=== PATIENT | female | born 1965 | race Caucasian/White ===

== ENCOUNTER 2016-08-12 14:50 | Inpatient (IN) | payer MEDICARE ==
[~2016-08-12] VITALS: Ht 152.4 cm; Wt 70.6 kg
[~2016-08-12 14:50] MED LIST: ADVAIR 250/5028 PUFF IN; ADVAIR DISK28 PUFFS IN; AMBIEN10 MG PO; AMITRIPTYLINE10 MG PO; AMLODIPINE BESY10 MG PO; ASPIRIN 81MG TA81 MG PO; ATORVASTATIN CA10 M1 PO; AVANDIA8 MG PO; AVPAK EXTENDED100 MG PO; BENAZEPRIL HYDR20 MG PO; CALCIUM WITH V1 EAC1 PO; CEFDINIR300 M1 PO; CYMBALTA60 MG PO; DALIRESP500 MCG PO; DILANTIN 50MG.50 MG PO; DILTIAZEM HCL90 MG PO; FUROSEMIDE 20MG20 MG PO; HUMULIN R100 UNITS/ SC; IPRATROPIUM BROM3 M1 IH; KEPPRA 500 MG500 MG PO; KEPPRA1000 MG PO; KLOR-CON 1010 MEQ PO; LASIX 20MG. TAB20 MG PO; LEVAQUIN750 MG PO; LOPRESSOR 25MG.25 MG PO; LYRICA150 M1 PO; LYRICA50 MG PO; MAG-OX 400MG T400 MG PO; MUCINEX1200 MG PO; NASACORT A55 MCG/ACT NS; OS-CAL 500500 M1 PO; OXYGEN IH; OXYGEN2 IH; Omeprazole20 MG PO; PEPCID 20MG TAB20 MG PO; POTASSIUM CHLO20 ME2 PO; PREDNISONE 20MG20 MG PO; PREDNISONE 5MG.5 MG PO; PREDNISONE20 MG PO; PROAIR HFA0.09 MG/AC IH; SIMVASTATIN20 MG PO; SINGULAIR 10 MG10 MG PO; SINGULAIR10 MG PO; SPIRIVA HA1 PUFF/INH IH; TESSALON PERLE100 M1 PO; THEOPHYLLINE200 M2 PO; THEOPHYLLINE400 MG PO; TORSEMIDE20 MG PO; ZITHROMAX Z PA250 MG PO; [UNRECOGNIZED DRUG - OTHER] PO
[2016-08-12 15:51] VITALS: BP 123/69
[2016-08-12 15:55] VITALS: BP 123/69
[2016-08-12 17:31] LABS: HEMOGLOBIN 12.7 g/dL (12.2-16.2); LYMPH # 0.7 K/mm3 (0.7-4.5); LYMPH % 8.5 % (10-50.0)
--- NOTE | 2016-08-12 17:48 | RADIOLOGY REPORT PS360 ---
CHEST(2 VIEWS-NOT PORTABLE) ORDERING PHYSICIAN : Drew Covarrubias MD PATIENT AGE: 51 years GENDER: Female INDICATION: chest symptomsR/O PNEUMONIA PROCEDURE: CHEST(2 VIEWS-NOT PORTABLE) COMPARISON: None available FINDINGS: AP portable upright chest compared to 08/10/2016 AP upright chest film 11 2008. The lungs appear better expanded and slightly clearer at the bases vs the most recent portable chest study 08/10/2016 However I believe there is some minimal residual atelectasis at medial right lung base & to lesser degree medial left lung base when compared back to 2008 portable chest film difficult to exclude minimal infiltrate at the medial right base but favor atelectasis and scarring Upper lung العلي appear stable with nothing definitely acute. Cardio megaly again noted. Tortuous aorta with prominent scoliosis again noted. Lateral view shows kyphosis with no focal pneumonia. Stable cardiomegaly. Old left rib and right rib fractures noted. IMPRESSION------- Lungs are better expanded and appear clearer at the bases than on 08/10/2016. Suspect minimal residual atelectasis and scarring at bases particularly the medial right lung base. Doubt but difficult to exclude minimal infiltrate 74 Prominent scoliosis distorts the chest. Tortuous aorta. Cardiomegaly.
[2016-08-12 18:00] LABS: NEUTROPHILS 85 % (42-76)
[2016-08-12 18:01] LABS: STOMATOCYTE 1+
[2016-08-12 20:40] VITALS: BP 121/80
[2016-08-12 21:03] VITALS: BP 121/80
--- NOTE | 2016-08-12 21:43 | PHARMACY CLINIC NOTE ---
Patient Demographics Patient Demographics Admission date: 08/12/16 Date: 08/12/16 Time: 2141 Allergies Coded Allergies: No Known Allergies (06/29/16) HEIGHT- FT: 5 IN: 0.00 K.818 VTE General Information Labs: Laboratory Tests 08/12 1707 Hematology Hgb (12.2 - 16.2 g/dL) 12.7 Hct (37.0 - 47.0 %) 36.7 L Plt Count (142 - 424 K/mm3) 276 Disclaimer The following section includes nursing documentation that has been pulled in for pharmacy review. Patient's VTE score: 4 Patient's VTE Risk: LOW RISK Clinical trial participant? No VTE prophylaxis [id number] VTE prophylaxis ordered? Yes Type of prophylaxis/treatment: SULAIMAN at [id number]
[2016-08-12] MEDS ORDERED: IRBESARTAN150 M2 PO (21:46)
--- NOTE | 2016-08-12 22:06 | CONSULT NOTE ---
See Addendum Standard Demographics Patient Demo Date of Consultation: 08/12/16 Referring Provider: Kane Covarrubias MD Reason for Consultation: SOA PRIMARY DIAGNOSIS: COPD EXACERBATION Problem list Problem list: 1. Normal coronary arteries, Cardiac cath, 07/2016 2. Severe COPD, chronic oxygen and prednisone therapy A. 8 yrs of tobacco use stopped 2000 3. Diabetes, insulin treated since 2005 4. Seizure Disorder, since 2012 5. Osteoporosis 6. HTN 7. CKD, stage 3 with Cr 1.4 and GFR of 39 History of present illness: History of present illness: 51 yo WF with severe COPD, diabetes and HTN was admitted for increasing SOB. Cardiology consulted for evaluation of possible CHF. Past Medical History: General: Hypertension Yes CVA No Seizures Yes TB No COPD Yes Asthma Yes Diabetes Yes Insulin Dependent Yes Insulin Pump No Angina No CO No Hyperlipidemia Yes Urinary No Cancer Yes Ulcers No MRSA No GB Disease No Other FREQUENT BRONCHITIS Past Surgical HX: Previous Surgery?Y X 2 APPY HYSTERECTOMY Hernia Repair Allergies Coded Allergies: No Known Allergies (06/29/16) Home medications: Active Scripts Device (Oxygen (Concentrator)) 1 LITER IH CONSTANT #2 DEV Ref 5 Prov: 06/30/16 Device (Oxygen, Portable) 1 LITER IH CONSTANT #2 DEV Ref 5 Prov: 06/30/16 Levofloxacin (Levaquin 750MG Tab) 750 MG PO DAILY #5 TAB Prov: 08/10/16 Benzonatate (Tessalon Perle) 100 MG PO TID #30 SGL Prov: 08/10/16 Reported Medications Levetiracetam (Keppra) 1,000 MG PO QHS Levetiracetam (Keppra 500 Mg Tablet) 750 MG PO 0900,1700 Furosemide (Furosemide) 20 MG PO BID #60 TABLET ALBUTEROL-IPRATROPIUM (Iprat-Albut 0.5-3(2.5) MG/3 Ml) 3 ML IH Q4HP Albuterol Sulfate (Proair Hfa) 1 PUFF IH Q4HP Irbesartan 150 MG PO DAILY #30 TAB Calcium Carbonate/Vitamin D3 (Calcium With Vit D Tablet) 1 EACH PO BID Roflumilast (Daliresp) 500 MCG PO DAILY ASPIRIN (Aspirin) 81 MG PO DAILY DULOXETINE HCL (Cymbalta 60MG) 60 MG PO DAILY Famotidine (Pepcid 20MG Tablet) 20 MG PO BID FLUTICASONE/SALMETEROL (Advair 250-50 Diskus) 1 PUFF IN BID Guaifenesin (Mucinex) 1,200 MG PO BID INSULIN REGULAR, HUMAN (Humulin R INSULIN 10ML Vial) 0 UNITS SC ACHS MAGNESIUM OXIDE (Magnesium Oxide) 400 MG PO BID Montelukast Sodium (Singulair 10MG) 10 MG PO QHS POTASSIUM CHL (Potassium Chloride) 20 MEQ PO DAILY Tiotropium [place] (Spiriva) 1 PUFF IH DAILY PHENYTOIN SODIUM EXTENDED (Phenytoin Sodium Extended) 100 MG PO BID #60 CER Metoprolol Tartrate (Lopressor) 25 MG PO BID #60 TAB Atorvastatin Calcium 10 MG PO QHS #12 TAB DILTIAZEM HCL (Diltiazem Hcl) 90 MG PO BID #60 TAB Pregabalin (Lyrica) 150 MG PO TID #90 CAPSULE Current Medications: Current Medications Methylprednisolone Sodium Succinate 0 .STK-MED ONE .ROUTE (DC) Acetaminophen 0 .STK-MED ONE PO (DC) Methylprednisolone Sodium Succinate 60 MG Q8 IV Albuterol/Ipratropium 3 ML Q6H6 INH Albuterol/Ipratropium 0 .STK-MED ONE INH (DC) Ceftriaxone Sodium 1 GM DAILY IV Sodium Chloride 50 ML Acetaminophen 650 MG Q4HP PRN PO Albuterol/Ipratropium 3 ML Q1HP PRN INH Azithromycin 500 MG 1300 IV Sodium Chloride 250 ML Ceftriaxone Sodium 1 GM Q24H IV (CAN) Sodium Chloride 50 ML Guaifenesin/Dextromethorphan 10 ML Q4HP PRN PO Influenza Virus Vaccine Quadrival 0.5 ML PRN PRN IM Methylprednisolone Sodium Succinate 125 MG ONCE ONE IV (DC) Nicotine 21 MG DAILYP PRN TD Sodium Chloride 10 ML PRN PRN IV Immunization HX DT/Tetanus Never Had Flu [id number] Pneumonia RECEIVED IN PAST TB Test in last year No Family history Family HX Family Hx Insignificant No Diabetes Yes CAD No Hypertension Yes Hyperlipidemia Yes Cancer Yes TB No Social Hx: Smoking HX Type Cigarettes Packs/day N/A Alcohol Alcohol: No Hx of Drug Use Drug Use? No Review of systems: Constitutional No: no symptoms reported. Respiratory see HPI, shortness of breath, SOB with excertion, SOB at rest. Cardiovascular No no symptoms reported Gastrointestinal/Abdominal No no symptoms reported Genitourinary No: no symptoms reported. Musculoskeletal No: no symptoms reported. Neurological Yes: seizure disorder. Exam: Admission Vital Signs: 1ST Vital Signs Result Date Time Pulse Ox 85 08/12 1538 O2 Delivery ROOM AIR 08/12 1538 O2 Flow Rate 2 08/12 1538 B/P 123/69 08/12 1551 Temp 98.4 08/12 1551 Pulse 77 08/12 1551 Resp 20 08/12 1551 Last Vital Signs: Vital Signs Result Date Time O2 Flow Rate 2 08/12 2150 Pulse Ox 94 08/12 2102 B/P 121/80 08/12 2102 Temp 98.5 08/12 2102 Pulse 76 08/12 2102 Resp 20 08/12 2102 O2 Delivery ROOM AIR 08/12 2048 Exam General appearance: alert, awake Cardiovascular: regular rate & rhythm Respiratory: diminished breath sounds, wheezing ABD: obese Extremities: moves all, edema Neuro: alert, intact, oriented Laboratory data: Laboratory Tests 08/12/16 1707: Creatine Kinase 58, CK-MB (CK-2) Rel Index 2.4, CK and CKMB Interp 1.4, Troponin I < 0.02 08/12/16 1707: Sodium 140, Potassium 4.1, Chloride 101, Carbon Dioxide 30, BUN 34 H, Creatinine 1.4 H, Estimated Creat Clear 52, Estimated GFR (MDRD) 39 L, Glucose 126 H, Calcium 9.5 08/12/16 1707: B-Natriuretic Peptide 7, WBC 7.8, RBC 3.99 L, Hgb 12.7, Hct 36.7 L, MCV 91.7, RDW 17.4, Plt Count 276, MPV 6.9 L, Gran % 86.1 H, Gran # 6.7, Total Counted 100, Lymphocytes % 8.5 L, Monocytes % 4.7, Eosinophils % 0.4, Basophils % 0.3, Neutrophils 85 H, Band Neutrophils 1, Lymphocytes (Manual) 8 L, Lymphocytes # 0.7, Monocytes (Manual) 6, Monocytes # 0.4, Eosinophils # 0.0, Basophils # 0.0, Platelet Estimate NORMAL, Hypochromasia 1+, Anisocytosis 1+, Stomatocytes 1+, PUBS MCHC 34.7, MCH 31.9 H, Mycoplasma pneumon IgM NON-REACTIVE Microbiology Date/Time Procedure - Status Source Growth 08/12 1706 Anaerobic Blood Culture - RECD BLOOD 08/12 1706 Aerobic Blood Culture - RECD BLOOD 08/12 1706 Anaerobic Blood Culture - RECD BLOOD 08/12 1706 Aerobic Blood Culture - RECD BLOOD 08/12 1543 Organism ID (Sequencing 2)(SADIQ) - ORD SPUTUM 08/12 1530 Sputum Culture - RES SPUTUM 08/12 1530 Gram Stain - RES SPUTUM Plan: Assessment: 1. Dyspnea likely due to COPD exacerbation. Clinically no evidence of CHF. 2. Normal coronaries by cath last month with normal LVEF. 3. HTN 4. Diabetes, insulin treated Recommendations: 1. BNP ordered 2. Will obtain 2D echo and doppler 3. Further recommendations pending above results. at 1434
[2016-08-12 23:24] VITALS: BP 119/71
[2016-08-13] VITALS (7 sets, daily range): BP systolic 97–146; BP diastolic 58–90
--- NOTE | 2016-08-13 08:58 | ACUTE CARE PROGRESS NOTE (QUA) ---
Progress Notes Subjective Date 08/13/16 Time 0856 Patient/family reports: shortness of breath Nursing reports: alert Objective Findings Laboratory Tests 08/13/16 0606: POC Glucose 173 H 08/13/16 0515: Creatine Kinase 37, CK-MB (CK-2) Rel Index 3.2, CK and CKMB Interp 1.2, Troponin I < 0.02 08/12/16 2315: Creatine Kinase 55, CK-MB (CK-2) Rel Index 2.4, CK and CKMB Interp 1.3, Troponin I < 0.02 08/12/16 170: Creatine Kinase 58, CK-MB (CK-2) Rel Index 2.4, CK and CKMB Interp 1.4, Troponin I < 0.02 08/12/161706: Sodium 140, Potassium 4.1, Chloride 101, Carbon Dioxide 30, BUN 34 H, Creatinine 1.4 H, Estimated Creat Clear 52, Estimated GFR (MDRD) 39 L, Glucose 126 H, Calcium 9.5 08/12/161706: B-Natriuretic Peptide 7, WBC 7.8, RBC 3.99 L, Hgb 12.7, Hct 36.7 L, MCV 91.7, RDW 17.4, Plt Count 276, MPV 6.9 L, Gran % 86.1 H, Gran # 6.7, Total Counted 100, Lymphocytes % 8.5 L, Monocytes % 4.7, Eosinophils % 0.4, Basophils % 0.3, Neutrophils 85 H, Band Neutrophils 1, Lymphocytes (Manual) 8 L, Lymphocytes # 0.7, Monocytes (Manual) 6, Monocytes # 0.4, Eosinophils # 0.0, Basophils # 0.0, Platelet Estimate NORMAL, Hypochromasia 1+, Anisocytosis 1+, Stomatocytes 1+, PUBS MCHC 34.7, MCH 31.9 H, Mycoplasma pneumon IgM NON-REACTIVE Microbiology 08/12 1706 BLOOD: Anaerobic Blood Culture - RECD 08/12 1706 BLOOD: Aerobic Blood Culture - RECD 08/12 1706 BLOOD: Anaerobic Blood Culture - RECD 08/12 1706 BLOOD: Aerobic Blood Culture - RECD 08/12 1543 SPUTUM: Organism ID (Sequencing 2)(SADIQ) - ORD 08/12 153 SPUTUM: Sputum Culture - RES 08/12 1530 SPUTUM: Gram Stain - RES Vital Signs Date Time Temp Pulse Resp B/P Pulse O2 O2 Flow FiO2 Ox Delivery Rate 08/13 0644 2 08/13 0644 97.6 107 18 129/90 97 OXYGEN 2 08/13 0703 2 08/13 0559 2 08/13 0549 95 OXYGEN 2 08/13 0445 2 08/13 0435 2 08/13 0435 97.6 81 20 118/69 96 ROOM AIR 08/13 0248 2 08/13 0129 2 08/13 0107 2 08/13 0041 94 OXYGEN 2 08/12 2326 2 08/12 2324 98.0 83 20 119/71 94 ROOM AIR 08/12 2323 2 08/12 2150 2 08/12 2103 2 08/12 210 98.5 76 20 121/80 94 2 08/12 2049 89 ROOM AIR 08/12 2040 2 08/12 2040 98.5 76 20 121/80 89 ROOM AIR / 1845 2 / 1555 77 / 1555 98.4 77 20 123/69 / 1555 86 ROOM AIR / 1551 98.4 77 20 123/69 86 ROOM AIR / 1549 2 08/12 1538 2 08/12 1538 85 ROOM AIR Current Medications Atorvastatin Calcium 10 MG QHS PO (UNV) Levetiracetam 1,000 MG QHS PO (UNV) Aspirin 81 MG DAILY PO (UNV) Diltiazem HCl 90 MG BID PO (UNVr) Duloxetine HCl 60 MG DAILY PO (UNV) Famotidine 20 MG BID PO (UNV) Furosemide 20 MG BID PO (UNV) Irbesartan 150 MG DAILY PO (UNV) Levetiracetam 750 MG 0900,1700 PO (UNV) Magnesium Oxide 400 MG BID PO (UNV) Metoprolol Tartrate 25 MG BID PO (UNV) Phenytoin Sodium 100 MG BID PO (UNV) Potassium Chloride 20 MEQ DAILY PO (UNV) Pregabalin 150 MG TID PO (UNV) Diagnostic Test (Pha) 1 EACH W/MEALS&HS FS Methylprednisolone Sodium Succinate 0 .STK-MED ONE .ROUTE (DC) Acetaminophen 0 .STK-MED ONE PO (DC) Insulin Human [rDNA origin] 0 .STK-MED ONE SC (DC) Insulin Human [rDNA origin] SEE ADMIN CRITERIA W/MEALS&HS SC Methylprednisolone Sodium Succinate 0 .STK-MED ONE .ROUTE (DC) Acetaminophen 0 .STK-MED ONE PO (DC) Methylprednisolone Sodium Succinate 60 MG Q8 IV Albuterol/Ipratropium 3 ML Q6H6 INH Albuterol/Ipratropium 0 .STK-MED ONE INH (DC) Ceftriaxone Sodium 1 GM DAILY IV Sodium Chloride 50 ML Acetaminophen 650 MG Q4HP PRN PO Albuterol/Ipratropium 3 ML Q1HP PRN INH Azithromycin 500 MG 1300 IV Sodium Chloride 250 ML Ceftriaxone Sodium 1 GM Q24H IV (CAN) Sodium Chloride 50 ML Guaifenesin/Dextromethorphan 10 ML Q4HP PRN PO Influenza Virus Vaccine Quadrival 0.5 ML PRN PRN IM Methylprednisolone Sodium Succinate 125 MG ONCE ONE IV (DC) Nicotine 21 MG DAILYP PRN TD Sodium Chloride 10 ML PRN PRN IV Last VS-Temp:97.6 B/P:129/90 Pulse:107 Resp:18 SaO2:97 OXYGEN Last weight lbs:154 oz:2 K.91 Method:Bed Scales Exam General appearance: normal appearance, alert, awake, no acute distress Eyes: normal exam ENT: normal exam Neck: normal inspection, full range of motion Cardiovascular: normal exam, regular rate & rhythm Respiratory: dyspnea, on oxygen, rhonchi, wheezing ABD: normal exam, soft Genitourinary: normal voiding & quantity Extremities: normal exam, moves all Musculoskeletal: normal exam Skin: normal exam, intact, warm Neuro: normal exam, alert, intact, oriented Reviewed: allergies, medications, vital signs, lab results, radiology report Assessment/Plan Problem List 1. Chronic obstructive pulmonary disease with (acute) exacerbation Patient condition Stable Plan: continue current care This inpt stay is expected to cross 2 MNs from start of care Yes Comments: rounded with gainey. michelle ortiz in am at 0858
[2016-08-14 00:01] VITALS: BP 129/68
[2016-08-14 04:35] VITALS: BP 104/54
[2016-08-14] MEDS ORDERED: ZITHROMAX Z PA250 MG PO (08:39)
[2016-08-14] MEDS ORDERED: PREDNISONE 20MG20 MG PO (08:39)
--- NOTE | 2016-08-14 08:42 | ACUTE CARE PROGRESS NOTE (QUA) ---
Progress Notes Subjective Date 08/14/16 Time 0840 Patient/family reports: feeling better, no complaints Nursing reports: alert, no complaints Objective Findings Laboratory Tests 08/14/16 0625: POC Glucose 137 H 08/13/16 2146: POC Glucose 168 H 08/13/16 1652: POC Glucose 127 H 08/13/16 1219: POC Glucose 119 H Vital Signs Date Time Temp Pulse Resp B/P Pulse O2 O2 Flow FiO2 Ox Delivery Rate 08/14 0625 2 08/14 0554 2 08/14 0554 97 OXYGEN 2 08/14 0457 2 08/14 0435 98.7 71 22 104/54 98 OXYGEN 08/14 0302 2 08/14 0043 2 08/14 0001 98.7 68 20 129/68 95 OXYGEN 08/13 2314 85 ROOM AIR 08/13 2310 2 08/13 2130 2 08/13 2130 98.4 90 22 146/72 95 2 08/13 1958 98.4 90 22 146/72 95 OXYGEN / 1900 2 08/13 1820 2 08/13 1820 96 OXYGEN 2 08/13 1700 2 08/13 1603 98.6 88 20 97/58 99 OXYGEN / 1500 2 / 1300 2 / 1159 98.1 87 20 141/84 98 OXYGEN 08/13 1100 2 / 1000 98.6 88 20 97/58 99 2 / 0900 2 Current Medications Pregabalin 0 .STK-MED ONE PO (DC) Pregabalin 0 .STK-MED ONE PO (DC) Atorvastatin Calcium 10 MG QHS PO Levetiracetam 1,000 MG QHS PO Acetaminophen 0 .STK-MED ONE PO (DC) Pregabalin 0 .STK-MED ONE PO (DC) Pregabalin 0 .STK-MED ONE PO (DC) Methylprednisolone Sodium Succinate 0 .STK-MED ONE .ROUTE (DC) Pregabalin 0 .STK-MED ONE PO (DC) Pregabalin 0 .STK-MED ONE PO (DC) Diltiazem HCl 30 MG BID PO Aspirin 81 MG DAILY PO Duloxetine HCl 60 MG DAILY PO Famotidine 20 MG BID PO Furosemide 20 MG BID PO Irbesartan 150 MG DAILY PO Levetiracetam 750 MG 0900,1700 PO Magnesium Oxide 400 MG BID PO Metoprolol Tartrate 25 MG BID PO Phenytoin Sodium 100 MG BID PO Potassium Chloride 20 MEQ DAILY PO Pregabalin 100 MG TID PO Pregabalin 50 MG TID PO Diagnostic Test (Pha) 1 EACH W/MEALS&HS FS Insulin Human [rDNA origin] SEE ADMIN CRITERIA W/MEALS&HS SC Methylprednisolone Sodium Succinate 60 MG Q8 IV Albuterol/Ipratropium 3 ML Q6H6 INH Ceftriaxone Sodium 1 GM DAILY IV Sodium Chloride 50 ML Acetaminophen 650 MG Q4HP PRN PO Albuterol/Ipratropium 3 ML Q1HP PRN INH Azithromycin 500 MG 1300 IV Sodium Chloride 250 ML Guaifenesin/Dextromethorphan 10 ML Q4HP PRN PO Influenza Virus Vaccine Quadrival 0.5 ML PRN PRN IM Nicotine 21 MG DAILYP PRN TD Sodium Chloride 10 ML PRN PRN IV Last VS-Temp:98.7 B/P:104/54 Pulse:71 Resp:22 SaO2:97 OXYGEN Last weight lbs:155 oz:9 K.562 Method:Bed Scales Exam General appearance: normal appearance, alert, awake, no acute distress Eyes: normal exam ENT: normal exam Neck: normal inspection, full range of motion Cardiovascular: normal exam, regular rate & rhythm Respiratory: normal exam, on oxygen, wheezing ABD: normal exam, soft Genitourinary: normal voiding & quantity Extremities: normal exam, moves all, warm Musculoskeletal: normal exam Skin: normal exam, intact, warm Neuro: normal exam, alert, intact, oriented Reviewed: allergies, medications, vital signs, lab results, radiology report Assessment/Plan Problem List 1. Chronic obstructive pulmonary disease with (acute) exacerbation Patient condition Stable Plan: initiate discharge plan This inpt stay is expected to cross 2 MNs from start of care Yes Comments: ROUNDED WITH MALKA SPARKS DC TODAY at 0842
--- NOTE | 2016-08-14 08:46 | DISCHARGE SUMMARY STANDARD ---
Demographics Admit date: 08/12/16 Discharge date: 08/14/16 History of present illness History of present illness 51 yo WF with severe COPD, diabetes and HTN was admitted for increasing SOB. Cardiology consulted for evaluation of possible CHF.Pt was seen in office o2 sat 86%, SOB AND TACHYCARDIA. Was seen in ed 08/10/16 placed on levaquin but presents to the office with no improvment. Pt failed out pt therapy. Hospital Course Hospital Course: copd- change antibotics, iv steroids, breathing treatments,cardiology consult. pt states she feels better today and would like to be dc home Discharge diagnoses Problem List 1. Chronic obstructive pulmonary disease with (acute) exacerbation Medications Medications: Discharge meds are as noted. Follow up Follow up in office in: 7 DAYS with: Sedrick DE LA TORRE,Drew Gutierrez Comment: rounded with sedrick. follow up in one week in office. at 0845
[2016-08-14 09:01] VITALS: BP 138/77
[2016-08-14 10:01] VITALS: BP 138/77
[2016-09-01] MEDS ORDERED: PEPCID 20MG TAB20 MG PO (21:03)
[2016-09-01] MEDS ORDERED: CYMBALTA60 MG PO (21:03)
[2016-09-01] MEDS ORDERED: DALIRESP500 MCG PO (21:03)
[2016-09-01] MEDS ORDERED: ADVAIR 250/5028 PUFF IN (21:04)
[2016-09-01] MEDS ORDERED: LASIX20 MG PO (21:04)
[2016-09-01] MEDS ORDERED: MUCINEX1200 MG PO (21:05)
[2016-09-01] MEDS ORDERED: KEPPRA 500 MG500 MG PO ×2 (21:06→21:07)
[2016-09-01] MEDS ORDERED: LYRICA 100 MG100 MG PO (21:07)
[2016-09-01] MEDS ORDERED: MAG-OX 400MG T400 MG PO (21:08)
[2016-09-01] MEDS ORDERED: POTASSIUM CHLO20 ME2 PO (21:09)
[2016-09-01] MEDS ORDERED: PREDNISONE 5MG.5 MG PO (21:09)
[2016-09-02] MEDS ORDERED: ZITHROMAX Z PA250 MG PO (00:52)
[2016-09-02] MEDS ORDERED: PREDNISONE 20MG20 MG PO (00:52)
[2016-09-20] MEDS ORDERED: ALLOPURINOL100 MG PO (20:43)
[2016-09-21] MEDS ORDERED: PREDNISONE 5MG.5 MG PO (00:47)
[2016-09-21] MEDS ORDERED: LEVETIRACETAM500 M1 FT (00:49)
[2016-09-21] MEDS ORDERED: FAMOTIDINE 20MG20 MG PO (00:50)
[2016-09-21] MEDS ORDERED: ALLOPURINOL100 M1 PO (00:52)
[2016-09-21] MEDS ORDERED: SPIRIVA HA1 PUFF/INH IH (00:53)
[2016-09-21] MEDS ORDERED: DILTIAZEM HCL90 M1 PO (00:56)
[2016-09-21] MEDS ORDERED: FUROSEMIDE20 MG PO (00:57)
[2016-09-21] MEDS ORDERED: ATORVASTATIN CA10 MG PO (00:59)
[2016-09-21] MEDS ORDERED: K-DUR 20MEQ TA20 MEQ PO (01:00)
[2016-09-21] MEDS ORDERED: KEPPRA 500 MG500 MG PO (01:01)
[2016-09-21] MEDS ORDERED: NATURE'S BLEND500 M3 PO (01:02)
[2016-09-21] MEDS ORDERED: MAG-OX 400MG T400 MG PO (01:03)
[2016-09-21] MEDS ORDERED: SINGULAIR10 MG PO (01:04)
[2016-09-21] MEDS ORDERED: PHENYTOIN 100M100 MG PO (01:05)
[2016-09-21] MEDS ORDERED: METOPROLOL25 MG PO (01:06)
[2016-09-21] MEDS ORDERED: DULOXETINE 30MG30 MG FT (01:08)
[2016-09-21] MEDS ORDERED: ADULT LOW DOSE81 MG PO (01:10)
[2016-09-21] MEDS ORDERED: IRBESARTAN150 MG PO (01:10)
[2016-09-21] MEDS ORDERED: [UNRECOGNIZED DRUG - OTHER] PO (01:12)
[2016-09-21] MEDS ORDERED: ZITHROMAX Z PA250 MG PO (15:34)
[2016-09-21] MEDS ORDERED: PREDNISONE 20MG20 MG PO (15:34)
== END 2016-08-14 10:20 | disposition home or self-care (01) | DRG 192 ==
LOC: 2ND 14:50
PROVIDERS: Emergency Medicine
DX: J44.1 Chronic obstructive pulmonary disease with (acute) exacerbation (principal); Z99.81 Dependence on supplemental oxygen; E11.9 Type 2 diabetes mellitus without complications; Z79.4 Long term (current) use of insulin; I10 Essential (primary) hypertension; G40.909 Epilepsy, unspecified, not intractable, without status epilepticus
CPT/HCPCS: J0456

== ENCOUNTER 2017-04-14 12:16 | Observation (INO) | payer MEDICARE, MEDICAID ==
[~2017-04-14] VITALS: Ht 152.4 cm; Wt 65.5 kg
[~2017-04-14 12:16] MED LIST changes: +ADULT LOW DOSE81 MG PO; +ALLOPURINOL100 M1 PO; +ALLOPURINOL100 MG PO; +APAP ARTHRITIS650 MG PO; +ATORVASTATIN CA10 MG PO; +DILTIAZEM HCL90 M1 PO; +DULOXETINE 30MG30 MG FT; +FAMOTIDINE 20MG20 MG PO; +FUROSEMIDE20 MG PO; +IBUPROFEN400 MG PO; +IPRATROPIUM BROM3 M2 IH; +IRBESARTAN150 M2 PO; +IRBESARTAN150 MG PO; +K-DUR 20MEQ TA20 MEQ PO; +KLONOPIN 0.5MG0.5 MG NG; +LASIX20 MG PO; +LEVAQUIN500 MG PO; +LYRICA 100 MG100 MG PO; +METOPROLOL25 MG PO; +MUCINEX ER600 MG PO; +NATURE S BLEND PO; +PHENYTOIN 100M100 MG PO; +PREDNISONE 10MG10 MG PO; +TYLENOL WITH CO1 TA1 PO
[2017-04-14 12:19] VITALS: BP 165/115
[2017-04-14 12:59] LABS: LYMPH # 0.9 K/mm3 (0.7-4.5); LYMPH % 9.9 % (10-50.0)
[2017-04-14 13:05] LABS: HEMOGLOBIN 16.2 g/dL (12.2-16.2)
--- NOTE | 2017-04-14 13:08 | Emergency Room Report ---
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 N Clinical Suspician of Infection? N Mental Status: 1 - Regular (Normal Baseline) Sepsis Risk:Possible Sepsis Risk Have you (or family members/close friends) recently traveled outside the [place]? N If Yes, where/when: Have you had exposure to infectious disease within the past month? N TB? Other? Specify: Comment The patient is a vague historian. She is brought in by ambulance with a couple of different complaints. She states that she is hurting on her RIGHT side in the hip area for the past month since a fall. She was seen in this emergency room at that time, and has pain ever since. 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 She says she is able to ambulate. She uses a walker. She states that her home health care nurse came today and didn't like the way she looked, with her pain and also with the way she was breathing. The patient states that she does feel more short of breath and usual. She also says that she has a cough for the past "half of a month". She denies fever. She does report that she has sputum production. She says that she had some chest pain this morning. She is on oxygen at home. She is on prednisone 10 mg a day. She uses a nebulizer , but says she did not use it today because she has not been out of bed for 3 days. She says she does not currently have a family physician, but a visiting physician takes care of her. She says it was the visiting nurse who sent her in today. She used to see Dr. Covarrubias, but says that they sent her to hospice. It sounds as if she was put in hospice for end-stage chronic obstructive pulmonary disease. She says that she was discharged from hospice on 17 March because they told her she was not terminal. ALLERGIES Coded Allergies: sulfamethoxazole (From BACTRIM) (03/08/17) trimethoprim (From BACTRIM) (03/08/17) Home Medications Active Scripts Device (Oxygen (Concentrator)) 1 LITER IH CONSTANT #2 DEV Ref 5 Prov: 06/30/16 Device (Oxygen, Portable) 1 LITER IH CONSTANT #2 DEV Ref 5 Prov: 06/30/16 Clonazepam (Klonopin 0.5MG) 0.5 MG NG BIDP PRN ANXIETY #20 TAB Prov: 11/02/16 Reported Medications Albuterol Sulfate (Proair Hfa) 1-2 PUFF IH Q4HP PRN BREATHING ASPIRIN (Aspirin) 81 MG PO DAILY Levetiracetam (Keppra 500 Mg Tablet) 750 MG PO 0900,1700 Montelukast Sodium (Singulair 10MG) 10 MG PO QHS POTASSIUM CHL (Potassium Chloride) 20 MEQ PO DAILY Tiotropium [place] (Spiriva) 1 PUFF IH DAILY Furosemide (Furosemide) 20 MG PO BID #60 TABLET Metoprolol Tartrate (Lopressor) 25 MG PO BID #60 TAB DULOXETINE HCL (Cymbalta 60MG) 60 MG PO DAILY Famotidine (Pepcid 20MG Tablet) 20 MG PO QHS FLUTICASONE/SALMETEROL (Advair 250-50 Diskus) 1 PUFF IN BID Allopurinol 100 MG PO BID ATORVASTATIN CALCIUM (ATORVASTATIN 10MG) 10 MG PO MWF CALCIUM CITRATE/VITAMIN D3 (Calcium Citrate - Vit D Caplet) 1 TAB PO BID Guaifenesin (Mucinex) 600 MG PO BIDP PRN CHEST CONGESTION IPRATROPIUM/ALBUTEROL SULFATE (Iprat-Albut 0.5-3(2.5) MG/3 Ml) 3 ML IH BID IBUPROFEN MICRONIZED (IBUPROFEN 400MG) 400 MG PO Q8HP PRN PAIN Acetaminophen (Arthritis Pain Relief) 650 MG PO PRN-MRX1 PRN PAIN History Medical History General CAD? No Angina: No MS: No Hypertension? Yes Hyperlipidemia? Yes CHF? No DVT? No PE? No COPD? Yes Asthma? Yes Anemia? No GERD? No Gastric ulcers? No GI Bleed? No Hernia? Yes Thyroid Problems? No Hypothyroidism? No CVA? No Seizures? Yes Diabetes? Yes Insulin Dependent: Yes Insulin Pump: No Home FSBS? Yes Renal Insuffiency? No End Stage Renal Disease? No UTI? No Stones? No BPH? No GB Disease: No Nephritic Syndrome? No Asplenia? No Hepatitis? No Sickle Cell Disease? No Arthritis? No Migraines? No Cataracts? No Glaucoma? No MRSA? No HIV? No TB? No Anxiety? Yes Depression? Yes Cancer? Yes Site: SKIN More? 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 X-rays were negative at that time. Review of Systems All Other Systems Reviewed and Negative Constitutional denies no symptoms reported, denies fever Respiratory cough, shortness of breath Cardiovascular chest pain Musculoskeletal joint pain Physical Exam Vital Signs Vital Signs Date Time Temp Pulse Resp B/P Pulse O2 O2 Flow FiO2 Ox Delivery Rate 04/14 1334 98.1 102 16 157/93 96 04/14 1332 16 04/14 1229 92 04/14 1219 98.1 110 22 165/115 92 General Appearance Appears older than stated age., tachypneic. Eye Exam - bilateral eye normal exam, bilateral eye PERRL, bilateral eye EOMI Ear, Nose, Throat hearing grossly normal, normal ENT inspection Neck normal inspection, non-tender, supple, full range of motion Respiratory Status Yes: trachea midline, chest symmetrical, non productive cough. No: respiratory distress. Lung Sounds bilateral: rhonchi. Cardiovascular normal exam, regular rate/rhythm, no peripheral edema, no gallop, no JVD, no murmur, no rub, normal peripheral pulses Peripheral Pulses Pulses normal Yes Gastrointestinal normal bowel sounds, normal exam, non tender, soft, no organomegaly Back normal inspection, no CVA tenderness, no vertebral tenderness Extremities tender RIGHT hip, and complains of pain with movement. No shortening or malrotation or deformity. Distal neurovascular status intact. Neurologic alert, oriented x 3 Mental status normal mood/affect Skin intact, normal color, warm/dry Medical Decision Making LABS/Meds/Orders Pt receiving controlled substance in ED? No Aurelio was queried for this patient? Yes Comment [id number] rxs. patient was on morphine, gabapentin, clonazepam while in hospice. last rxs 01/28/17. Results/Orders Laboratory Tests 04/14/17 1240: Lactic Acid 1.2 04/14/17 1240: Creatine Kinase 50, CK-MB (CK-2) Rel Index 2.4, CK and CKMB Interp 1.2, Troponin I < 0.02 04/14/17 1240: Sodium 136, Potassium 3.7, Chloride 97 L, Carbon Dioxide 33 H, BUN 20 H, Creatinine 1.1 H, Estimated Creat Clear 67, Estimated GFR (MDRD) 52 L, Glucose 132 H, Calcium 9.7, Total Bilirubin 0.5, AST 12 L, ALT 32, Alkaline Phosphatase 124 H, Total Protein 7.9, Albumin 3.6, Globulin 4.3 H, Albumin/ Globulin Ratio 0.8 L, WBC 9.1, RBC 5.76 H, Hgb 16.2, Hct 51.6 H, MCV 89.6, RDW 16.7, Plt Count 274, MPV 8.0, Gran % 82.4 H, Gran # 7.5, Lymphocytes % 9.9 L, Monocytes % 6.2, Eosinophils % 1.3, Basophils % 0.3, Lymphocytes # 0.9, Monocytes # 0.6, Eosinophils # 0.1, Basophils # 0.0, PUBS MCHC 31.3 L, MCH 28.1 Current Medication Orders Sig/Aminata Start time Last Medication Dose Route Stop Time Status Admin Azithromycin 500 MG ONCE ONE 04/14 1400 AC 04/14 Sodium Chloride 250 ML IV 04/14 1459 1415 Albuterol/Ipratropium 3 ML ONCE ONE 04/14 1345 DC 04/14 INH 04/14 1346 1422 Ketorolac 30 MG ONCE ONE 04/14 1345 DC 04/14 Tromethamine IV 04/14 1346 1332 Methylprednisolone 125 MG ONCE ONE 04/14 1345 DC 04/14 Sodium Succinate IV 04/14 1346 1415 Sodium Chloride 10 ML PRN PRN 04/14 1230 AC IV 04/15 1227 Orders Procedure Date/time Status RT Pulse Oximetry, Provide 04/14 142 Active RT O2 Therapy, Monitor/[place]i 04/14 142 Active RT Aerosol Treatment, Provide 04/14 142 Active RT Aerosol Treatment, Provide 04/14 1423 Active Decision to admit 04/14 142 Active RT REQUEST DUONEB 04/14 1342 Active ELECTROCARDIOGRAM REQUEST 04/14 1248 Active CARDIAC ENZYMES 04/14 1248 Complete IV SALINE LOCK 04/14 1228 Active OXYGEN PER NURSE 04/14 1228 Active CULTURE, BLOOD 04/14 1228 Active LACTIC ACID 04/14 1228 Complete CBC WITH AUTO DIFF 04/14 122 Complete CHEM 12 PROFILE 04/14 122 Complete [facility] 04/14 UNK Active CM/EKG CM/EKG Comments EKG interpreted by Jaziel Carlton MD: Rhythm: sinus Rate: 100 [place]: normal Ectopy: Premature atrial contractions Conduction: normal ST Segment Changes: none T Wave Changes: none Q Waves: none No evidence of acute ischemia or injury Baseline artifact present, but I consider the EKG adequate for accurate interpretation. Progress - 2:20 PM: I have discussed the case with Dr. Greer who agrees to admit the patient to the hospital. We discussed the patient's clinical information, including history, exam, laboratory and radiology results and ED course. Per hospital procedure, I will write temporary bridge inpatient orders on the patient. Specific orders requested by the admitting physician: Nebulizer treatments, steroids. Toradol for pain. Departure Departure Disposition Still a Patient Clinical Impression Primary Impression: Chronic obstructive pulmonary disease with (acute) exacerbation Secondary Impressions: Right hip pain Condition STABLE Referrals Marci DE LA TORRE,Drew Gutierrez (Family) ED Critical Care Critical Care No
--- NOTE | 2017-04-14 13:40 | RADIOLOGY REPORT PS360 ---
CHEST-PORTABLE COMPARISON: Portable upright chest 12/16/2016 HISTORY: Cough and shortness of breath TECHNIQUE: Portable upright chest FINDINGS: The lung العلي are fairly well-expanded and appear clear of infiltrate. There is prominent dextroscoliotic curvature of the lower thoracic spine. There are old healed rib fractures bilaterally. There is borderline cardiomegaly however the vascularity is normal. IMPRESSION: Nonacute chest findings
--- NOTE | 2017-04-14 13:42 | RADIOLOGY REPORT PS360 ---
HIP RT 2-3V W/PELVIS IF PERFOR COMPARISON: Pelvis and right hip 03/08/2017 HISTORY: Right hip pain, recent fall TECHNIQUE: AP pelvis, cone-down AP and frog views right hip FINDINGS: The iliac bones and. Bones appear intact. Both hips are normally articulated with no evidence of fracture. There is normal range of motion the right hip. IMPRESSION: Grossly negative pelvis and right hip
[2017-04-14 15:51] VITALS: BP 161/102
[2017-04-14] MEDS ORDERED: HYDROXYZINE HCL25 M1 PO (15:58)
[2017-04-14] MEDS ORDERED: HUMALOG100 U/ML SC (17:02)
[2017-04-14 18:02] VITALS: BP 158/88
[2017-04-14 19:45] VITALS: BP 119/71
[2017-04-14 20:05] VITALS: BP 119/71
[2017-04-15 03:50] VITALS: BP 136/82
--- NOTE | 2017-04-15 07:13 | HISTORY AND PHYSICAL REPORT ---
Demographics: Admit date: 04/14/17 Chief complaint: Weakness and shortness of breath PRIMARY DIAGNOSIS: COPD Allergies: Coded Allergies: sulfamethoxazole (From BACTRIM) (03/08/17) trimethoprim (From BACTRIM) (03/08/17) History of present illness: History of present illness: 52-year-old female with known chronic obstructive pulmonary disease previously under the care of hospice presented to the emergency department because of increasing weakness with mild increase in shortness of breath over the preceding 3 days. Patient had been unable to get out of bed for 3 days due to just not feeling well. She did endorse mild increase in dyspnea above baseline as well as mild cough with minimal sputum production. She had not had any fevers. Workup in the emergency department revealed a tachypneic 52-year-old female with abnormal lung sounds. Patient was admitted for chronic obstructive pulmonary disease exacerbation. Patient was previously under the care of hospice but do to failure to decline patient was discharged from hospice one month ago. She is currently rolled in the [facility]. To You program which allows visiting nurse practitioners to come and treat her. She was actually visited by a nurse yesterday and sent to the emergency department because the nurse "did not like the way she looked". Patient no longer smokes and quit in 2000. She lives with her . Past medical history: Family HX Family Hx Insignificant No Diabetes Yes CAD No Hypertension Yes Hyperlipidemia Yes Cancer Yes TB No Immunization HX DT/Tetanus Unknown Flu 2015-FSN Pneumonia Received In Past TB Test in last year No General CAD? No Angina: No RI: No Hypertension? Yes Hyperlipidemia? Yes CHF? No DVT? No PE? No COPD? Yes Asthma? Yes Anemia? No GERD? No Gastric ulcers? No GI Bleed? No Hernia? Yes Thyroid Problems? No Hypothyroidism? No CVA? No Seizures? Yes Diabetes? Yes Insulin Dependent: Yes Insulin Pump: No Home FSBS? Yes Renal Insuffiency? No UTI? No Stones? No BPH? No GB Disease: No Nephritic Syndrome? No Asplenia? No Hepatitis? No Sickle Cell Disease? No Arthritis? No Migraines? No Cataracts? No Glaucoma? No MRSA? No HIV? No TB? No Anxiety? Yes Depression? Yes Cancer? Yes Site: SKIN More? No Past Surgical HX Previous Surgery?Y X 2 APPY HYSTERECTOMY Hernia Repair SKIN CANCER REMOVAL X2 Current home meds: Active Scripts Device (Oxygen (Concentrator)) 1 LITER IH CONSTANT #2 DEV Ref 5 Prov: 06/30/16 Device (Oxygen, Portable) 1 LITER IH CONSTANT #2 DEV Ref 5 Prov: 06/30/16 Clonazepam (Klonopin 0.5MG) 0.5 MG NG BIDP PRN ANXIETY #20 TAB Prov: 11/02/16 Reported Medications Albuterol Sulfate (Proair Hfa) 1-2 PUFF IH Q4HP PRN BREATHING ASPIRIN (Aspirin) 81 MG PO DAILY Levetiracetam (Keppra 500 Mg Tablet) 750 MG PO 0900,1700 Montelukast Sodium (Singulair 10MG) 10 MG PO QHS POTASSIUM CHL (Potassium Chloride) 20 MEQ PO DAILY Furosemide (Furosemide) 20 MG PO BID #60 TABLET Metoprolol Tartrate (Lopressor) 25 MG PO BID #60 TAB DULOXETINE HCL (Cymbalta 60MG) 60 MG PO DAILY Famotidine (Pepcid 20MG Tablet) 20 MG PO QHS FLUTICASONE/SALMETEROL (Advair 250-50 Diskus) 1 PUFF IN BID Allopurinol 100 MG PO BID CALCIUM CITRATE/VITAMIN D3 (Calcium Citrate - Vit D Caplet) 1 TAB PO BID Guaifenesin (Mucinex) 600 MG PO BIDP PRN CHEST CONGESTION IPRATROPIUM/ALBUTEROL SULFATE (Iprat-Albut 0.5-3(2.5) MG/3 Ml) 3 ML IH BID HYDROXYZINE HCL (Hydroxyzine HCl) 25 MG PO DAILY #120 Insulin Lispro, Recombinant (Humalog 100 UNITS/ML 10ML) 0 UNITS SC ACHS IBUPROFEN MICRONIZED (IBUPROFEN 400MG) 400 MG PO Q8HP PRN PAIN Acetaminophen (Arthritis Pain Relief) 650 MG PO PRN-MRX1 PRN PAIN Social Hx: Smoking HX Tobacco Yes Type Cigarettes Packs/day < 1 PACK Are you/the child exposed to second-hand smoke: No Alcohol Alcohol: No Hx of Drug Use Drug Use? No Patien't marital status is Patient's support system is fair Review of systems: Constitutional see HPI. Respiratory see HPI. Cardiovascular see HPI Gastrointestinal/Abdominal no symptoms reported Genitourinary no symptoms reported. Musculoskeletal see HPI. Neurological Yes: see HPI. Exam: Admission vital signs: 1ST Vital Signs Result Date Time Pulse Ox 92 04/14 1219 B/P 165/115 04/14 1219 Temp 98.1 04/14 1219 Pulse 110 04/14 1219 Resp 22 04/14 1219 O2 Flow Rate 2 04/14 1526 O2 Delivery OXYGEN 04/14 1551 Vital Signs Date Time Temp Pulse Resp B/P Pulse O2 O2 Flow FiO2 Ox Delivery Rate 04/15 0629 2 04/15 0629 95 OXYGEN 2 04/15 0558 2 04/15 0450 2 04/15 0350 2 04/15 0350 98.1 66 18 136/82 98 OXYGEN 2 04/15 0300 2 04/15 0155 2 04/15 0100 2 04/15 0000 2 Exam General appearance: awake, pursed lip breathing Eyes: anicteric Neck: no carotid bruit Cardiovascular: regular rate & rhythm Respiratory: breath sounds are distant. Expiratory rhonchi are heard anteriorly and posteriorly. Minimal wheezing. ABD: soft, no tenderness Plan: Problem List 1. COPD exacerbation 2. Diabetes mellitus 3. Right hip pain Plan: Patient has been admitted and IV Solu-Medrol will be continued with frederick nebs. Continue IV azithromycin. Patient was instructed to sit in the chair today as well as ambulate within the room. at 0713
--- NOTE | 2017-04-15 07:30 | PHARMACY CLINIC NOTE ---
Patient Demographics Patient Demographics Admission date: 04/14/17 Date: 04/15/17 Time: 07 Allergies Coded Allergies: sulfamethoxazole (From BACTRIM) (03/08/17) trimethoprim (From BACTRIM) (03/08/17) HEIGHT- FT: 5 IN: 0.00 K.516 VTE General Information Labs: Laboratory Tests 04/14 1240 Hematology Hgb (12.2 - 16.2 g/dL) 16.2 Hct (37.0 - 47.0 %) 51.6 H Plt Count (142 - 424 K/mm3) 274 Disclaimer The following section includes nursing documentation that has been pulled in for pharmacy review. Patient's VTE score: 3 Patient's VTE Risk: MOD RISK Clinical trial participant? No VTE prophylaxis [id number] VTE prophylaxis ordered? Yes Type of prophylaxis/treatment: SULAIMAN at 0730
[2017-04-15 07:55] VITALS: BP 129/70
[2017-04-15] MEDS ORDERED: ATORVASTATIN CA10 MG PO (10:43)
[2017-04-15] MEDS ORDERED: DILTIAZEM HCL90 M1 PO (10:45)
[2017-04-15] MEDS ORDERED: PREDNISONE 10MG10 MG PO (10:51)
[2017-04-15] MEDS ORDERED: AVPAK EXTENDED100 MG PO (10:53)
[2017-04-15] MEDS ORDERED: KEPPRA1000 MG PO (11:28)
[2017-04-15] MEDS ORDERED: MAG-OX 400MG T400 MG PO (11:29)
[2017-04-15] MEDS ORDERED: SPIRIVA HA1 PUFF/INH IH (11:31)
[2017-04-15] MEDS ORDERED: AVAPRO 150MG T150 MG PO (11:32)
[2017-04-15 11:38] VITALS: BP 129/70
[2017-04-15 16:19] VITALS: BP 114/67
[2017-04-15 19:40] VITALS: BP 120/66
[2017-04-15] MEDS ORDERED: AVPAK AZITHROM250 MG PO (20:28)
[2017-04-15] MEDS ORDERED: PREDNISONE 20MG20 MG PO (20:29)
[2017-04-16 03:58] VITALS: BP 115/63
--- NOTE | 2017-04-16 06:23 | Discharge Summary ---
Demographics Admit date: 04/14/17 Discharge date: 04/16/17 Discharge diagnoses Problem List 1. COPD exacerbation 2. Diabetes mellitus 3. Right hip pain History of present illness History of present illness 52-year-old female with known chronic obstructive pulmonary disease previously under the care of hospice presented to the emergency department because of increasing weakness with mild increase in shortness of breath over the preceding 3 days. Patient had been unable to get out of bed for 3 days due to just not feeling well. She did endorse mild increase in dyspnea above baseline as well as mild cough with minimal sputum production. She had not had any fevers. Workup in the emergency department revealed a tachypneic 52-year-old female with abnormal lung sounds. Patient was admitted for chronic obstructive pulmonary disease exacerbation. Patient was previously under the care of hospice but do to failure to decline patient was discharged from hospice one month ago. She is currently rolled in the [facility].D. To You program which allows visiting nurse practitioners to come and treat her. She was actually visited by a nurse yesterday and sent to the emergency department because the nurse "did not like the way she looked". Patient no longer smokes and quit in 2000. She lives with her . Patient was admitted and placed on intravenous steroids with frequent aerosols. Patient was never hypoxic as she uses supplemental oxygen at home. Over the course of 48 hours aeration improved, tachypnea resolved. Patient still had mild wheezing on the day of discharge. She will be discharged home to continue another week of steroids as well as additional azithromycin. Patient will contact her primary care providers via phone for follow-up. Medications Medications: Discharge meds are as noted. Follow up Follow up in office in: 1 DAY with: URBAN CUBA at 0622
[2017-04-16 07:22] VITALS: BP 111/64
[2017-04-16 08:16] VITALS: BP 111/64
[2017-04-16 15:26] VITALS: BP 121/83
[2017-04-16 18:25] VITALS: BP 121/83
--- OUTSIDE RECORDS SUMMARY | 2017-04-17 10:35 | External Medical Summary Rpt | CCD ---
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 PERSONAL 12-03-2007 HISTORY OF [place] OTHER MED CTR SPECIFIED DISEASES 3970 DISEASES OF 11-25-2007 TRICUSPID [place] VALVE [facility] 73604 OTHER 11-25-[address] [facility] 76765 PRECORDIAL 11-25-2007 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 7806 FEVER & OTH 09-07-2007 [facility] DISTURBANCE S TEMP REG 27899 OTHER 07-20-2007 [facility] ESOPHAGITIS [place]UVENAL L 98744 ATROPHIC 07-20-2007 GASTRITIS [place] WITHOUT MED CTR MENTION OF HEMORRHAGE 62201 OTHER SPEC 07-20-2007 [facility] GASTRITIS JUVENLA L WITHOUT MENTION HEMORRHAGE 5690 ANAL AND 07-20-2007 RECTAL [place] POLYP [facility] V160 FM HX 07-20-2007 MALIGNANT [place] NEOPLASM [facility] GASTROINTES TINAL TRACT Procedures Procedure DOS Code Location Performer Comment HOSPITAL 07846 [facility] DISCHARGE 7 PHYSICIAN DAY S GROUP MANAGEMEN T 30 MIN/< RADIOLOGI 40492 [facility] DAVID C EXAM 7 MEDICAL CHEST 2 IMAGING VIEWS ASS FRONTAL&L ATERAL ECG 00706 [facility] CARRENO ROUTINE 7 PHYSICIAN ECG S, PLLC W/LEAST 12 LDS I&R ONLY GROUND A0425 SYMONE SYMONE MILEAGE 7 CO CO PER AMBULANCE AMBULANCE STATUTE TAXIN TAXIN MILE AMB A0427 SYMONE SYMONE SERVICE 7 CO CO ALS AMBULANCE AMBULANCE EMERGENCY TAXIN TAXIN TRANSPORT LEVEL 1 CRITICAL 93560 [facility] 7 PHYSICIAN ILL/INJUR S, [facility] IN[facility]-74 MIN RADIOLOGI 87115 [facility] RUEDA Leon 7 MEDICAL EXAMINATI IMAGING ON CHEST ASS SINGLE [facility] 78199 [facility] DIS[facility] 7 PABLO DAY MANAGEMEN PHYSICIAN T 30 S MIN/< INITIAL 38230 [facility] 7 [place] CARE/DAY 50 PHYSICIAN MINUTES S ECG 17707 [facility] ROUTINE 7 [facility] W/LEAST 12 LDS I&R ONLY ECG 50324 [facility] ROUTINE 7 [facility] W/LEAST P 12 LDS I&R ONLY RADIOLOGI 83188 [facility] DAVID Qu[facility]o 7 MEDICAL EXAMINATI IMAGING ON CHEST ASS SINGLE VIEW FRONTAL ASSISTANC [id number] ALEE A ALEE A E 6 R H R H RESPIRATO RY VENT < 24 CONSEC HR CPAP AMBULANCE A0429 [facility] SERVICE 6 [facility] LIFE CARE BLS EMERGENCY TRANSPORT RADIOLOGI 45195 THE [facility] C 6 RADIOLOGY EXAMINATI GROUP, ON CHEST LLC SINGLE VIEW FRONTAL GROUND A0425 [facility] MILEAGE 6 LIFE CARE LIFE CARE PER STATUTE MILE RADIOLOGI 13450 GRAM LUCY C 6 RESOURCES EXAMINATI INC. ON CHEST SINGLE VIEW FRONTAL RADIOLOGI 76128 GRAM LUCY C 6 RESOURCES EXAMINATI INC. ON CHEST SINGLE VIEW FRONTAL GROUND A0425 [facility] MILEAGE 6 [facility] LIFE CARE PER STATUTE MILE AMBULANCE A0429 [facility] SERVICE 6 [facility] BLS EMERGENCY TRANSPORT HOME E0466 SLEEP SLEEP VENTILATO 6 MANAGEMEN MANAGEMEN R ANY T LLC T LLC TYPE USED W/NON-INV ASV INTF PHRM Q0513 CUMBERLAN CUMBERLAN DISPENSIN 6 D DRUG CO D DRUG CO G FEE INHALATIO N RX; PER 30 DAYS ALBUTEROL J7620 CUMBERLAN CUMBERLAN TO 2.5 6 D DRUG CO D DRUG CO MG & IPRATROPI UM BROM TO 0.5 MG HOME E0466 SLEEP SLEEP VENTILATO 6 MANAGEMEN MANAGEMEN R ANY T LLC T LLC TYPE USED W/NON-INV ASV INT PORTABLE E0443 THE THE O2 [facility] CONTENTS STORE STORE GASEOUS 1 ALEE VICKERS [place] SUPPLY=1 UNIT HOME E0466 SLEEP SLEEP VENTILATO 6 MANAGEMEN MANAGEMEN R ANY T LLC T LLC TYPE USED W/NON-INV ASV [facility] 31501 [facility] DISCHARGE 6 [facility] DAY FAMILY MANAGEMEN HEALTH C T 30 MIN/< SBSQ 25077 [facility] 6 [facility] CARE/DAY FAMILY 25 HEALTH C MINUTES INITIAL 71283 [facility] 6 [facility] CARE/DAY FAMILY 30 HEALTH C MINUTES AMBULANCE A0429 [facility] SERVICE 6 [facility] LIFE CARE BLS EMERGENCY TRANSPORT GROUND A0425 [facility] DEMETRIO MILEAGE 6 LIFE [facility] LIFE CARE PER STATUTE MILE ACUTE 71662 ALEE A ALEE A HEPATITIS 6 R H R H PANEL PROTEIN 13735 ALEE A ALEE A TOTAL 6 R H R H [place]CP[place] [address] ALEE A ALEE A BLOOD/URI 6 R H R H C ACID CREATININ 69118 ALEE A ALEE A E OTHER 6 R H R H SOURCE TRANSFERA 33459 ALEE A ALEE A SE 6 R H R H ASPARTATE AMINO AST SGOT TRANSFERA 28802 ALEE A ALEE A SE 6 R H R H ALANINE AMINO ALT SGPT 25 50069 ALEE A ALEE A HYDROXY 6 R H R [place] [address] ALEE A ALEE A MAGNESIUM 6 [place] [address] ALEE A ALEE A PARATHORM 6 R H R H ONE HEPATITIS 91369 ALEE A ALEE A B SURF 6 R H R H ANTIBODY HBSAB BLOOD 78833 ALEE A ALEE A COUNT 6 R H R H COMPLETE AUTO&AUTO DIFRNTL WBC URNLS DIP 82473 ALEE A ALEE A 6 R H R H STICK/TAB LET REAGENT AUTO MICROSCOP Y HEMOGLOBI 12109 ALEE A ALEE A N 6 R H R H GLYCOSYLA SULAIMAN A1C COLLECTIO 29242 ALEE A ALEE A N VENOUS 6 R H R H BLOOD VENIPUNCT URE LIPID 89834 ALEE A ALEE A PANEL 6 R H R H RENAL 53856 ALEE A ALEE A FUNCTION 6 R H R H PANEL RADIOLOGI 65687 GRAM EDMONDS A C EXAM 6 RESOURCES CHEST 2 INC. VIEWS FRONTAL&L ATERAL RADIOLOGI 28237 GRAM PAMPATI C EXAM 6 RESOURCES SHARON CHEST 2 INC. VIEWS FRONTAL&L ATERAL ASSISTANC [id number] ALEE VICKERS A E 6 R H R H RESPIRATO RY VENT < 24 CONSEC HR CPAP INITIAL 88238 [facility] 6 MEDICAL CARE/DAY ASSOCIATE 50 S MINUTES RADIOLOGI 01759 [facility] 6 RADIOLOGY LCARA EXAMINATI GROUP, ON CHEST LLC SINGLE VIEW FRONTAL GROUND A0425 [facility]EAGE 6 LIFE CARE LIFE CARE PER STATUTE MILE AMBULANCE A0429 [facility] SERVICE 6 LIFE CARE LIFE CARE BLS EMERGENCY TRANSPORT POLYSOM 22997 [facility] 6/>YRS 6 [facility] SLEEP 4/> ASSOCIATE ADDL S CASI ATTND POLYSOM 10421 ALEE HURLEYLAN A 6/>YRS 6 R H R H SLEEP 4/> ADDL CASI ATTND BRNCDILAT 39310 [facility] RSPSE 6 [facility] SPMTRY ASSOCIATE PRE&POST- S BRNCDILAT ADMN ARTERIAL 62243 ALEE VICKERS A PUNCTURE 6 R H R H WITHDRAWA L BLOOD DX PULMONARY 40510 [facility] STRESS 6 [facility] TESTING ASSOCIATE SIMPLE S GAS 24268 [facility] BOLLAVARA DILUT/WAS 6 MEDICAL M NAG HOUT LUNG ASSOCIATE VOL W/WO S DISTRIB V[place] [address] [facility] DIFFUSING 6 MEDICAL M NAG CAPACITY ASSOCIATE S BLOOD 56287 ALEE Villafuerte GASES ANY 6 R H R H COMBINATI ON PH PCO2 PO2 CO2 HCO3 PORTABLE E0443 THE THE O2 [facility] CONT[facility] STORE STORE GASEOUS 1 [facility] MO SUPPLY=1 UNIT POLYSOM 95385 [facility] BOLLAVARA 6/>YRS 6 MEDICAL M NAG SLEEP 4/> ASSOCIATE ADDL S CASI ATTND CT THORAX 62210 GRAM GRAM W/O 6 RESOURCES RESOURCES CONTRAST INC. INC. MATERIAL SCREENING G0202 GRAM EDMONDS A 6 RESOURCES MAMMOGRAP INC. HY EVERARDO INCL CAD WHEN PERFORMD COMPUTER- 45445 GRAM EDMONDS A AIDED 6 RESOURCES DETECTION INC. SCREENING MAMMOGRAP HY NONINVASI 28288 CLOVER CLOVER VE 6 FORK FORK EAR/PULSE OUTPATIEN OUTPATIEN OXIMETRY T MEDIC T MEDIC SINGLE DETER PHRM Q0513 CUMBERLAN CUMBERLAN DISPENSIN 6 D DRUG CO D DRUG CO G FEE INHALATIO N RX; PER 30 DAYS ALBUTEROL J7620 CUMBERLAN CUMBERLAN TO 2.5 6 D DRUG CO D DRUG CO MG & IPRATROPI UM BROM TO 0.5 MG ASSISTANC [id number] ALEE VICKERS A E 6 R H R H RESPIRATO RY VENTILATI ON 24-96 HOURS AMBULANCE A0429 [facility] SERVICE 6 LIFE CARE LIFE CARE BLS EMERGENCY TRANSPORT GROUND A0425 [facility] MILEAGE 6 LIFE CARE LIFE CARE PER STATUTE MILE RADIOLOGI 29905 THE REENA Quintero 6 RADIOLOGY JESSE EXAMINATI GROUP, ON CHEST LLC SINGLE VIEW FRONTAL PORTABLE E0443 THE THE O2 [facility] CONTENTS STORE STORE GASEOUS 1 [facility] MO SUPPLY=1 UNIT O2 CONC 1 E1390 THE THE DEL PORT 6 [facility] 85%/>02 STORE STORE CONC AT [facility] FLW RATE SBSQ 46867 [facility] 6 MEDICAL CARE/DAY ASSOCIATE 35 S MINUTES SBSQ 65942 [facility] 6 MEDICAL CARE/DAY ASSOCIATE 35 S MINUTES INITIAL 66202 [place] [address] MEDICAL CARE/DAY [place] [address] [place] [address] GRAM GRAM ABDOMEN & 6 RESOURCES RESOURCES PELVIS INC. INC. W/O CONTRAST MATERIAL RADIOLOGI 22664 GRAM PAMPATI C EXAM 6 RESOURCES [facility] CHEST 2 INC. VIEWS FRONTAL&L ATERAL GROUND A0425 [place] [address] LIFE CARE LIFE CARE PER STATUTE MILE AMBULANCE A0429 [place] [address] [facility] C[facility] LIFE CARE BLS EMERGENCY TRANSPORT PORTABLE E0443 THE THE O2 6 [facility] CONTENTS STORE STORE GASEOUS 1 ALEE ALEE MO SUPPLY=1 UNIT ADMN SET A7003 THE THE SM VOL 6 [facility] NONFILTR STORE STORE PNEUMAT ALEE HURLEYLAN NEBULIZR DISPBL INJ J2920 ALEE A ALEE A METHYLPRD 6 R H R H NISOLONE SODIUM SUCCNAT TO 40 MG BASIC 67771 ALEE A ALEE A METABOLIC 6 R H R H PANEL CALCIUM TOTAL INJ J2920 ALEE A ALEE A METHYLPRD 6 R H R H NISOLONE SODIUM SUCCNAT TO 40 MG AMB A0427 [place] [address] [facility] ALS EMERGENCY TRANSPORT LEVEL 1 BLOOD 52091 ALEE A ALEE A COUNT 6 R H R H COMPLETE AUTO&[place] [address] ALEE A ALEE A TROPONIN 6 R H R H QUANTITAT ARCHIE RADIOLOGI 16401 ALEE A ALEE A C 6 R H R H EXAMINATI ON CHEST SINGLE VIEW FRONTAL GROUND A0425 [facility] 6 LIFE CARE LIFE CARE PER STATUTE MILE DRUG 91388 ALEE A ALEE A SCREEN 6 R H R H QUANTITAT ARCHIE PHENYTOIN TOTAL ECG 24836 ALEE A ALEE A ROUTINE 6 R H R H ECG W/LEAST 12 LDS TRCG ONLY W/O I&R PORTABLE E0443 THE THE O2 [facility] CONTENTS STORE STORE GASEOUS 1 ALEERADHA VICKERS MO SUPPLY=1 UNIT PORTABLE E0443 THE THE O2 4 [facility] CONTENTS STORE STORE GASEOUS 1 ALEERADHA [place] MO SUPPLY=1 UNIT O2 CONC 1 E1390 THE THE DEL PORT 4 [facility] 85%/>02 STORE STORE CONC AT [facility] FLW RATE PORTABLE E0443 THE THE O2 4 [facility] CONTENTS STORE STORE GASEOUS 1 ALEERADHA [place]ICK[place] SUPPLY=1 UNIT INFLUENZA Q2037 ALEE Villafuerte VACC 4 R H R H SPLIT VIRUS 3 YRS & > IM FLUVIRIN PROPHYLAC 9952 ALEE Villafuerte TIC 4 R H R H VACCINATI ON AGAINST INFLUENZA RADEX 97812 JUVENAL LEIDY GRE ABDOMEN 4 LEIDY COMPL W/DCBTS&/ ERC VIEWS RADIOLOGI 43377 JUVENAL LEIDY GRE C 4 LEIDY EXAMINATI ON CHEST SINGLE VIEW FRONTAL AMB A0422 Jebbit OXYGEN&O2 4 LIFE CARE LIFE CARE SUPPLIES LIFE SUSTAININ G SITUATION GROUND A0425 [facility] MILEAGE 4 LIFE CARE LIFE CARE PER STATUTE MILE AMBULANCE A0429 [facility] SERVICE 4 LIFE CARE LIFE CARE BLS EMERGENCY TRANSPORT PHRM Q0513 JOSEFINABERRADHA ROCHABERLAN DISPENSIN 4 D DRUG CO D DRUG CO G FEE INHALATIO N RX; PER 30 DAYS ALBUTEROL J7620 CUMBERLAN CUMBERLAN TO 2.5 4 D DRUG CO D DRUG CO MG & IPRATROPI UM BROM TO 0.5 MG BASIC 76312 ALEE HURLEYLAN A METABOLIC 4 R H R H PANEL CALCIUM TOTAL PRESSURIZ 39339 ALEE HURLEYLAN A ED/NONPRE 4 R H R H SSURIZED INHALATIO N TREATMENT COLLECTIO 03133 ALEE HURLEYLAN A N VENOUS 4 R H R H BLOOD VENIPUNCT URE COLLECTIO 97658 ALEE A ALEE A N VENOUS 4 R H R H BLOOD VENIPUNCT URE PRESSURIZ 67867 ALEE A ALEE A ED/NONPRE 4 R H R H SSURIZED INHALATIO N TREATMENT ARTERIAL 75935 ALEE A ALEE A PUNCTURE 4 R H R H WITHDRAWA L BLOOD DX BASIC 71160 ALEE A ALEE A METABOLIC 4 R [place] [address] ALEE A LAEE A PHOSPHORU 4 [place] [address] ALEE A ALEE A MAGNESIUM 4 R H R H BLOOD 33908 ALEE A ALEE A GASES ANY 4 R H R H COMBINATI ON PH PCO2 PO2 CO2 HCO3 BLOOD 98881 ALEE A ALEE A COUNT 4 R H R H COMPLETE AUTO&AUTO DIFRNTL WBC INJECTION J1650 ALEE A ALEE A 4 R H R H ENOXAPARI N SODIUM 10 MG THER 15774 ALEE A ALEE A PROPH/DX 4 R H R H NJX EA SEQL IV PUSH SBST/[place] [address] ALEE A ALEE A INFUSION 4 R H R H THERAPY PROPHYLAX IS/DX EA HOUR INJ J2930 ALEE A ALEE A METHYLPRD 4 R H R H NISOLONE SODIUM SUCCNAT TO 125 MG INJ J2930 ALEE A ALEE A METHYLPRD 4 R H R H NISOLONE SODIUM SUCCNAT TO 125 MG THER 34035 ALEE A ALEE A PROPH/DX 4 R H R H NJX EA SEQL IV PUSH SBST/[place] [address] ALEE A ALEE A INFUSION 4 R H R H THERAPY PROPHYLAX IS/DX EA HOUR INJECTION J1650 ALEE A ALEE A 4 R H R H ENOXAPARI N SODIUM 10 MG INJECTION J1956 ALEE A ALEE A 4 R H R H LEVOFLOXA DILLON [facility] G0378 ALEE A ALEE A OBSERVATI 4 R H R H ON SERVICE PER HOUR PRESSURIZ 79462 ALEE A ALEE A ED/NONPRE 4 R H R H SSURIZED INHALATIO N TREATMENT THERAPEUT 20601 ALEE A ALEE A IC 4 R H R [place] [address] ALEE A ALEE A ABDOMEN & 4 R H R H PELVIS W/O CONTRAST MATERIAL GROUND A0425 [facility] PER STATUTE MILE AMBULANCE A0429 DEMETRIO DEMETRIO SERVICE 4 LIFE CARE LIFE CARE BLS EMERGENCY TRANSPORT THER 27593 ALEE A ALEE A PROPH/DX 4 R H R H NJX IV PUSH SINGLE/1S T SBST/DRUG THERAPEUT 80757 ALEE A ALEE A IC 4 R H R H INJECTION IV PUSH EACH NEW DRUG PRESSURIZ 07762 ALEE A ALEE A ED/NONPRE 4 R H R H SSURIZED INHALATIO N TREATMENT INJECTION J1956 ALEE A ALEE A 4 R H R H LEVOFLOXA DILLON 250 MG AMB A0422 DEMETRIO DEMETRIO OXYGEN&O2 4 LIFE CARE LIFE CARE SUPPLIES LIFE SUSTAININ G SITUATION COMPREHEN 31689 ALEE A ALEE A SIVE 4 R H R H METABOLIC PANEL PROCALCIT 81126 ALEE A ALEE A ONIN 4 R H R H (PCT) CULTURE 67108 ALEE A ALEE A BACTERIAL 4 R H R H BLOOD AEROBIC W/ID ISOLATES INJ J2930 ALEE A ALEE A METHYLPRD 4 R H R H NISOLONE SODIUM SUCCNAT TO 125 MG BLOOD 24415 ALEE A ALEE A COUNT 4 R H R H COMPLETE AUTO&AUTO DIFRNTL WBC RADIOLOGI 03583 ALEE A ALEE A C 4 R H R H EXAMINATI ON CHEST SINGLE VIEW FRONTAL URNLS DIP 74934 ALEE A ALEE A 4 R H R H STICK/TAB LET REAGENT AUTO MICROSCOP Y RADEX 00627 ALEE A ALEE A RIBS 4 R H R H UNILATERA L 2 VIEWS PRTBLE E0431 THE THE GASEOUS [facility] O2 CONC 1 E1390 THE THE DEL [facility] 4 [facility] 85%/>02 STORE STORE CONC AT [facility] FLW RATE O2 CONC 1 E1390 THE THE DEL PORT 4 [facility] 85%/>02 STORE STORE CONC AT [facility] FLW RATE PRTBLE E0431 THE THE GASEOUS 4 [facility] O2 SYS STORE [facility]M ASK PRTBLE E0431 THE THE GASEOUS 4 [facility] O2 SYS STORE STORE RENT; [facility] HUMID[facility]&M ASK O2 CONC 1 E1390 THE THE DEL [facility] 85%/>02 STORE STORE CONC AT [facility] FLW RATE COMPREHEN 78290 [facility] SIVE 4 DIAGNOSTI DIAGNOSTI METABOLIC CS CS PANEL BLOOD 61271 [facility] COUNT 4 DIAGNOSTI DIAGNOSTI COMPLETE CS CS AUTO&AUTO DIFRNTL WBC LIPID 18498 [facility] PANEL 4 DIAGNOSTI DIAGNOSTI CS CS COLLECTIO 41331 [facility] VENUS N VENOUS 4 FORK SHA BLOOD OUTPATIEN VENIPUNCT T CLINI URE PRTBLE E0431 THE THE GASEOUS 4 [facility] ST[facility] STORE RENT; [facility] ASK O2 CONC 1 E1390 THE THE DEL PORT 4 [facility] 85%/>02 STORE STORE CONC AT [facility] FLW RATE CYTP FLU 53567 [facility] WASHGS/BR 4 [facility]ARE SHA USHINGS XCPT C/V SMRS INTERPJ ANES 78248 REMY CERVANTES UPPER GI 4 ANESTHESI ENDOSCOPY A GROUP PROXIMAL PS TO DUODENUM CYTP 54846 [facility] CONCENTRA 4 HLTHCARE SHA TION SMEARS & [place] [address] [facility] SURG [address] [place] [address] PATHOLOGY GROSS&SADIQ ROSCOPIC EXAM EGD 78632 [facility] TRANSORAL 4 MED BIOPSY ASSOCIATE SINGLE/MU S LTIPLE ESOPHAGOG 4516 ALEE Noy ALEE Villafuerte ASTRODUOD 4 R H R H ENOSCOPY WITH CLOSED BIOPSY TRANSFUSI 9904 ALEE Noy ALEE Villafuerte ON OF 4 R H R H PACKED CELLS SBSQ 05589 [facility] 4 MED CARE/DAY ASSOCIATE 15 S MINUTES COLONOSCO 35737 [facility] PY 4 MED W/BIOPSY ASSOCIATE SINGLE/MU S LTIPLE ANES 58547 [facility] GRISELDA HELEN LOWER 4 ANESTHESI INTESTINE A GROUP [place] [address] [facility] REG [facility] SURG [address] [place] [address] PATHOLOGY GROSS&SADIQ ROSCOPIC EXAM COLSC FLX 99487 [facility] 4 MED W/REMOVAL ASSOCIATE LESION S BY HOT BX FORCEPS RADEX 24611 JUVENAL LEIDY GRE ABDOMEN 1 4 LEIDY ANTEROPOS TERIOR VIEW CLOSED 4525 ALEE Villafuerte [ENDOSCOP 4 R H R H IC] BIOPSY OF LARGE INTESTINE ENDOSCOPI 4542 ALEE Villafuerte C 4 R H R H POLYPECTO MY OF LARGE INTESTINE RADEX 78629 JUVENAL LEIDY GRE ABDOMEN 4 LEIDY COMPL W/DCBTS&/ ERC VIEWS SBSQ 03446 [facility] 4 MED CARE/DAY ASSOCIATE 15 S MINUTES SBSQ 84707 [facility] 4 MED CARE/DAY ASSOCIATE 15 S MINUTES RADEX 55539 JUVENAL LEIDY GRE SMALL 4 LEIDY INTESTINE W/MULTIPL E SERIAL IMAGES SBSQ 65669 [facility] 3 MED CARE/DAY ASSOCIATE 15 S MINUTES SBSQ 74112 [facility] 3 MED CARE/DAY ASSOCIATE 25 S MINUTES RADEX 29426 JUVENAL LEIDY GRE ABDOMEN 3 LEIDY COMPL W/DCBTS&/ ERC VIEWS SBSQ 19013 [place] [address] MED RAY CARE/DAY ASSOCIATE 15 S MINUTES SBSQ 24887 [facility] 3 MED RAY CARE/DAY ASSOCIATE 15 S MINUTES RADEX 70480 [facility] ABDOMEN 3 LEIDY COMPL W/DCBTS&/ ERC VIEWS RADEX 18140 [facility] GRE ABDOMEN 1 3 LEIDY ANTEROPOS TERIOR VIEW SBSQ 00798 [facility] 3 MED RAY CARE/DAY ASSOCIATE 15 S MINUTES SBSQ 06633 [facility] 3 MED RAY CARE/DAY ASSOCIATE 15 S MINUTES SBSQ 63570 [facility] 3 MED CARE/DAY ASSOCIATE 25 S MINUTES RADEX 99619 [facility] ABDOMEN 3 LEIDY COMPL W/DCBTS&/ ERC VIEWS RADIOLOGI 71150 [facility] GRE C 3 LEIDY EXAMINATI ON CHEST SINGLE VIEW FRONTAL SBSQ 95541 [facility] 3 MED RAY CARE/DAY ASSOCIATE 15 S MINUTES SBSQ 83766 [facility] 3 MED RAY CARE/DAY ASSOCIATE 15 S MINUTES RADIOLOGI 13547 [facility] C 3 LEIDY [place] [address] [facility] GRE HEAD/BRAI 3 LEIDY N W/O CONTRAST MATERIAL RADEX 98500 [facility] ABDOMEN 3 LEIDY COMPL W/DCBTS&/ [place] [address] [facility] GRE ABDOMINAL 3 LEIDY REAL TIME W/IMAGE DOCUMENTA TION INITIAL 32773 [facility] 3 MED CARE/DAY ASSOCIATE 50 S MINUTES RADIOLOGI 34406 [facility] GRE C 3 LEIDY EXAMINATI ON CHEST SINGLE VIEW FRONTAL RADEX 01980 [facility] GRE ABDOMEN 1 3 LEIDY ANTEROPOS TERIOR VIEW SBSQ 95527 [facility] 3 MED RAY CARE/DAY ASSOCIATE 15 S MINUTES O2 CONC [address] [facility]%/>02 STORE STORE CONC AT [facility] PRSC FLW RATE PRTBLE E0431 THE THE [facility] O2 SYS ST[facility] STORE RENT; [facility] HUMIDFR&M ASK NON-INVAS 9390 ALEE Villafuerte ARCHIE 3 R H R H MECHANICA L VENTILATI ON CT THORAX 43506 [facility] GRE W/O [address] THORAX 25733 [facility] GRE W/O 3 LEIDY CONTRAST MATERIAL INITIAL 88850 [place] [address] MED RAY CARE/DAY ASSOCIATE 30 S MINUTES RADEX ABD 83836 [facility] GRE COMPL 3 LEIDY AQT ABD W/S/E/D VIEWS 1 VIEW [facility] 32952 JUVENAL LEID[facility] GRE RETROPERI 3 LEIDY TONEAL REAL TIME W/IMAGE COMPLETE O2 CONC 1 E1390 THE THE [place] [facility] 85%/>02 STORE STORE CONC AT [facility] FLW RATE PRTBLE E0431 THE [facility] O2 SYS STORE STORE RENT; [facility] HUMIDFR&M ASK HEMOGLOBI 37384 [facility] N 3 DIAGNOSTI DIAGNOSTI GLYCOSYLA CS CS SULAIMAN A1C O2 CONC 1 E1390 THE [facility] 85%/>02 STORE STORE CONC AT [facility] FLW RATE PRTBLE E0431 THE [facility] O2 SYS STORE STORE RENT; [facility] HUMIDFR&M ASK AMBULANCE A0429 [facility] SERVICE 3 LIFE CARE LIFE CARE BLS EMERGENCY TRANSPORT GROUND A0425 [facility] MILEAGE 3 LIFE CARE LIFE [facility]ARE PER STATUTE MILE COLLECTIO 13815 ALEE HURLEYRADHA Villafuerte N VENOUS 3 [place] [address] ALEE Villafuerte AMYLASE 3 R H R H COMPREHEN 57764 ALEE Villafuerte SIVE 3 R H R H METABOLIC PANEL AMB A0422 [facility] OXYGEN&O2 3 LIFE CARE LIFE CARE SUPPLIES [place] [address] ALEE Villafuerte CHARJUAREZKA LIPASE 3 R H JAM URNLS DIP 31887 ALEE VICKERS A 3 R H R H STICK/TAB LET REAGENT AUTO MICROSCOP Y BLOOD 29303 ALEE Villafuerte COUNT 3 R H R H COMPLETE AUTO&AUTO DIFRNTL WBC RADEX ABD 92421 [facility] GRE COMPL 3 LEIDY AQT ABD W/S/E/D VIEWS 1 VIEW CH O2 CONC 1 E1390 THE THE [facility] 85%/>02 STORE STORE CONC AT [facility] FLW RATE PRTBLE E0431 THE THE [facility] O2 SYS STORE STORE RENT; [facility] [place]WM[place]FR&[place] [address] JU[facility] GRE RETROPERI 3 LEIDY TONEAL REAL TIME W/IMAGE COMPLETE RADEX ABD 06360 [facility] GRE COMPL 3 LEIDY AQT ABD W/S/E/D VIEWS 1 VIEW CH AMB A0422 [facility] OXYGEN&O2 3 LIFE CARE LIFE CARE SUPPLIES LIFE SUSTAININ G SITUATION AMBULANCE A0429 [facility] SERVICE 3 [facility] [place] [address] JUVENAL LEIDY GRE ABDOMEN & 3 LEIDY PELVIS W/O CONTRAST MATERIAL GROUND A0425 [facility] MILEAGE 3 LIFE CARE LIFE CARE PER STATUTE MILE GROUND A0425 [facility] MILEAGE 3 [facility] [place] [address] [facility]NAL [facility] GRE ABDOMEN & 3 LEIDY PELVIS W/O CONTRAST MATERIAL COLLECTIO 85945 ALEE VICKERS A N VENOUS 3 R H R H BLOOD VENIPUNCT URE CT THORAX 57933 JUVENAL LEIDY GRE W/O 3 [place] [address] ALEE VICKERS A INFUSION 3 R H R H THERAPY/P ROPHYLAXI S /DX 1ST TO 1 HR THERAPEUT 83132 ALEE A ALEE A IC 3 R H R [place] [address] ALEE A ALEE A INFUSION 3 R H R H HYDRATION EACH ADDITIONA L HOUR RADIOLOGI 02813 JUVENAL LEIDY GRE C EXAM 3 LEIDY CHEST 2 VIEWS FRONTAL&L ATERAL AMB A0427 Jebbit [facility] 3 LIFE CARE LIFE CARE ALS EMERGENCY [place] [address] [place] [address] ALEE A ALEE A LIPASE 3 R H R H INJECTION J2405 ALEE A ALEE A 3 R H R H ONDANSETR ON H[place] [address] [place] [address] ALEE A ALEE A AMYLASE 3 R H R H COMPREHEN 03102 ALEE A ALEE A SIVE 3 R H R H METABOLIC PANEL BLOOD 94018 ALEE A ALEE A COUNT 3 R H R H COMPLETE AUTO&AUTO DIFRNTL WBC URNLS DIP 43020 ALEE A ALEE A 3 R H R H STICK/TAB LET REAGENT AUTO MICROSCOP Y O2 CONC 1 E1390 THE THE DEL [place] [facility] 85%/>02 STORE STORE CONC AT [facility] FLW RATE PRTBLE E0431 THE THE GASEOUS [facility] O2 SYS STORE STORE RENT; [facility]TR HUMIDFR&M ASK RADEX ABD 19445 JUVENAL LEIDY GRE COMPL 3 LEIDY AQT ABD W/S/E/D VIEWS 1 VIEW CH RADEX 32653 JUVENAL LEIDY GRE ABDOMEN 3 LEIDY COMPL W/DCBTS&/ ERC VIEWS RADEX 72424 JUVENAL LEIDY GRE ABDOMEN 3 LEIDY COMPL W/DCBTS&/ [place] [address] JUVENAL LEIDY GRE ABDOMEN & 3 LEIDY PELVIS W/O CONTRAST MATERIAL GROUND A0425 Jebbit MILEA 3 LIFE CARE LIFE CARE PER STATUTE MILE AMBULANCE A0429 Jebbit SERVICE 3 LIFE CARE LIFE CARE BLS EMERGENCY TRANSPORT RADIOLOGI 07038 JUVENAL LEIDY GRE C 3 LEIDY EXAMINATI ON CHEST SINGLE VIEW FRONTAL AMB A0422 Jebbit OXYGEN&O2 3 LIFE CARE LIFE CARE SUPPLIES LIFE SUSTAININ G SITUATION O2 CONC 1 E1390 THE THE DEL [place] [facility] 85%/>02 STORE STORE CONC AT [facility] FLW RATE PRTBLE E0431 THE THE GASEOUS 3 [facility] O[facility] SYS STORE STORE RENT; [facility] HUMIDFR&M ASK ADMN SET A7003 THE THE SM VOL [facility] NONFILTR STORE STORE PNEUMAT [facility] NEBULIZR DISPBL ALBUTEROL J7620 CUMBERLAN CUMBERLAN TO 2.5 3 D DRUG CO D DRUG CO MG & IPRATROPI UM BROM TO 0.5 MG PHRM Q0513 CUMBERLAN CUMBERLAN DISPENSIN 3 D DRUG CO D DRUG CO G FEE INHALATIO N RX; PER 30 DAYS COLLECTIO 40027 CLOVER VENUS N VENOUS 3 FORK SHA BLOOD OUTPATIEN VENIPUNCT T CLINI URE HEMOGLOBI 72771 [facility] QUEST N 3 DIAGNOSTI DIAGNOSTI GLYCOSYLA CS CS SULAIMAN A1C O2 CONC 1 E1390 THE THE DEL [place] [facility] 85%/>02 STORE STORE CONC AT [facility] FLW RATE PRTBLE E0431 THE THE GASEOUS 3 [facility] ST[facility] ST[facility]; [facility] H[facility]K GROUND A0425 DEMETRIO DEMETRIO MILEAGE 3 LIFE CARE LIFE CARE PER STATUTE MILE AMBULANCE A0429 Jebbit SERVICE 3 LIFE CARE LIFE CARE BLS EMERGENCY TRANSPORT AMB A0422 Jebbit OXYGEN&O2 3 LIFE CARE LIFE CARE SUPPLIES LIFE SUSTAININ G SITUATION RADIOLOGI 38537 JUVENAL LEIDY GRE C 3 LEIDY EXAMINATI ON CHEST SINGLE VIEW FRONTAL O2 CONC 1 E1390 THE THE DEL PORT 3 [facility] 85%/>02 STORE STORE CONC AT [facility] FLW RATE PRTBLE E0431 THE THE GASEOUS [facility] O[facility] SYS STORE STORE RENT; [facility] HUMIDFR&M ASK AMBULANCE A0429 [facility] SERVICE 3 LIFE CARE LIFE CARE BLS EMERGENCY TRANSPORT GROUND A0425 [facility]EAGE 3 LIFE CARE LIFE CARE PER STATUTE MILE RADIOLOGI 46974 JUVENAL LEIDY GRE C EXAM 3 LEIDY CHEST 2 VIEWS FRONTAL&L ATERAL AMB A0422 [facility] OXYGEN&O2 3 LIFE CARE LIFE CARE SUPPLIES LIFE SUSTAININ G SITUATION O2 CONC 1 E1390 THE THE DEL PORT 3 [facility] 85%/>02 STORE STORE CONC AT [facility] FLW RATE PRTBLE E0431 THE THE GASEOUS 3 [facility] O[facility] SYS STORE STORE RENT; [facility] HUMIDFR&M ASK THERAPEUT 83798 ALEE VICKERS A IC 3 R H R H PROPHYLAC TIC/DX INJECTION SUBQ/IM AMBULANCE A0429 [facility] SERVICE 3 LIFE CARE LIFE CARE BLS EMERGENCY TRANSPORT GROUND A0425 [facility]EA 3 LIFE CARE LIFE CARE PER STATUTE MILE RADIOLOGI 34217 JUVENAL LEIDY GRE C EXAM 3 LEIDY CHEST 2 VIEWS FRONTAL&L ATERAL PRESSURIZ 16628 ALEE VICKERS A ED/NONPRE 3 R H R H SSURIZED INHALATIO N TREATMENT ANTIBODY 11361 ALEE HURLEYLAN A INFLUENZA 3 R H R H VIRUS BASIC 37461 ALEE HURLEYLAN A METABOLIC 3 R H R H PANEL CALCIUM TOTAL AMB A0422 [facility] OXYGEN&O2 3 LIFE CARE LIFE CARE SUPPLIES LIFE SUSTAININ G SITUATION IAADI 76074 ALEE VICKERS A INFLUENZA 3 R H R H B VIRUS BLOOD 85451 ALEE VICKERS A COUNT 3 R H R H COMPLETE AUTO&AUTO DIFRNTL WBC COLLECTIO 05029 ALEE HURLEYLAN A N VENOUS 3 R H R H BLOOD VENIPUNCT URE INJ J2930 ALEE Villafuerte METHYLPRD 3 R H R H NISOLONE SODIUM SUCCNAT TO 125 MG O2 CONC 1 E1390 THE THE DEL [place] [facility] 85%/>02 STORE STORE CONC AT [facility] FLW RATE PRTBLE E0431 THE THE GASEOUS 3 [facility] O2 SYS STORE STORE RENT; [facility] HUMIDFR&M ASK PRTBLE E0431 THE THE GASEOUS 3 [facility] O[facility] SYS STORE STORE RENT; [facility] HUMIDFR&M ASK O2 CONC 1 E1390 THE THE DEL PORT 3 [facility] 85%/>02 STORE STORE CONC AT [facility] FLW RATE INITIAL 33515 ED [facility] 3 MED CARE/DAY ASSOCIATE [address] [place] [address] JUVENAL LEIDY GRE ABDOMEN & 3 LEIDY PELVIS W/O CONTRST 1/> BODY RE AMB A0422 Jebbit OXYGEN&O2 3 LIFE CARE LIFE CARE SUPPLIES LIFE SUSTAININ G SITUATION AMBULANCE A0429 I AND [employer] 3 LIFE CARE LIFE CARE BLS EMERGENCY TRANSPORT GROUND A0425 Jebbit MILEAGE 3 LIFE CARE LIFE CARE PER STATUTE MILE RADIOLOGI 60473 JUVENAL LEIDY GRE C EXAM 3 LEIDY CHEST 2 VIEWS FRONTAL&L ATERAL RADIOLOGI 92944 JUVENAL LEIDY GRE C EXAM 3 LEIDY CHEST 2 VIEWS FRONTAL&L ATERAL GROUND A0425 Jebbit MILEAGE 3 LIFE CARE LIFE CARE PER STATUTE MILE COLLECTIO 50008 ALEE HURLEYLAN Noy N VENOUS 3 R H R H BLOOD VENIPUNCT URE AMBULANCE A0429 Jebbit SERVICE 3 LIFE CARE LIFE CARE BLS EMERGENCY TRANSPORT THERAPEUT 21038 ALEE Villafuerte IC 3 R H R H PROPHYLAC TIC/DX INJECTION SUBQ/IM AMB A0422 Jebbit OXYGEN&O2 3 LIFE CARE LIFE CARE SUPPLIES LIFE SUSTAININ G SITUATION IAADI 25943 ALEE VICKERS A INFLUENZA 3 R H R H B VIRUS BASIC 23366 ALEE VICKERS A METABOLIC 3 R H R H PANEL CALCIUM TOTAL ANTIBODY 58656 ALEE VICKERS A INFLUENZA 3 R H R H VIRUS IAADIADOO 33578 ALEE VICKERS A 3 R H R H STREPTOCO CCUS GROUP A INJECTION J0696 ALEE VICKERS A 3 R H R H CEFTRIAXO NE SODIUM PER 250 MG BLOOD 46488 ALEE VICKERS A COUNT 3 R H R H COMPLETE AUTO&AUTO DIFRNTL WBC URNLS DIP 60343 ALEE VICKERS A 3 R H R H STICK/TAB LET REAGENT AUTO MICROSCOP Y GLUCOSE 65719 [place] VENUS QUANTITAT 3 FORK SHA ARCHIE BLOOD OUTPATIEN XCPT T CLINI REAGENT STRIP HEMOGLOBI 00080 QUEST QUEST N 3 DIAGNOSTI DIAGNOSTI GLYCOSYLA CS CS SULAIMAN A1C BLOOD 19032 QUEST QUEST COUNT 3 DIAGNOSTI DIAGNOSTI COMPLETE CS CS AUTO&AUTO DIFRNTL WBC LIPID 06542 QUEST QUEST PANEL 3 DIAGNOSTI DIAGNOSTI CS CS COMPREHEN 11467 [facility]ST QUEST SIVE 3 DIAGNOSTI DIAGNOSTI METABOLIC CS CS PANEL COLLECTIO 92251 [place] VENUS N VENOUS 3 FORK SHA BLOOD OUTPATIEN VENIPUNCT T CLINI URE PRTBLE E0431 THE THE GASEOUS 3 [facility] STORE RENT; [facility] HUMIDFR&M ASK O2 CONC 1 E1390 THE THE DEL PORT 3 [facility] 85%/>02 STORE STORE CONC AT [facility] FLW RATE AMB A0422 Jebbit OXYGEN&O2 2 LIFE CARE LIFE CARE SUPPLIES LIFE SUSTAININ G SITUATION AMBULANCE A0429 Jebbit SERVICE 2 LIFE CARE LIFE CARE BLS EMERGENCY TRANSPORT GROUND A0425 Jebbit MILEAGE 2 LIFE CARE LIFE CARE PER STATUTE MILE PRTBLE E0431 THE THE GASEOUS 2 [facility] STORE STORE RENT; [facility] HUMIDFR&M ASK O2 CONC 1 E1390 THE THE DEL PORT 2 [facility] 85%/>02 STORE STORE CONC AT [facility] [place] LOWER 93727 ELE SKEENS EXTREMITY 2 IMAGING ASHLEY W/O INC CONTRAST MATERIAL O2 CONC 1 E1390 THE THE DEL [facility] 85%/>02 STORE STORE CONC AT [facility] FLW RATE PRTBLE E0431 THE THE GASEOUS 2 [facility] O[facility] SYS STORE STORE RENT; [facility] HUMIDFR&M ASK NONINVASI 35002 ALEE HURLEYLAN A VE 2 R H R H EAR/PULSE OXIMETRY [facility] 60804 [facility] ON ASHLEY DISCHARGE 2 WOMENS & DAY [facility] C T 30 MIN/< INJ J2930 ALEE A ALEE A METHYLPRD 2 R H R H NISOLONE SODIUM SUCCNAT TO 125 MG INJ J2930 ALEE A ALEE A METHYLPRD 2 R H R H NISOLONE SODIUM SUCCNAT TO 125 MG CULTURE 38656 ALEE A ALEE A BACTERIAL 2 R H R H BLOOD AEROBIC W/ID ISOLATES AMB A0422 Jebbit OXYGEN&O2 2 LIFE CARE LIFE CARE SUPPLIES LIFE SUSTAININ G SITUATION BLOOD 62786 ALEE A ALEE A COUNT 2 R H R H COMPLETE AUTO&AUTO DIFRNTL WBC NATRIURET 89598 ALEE A ALEE A IC 2 R H R H PEPTIDE BLOOD 41151 ALEE A ALEE A GASES ANY 2 R H R H COMBINATI ON PH PCO2 PO2 CO2 HCO3 RADIOLOGI 70391 ALEE A ALEE A C 2 R H R H EXAMINATI ON CHEST SINGLE VIEW FRONTAL INJECTION J1956 ALEE A ALEE A 2 R H R H LEVOFLOXA DILLON 250 MG BASIC 25984 ALEE A ALEE A METABOLIC 2 R H R H PANEL CALCIUM TOTAL CULTURE 00863 ALEE VICKERS A BACTERIAL 2 R H R H QUANTTATI VE COLONY COUNT URINE ARTERIAL 68175 ALEE VICKERS A PUNCTURE 2 R H R H WITHDRAWA L BLOOD DX GROUND A0425 Jebbit MILEAGE 2 LIFE CARE LIFE CARE PER STATUTE MILE AMBULANCE A0429 Jebbit SERVICE 2 LIFE CARE LIFE CARE BLS EMERGENCY TRANSPORT CT UPPER 83789 VANGUARD SKEENS EXTREMITY 2 IMAGING ASHLEY W/O INC CONTRAST MATERIAL O2 CONC 1 E1390 THE THE DEL PORT 2 [facility] 85%/>02 STORE STORE CONC AT [facility] FLW RATE PRTBLE E0431 THE THE GASEOUS 2 [facility] O[facility] SYS STORE STORE RENT; [facility] HUMIDFR&M ASK GROUND A0425 Jebbit MILEA 2 LIFE CARE LIFE CARE PER STATUTE MILE SBSQ 51925 [facility] 2 [facility] CARE/DAY HEALTH 25 SRV AR MINUTES HOSPITAL [address]166 COMPREHEN [facility] MUS DISCHARGE 2 SIVE DAY H[facility]PITALI MANAGEMEN ST SE T 30 MIN/< AMBULANCE A0428 Jebbit [facility] 2 LIFE CARE LIFE CARE BLS NONEMERGE NCY TRANSPORT AMB A0422 Jebbit OXYGEN&O2 2 LIFE CARE LIFE CARE SUPPLIES LIFE SUSTAININ G SITUATION [facility] [address] COMPREHEN [facility] 2 SIVE CARE/DAY HOSPITALI [address] SE MINUTES [facility] 27021 [facility] 2 [facility] CARE/DAY HEALTH 25 SRV AR MINUTES O2 CONC 1 E1390 THE THE DEL PORT 2 [facility] 85%/>02 STORE STORE CONC AT [facility] [place] [address] RADIOLOGY [facility] RETROPERI 2 SERVICES TONEAL REAL TIME W/IMAGE LIMITED PRTBLE E0431 THE THE GASEOUS 2 [facility] STORE STORE RENT; [facility]UMIDFR&[place] [address] RADIOLOGY EDMONDS A ABDOMEN & 2 SERVICES PELVIS W/O CONTRAST MATERIAL INITIAL 49981 COMPREHEN [facility] HOSPITAL 2 SIVE CARE/DAY HOSPITALI [address] SE MINUTES INJ J2930 ALEE A ALEE A METHYLPRD 2 R H R H NISOLONE SODIUM SUCCNAT TO 125 MG BLOOD 18948 ALEE A ALEE A COUNT 2 R H R H COMPLETE AUTO&AUTO DIFRNTL WBC RADIOLOGI 68646 JUVENAL LEIDY GRE C 2 LEIDY EXAMINATI ON CHEST SINGLE VIEW FRONTAL BLOOD 16499 ALEE A ALEE A GASES ANY 2 R H R H COMBINATI ON PH PCO2 PO2 CO2 HCO3 URNLS DIP 56236 ALEE A ALEE A 2 R H R H STICK/TAB LET REAGENT AUTO MICROSCOP Y INSJ TEMP 56656 ALEE A ALEE A NDWELLG 2 R H [place] [address] ALEE A ALEE A LACTATE 2 R H R H INFUSION J7030 ALEE A ALEE A NORMAL 2 R H R H SALINE SOLUTION 1000 CC COMPREHEN 70259 ALEE A ALEE A SIVE 2 R H R H METABOLIC PANEL AMB A0422 Jebbit OXYGEN&O2 2 LIFE CARE LIFE CARE SUPPL[place] [address] JUVENAL LEIDY GRE ABDOMEN & 2 LEIDY PELVIS W/O CONTRAST MATERIAL COLLECTIO 55748 ALEE A ALEE A N VENOUS 2 R H R H BLOOD VENIPUNCT URE GROUND A0425 Jebbit MILEAGE 2 LIFE CARE LIFE CARE PER STATUTE MILE AMBULANCE A0429 Jebbit SERVICE 2 LIFE CARE LIFE CARE BLS EMERGENCY TRANSPORT THER 52109 ALEE A ALEE A PROPH/DX 2 R H R H NJX IV PUSH SINGLE/1S T SBST/[place] [address] ALEE A ALEE A INFUSION 2 R H R H HYDRATION EACH ADDITIONA L HOUR ARTERIAL 34610 ALEE A ALEE A PUNCTURE 2 R H R H WITHDRAWA L BLOOD DX PRESSURIZ 23281 ALEE A ALEE A ED/NONPRE 2 R H R H SSURIZED INHALATIO N TREATMENT BLD GLU A4253 CUMBERLAN CUMBERLAN TEST/REAG 2 D DRUG CO D DRUG CO T STRIPS HOME BLD GLU MON-50 LANCETS A4259 CUMBERLAN CUMBERLAN PER BOX 2 D DRUG CO D DRUG CO OF 100 PHRM Q0513 CUMBERLAN CUMBERLAN DISPENSIN 2 D DRUG CO D DRUG CO G FEE INHALATIO N RX; PER 30 DAYS ALBUTEROL J7620 CUMBERLAN CUMBERLAN TO 2.5 2 D DRUG CO D DRUG CO MG & IPRATROPI UM BROM TO 0.[address] THORAX 85009 JUVENAL LEIDY GRE W/O 2 LEIDY CONTRAST MATERIAL PRTBLE E0431 THE THE [facility]OUS [facility] STORE RENT; [facility] HUMIDFR&M ASK O2 CONC 1 E1390 THE THE DEL PORT 2 [facility] 85%/>02 STORE STORE CONC AT [facility] PRSC FLW RATE ADMN SET A7003 THE THE SM VOL 2 [facility] NONFILTR STORE STORE PNEUMAT ALEERADHA VICKERS NEBULIZR DISPBL RADIOLOGI 52744 JUVENAL FORBES GRE C EXAM 2 LEIDY CHEST 2 VIEWS FRONTAL&[place] [address] ALEE A ALEE A INFUSION 2 R H R H THERAPY/P ROPHYLAXI S /DX 1ST TO 1 HR INJ J1459 ALEE A ALEE A IMMUNE 2 R H R H GLOBULIN IV NONLYOPHI LIZED [facility] A4259 CUMBERLAN CUMBERLAN PER BOX 2 D DRUG CO D DRUG CO OF 100 BLD GLU A4253 CUMBERLAN CUMBERLAN TEST/REAG 2 D DRUG CO D DRUG CO T STRIPS HOME BLD GLU MON-50 PRTBLE E0431 THE THE GASEOUS 2 [facility] ST[facility] STORE RENT; [facility] HUMIDFR&M ASK O2 CONC 1 E1390 THE THE DEL PORT 2 [facility] 85%/>02 STORE STORE CONC AT [facility] FLW RATE AMB A0422 Jebbit OXYGEN&O2 2 LIFE CARE LIFE CARE SUPPLIES LIFE SUSTAININ G SITUATION AMBULANCE A0428 [facility] SERVICE 2 EMS EMS BLS NONEMERGE NCY TRANSPORT URNLS DIP 39592 ALEE HURLEYLAN A 2 R H R H STICK/TAB LET REAGENT AUTO MICROSCOP Y INJECTION J2300 ALEE A ALEE A 2 R H R H NALBUPHIN E HCL PER 10 MG THERAPEUT 08254 ALEE HURLEYLAN A IC 2 R H R H PROPHYLAC TIC/DX INJECTION SUBQ/IM GROUND A0425 [facility] MILEAGE 2 EMS EMS PER STATUTE MILE AMBULANCE A0429 Jebbit SERVICE 2 LIFE CARE LIFE CARE BLS EMERGENCY TRANSPORT RADEX 84757 JUVENAL BA SPINE 2 LEIDY LUMBOSACR AL MINIMUM 4 VIEWS RADIOLOGI 46236 JUVENAL BA C EXAM 2 LEIDY KNEE COMPLETE 4/MORE VIEWS PRTBLE E0431 THE THE [facility] STORE STORE RENT; [facility] HUMIDFR&M ASK O2 CONC 1 E1390 THE THE DEL PORT 2 [facility] 85%/>02 STORE STORE CONC AT [facility] FLW RATE INJ J1459 ALEE A ALEE A IMMUNE 2 R H R H GLOBULIN IV NONLYOPHI LIZED 500 [place] [address] ALEE A ALEE A INFUSION 2 R H R H THERAPY/P ROPHYLAXI S /DX 1ST TO 1 HR COLLECTIO 46776 [place] VENUS N 2 FORK SHA CAPILLARY OUTPATIEN BLOOD T CLINI SPECIMEN BLD GLU A4253 CUMBERLAN CUMBERLAN TEST/REAG 2 D DRUG CO D DRUG CO T STRIPS HOME BLD GLU MON-50 LANCETS A4259 CUMBERLAN CUMBERLAN PER BOX 2 D DRUG CO D DRUG CO OF 100 GLUCOSE 11281 [place] VENUS BLOOD 2 FORK CHARLIE REAGENT OUTPATIEN [facility] SIVE 2 DIAGNOSTI DIAGNOSTI METABOLIC CS CS PANEL COLLECTIO 71375 [place] VENUS N VENOUS 2 FORK CHARLIE BLOOD OUTPATIEN VENIPUNCT T CLINI [facility] [address]61 HOSP NACHES DISCHARGE 2 MEDICINE AJITH DAY SERV MANAGEMEN @CTRL BAP T > 30 MIN SBSQ 38477 NEPHROLOG [facility] 2 Y JANAY CARE/DAY ASSOCIATE 15 S MINUTES SBSQ 62137 [facility] 2 MEDICINE AJITH CARE/DAY SERV 35 @CTRL BAP MINUTES SBSQ 11335 [facility] 2 [place] CARE/DAY PSC 25 MINUTES RADIOLOGI 52756 M[facility]O BELLAMY ADA C EXAM 2 RADIOLOGY CHEST 2 ASSOC VIEWS FRONTAL&L ATERAL ELECTROEN 96096 [facility]RES [facility] CEPHALOGR 2 [place] AM W/REC PSC AWAKE&KULWINDER WSY ECG 07248 [facility] ROUTINE 2 MARLON ECG CARDIOLOG W/LEAST Y AT CENT 12 LDS I&R ONLY ECHO 98247 [facility] TTHRC R-T 2 2D CARDIOLOG W/WOM-MOD Y AT CENT E COMPL SPEC&COLR D INITIAL 43524 [facility] Y THO CARE/DAY ASSOCIATE [address] [place] [address] [facility] RETROPERI 2 RADIOLOGY TONEAL ASSOC REAL TIME W/IMAGE COMPLETE INITIAL 62527 [facility] 2 [place] CARE/DAY PSC 50 MINUTES RADIOLOGI 69017 [facility] BELLAMY ADA C 2 RADIOLOGY EXAMINATI ASSOC [place] [address] JUVENAL LEIDY GRE HEAD/BRAI 2 LEIDY N W/[place] [address] JUVENAL LEIDY GRE THORACIC 2 LEIDY SPINE W/O CONTRAST MATERIAL AMB A0431 AIR EVAC AIR EVAC SERVICE 2 LIFETEAM LIFETEAM CONVNTION AIR SRVC TRANSPORT [address] BLOOD 60234 ALEE A ALEE A COUNT 2 R H R H COMPLETE AUTO&AUTO DIFRNTL WBC COLLECTIO 76960 ALEE VICKERS A N VENOUS 2 R H R H BLOOD VENIPUNCT URE HEPATIC 14054 ALEE VICKERS A FUNCTION 2 R H R H PANEL AMB A0422 Jebbit OXYGEN&O2 2 LIFE CARE LIFE CARE SUPPLIES LIFE SUSTAININ G SITUATION AMB A0427 Jebbit SERVICE 2 LIFE CARE LIFE CARE ALS EMERGENCY TRANSPORT LEVEL 1 INJECTION J3360 ALEE VCIKERS A DIAZEPAM 2 R H R H UP TO 5 MG BASIC 03565 ALEE HURLEYLAN A METABOLIC 2 R H [place] [address] ALEE VICKERS A AMMONIA 2 R H R H NONINVASI 26285 ALEE VICKERS A VE 2 R H R H EAR/[place] [address] ALEE VICKERS A INFUSION 2 R H R [place] [address] JUVENAL FORBES GRE CERVICAL 2 LEIDY SPINE W/O CONTRAST MATERIAL GROUND A0425 Jebbit MILEAGE 2 LIFE CARE LIFE CARE PER STATUTE MILE ROTARY A0436 AIR EVAC AIR EVAC WING AIR 2 LIFETEAM LIFETEAM MILEAGE PER STATUTE MILE THER 29378 ALEE VICKERS A PROPH/DX 2 R H R H NJX IV PUSH SINGLE/1S T SBST/DRUG PRTBLE E0431 THE THE [facility]OUS [facility] STORE RENT; [facility] HUMIDFR&M ASK O2 CONC 1 E1390 THE THE DEL PORT [facility] 85%/>02 STORE STORE CONC AT [facility] [address] [facility] DISCHARGE 2 ABD ABD DAY MANAGEMEN T 30 MIN/< SBSQ 13517 [facility] 2 ABD ABD CARE/DAY 15 MINUTES RADIOLOGI 91106 JUVENAL TORRESU GRE C EXAM 2 LEIDY CHEST 2 VIEWS FRONTAL&L ATERAL SBSQ 11262 [facility] 2 ABD ABD CARE/DAY 25 MINUTES INITIAL 05344 [facility] 2 ABD ABD CARE/DAY 50 MINUTES RADIOLOGI 97052 JUVENAL LEIDY GRE C 2 LEIDY EXAMINATI ON CHEST SINGLE VIEW FRONTAL RADIOLOGI 52036 JUVENAL LEIDY GRE C 2 LEIDY EXAMINATI ON CHEST SINGLE VIEW FRONTAL AMB A0422 Jebbit OXYGEN&O2 2 LIFE CARE LIFE CARE SUPPLIES LIFE SUSTAININ G SITUATION AMB A0427 I AND [employer] 2 LIFE CARE LIFE CARE ALS EMERGENCY TRANSPORT LEVEL 1 GROUND A0425 Jebbit MILEAGE 2 [facility] [place] [address] ALEE A ALEE A GAMMAGLOB 2 R H R H ULIN IGE GAMMAGLOB 53857 ALEE A ALEE A ULIN 2 R H R [place]MM[place] [address] ALEE A ALEE A GAMMAGLOB 2 R H R H ULIN IGA IGD IGG IGM EACH COLLECTIO 60780 ALEE A ALEE A N VENOUS 2 R H R [facility] B[facility] 55955 [facility] 2 MEDICAL A ASHLEY DAY ASSOCIATE MANAGEMEN S T 30 MIN/< SBSQ 79600 [facility] 2 MEDICAL A ASHLEY CARE/DAY ASSOCIATE 15 S MINUTES INITIAL 57244 [facility] 2 MEDICAL A ASHLEY CARE/DAY ASSOCIATE 50 S MINUTES RADIOLOGI 03569 JUVENAL LEIDY GRE C 2 LEIDY EXAMINATI ON CHEST SINGLE VIEW FRONTAL AMB A0422 [facility] OXYGEN&O2 2 [facility] SUPPLIES LIFE SUSTAININ G SITUATION AMB A0427 [facility] SERVICE 2 [facility] ALS EMERGENCY TRANSPORT LEVEL 1 GROUND A0425 [facility] MILEAGE 2 [facility] PER STATUTE MILE PRTBLE E0431 [facility] O[facility] SYS ST[facility] STORE RENT; ALEE ALEE FLWMTR HUMIDFR&M ASK O2 CONC 1 E1390 THE THE DEL PORT [facility] 85%/>02 STORE STORE CONC AT [facility] [place] PRSC FLW RATE ADMN SET A7003 THE THE SM VOL [facility] NONFILTR STORE STORE PNEUMAT [place] NEBULIZR DISPBL INJECTION J2250 ALEE A ALEE A 2 R H R H MIDAZOLAM HCL PER 1 MG COLSC FLX 96101 ALEE A ALEE A PROX 2 R H R H SPLENIC FLXR ABLTJ LES COLSC FLX 68863 [facility] BUTT JAM 2 MED W/REMOVAL ASSOCIATE L[place] [address] [facility] SURG 2 [facility] PATHOLOGY GROSS&SADIQ ROSCOPIC EXAM CONCENTRA 75595 ALEE A ALEE A TION 2 R H R H INFECTIOU S AGENTS INJECTION J3010 ALEE A ALEE A FENTANYL 2 R H R H CITRATE 0.1 MG ANES 51335 TRIANGLE DAMEON TAR LOWER 2 ANESTHESI INTESTINE A GROUP [place] [address] ALEE A ALEE A CLOSTRIDI 2 R H [place] [address] ALEE A ALEE A GIARDIA 2 R H R H INJECTION J2405 ALEE A ALEE A 2 R H R H ONDANSETR ON HCL PER 1 MG COLSC FLX 47978 [facility] INC BUTT JAM W/RMVL 2 MED OF TUMOR ASSOCIATE POLYP S LESION SNARE TQ COLONOSCO 13742 [facility] BUTT JAM PY 2 MED W/BIOPSY ASSOCIATE SINGLE/MU S LTIPLE CUL BACT 38213 ALEE A ALEE A STOOL 2 R H R H AEROBIC ISOL SALMONELL A&SHIGELL SMR PRIM 74567 ALEE A ALEE A SRC CPLX 2 R H R H SPEC STAIN OVA&JULIA ITS INJ J1459 ALEE A ALEE A IMMUNE 2 R H R H GLOBULIN IV NONLYOP[place] LIZED 500 [place] [address] [facility] INFUSION 2 R H R H THERAPY/P ROPHYLAXI S /DX 1ST TO 1 HOSPITAL 36463 [facility] DISCHARGE 2 WOMENS & DAY FAMILY MANAGEMEN HEALTH C T 30 MIN/< SBSQ 79295 [facility] 2 WOMENS & CARE/DAY FAMILY 25 HEALTH C MINUTES SBSQ 76291 [facility] 2 WOMENS & CARE/DAY FAMILY 25 HEALTH C MINUTES AMB A0422 [facility] OXYGEN&O2 2 LIFE CARE LIFE CARE SUPPLIES LIFE SUSTAININ G SITUATION INITIAL 18966 [facility] 2 WOMENS & CARE/DAY FAMILY 50 HEALTH C MINUTES RADEX ABD 15789 JUVENAL LEIDY GRE COMPL 2 LEIDY AQT ABD W/S/E/D VIEWS 1 VIEW GROUND A0425 [facility] MILEAGE 2 [facility] PER STATUTE MILE AMBULANCE A0429 [facility] SERVICE 2 [facility] BLS EMERGENCY TRANSPORT PRTBLE E0431 [facility]; [facility] HUMID[facility]&M ASK O2 CONC 1 E1390 THE THE DEL PORT [facility] 85%/>02 STORE STORE CON[facility] [address] [facility] A ASHLEY DAY ASSOCIATE MANAGEMEN S T 30 MIN/< SBSQ 67509 [facility] 2 MEDICAL A ASHLEY CARE/DAY ASSOCIATE 15 S MINUTES SBSQ 19952 [facility] 2 MEDICAL A ASHLEY CARE/DAY ASSOCIATE 15 S MINUTES AMB A0422 [facility] OXYGEN&O2 2 LIFE CARE LIFE CARE SUPPLIES LIFE SUSTAININ G SITUATION GROUND A0425 [facility] MILEAGE 2 LIFE CARE LIFE CARE PER STATUTE MILE INITIAL 44305 [facility] 2 ABD ABD CARE/DAY 50 MINUTES RADIOLOGI 52280 JUVENAL LEIDY GRE C 2 LEIDY EXAMINATI ON CHEST SINGLE VIEW FRONTAL AMBULANCE A0429 [facility] SERVICE 2 [facility] BLS EMERGENCY TRANSPORT US SOFT 79918 JUVENAL LEIDY GRE TISSUE 2 LEIDY HEAD & NECK REAL TIME IMGE DOCM ALBUTEROL J7620 [facility] TO 2.5 2 D DRUG CO D DRUG CO MG & IPRATROPI UM BROM TO 0.5 MG PHRM Q0513 [facility] DISPENSIN 2 D DRUG CO D DRUG CO G FEE INHALATIO N RX; PER 30 DAYS AMB A0427 [facility] SERVICE 2 [facility] ALS EMERGENCY TRANSPORT LEVEL 1 AMB A0422 [facility] OXYGEN&O2 2 LIFE CARE LIFE CARE SUPPLIES LIFE SUSTAININ G SITUATION DIAB ONLY A5501 [facility] FIT CSTM 2 D DRUG CO D DRUG CO PREP&SPL SHOE MOLD PTS FT FOR DIAB A5513 [facility]UM[facility] ONLY MX 2 D DRUG CO D DRUG CO DNSITY INSRT CSTM MOLD CSTM EA GROUND A0425 [facility] 2 LIFE CARE LIFE CARE PER STATUTE [facility] 14266 [facility] DISCHARGE 2 WOMENS & DAY FAMILY MANAGEMEN HEALTH C T 30 MIN/< INITIAL 08041 [facility] 2 WOMENS & CARE/DAY FAMILY [place] [address] JUVENAL LEIDY GRE ABDOMINAL 2 LEIDY REAL TIME W/IMAGE LIMITED RADEX ABD 55678 JUVENAL LEIDY GRE COMPL 2 LEIDY AQT ABD W/S/E/D VIEWS 1 VIEW CH O2 CONC 1 E1390 THE [facility]%/>02 STORE STORE CONC AT [facility] FLW RATE PRTBLE E0431 THE THE GASEOUS [facility] O2 SYS STORE STORE RENT; [facility] FLWMTR HUMIDFR&M ASK RADIOLOGI 18606 JUVENAL LEIDY GRE C EXAM 1 LEIDY CHEST 2 VIEWS FRONTAL&L ATERAL COLLECTIO 22688 CLOVER VENUS N VENOUS 1 FORK SHA BLOOD OUTPATI[place] [address] [facility] TRIIODOTH 1 DIAGNOSTI DIAGNOSTI YRONINE CS CS T3 [place] [address] [facility] FREE 1 DIAGNOSTI [place]AG[place] [address] [facility] THYROID 1 DIAGNOSTI DIAGNOSTI STIMULATI CS CS NG HORMONE TSH COMPUTER- 01985 JUVENAL FORBES GRE AIDED 1 LEIDY DETECTION SCREENING MAMMOGRAP HY INJ IG J1569 ALEE A ALEE A GAMMAGARD 1 R H R H LIQ IV NONLYOPHI LIZED 500 [place] [address] ALEE A ALEE A INFUSION 1 R H R H THERAPY/P ROPHYLAXI S /DX 1ST TO 1 HR SCREENING G0202 JUVENAL FORBES GRE 1 LEIDY MAMMOGRAP HY EVERARDO INCL CAD WHEN PERFORMD COLLECTIO 27237 [facility] VENUS N VENOUS 1 [facility] BLOOD OUTPATIEN VENIPUNCT T CLINI URE BASIC 62450 [facility] METABOLIC 1 DIAGNOSTI DIAGNOSTI PANEL CS CS CALCIUM TOTAL ANTINUCLE 87662 [facility]ST AR 1 DIAGNOSTI DIAGNOSTI ANTIBODIE CS CS S [facility] 46758 [facility] 1 [facility] C T 30 MIN/< SBSQ [address] FAM[place] [address] [place] [address] JUVENAL FORBES GRE ANGIOGRAP 1 LEIDY HY CHEST W/CONTRAS T/NONCONT RAST SBSQ [address] 25 [place] [address] JUVENAL FORBES GRE ABDOMINAL 1 LEIDY REAL TIME W/IMAGE LIMITED SBSQ 68046 [place] [address] HEALTH C MINUTES RADIOLOGI 27388 JUVENAL BA C EXAM 1 LEIDY CHEST 2 VIEWS FRONTAL&L ATERAL SBSQ 18055 [facility] 1 WOMENS & A SRI CARE/DAY FAMILY 25 HEALTH C MINUTES INITIAL 57317 [facility] 1 WOMENS & A SRI CARE/DAY [place] [address] [place] [address] JUVENAL TORRESU GRE ABDOMEN & 1 LEIDY PELVIS W/O CONTRAST MATERIAL RADEX ABD 30750 JUVENAL TORRESU GRE COMPL 1 LEIDY AQT ABD W/S/E/D VIEWS 1 VIEW CH O2 CONC 1 E1390 THE [facility] 85%/>02 STORE STORE CONC AT [facility] FLW RATE PRTBLE E0431 THE THE [facility] S[facility] ST[facility] STORE [facility]ENT; [facility] ASK COLLECTIO 38139 CLOVER MARIOLA N VENOUS 1 FORK RAC BLOOD OUTPATIEN VENIPUNCT T CLINI URE LIPID 03761 [facility] PANEL 1 DIAGNOSTI DIAGNOSTI CS CS GLUCOSE 75673 [place] QUANTITAT 1 FORK RAC ARCHIE BLOOD OUTPATIEN XCPT T CLINI REAGENT STRIP HEMOGLOBI 23631 QUE[facility] QUEST N 1 DIAGNOSTI DIAGNOSTI GLYCOSYLA CS CS SULAIMAN A1C ALBUTEROL J7620 CUMBERLAN CUMBERLAN TO 2.5 1 D DRUG CO D DRUG CO MG & IPRATROPI UM BROM TO 0.5 MG PHRM Q0513 CUMBERLAN CUMBERLAN DISPENSIN 1 D DRUG CO D DRUG CO G FEE INHALATIO N RX; PER 30 DAYS RADIOLOGI 21815 JUVEANL TORRESU GRE C EXAM 1 LEIDY CHEST 2 VIEWS FRONTAL&L ATERAL PRESSURIZ 55097 ALEE Villafuerte ED/NONPRE 1 R H R H SSURIZED INHALATIO N TREATMENT AMBULANCE A0429 [facility] BLS EMERGENCY TRANSPORT THER 73043 ALEE Villafuerte PROPH/DX 1 R H R H NJX IV PUSH SINGLE/1S T SBST/DRUG AMB A0422 [facility] OXYGEN&O2 1 [facility] SUPPLIES LIFE SUSTAININ G SITUATION INJ J2930 ALEE A ALEE A METHYLPRD 1 R H R H NISOLONE SODIUM SUCCNAT TO 125 MG [facility]OUND A0425 [facility] PER STATUTE MILE O2 CONC 1 E1390 THE [place] [address] [facility] 85%/>02 STORE STORE CONC AT [facility] FLW RATE PRTBLE E0431 THE THE GASEOUS [facility] O2 SYS STORE STORE RENT; [facility] [place] H[place]FR&[place] [address] ALEE A ALEE A INFUSION 1 R H R H THERAPY/P ROPHYLAXI S /DX 1ST TO 1 HR MRI 53756 JUVENAL BA SPINAL 1 LEIDY CANAL [place]ERV[place] [address] ALEE A ALEE A INFUSION 1 R H R H THERAPY/P ROPHYLAXI S /DX 1ST TO 1 HR PRTBLE E0431 THE THE [facility] S[facility] STORE STORE RENT; [facility] HUMIDFR&M ASK O2 CONC 1 E1390 THE THE [place] [address] [facility] 85%/>02 STORE STORE CONC AT [facility] FLW RATE INJ IG J1569 ALEE A ALEE A GAMMAGARD 1 R H R H LIQ IV NONLYOPHI LIZED [facility] 76396 [facility] TRIP DAMION DISCHARGE 1 MED DAY ASSOCIATE MANAGEMEN S T 30 MIN/< RADIOLOGI 00779 JUVENAL BA C EXAM 1 LEIDY CHEST 2 VIEWS FRONTAL&L ATERAL PHRM Q0513 CUMBERLAN CUMBERLAN DISPENSIN 1 D DRUG CO D DRUG CO G FEE INHALATIO N RX; PER 30 DAYS ALBUTEROL J7620 CUMBERLAN CUMBERLAN TO 2.5 1 D DRUG CO D DRUG CO MG & IPRATROPI UM BROM TO 0.5 MG O2 CONC 1 E1390 THE [place] [address] [facility] 85%/>02 STORE STORE CONC AT ALEE ALEE PRSC FLW RATE PRTBLE E0431 THE THE GASEOUS [facility] O[facility] SYS STORE STORE RENT; A[facility]E ALEE FL[facility]TR HUMIDFR&M ASK PRESSURIZ 03340 ALEE A ALEE A ED/NONPRE 1 R H R H SSURIZED INHALATIO N TREATMENT EXCISION 74188 [facility] BUTT JAM GANGLION 1 MED WRIST ASSOCIATE DORSAL/VO S LAR PRIMARY LEVEL III 59627 [facility] SURG 1 HLTHCARE NAN PATHOLOGY GROSS&SADIQ ROSCOPIC EXAM INJECTION J2405 ALEE A ALEE A 1 R H R H ONDANSETR ON HCL PER 1 MG NEUROPLAS 51200 [facility] BUTT JAM TY 1 MED &/TRANSPO ASSOCIATE S MEDIAN S NRV CARPAL TUNNE INJECTION J2250 ALEE A ALEE A 1 R H R H MIDAZOLAM HCL PER 1 MG INJECTION J2270 ALEE A ALEE A MORPHINE 1 R H R H SULFATE UP TO 10 MG INJECTION J0690 ALEE A ALEE A 1 R H R H CEFAZOLIN SODIUM 500 MG FILTER A7038 THE [facility] DISPBL [facility] USED STORE STORE W/POS ALEE ALEE ARWAY PRESSURE DEVICE CHINSTRAP A7036 THE THE USED [facility] W/POSITIV STORE STORE E AIRWAY ALEE ALEE PRESSURE DEVICE NASL A7034 THE THE INTRFCE [facility] POS ARWAY STORE STORE PRSS ALEE ALEE DEVC W/WO HEAD STRAP CT THORAX 43652 JUVENAL LEIDY GRE W/O 1 LEIDY CONTRAST MATERIAL TUBING A7037 THE THE USED WITH [facility] POSITIVE STORE STORE AIRWAY ALEE ALEE PRESSURE DEVICE PHRM Q0513 CUMBERLAN CUMBERLAN DISPENSIN 1 D DRUG CO D DRUG CO G FEE INHALATIO N RX; PER 30 DAYS ALBUTEROL J7620 CUMBERLAN CUMBERLAN TO 2.5 1 D DRUG CO D DRUG CO MG & IPRATROPI UM BROM TO 0.5 MG O2 CONC 1 E1390 THE THE DEL [facility] 85%/>02 STORE STORE CONC AT [facility] FLW RATE PRTBLE E0431 THE THE [facility] O[facility] SYS STORE STORE RENT; [facility] HUMIDFR&M ASK DESTRUCTI 12810 [facility] AHMAD F ON BENIGN 1 MED LESIONS ASSOCIATE UP TO 14 S EGD 38313 [facility] AHMAD F TRANSORAL 1 MED BIOPSY ASSOCIATE SINGLE/MU S LTIPLE URINE 17359 ALEE HURLEYLAN A 1 R H R H TEST VIS[place] [address] ALEE HURLEYLAN A SURG 1 R H R H PATHOLOGY GROSS&SADIQ ROSCOPIC EXAM ANES 19310 TRIANGLE WHITE EAR UPPER GI 1 ANESTHESI ENDOSCOPY A GROUP PROXIMAL PS TO DUODENUM CUL 35877 ALEE HURLEYLAN A PRSMPTV 1 R H R H PTHGNC ORGANISM SCRN W/COLONY ESTIMJ O2 CONC 1 E1390 THE THE DEL [facility] 85%/>02 STORE STORE CONC AT [facility] FLW RATE PRTBLE E0431 THE THE GASEOUS [facility] O2 SYS STORE STORE RENT; ALEE ALEE [facility]TR HUMIDFR&M ASK [place] 15147 ALEE HURLEYLAN A MONOXIDE 1 R H R H DIFFW/CAP ARTERIAL 90431 ALEE HURLEYLAN A PUNCTURE 1 R H R H WITHDRAWA L BLOOD DX POLYSOM 63668 ALEE A ALEE A 6/>YRS 1 R H R H SLEEP 4/> ADDL CASI ATTND BRNCDILAT 63993 ALEE HURLEYLAN A RSPSE 1 R H R H SPMTRY PRE&POST- BRNCDILAT ADMN FUNCTIONA 40210 ALEE A ALEE A L 1 R H R H RESIDUAL CAPACITY OR RESIDUAL VOLUME ECHO 34493 APPALACHI APAKONDU TTHRC R-T 1 AN [facility] W/WOM-MOD E COMPL SPEC&COLR D CARBOXYHE 33379 ALEE A ALEE A MOGLOBIN 1 R H R H QUANTITAT ARCHIE DESTRUCTI 35005 [facility] ON 1 MED PREMALIGN ASSOCIATE ANT S LESION 1ST DESTRUCTI 89768 [facility] F ON 1 MED PREMALIGN ASSOCIATE ANT S LESION 2-14 EA BLOOD 69562 ALEE A ALEE A GASES ANY 1 R H R H COMBINATI ON PH PCO2 PO2 CO2 HCO3 MRI 51313 ALEE A ALEE A SPINAL 1 R H R H CANAL THORACIC W/O CONTRAST MATRL RADEX 33563 JUVENAL LEIDY GRE SPINE 1 LEIDY THORACIC 3 VIEWS COLLECTIO 17937 ALEE A ALEE A N VENOUS 1 R H R H BLOOD VENIPUNCT URE RHEUMATOI 17191 ALEE A ALEE A D FACTOR 1 [place] [address] ALEE A ALEE A BLOOD/URI 1 R H R H C ACID ANTINUCLE 77308 ALEE A ALEE A AR 1 R H R H ANTIBODIE S CLARA SEDIMENTA 86363 ALEE A ALEE A TION RATE 1 R H R H RBC AUTOMATED C-REACTIV 09444 ALEE A ALEE A E PROTEIN 1 R H R H RADEX 85964 JUVENAL LEIDY GRE SPINE 1 LEIDY LUMBOSACR AL MINIMUM 4 VIEWS ALBUTEROL J7620 [facility] 2.5 1 PHARMACY PHARMACY MG & 1377 1377 IPRATROPI UM BROM TO 0.5 MG ALBUTEROL J7613 [facility] INHAL 1 PHARMACY PHARMACY NON-CP 1377 1377 PROD THRU DME U DOSE 1 MG ALBUTEROL J7613 [facility] INHAL 1 PHARMACY PHARMACY NON-CP 1377 1377 PROD THRU DME U DOSE 1 MG IPRATROPI J7644 [facility] UM 1 PHARMACY PHARMACY BROMIDE 1377 1377 INHAL NON-CP U DOSE PER MG PHARM G0333 [facility] DISPEN 1 PHARMACY PHARMACY FEE INHAL 1377 1377 RX; INITIAL 30-DAY SUPPLY PRTBLE E0431 THE [facility] STORE RENT; [facility] HUMIDFR&M [facility] [address] [facility] WOMENS & DAY FAMILY MANAGEMEN HEALTH C T 30 MIN/< O2 CONC 1 E1390 THE THE DEL PORT [facility] 85%/>02 STORE STORE CONC AT [facility] FLW RATE SBSQ [address] & CARE/DAY FAMILY [address] [place] [address] JUVENAL LEIDY GRE ANGIOGRAP 1 LEIDY HY CHEST W/CONTRAS T/NONCONT RAST NON-INVAS 9390 [facility] A ARCHIE 1 R H R H MECHANICA L VENTILATI ON SBSQ 60417 [place] [address] WOMENS & CARE/DAY FAMILY 25 HEALTH C MINUTES INITIAL [address] & CARE/DAY FAMILY 50 HEALTH C MINUTES RADIOLOGI 92067 JUVENAL FORBES GRE C 1 LEIDY EXAMINATI ON CHEST SINGLE VIEW FRONTAL RADEX 70477 RADIOLOGY NEILS STEFFANY ABDOMEN 1 1 ASSOCIATE [place] [address] RADIOLOGY HURST MARY ABDOMEN & 1 PELVIS ASSOCIATE W/O S PSC CONTRAST MATERIAL CULTURE [address] BACTERIAL 1 PABLO SHAH QUANTTATI MEDICALCE MEDICALCE [place] [address] RADIOLOGY BRANDSER ABDOMEN & 1 STEFFANY PELVIS ASSOCIATE W/O S PSC CONTRAST MATERIAL GROUND A0425 SYMONE SYMONE MILEAGE 1 CO CO PER AMBULANCE AMBULANCE STATUTE TAXIN TAXIN MILE RADEX 48615 RADIOLOGY EISEMAN ABDOMEN 1 1 WAL ASSOCIATE ANTEROPOS S PSC TERIOR VIEW AMBULANCE A0429 SYMONE SYMONE SERVICE 1 CO CO BLS AMBULANCE AMBULANCE EMERGENCY TAXIN TAXIN TRANSPORT AMBULANCE A0429 SYMONE SYMONE SERVICE 1 CO CO BLS AMBULANCE AMBULANCE EMERGENCY TAXIN TAXIN TRANSPORT RADEX 83922 RADIOLOGY KERMAN ABDOMEN 1 1 JUNIOR ASSOCIATE ANTEROPOS S PSC TERIOR VIEW GROUND A0425 SYMONE SYMONE MILEAGE 1 CO CO PER AMBULANCE AM[place] [address] RADIOLOGY KERMAN ABDOMEN & 1 JUNIOR PELVIS ASSOCIATE W/O S PSC CONTRAST MATERIAL LIPID [address] PANEL 1 PABLO PABLO MEDICALCE MEDICALCE NTER NTER BLOOD [address] COUNT 1 PABLO PABLO COMPLETE AUTO&AUTO MEDICALCE MEDICALCE DIFRNTL NTER NTER WBC HEMOGLOBI [address] N 1 PABLO PABLO GLYCOSYLA SULAIMAN A1C MEDICALCE MEDICALCE NTER NTER COMPREHEN [address] SIVE 1 PABLO PABLO METABOLIC PANEL [place] [address] THYROID 1 PABLOMARIE SHAH STIMULATI NG MEDICALCE MEDICALCE HORMONE NTER NTER TSH BASIC [address] METABOLIC 1 PABLO PABLO PANEL CALCIUM MEDICALCE MEDICALCE TOTAL NTER NTER BLOOD [address] COUNT 1 PABLO PABLO COMPLETE AUTO&AUTO MEDICALCE MEDICALCE DIFRNTL NTER NTER WBC DRUG [address] SCREEN 1 PABLO PABLO QUANTITAT ARCHIE MEDICALCE MEDICALCE THEOPHYLL NTER NTER INE LIPID [address] PANEL 1 PABLO PABLO MEDICALCE MEDICALCE NTER NTER BLOOD [address] COUNT 1 PABLO PALBO COMPLETE AUTO&AUTO MEDICALCE MEDICALCE DIFRNTL NTER NTER WBC HEMOGLOBI [address] N 1 PABLO PABLO GLYCOSYLA SULAIMAN A1C MEDICALCE MEDICALCE NTER NTER COMPREHEN [address] SIVE 1 PABLO PABLO METABOLIC PANEL [place] [address] THYROID 1 PABLO PABLO STIMULATI NG MEDICALCE MEDICALCE HORMONE NTER NTER TSH ALBUMIN 45232 GIRON ROSA ISELA URINE 1 PABLO ANEUDYJENNIFER MIN PHYSICIAN SEMIQUANT S ITATIVE RADIOLOGI 94070 RADIOLOGY PEREZ C EXAM 1 BRA CHEST 2 ASSOCIATE VIEWS S PSC FRONTAL&L ATERAL RADEX 33794 RADIOLOGY [place] [facility] SPINE 0 THORACOLM ASSOCIATE BR S PSC STANDING SCOLIOSIS THERAPEUT 36295 [facility] IC 0 [facility] TIC/DX INJECTION SUBQ/IM SCREENING G0202 RADIOLOGY LEXIS 0 MILDRED MAMMOGRAP ASSOCIATE HY EVERARDO S PSC INCL CAD WHEN PERFORMD COMPUTER- 31120 RADIOLOGY [place] AIDED 0 MILDRED DETECTION ASSOCIATE S PSC [place] [address] THYROID 0 PABLO PABLO STIMULATI NG MEDICALCE MEDICALCE HORMONE NTER NTER TSH COMPREHEN [address] SIVE 0 PABLO PABLO METABOLIC PANEL MEDICALCE MEDICALCE NTER NTER HEMOGLOBI [address] N 0 PABLO PABLO GLYCOSYLA SULAIMAN A1C MEDICALCE MEDICALCE NTER NTER BLOOD [address] COUNT 0 PABLO PABLO COMPLETE AUTO&AUTO MEDICALCE MEDICALCE DIFRNTL NTER NTER WBC LIPID [address] PANEL 0 PABLO PABLO MEDICALCE MEDICALCE NTER NTER LIPID [address] PANEL 0 PABLO PABLO MEDICALCE MEDICALCE NTER NTER BLOOD [address] COUNT 0 PABLO PABLO COMPLETE AUTO&AUTO MEDICALCE MEDICALCE DIFRNTL NTER NTER WBC HEMOGLOBI [address] N 0 PABLO PABLO GLYCOSYLA SULAIMAN A1C MEDICALCE MEDICALCE NTER NTER COMPREHEN [address] SIVE 0 PABLO PABLO METABOLIC PANEL [place] [address] THYROID 0 PABLO PABLO STIMULATI NG MEDICALCE MEDICALCE HORMONE NTER NTER TSH CLTX PROX 18114 [facility] COMMONWEA 0 LTH LTH FIBULA/SH ORTHOPAED ORTHOPAED FT FX W/O IC CTR IC CTR MANJ PSC PSC APPLICATI [address] ON LONG 0 [facility] SPLINT THIGH ANKLE/TOE S RADIOLOGI 19787 RADIOLOGY DELILAH, C 0 EXAMINATI ASSOCIATE PABLO ON TIBIA S PSC A & FIBULA 2 VIEWS BLD GLU A4253 PLAZA PLAZA TEST/REAG 0 PHARMACY PHARMACY T STRIPS HOME BLD GLU WED-[address] SE 0 PABLO PABLO ASPARTATE AMINO MEDICALCE MEDICALCE AST SGOT NTER NTER TRANSFERA [address] SE 0 PABLO PABLO ALANINE AMINO ALT MEDICALCE [place] [address] THYROID 0 PABLO PABLO STIMULATI NG MEDICALCE MEDICALCE HORMONE NTER NTER TSH BASIC [address] METABOLIC 0 PABLO PABLO PANEL CALCIUM MEDICALCE MEDICALCE TOTAL NTER NTER LIPID [address] PANEL 0 PABLO PABLO MEDICALCE MEDICALCE NTER NTER HEMOGLOBI [address] N 0 PABLO PABLO GLYCOSYLA SULAIMAN A1C MEDICALCE MEDICALCE NTER NTER BLOOD [address] COUNT 0 PABLO PABLO COMPLETE AUTO&AUTO MEDICALCE MEDICALCE DIFRNTL NTER NTER [facility] 33229 FAMILY MULBERRY, DISCHARGE 9 CARE URBAN T DAY ASSOCIATE MANAGEMEN S T 30 MIN/< 3D 80921 NOHEMI LOZANO, RENDERING 9 MEDICAL LUIS P IMAGING W/INTERP& ASSOCIATE POSTPROC S DIFF WORK STATION CT PELVIS 67639 NOHEMI LOZANO, W/O 9 MEDICAL LUIS P CONTRAST IMAGING MATERIAL ASSOCIATE S INITIAL 58500 [facility] 9 CARE URBAN T CARE/DAY ASSOCIATE [address] [place] [address] NOHEMI LOZANO, ABDOMEN 9 MEDICAL LUIS P W/O IMAGING CONTRAST ASSOCIATE MATERIAL S ECG 11184 RADHA ACE, ROUTINE 9 EMERGENCY ASIA S ECG SERVICES W/LEAST 12 LDS ASSOCIATE I&R ONLY S RADEX ABD 72639 NOHEMI LOZANO, COMPL 9 MEDICAL LUIS P AQT ABD IMAGING W/S/E/D ASSOCIATE VIEWS 1 S VIEW [place] COLLECTIO [address] ST N VENOUS 9 [facility] VENIPUNCT URE BLOOD [address] COUNT 9 [facility] AUTO&AUTO DIFRNTL WBC COMPREHEN 56632 [facility] SIVE 9 [facility] PANEL BASIC 04324 [facility] METABOLIC 9 [facility] PANEL CALCIUM MEDICALCE MEDICALCE TOTAL NTER NTER TRANSFERA [address] SE 9 [facility] ASPARTATE AMINO MEDICALCE MEDICALCE AST SGOT NTER NTER TRANSFERA [address] SE 9 [facility] ALANINE AMINO ALT MEDICALCE MEDICALCE SGPT NTER NTER HEMOGLOBI [address] N 9 [facility] GLYCOSYLA SULAIMAN A1C MEDICALCE MEDICALCE NTER NTER COLLECTIO 79246 [facility] VENOUS 9 MEDICAL , SILVINO BLOOD GROUP F VENIPUNCT URE LIPID [address] PANEL 9 [facility] NTER NTER DRUG [address] [facility]CREEN 9 [facility] QUANTITAT ARCHIE MEDICALCE MEDICALCE THEOPHYLL NTER NTER INE CONTINUOU E0601 HAILEE STEPHEN S 9 HOSP HOSP POSITIVE EQUIP EQUIP AIRWAY PRESSURE DEVICE DRUG [address] SCREEN 9 [facility] QUANTITAT ARCHIE MEDICALCE MEDICALCE THEOPHYLL NTER NTER INE ELECTROLY [address] TE PANEL 9 PABLO PABLO MEDICALCE MEDICALCE NTER NTER HEMOGLOBI [address] N 9 [facility] GLYCOSYLA SULAIMAN A1C [place] [address] UREA 9 [facility] NITROGEN QUANTITAT MEDICALCE MEDICALCE ARCHIE NTER NTER CREATININ [address] E BLOOD 9 [facility] MEDICAL[facility] MEDICALCE NTER NTER CONTINUOU E0601 HAILEE STEPHEN S 9 HOSP HOSP POSITIVE EQUIP EQUIP AIRWAY PRESSURE DEVICE NEBULIZER E0570 [facility] STEPHEN WITH 9 HOSP HOSP COMPRESSO EQUIP EQUIP R CONTINUOU E0601 [facility] STEPHEN S 9 HOSP HOSP POSITIVE EQUIP EQUIP AIRWAY PRESSURE DEVICE HUMDIFIR E0562 [facility] STEPH[facility] HEATED 9 HOSP HOSP USED EQUIP EQUIP W/POS ARWAY PRESSURE DEVICE CUSHN A7032 [facility] STEPHEN NASAL 9 HOSP HOSP MASK EQUIP EQUIP INTERFACE REPLACEME NT ONLY EACH FILTER A7039 [facility] STEPHEN NON 9 HOSP HOSP DISPBL EQUIP EQUIP USED W/POS ARWAY PRESS DEVICE FILTER A7038 [facility] STEPH[facility] DISPBL 9 HOSP HOSP USED EQUIP EQUIP W/POS ARWAY PRESSURE DEVICE HEADGEAR A7035 [facility] STEPH[facility] USED 9 HOSP HOSP W/POSITIV EQUIP EQUIP E AIRWAY PRESSURE DEVICE NASL A7034 [facility] STEPHEN INTRFCE 9 HOSP HOSP POS ARWAY EQUIP EQUIP PRSS DEVC W/WO HEAD STRAP TUBING A7037 [facility] STEPHEN USED WITH 9 HOSP HOSP POSITIVE EQUIP EQUIP AIRWAY PRESSURE DEVICE NEBULIZER E0570 [facility] STEPHEN WITH 9 HOSP HOSP COMPRESSO EQUIP EQUIP R HUMDIFIR E0562 [facility] STEPHEN HEATED 9 HOSP HOSP USED EQUIP EQUIP W/POS ARWAY PRESSURE DEVICE CONTINUOU E0601 [facility] STEPHEN S 9 HOSP HOSP POSITIVE EQUIP EQUIP AIRWAY PRESSURE DEVICE NEBULIZER E0570 [facility] STEPHEN WITH 9 HOSP HOSP COMPRESSO EQUIP EQUIP R BLOOD [address] COUNT 9 [facility] COMPLETE AUTO&AUTO MEDICALCE MEDICALCE DIFRNTL NTER NTER WBC BILIRUBIN [address] DIRECT 9 [facility] MEDICAL[facility] MEDICALCE NTER NTER COMPREHEN [address] SIVE 9 [facility] METABOLIC PANEL [place] [address] THYROID 9 [facility] STIMULATI NG MEDICALCE MEDICALCE HORMONE NTER NTER TSH HUMDIFIR E0562 [facility] STEPHEN HEATED 9 HOSP HOSP USED EQUIP EQUIP W/POS ARWAY PRESSURE DEVICE CONTINUOU E0601 [facility] STEPHEN S 9 HOSP HOSP POSITIVE EQUIP EQUIP AIRWAY PRESSURE DEVICE NDL EMG 2 09201 [facility] XTR W/WO 9 S S RELATED HEALTHCAR HEALTHCAR PARASPINA E INC E INC L AREAS NRV CNDJ 01309 [facility] AMPLT&LAT 9 S S NCY EA HEALTHCAR HEALTHCAR NRV MOTR E INC E INC W/O F-WAVE STD NRV CNDJ 37769 [facility] [place] AMPLT&LAT 9 S S ENCY EA HEALTHCAR HEALTHCAR NRV MOTOR E INC E INC W/F-WAVE STD NRV CNDJ 35166 [facility] [place] AMPLITUDE 9 S S & HEALTHCAR HEALTHCAR LATENCY E INC E INC EACH NERVE SENSORY NEBULIZER E0570 [facility] STEPH[facility] WITH 9 HOSP HOSP COMPRESSO EQUIP EQUIP R CONTINUOU E0601 [facility] ROTHANDRE S 9 HOSP HOSP POSITIVE EQUIP EQUIP AIRWAY PRESSURE DEVICE HUMDIFIR E0562 LALYANDRE STEPHEN HEATED 9 HOSP HOSP USED EQUIP EQUIP W/POS ARWAY PRESSURE DEVICE COMPREHEN [address] [facility] 9 [facility] MEDICALCE MEDICALCE NTER NTER ANTINUCLE [address] AR 9 [facility] MED[facility] NTER NTER RHEUMATOI [address] [facility] FACTOR 9 [facility] QUALITATI VE MEDICALCE MEDICALCE NTER NTER DRUG 6[address]23 [address] SCREEN 9 [facility] QUANTITAT ARCHIE MEDICALCE MEDICALCE THEOPHYLL NTER NTER INE BLOOD [address] COUNT 9 [facility] COMPLETE AUTO&AUTO MEDICALCE MEDICALCE DIFRNTL NTER NTER WBC RADEX [address] HIPS 9 [facility] 2 VIEWS ANTEROPOS T PELVIS RADEX 64880 RADIOLOGY WELLS, SPINE 9 SALMA D CERVICAL ASSOCIATE 4 OR 5 S PSC VIEWS NEBULIZER E0570 [facility] STEPHEN WITH 9 HOSP HOSP COMPRESSO EQUIP EQUIP R DXA BONE 48628 RADIOLOGY BRANDSER, DENSITY 8 DHRUV A STUDY ASSOCIATE VERTEBRAL S PSC FRACTURE DXA BONE [address] DENSITY 8 [facility] STUDY 1/> [facility] SITES AXIAL SKEL CONTINUOU E0601 HA[facility] STEPHEN S 8 HOSP HOSP POSITIVE EQUIP EQUIP AIRWAY PRESSURE DEVICE HUMDIFIR E0562 [facility] STEPHEN HEATED 8 HOSP HOSP USED EQUIP EQUIP W/POS ARWAY PRESSURE DEVICE NEBULIZER E0570 [facility] STEPHEN WITH 8 HOSP HOSP COMPRESSO EQUIP EQUIP R HUMDIFIR E0562 [facility] STEPHEN HEATED 8 HOSP HOSP USED EQUIP EQUIP W/POS ARWAY PRESSURE DEVICE CONTINUOU E0601 [facility] STEPHEN S 8 HOSP HOSP POSITIVE EQUIP EQUIP AIRWAY PRESSURE DEVICE NEBULIZER E0570 [facility] STEPHEN WITH 8 HOSP HOSP COMPRESSO EQUIP EQUIP R ADMN SET A7005 [facility] STEPHEN W/SM VOL 8 HOSP HOSP NONFILTR EQUIP EQUIP NEBULIZR NON-DISPB L NASL A7034 [facility] STEPHEN INTRFCE 8 HOSP HOSP POS ARWAY EQUIP EQUIP PRSS DEVC W/WO HEAD STRAP HUMDIFIR E0562 [facility] STEPHEN HEATED 8 HOSP HOSP USED EQUIP EQUIP W/POS ARWAY PRESSURE DEVICE CONTINUOU E0601 [facility] STEPHEN S 8 HOSP HOSP POSITIVE EQUIP EQUIP AIRWAY PRESSURE DEVICE NEBULIZER E0570 [facility] STEPHEN WITH 8 HOSP HOSP COMPRESSO EQUIP EQUIP R IM ADM [id number] [facility], PRQ ID 8 MEDICAL GLO SUBQ/IM GROUP NJXS EA VACCINE IM ADM 57597 [facility], PRQ ID 8 MEDICAL GLO SUBQ/IM GROUP NJXS 1 VACCINE COMPUTER- [id number] RADIOLOGY PRICHARD, AIDED 8 [facility] DETECTION ASSOCIATE S PSC SCREENING MAMMOGRAP HY SCREENING G0202 RADIOLOGY PRICHARD, [address] [place] [address] MAMMOGRAP ASSOCIATE HY EVERARDO S PSC INCL CAD WHEN PERFORMD WALKING L4386 RESPIRATO RESPIRATO BOOT 8 RY RY NON-PNEUM CONSULTAN CONSULTAN AT TS INC TS [place] [address] [facility] PHLX/PHLG 8 [facility] GRT TOE W/MANJ CLTX 67263 JOE, METATARSO 8 [facility] PHLNGL JT MED CTR DISLC W/O ANES INJECTION 22753 JOE, ANES 8 [facility] OTHER MED CTR PERIPHERA L NERVE/BRA NCH RADEX TOE [address] MINIMUM [address] NEBULIZER E0570 HA[facility]E STEPHEN WITH 8 HOSP HOSP COMPRESSO EQUIP EQUIP R FILTER A7038 [facility] STEPHEN DISPBL 8 HOSP HOSP USED EQUIP EQUIP W/POS ARWAY PRESSURE DEVICE CUSHN A7032 [facility] STEPHEN NASAL 8 HOSP HOSP MASK EQUIP EQUIP INTERFACE REPLACEME NT ONLY EACH PREDNISON J7506 ST ST E ORAL [address] RAD[address]OLOG[address] C EXAM [address] VIEWS FRONTAL&L ATERAL DEMO&/BAMBI [address] ST ST L OF PT 8 [facility] AERSL GEN/NEB/I NHLR/IP CONTINUOU E0601 HA[facility]E STEPHEN S 8 HOSP HOSP POSITIVE EQUIP EQUIP AIRWAY PRESSURE DEVICE HUMDIFIR E0562 HA[facility] STEPHEN HEATED 8 HOSP HOSP USED EQUIP EQUIP W/POS ARWAY PRESSURE DEVICE NEBULIZER E0570 [facility] STEPHEN WITH 8 HOSP HOSP COMPRESSO EQUIP EQUIP R ECG [address] ROUTINE 8 [facility] W/LEAST 12 LDS TRCG ONLY W/O I&R HUMDIFIR E0562 HAILEE STEPHEN HEATED 8 HOSP HOSP USED EQUIP EQUIP W/POS ARWAY PRESSURE DEVICE CONTINUOU E0601 HAILEE STEPHEN S 8 HOSP HOSP POSITIVE EQUIP EQUIP AIRWAY PRESSURE DEVICE NEBULIZER E0570 LALYANDRE LALYANDRE WITH 8 HOSP HOSP COMPRESSO EQUIP EQUIP R NASL A7034 HA[facility]E STEPHEN INTRFCE 8 HOSP HOSP POS ARWAY EQUIP EQUIP PRSS DEVC W/WO HEAD STRAP HEADGEAR A7035 HA[facility] STEPHEN USED 8 HOSP HOSP W/POSITIV EQUIP EQUIP E AIRWAY PRESSURE DEVICE CONTINUOU E0601 HA[facility]E STEPHEN S 8 HOSP HOSP POSITIVE EQUIP EQUIP AIRWAY PRESSURE DEVICE FILTER A7038 LALYANDRE LALYANDRE DISPBL 8 HOSP HOSP USED EQUIP EQUIP W/POS ARWAY PRESSURE DEVICE HUMDIFIR E0562 [facility] STEPHEN HEATED 8 HOSP HOSP USED EQUIP EQUIP W/POS ARWAY PRESSURE DEVICE TUBING A7037 LALYANDRE LALYANDRE USED WITH 8 HOSP HOSP POSITIVE EQUIP EQUIP AIRWAY PRESSURE DEVICE POLYSOM 72486 DANIAL BARROW, 4/>YRS 6 BASHAR BASHAR SLEEP W/CPAP 4/> ADDL CASI ATTND POLYSOM 47523 MOZAMBICAN MOZAMBICAN 6/>YRS 8 SLEEP SLEEP SLEEP MEDICINE MEDICINE W/CPAP 4/> ADDL CASI ATTND NEBULIZER [id number] LALYANDRE HAILEE WITH 8 HOSP HOSP COMPRESSO EQUIP EQUIP R DOPPLER 59180 CARDIOLOG KATTY CASTILLO 8 Y EDDI K PULSE ASSOCIATE WAVE S W/SPECTRA L DISPLAY MYOCRD 97559 VERÓNICAEN ANGUS PRFUJ STD 8 SIVE ER, EJEC FXJ CARDIOLOG MC Antoine Y CONSULTAN TS TECHNETIU A9502 ST ST M TC-99M 8 [facility] IN DX PER STUDY DOSE MYOCRD 13330 COMPREHEN ANGUS PRFUJ IMG 8 SIVE ER, TOMOG CARDIOLOG MC Schultz SPECT PICKLING TANK OPERATOR Y STD CONSULTAN TS MYOCRD 23576 COMPREHEN JULIANAKMEY PRFUJ STD 8 SIVE ER, WALL CARDIOLOG MC Schultz MOTION Y QUAL/KAYLA CONSULTAN STD TS DOP 37940 CARDIOLOG ANNA, ECHOCARD 8 Y EDDI K COLOR ASSOCIATE FLOW S VELOCITY MAPPING CV STRS 93048 CARDIOLOG ANNA, TST 8 Y EDDI K XERS&/OR ASSOCIATE RX CONT S ECG W/O I&R CV STRS [address] [facility] [address] TST 8 [facility] XERS&/OR [facility] RX CONT ECG TRCG ONLY ECHO 78104 CARDIOLOG ANNA TRANSTHOR 8 Y EDDI K AC R-T 2D ASSOCIATE W/WO S M-MODE REC COMP CV STRS 54560 CARDIOLOG ANNA, TST 8 Y EDDI K XERS&/OR ASSOCIATE RX CONT S ECG I&R ONLY POLYSOM 05299 MOZAMBICAN MOZAMBICAN 6/>YRS 8 SLEEP SLEEP SLEEP 4/> MEDICINE MEDICINE ADDL CASI ATTND ADMN SET A7005 [facility] STEPHEN W/SM VOL 8 HOSP HOSP NONFILTR EQUIP EQUIP NEBULIZR NON-DISPB L NEBULIZER E0570 [facility] STEPH[facility] WITH 8 HOSP HOSP COMPRESSO EQUIP EQUIP R INJECTION J1020 [facility] METHYLPRE GROUP GROUP DNISOLONE ACETATE 20 MG INJECTION J1040 [facility] 8 [facility] METHYLPRE GROUP GROUP DNISOLONE ACETATE 80 MG THER 18282 [facility] PROPH/DX 8 MEDICAL MEDICAL NJX GROUP GROUP SUBQ/IM INJECTION J2250 ST ST 8 [facility] HCL PER 1 MG DILATION 55815 CHRISTINA VASQUEZ ESOPH 8 JUVENAL Gomez UNGUIDED SOUND/OTTO GIE 1/MULT PASS EGD 09236 CHRISTINA VASQUEZ TRANSORAL 8 JUVENAL Gomez BIOPSY SINGLE/MU LTIPLE COLONOSCO 75570 CHRISTINA VASQUEZ PY 8 JUVENAL Jason Goemz W/BIOPSY SINGLE/[place] [address] [facility] SURG 8 PABLO IMANI PATHOLOGY MED [facility] O GROSS&SADIQ ROSCOPIC EXAM Encounters Encounter Start End Date Code Location Performer Type Date HOSPITAL YIFAN - 7 7 [facility]IENT [facility] OFFICE 63740 [facility] PAVEZ OUTPATIEN 7 7 PHYSICIAN T NEW 60 S GROUP MINUTES OFFICE 92354 [facility] OUT[facility] 7 7 HEALTH T NEW 30 MEDICAL MINUTES GROUP OFFICE 48674 [facility] FRYMAN OUTPATIEN 7 7 PHYSICIAN T VISIT GROUP 15 MINUTES EMERGENCY [address] [facility] DEPT 7 7 PHYSICIAN VISIT S, PLLC HIGH SEVERITY& THREAT [facility] ALEE A - 6 6 R [facility] 6 6 [facility] OUTPATIEN T MEDIC OFFICE 65280 [place] [facility] 6 6 FORK T VISIT OUTPATIEN 15 T MEDIC MINUTES OFFICE 54353 [facility] OUTPATIEN 6 6 MEDICAL T VISIT ASSOCIATE 25 S MINUTES HOSPITAL [facility] A - 6 6 R H OUTPATIEN [facility]LE[facility] A - 6 6 R H INPATIENT [facility]OSP[facility] - 6 6 R H OUTPATIEN [facility] ALEE A - 6 6 R H OUTPATIEN [facility] ALEE A - 6 6 R H OUTPATIEN T OFFICE 61549 [facility] KALIE ALLA OUTPATIEN 6 6 MEDICAL T VISIT ASSOCIATE 25 S MINUTES OFFICE 44690 [place] OUT[facility] 6 6 FORK T VISIT OUTPATIEN 15 T MEDIC MINUTES CLINIC, [place] [facility] 6 6 [facility]IC OFF[facility] 74328 [facility] KURT OUTPATIEN 6 6 MEDICAL M NAG T NEW 60 ASSOCIATE MINUTES S [facility] [place] [facility] - 6 6 R H INPATIENT OFFICE 45398 [place] OUT[facility] 6 6 FORK T VISIT OUTPATIEN 15 T MEDIC MINUTES CLINIC, [place] [facility] 6 6 [facility] [place] [facility] - 6 6 R H INPATIENT CLIN[facility], [place] 6 6 [facility] OUTPATIEN T MEDIC OFFICE 39632 [facility] KARELIS, OUTPATIEN 6 6 PAIN JR THO T VISIT MANAGEMEN 15 T SER MINUTES OFFICE 71077 [facility] 5 5 PAIN U-STURZ T VISIT MANAGEMEN ION 15 T SER MINUTES OFFICE 90447 [facility] 5 5 PAIN JR THO T VISIT MANAGEMEN 15 T SER MINUTES OFFICE 15204 [facility] 4 4 PAIN JR THO T VISIT MANAGEMEN 15 T SER MINUTES OFFICE 88147 [facility] KARELIS, OUTPATIEN 4 4 PAIN JR THO T VISIT MANAGEMEN 15 T SER MINUTES OFFICE 36578 [facility], [facility] 4 4 PAIN JR THO T VISIT MANAGEMEN 15 T SER MINUTES CLINIC[facility] [place] 4 4 [facility] OUTPATIEN [facility]E A - 4 4 R H INPATIENT [facility]OSPITAL A[facility] A - 4 4 R H INPATIENT OFFICE 50333 NOHEMI NEWELL, OUTPATIEN 4 4 PAIN JR THO T VISIT MANAGEMEN 15 T SER MINUTES [facility] 4 4 [facility] ALEE A - 4 4 R H OUTPATIEN T EMERGENCY 99420 [facility] A DEPT 4 4 R H VISIT HIGH SEVERITY& THREAT [facility] ALEE A - 4 4 R H OUTPATIEN T CLINIC, [place] [facility] 4 4 [facility] CLINI OFFICE 72587 [facility] BUT[facility] 4 4 MED T VISIT ASSOCIATE 10 S MINUTES CLINIC, [place] 4 4 [facility] ALEE A - 3 4 R H INPATIENT EMERGENCY 46475 [facility] A ESSENTIAL 3 3 R H TESTING, [facility] T VISIT HIGH/URGE NT [facility]E A - [facility] - 3 3 R H INPATIENT EMERGENCY 32963 A[facility] A DEPT 3 3 R H VISIT HIGH SEVERITY& THREAT [facility] ALEE A - 3 3 R H OUTPATIEN T CLINIC, [place] 3 3 [facility] A[facility] A - 3 3 R H OUTPATIEN T EMERGENCY 97625 [facility] A 3 3 R H DEPARTMEN T VISIT MODERATE SEVERITY EMERGENCY 26939 [facility] A 3 3 R H DEPARTMEN T VISIT HIGH/URGE NT SEVERITY HOSPITAL [facility] A - 3 3 R H OUTPATIEN T EMERGENCY 64200 [facility] DEPT 2 2 MEDICAL VISIT ENTERPRI HIGH SEVERITY& THREAT [facility] - 2 2 R H INPATIENT [facility]OSPITAL [facility] - [address] [facility] MEDICAL EMERGENCY 48337 A[facility] A DEPT 2 2 R H VISIT HIGH SEVERITY& THREAT [facility] 2 2 [facility] - 2 2 R H OUTPATIEN T OFFICE 86938 [facility] TR[facility] 2 2 MED T VISIT ASSOCIATE 15 S [facility] ALEE A - 2 2 R H OUTPATIEN HOSPITAL ALEE A - 2 2 R H OUTPATIEN T EMERGENCY 80745 A[facility]E A 2 2 R H DEPARTMEN T VISIT HIGH/URGE NT SEVERITY [facility]IN[facility], [facility] R[facility] 2 2 [facility] 44364 NEUROSURG FITZPATRICK JAM [facility] 2 2 ICAL T VISIT ASSOCIATE 15 S AT [facility] ALEE A - 2 2 R H OUTPATIEN T CLINIC[facility] RURAL 2 2 [facility] 2 2 [facility] CLINI CLINIC, [facility] RURAL 2 2 [facility] OUTPATIEN CLINI EMERGENCY 88091 ALEE A DEPT 2 2 R H VISIT HIGH SEVERITY& THREAT [facility] - 2 2 R H OUTPATIEN T HOSPITAL ALEE A - OTHER 2 2 R H OFFICE 29066 [facility] TRIP [facility] OUTPATIEN 2 2 MED T VISIT ASSOCIATE 25 S MINUTES OFFICE 47474 [facility] L[facility] OUTPATIEN 2 2 MEDICAL A ASHLEY T VISIT ASSOCIATE 15 S MINUTES OFFICE 63130 [facility] OUTPATIEN 2 2 MEDICAL A ASHLEY T VISIT ASSOCIATE 15 S MINUTES OFFICE 63237 [facility] INC BUTT JAM OUTPATIEN 2 2 MED T VISIT ASSOCIATE 10 S MINUTES OFFICE 68417 [facility] OUTPATIEN 2 2 MEDICAL A ASHLEY T VISIT ASSOCIATE 15 S MINUTES HOSPITAL [facility] A - 2 2 R H OUTPATIEN T OFFICE 30586 [facility] OUTPATIEN 2 2 MEDICAL A ASHLEY T VISIT ASSOCIATE 15 S MINUTES HOSPITAL [facility] A - 2 2 R H OUTPATIEN T OFFICE 54725 [facility] INC BUTT JAM OUTPATIEN 2 2 MED T VISIT ASSOCIATE 15 S MINUTES OFFICE 65786 [facility] OUTPATIEN 2 2 MEDICAL A ASHLEY T NEW 20 ASSOCIATE MINUTES HOSPITAL [facility] A - 2 2 R H INPATIENT [facility]PITAL [facility] A - 1 1 R H OUTPATIEN T OFFICE 36747 [facility] TRIP [facility] OUTPATIEN 1 1 MED T VISIT ASSOCIATE 25 S MINUTES HOSPITAL [facility] A - 1 1 R H OUTPATIEN T [facility] [place] 1 1 [facility] - 1 1 R H INPATIENT CLINIC, [place] 1 1 [facility] 05057 ALEE A 1 1 R H DEPARTMEN T VISIT MODERATE SEVERITY HOSPITAL [facility] A - 1 1 R H OUTPATIEN HOSP[facility] A - 1 1 R H OUTPATIEN T OFFICE 79752 [facility] TRIP [facility] OUTPATIEN 1 1 MED T VISIT ASSOCIATE 25 S MINUTES HOSPITAL [facility] A - 1 1 R H OUTPATIEN [facility] - 1 1 R H [facility] [place] [facility] - 1 1 R H [facility] ALE[facility] A - 1 1 R H OUTPATIEN T OFFICE 17818 M[facility]RISON KIR MORRISON KIR OUTPATIEN 1 1 T VISIT 15 MINUTES OFFICE 06438 [facility] [place] OUTPATIEN 1 1 MED T VISIT ASSOCIATE 15 S MINUTES [facility] [place] [facility] - 1 1 R H OUTPATIEN T OFFICE 47762 [facility] TRIP [facility] OUTPATIEN 1 1 MED T VISIT ASSOCIATE 25 S MINUTES CLIN[facility] [place] 1 1 [facility] [place] 1 1 [facility] 25266 [facility] AHMAD F OUTPATIEN 1 1 MED T VISIT ASSOCIATE 10 S MINUTES CLINIC, [place] 1 1 [facility] OUTPATIEN CLINI [facility] [place] [facility] - 1 1 R H OUTPATIEN [facility] [place] [facility] - 1 1 R H OUTPATIEN T OFFICE 53290 [facility] AHMAD F OUTPATIEN 1 1 MED T VISIT ASSOCIATE 15 S MINUTES HOSPITAL [facility] A - 1 1 R H OUTPATIEN T [facility]OSPITAL [facility] - 1 1 R H OUTPATIEN T OFFICE 28770 [facility] TRIP [facility] OUTPATIEN 1 1 MED T NEW 60 ASSOCIATE MINUTES HOSPITAL [facility] A - 1 1 R H OUTPATIEN T OFFICE 98057 MORRISONDELL SAWYER OUTPATIEN 1 1 T VISIT 15 MINUTES OFFICE 53620 MORRISON KIR PRINCE KIR OUTPATIEN 1 1 T NEW 45 MINUTES HOSPITAL [facility] A - 1 [address] ACCESS 1 1 [facility] ST - OTHER 1 1 [facility] ST - OTHER 1 1 [facility] OFFICE [address] ST GIRON ROSA ISELA OUTPATIEN 1 1 PABLO T VISIT 25 PHYSICIAN MINUTES [facility] ST - OTHER 1 1 [facility] OFFICE [address] ST GIRON ROSA ISELA OUTPATIEN 1 1 PABLO T VISIT 25 PHYSICIAN MINUTES S EMERGENCY [address] ST BELLAMY JENI 1 1 [facility] CTR T VISIT HIGH/URGE NT SEVERITY CRITICAL ST ACCESS 0 0 [facility] EMERGENCY [address] ST 0 0 [facility] T VISIT MODERATE SEVERITY CRITICAL ST ACCESS 0 0 [facility]ITICAL [facility] ACCESS [address] [facility] [address] - OTHER 0 0 [facility] ST - OTHER 0 0 [facility] OFFICE 02729 KATHERINE JONES OUTPATIEN 0 0 LTH , MATHEUS T NEW 30 ORTHOPAED M MINUTES [facility] EMERGENCY 99246 ST 0 0 [facility] T VISIT MODERATE SEVERITY CRITICAL ST ACCESS 0 0 [facility] OFFICE 18099 ST GIRON ROSA ISELA OUTPATIEN 0 0 [place] T VISIT 25 PHYSICIAN [address] [facility] [address] - OTHER 0 0 [facility] YIFAN - 9 9 [facility] EM[facility]ENC[facility] 37927 RADHA ACE, DEPT 9 9 EMERGENCY ASIA S VISIT SERVICES HIGH SEVERITY& ASSOCIATE THREAT S [facility] OFFICE 32472 CARLOS VIGIL 9 9 MEDICAL GLO T VISIT GROUP [address] 9 9 [facility] T VISIT MODERATE SEVERITY [facility]ITICAL ST ACCESS [address] [facility] [address] - OTHER 9 9 [facility] ST - OTHER 9 9 [facility] ST - OTHER 9 9 [facility] OFFICE 81928 CARLOS VIGIL 9 9 MEDICAL GLO T VISIT GROUP 25 MINUTES OFFICE 10807 CARLOS BOSWELL 9 9 MEDICAL SHARON T VISIT GROUP [address] - OTHER 9 9 [facility] CR[address]ICAL [address] ACCESS 8 8 [facility] OFFICE 09687 ARCHIE GIRON [facility] 8 8 MEDICAL GLO T VISIT GROUP [address] ACCESS 8 8 [facility] EMERGENCY 63508 8 8 [facility] T VISIT HIGH/URGE NT SEVERITY [facility]PITAL ST - 8 8 [facility] T H[facility]PITAL ST - 8 8 [facility] T EMERGENCY 47092 8 8 [facility] T VISIT MODERATE SEVERITY EMERGENCY 75514 8 8 [facility] T VISIT MODERATE SEVERITY [facility]PITAL ST - 8 8 [facility] T EMERGENCY [address] [place] [address] [facility] CTR T VISIT MODERATE SEVERITY CRITICAL ST ACCESS 8 8 [facility] OFFICE 76174 CARDIOLOG SCARLETT CASTILLO 8 8 Y EDDI K OPHELIA ASSOCIATE NEW/ESTAB S PATIENT 60 MIN [facility] 8 8 [facility] T OFFICE 41673 DANIAL BARROW CONSULTIRMA 8 8 BASHAR KYLE ION NEW/ESTAB PATIENT 60 MIN OFFICE 29487 [facility] 8 8 MEDICAL MEDICAL T VISIT GROUP GROUP 15 MINUTES OFFICE 78431 [facility] 8 8 MEDICAL MEDICAL T VISIT GROUP GROUP 25 MINUTES [facility] 8 [facility] T OFFICE 26210 [facility] 8 8 MEDICAL MEDICAL T VISIT GROUP GROUP 25 MINUTES
--- OUTSIDE RECORDS SUMMARY | 2017-04-17 10:35 | External Medical Summary Rpt | CCD ---
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 RADIOLOGI 57647 GRAM EDMONDS A C EXAM 6 RESOURCES CHEST 2 INC. VIEWS FRONTAL&L ATERAL RADIOLOGI 66645 GRAM PAMPATI C EXAM 6 RESOURCES SHARON CHEST 2 INC. VIEWS FRONTAL&L ATERAL ASSISTANC [id number] ALEE VICKERS A E 6 R H R H RESPIRATO RY VENT < 24 CONSEC HR CPAP INITIAL 36634 [facility] 6 MEDICAL CARE/DAY ASSOCIATE 50 S MINUTES RADIOLOGI 12899 [facility] 6 RADIOLOGY CLARA EXAMINATI GROUP, ON CHEST LLC SINGLE VIEW FRONTAL GROUND A0425 [facility] PER STATUTE MILE AMBULANCE A0429 [facility] SERVICE 6 LIFE CARE LIFE CARE BLS EMERGENCY TRANSPORT POLYSOM 48169 [facility] BOLLAVARA 6/>YRS 6 MEDICAL [facility] SLEEP 4/> ASSOCIATE ADDL S CASI ATTND POLYSOM 16709 ALEE HURLEYLAN A 6/>YRS 6 R H R H SLEEP 4/> ADDL CASI ATTND BRNCDILAT 92336 [facility]LL[facility] RSPSE 6 MEDICAL [facility] SPMTRY ASSOCIATE PRE&POST- S BRNCDILAT ADMN ARTERIAL 77194 ALEE VICKERS A PUNCTURE 6 R H R H WITHDRAWA L BLOOD DX PULMONARY 97440 [facility] BOLLAVARA STRESS 6 MEDICAL [facility] TESTING ASSOCIATE SIMPLE S GAS 48925 [facility] BOLLAVARA DILUT/WAS 6 MEDICAL M NAG HOUT LUNG ASSOCIATE VOL W/WO S DISTRIB VENT&[place] [address] [facility] BOLL[facility] DIFFUSING 6 MEDICAL M NAG CAPACITY ASSOCIATE S BLOOD 56644 ALEE Villafuerte GASES ANY 6 R H R H COMBINATI ON PH PCO2 PO2 CO2 HCO3 PORTABLE E0443 THE THE O2 [facility] STORE GASEOUS 1 [facility] MO SUPPLY=1 UNIT POLYSOM 41092 [facility] BOLLAVARA 6/>YRS 6 MEDICAL M NAG SLEEP 4/> ASSOCIATE ADDL S CASI ATTND CT THORAX 75178 GRAM GRAM W/O 6 RESOURCES RESOURCES CONTRAST INC. INC. MATERIAL SCREENING G0202 GRAM EDMONDS A 6 RESOURCES MAMMOGRAP INC. HY EVERARDO INCL CAD WHEN PERFORMD COMPUTER- 14562 GRAM EDMONDS A AIDED 6 RESOURCES DETECTION INC. SCREENING MAMMOGRAP HY NONINVASI 25188 [facility] VE 6 FORK FORK EAR/PULSE OUTPATIEN OUTPATIEN OXIMETRY T MEDIC T MEDIC SINGLE DETER PHRM Q0513 CUMBERLAN CUMBERLAN DISPENSIN 6 D DRUG CO D DRUG CO G FEE INHALATIO N RX; PER 30 DAYS ALBUTEROL J7620 CUMBERLAN CUMBERLAN TO 2.5 6 D DRUG CO D DRUG CO MG & IPRATROPI UM BROM TO 0.5 MG ASSISTANC [id number] ALEE VICKERS A E 6 R H R H RESPIRATO RY VENTILATI ON 24-96 HOURS AMBULANCE A0429 [employer] SERVICE 6 LIFE CARE LIFE CARE BLS EMERGENCY TRANSPORT GROUND A0425 [employer] MILEAGE 6 LIFE CARE LIFE CARE PER STATUTE MILE RADIOLOGI 16145 THE REENA [facility] 6 RADIOLOGY JESSE EXAMINATI GROUP, ON CHEST LLC SINGLE VIEW FRONTAL PORTABLE E0443 THE THE O2 [facility] STORE GASEOUS 1 [facility] MO SUPPLY=1 UNIT O2 CONC 1 E1390 THE THE DEL PORT 6 [facility] 85%/>02 STORE STORE CONC AT [facility] FLW RATE SBSQ 36197 [facility] 6 MEDICAL CARE/DAY ASSOCIATE 35 S MINUTES SBSQ 46495 [facility] 6 MEDICAL CARE/DAY ASSOCIATE 35 S MINUTES INITIAL 51923 [place] [address] MEDICAL CARE/DAY ASS[place] [address] [place] [address] GRAM GRAM ABDOMEN & 6 RESOURCES RESOURCES PELVIS INC. INC. W/O CONTRAST MATERIAL RADIOLOGI 83140 GRAM PAMPATI C EXAM 6 RESOURCES [facility] CHEST 2 INC. VIEWS FRONTAL&L ATERAL GROUND A0425 [facility] [place] [address] LIFE CARE LIFE CARE PER STATUTE MILE AMBULANCE A0429 [place] [address] [facility] BLS EMERGENCY TRANSPORT PORTABLE E0443 THE THE O2 6 [facility] ST[facility] GASEOUS 1 ALEE ALEE MO SUPPLY=1 UNIT ADMN SET A7003 THE THE SM VOL 6 [facility] NONFILTR STORE STORE PNEUMAT ALEE HURLEYLAN NEBULIZR DISPBL INJ J2920 ALEE A ALEE A METHYLPRD 6 R H R H NISOLONE SODIUM SUCCNAT TO 40 MG BASIC 53597 ALEE A ALEE A METABOLIC 6 R H R H PANEL CALCIUM TOTAL INJ J2920 ALEE A ALEE A METHYLPRD 6 R H R H NISOLONE SODIUM SUCCNAT TO 40 MG AMB A0427 [place] [address] [facility] ALS EMERGENCY TRANSPORT LEVEL 1 BLOOD 85097 ALEE A ALEE A COUNT 6 R H R H COMPLETE AUTO&[place] [address] ALEE A ALEE A TROPONIN 6 R H R H QUANTITAT ARCHIE RADIOLOGI 70881 ALEE A ALEE A C 6 R H R H EXAMINATI ON CHEST SINGLE VIEW FRONTAL GROUND A0425 [facility] 6 LIFE CARE LIFE CARE PER STATUTE MILE DRUG 89812 ALEE A ALEE A SCREEN 6 R H R H QUANTITAT ARCHIE PHENYTOIN TOTAL ECG 24272 ALEE A ALEE A ROUTINE 6 R [...] [facility] 85%/>02 STORE STORE CONC AT [facility] FLW RATE PORTABLE E0443 THE THE O2 4 [facility] CONTENTS STORE STORE GASEOUS 1 ALEERADHA VICKERS [place] SUPPLY=1 UNIT INFLUENZA Q2037 ALEE Villafuerte VACC 4 R H R H SPLIT VIRUS 3 YRS & > IM FLUVIRIN PROPHYLAC 9952 ALEE Villafuerte TIC 4 R H R H VACCINATI ON AGAINST INFLUENZA RADEX 67699 JUVENAL LEIDY GRE ABDOMEN 4 LEIDY COMPL W/DCBTS&/ ERC VIEWS RADIOLOGI 48584 JUVENAL LEIDY GRE C 4 LEIDY EXAMINATI ON CHEST SINGLE VIEW FRONTAL AMB A0422 [employer] OXYGEN&O2 4 LIFE CARE LIFE CARE SUPPLIES LIFE SUSTAININ G SITUATION GROUND A0425 [employer] MILEAGE 4 LIFE CARE LIFE CARE PER STATUTE MILE AMBULANCE A0429 [employer] SERVICE 4 LIFE CARE LIFE CARE BLS EMERGENCY TRANSPORT PHRM Q0513 JOSEFINABERRADHA ROCHABERLAN DISPENSIN 4 D DRUG CO D DRUG CO G FEE INHALATIO N RX; PER 30 DAYS ALBUTEROL J7620 CUMBERLAN CUMBERLAN TO 2.5 4 D DRUG CO D DRUG CO MG & IPRATROPI UM BROM TO 0.5 MG BASIC 98196 ALEE HURLEYLAN A METABOLIC 4 R H R H PANEL CALCIUM TOTAL PRESSURIZ 44941 ALEE HURLEYLAN A ED/NONPRE 4 R H R H SSURIZED INHALATIO N TREATMENT COLLECTIO 35146 ALEE HURLEYLAN A N VENOUS 4 R H R H BLOOD VENIPUNCT URE COLLECTIO 36855 ALEE A ALEE A N VENOUS 4 R H R H BLOOD VENIPUNCT URE PRESSURIZ 72174 AELE A ALEE A ED/NONPRE 4 R H R H SSURIZED INHALATIO N TREATMENT ARTERIAL 80192 ALEE A ALEE A PUNCTURE 4 R H R H WITHDRAWA L BLOOD DX BASIC 70663 ALEE A ALEE A METABOLIC 4 R [place] [address] ALEE A ALEE A PHOSPHORU 4 [place] [address] ALEE A ALEE A MAGNESIUM 4 R H R H BLOOD 25467 ALEE A ALEE A GASES ANY 4 R H R H COMBINATI ON PH PCO2 PO2 CO2 HCO3 BLOOD 40267 ALEE A ALEE A COUNT 4 R H R H COMPLETE AUTO&AUTO DIFRNTL WBC INJECTION J1650 ALEE A ALEE A 4 R H R H ENOXAPARI N SODIUM 10 MG THER 88237 ALEE A ALEE A PROPH/DX 4 R H R H NJX EA SEQL IV PUSH SBST/[place] [address] ALEE A ALEE A INFUSION 4 R H R H THERAPY PROPHYLAX IS/DX EA HOUR INJ J2930 ALEE A ALEE A METHYLPRD 4 R H R H NISOLONE SODIUM SUCCNAT TO 125 MG INJ J2930 ALEE A ALEE A METHYLPRD 4 R H R H NISOLONE SODIUM SUCCNAT TO 125 MG THER 07229 ALEE A ALEE A PROPH/DX 4 R H R H NJX EA SEQL IV PUSH SBST/[place] [address] ALEE A ALEE A INFUSION 4 R H R H THERAPY PROPHYLAX IS/DX EA HOUR INJECTION J1650 ALEE A ALEE A 4 R H R H ENOXAPARI N SODIUM 10 MG INJECTION J1956 ALEE A ALEE A 4 R H R H LEVOFLOXA DILLON [facility] G0378 ALEE A ALEE A OBSERVATI 4 R H R H ON SERVICE PER HOUR PRESSURIZ 85875 ALEE A ALEE A ED/NONPRE 4 R H R H SSURIZED INHALATIO N TREATMENT THERAPEUT 30602 ALEE A ALEE A IC 4 R H R [place] [address] ALEE A ALEE A ABDOMEN & 4 R H R H PELVIS W/O CONTRAST MATERIAL GROUND A0425 [facility] PER STATUTE MILE AMBULANCE A0429 DEM[facility]O DEMETRIO SERVICE 4 LIFE CARE LIFE CARE BLS EMERGENCY TRANSPORT THER 58095 ALEE A ALEE A PROPH/DX 4 R H R H NJX IV PUSH SINGLE/1S T SBST/DRUG THERAPEUT 32022 ALEE A ALEE A IC 4 R H R H INJECTION IV PUSH EACH NEW DRUG PRESSURIZ 29134 ALEE A ALEE A ED/NONPRE 4 R H R H SSURIZED INHALATIO N TREATMENT INJECTION J1956 ALEE A ALEE A 4 R H R H LEVOFLOXA DILLON 250 MG AMB A0422 DEMET[facility]O DEMETRIO OXYGEN&O2 4 LIFE CARE LIFE CARE SUPPLIES LIFE SUSTAININ G SITUATION COMPREHEN 38416 ALEE A ALEE A SIVE 4 R H R H METABOLIC PANEL PROCALCIT 52880 ALEE A ALEE A ONIN 4 R H R H (PCT) CULTURE 76805 ALEE A ALEE A BACTERIAL 4 R H R H BLOOD AEROBIC W/ID ISOLATES INJ J2930 ALEE A ALEE A METHYLPRD 4 R H R H NISOLONE SODIUM SUCCNAT TO 125 MG BLOOD 14792 ALEE A ALEE A COUNT 4 R H R H COMPLETE AUTO&AUTO DIFRNTL WBC RADIOLOGI 32135 ALEE A ALEE A C 4 R H R H EXAMINATI ON CHEST SINGLE VIEW FRONTAL URNLS DIP 65273 ALEE A ALEE A 4 R H R H STICK/TAB LET REAGENT AUTO MICROSCOP Y RADEX 25642 ALEE A ALEE A RIBS 4 R H R H UNILATERA L 2 VIEWS PRTBLE E0431 THE THE [facility]ASEOUS [facility] CONC 1 E1390 THE [facility] 85%/>02 STORE STORE CONC AT [facility] FLW RATE O2 CONC 1 E1390 THE THE DEL [facility] 85%/>02 STORE STORE CONC AT [facility] FLW RATE PRTBLE E0431 THE THE GASEOUS 4 [facility] ST[facility]; [facility] ASK PRTBLE E0431 THE THE GASEOUS 4 [facility] O[facility] SYS ST[facility] STORE RENT; [facility] HUMIDFR&M ASK O2 CONC 1 E1390 THE [facility] 85%/>02 STORE STORE CONC AT [facility] FLW RATE COMPREHEN 49702 [facility] SIVE 4 DIAGNOSTI DIAGNOSTI METABOLIC CS CS PANEL BLOOD 06526 [facility]ST COUNT 4 DIAGNOSTI DIAGNOSTI COMPLETE CS CS AUTO&AUTO DIFRNTL WBC LIPID 74006 [facility] QUEST PANEL 4 DIAGNOSTI DIAGNOSTI CS CS COLLECTIO 42811 [facility] VENUS N VENOUS 4 FORK SHA BLOOD OUTPATIEN VENIPUNCT T CLINI URE PRTBLE E0431 THE THE GASEOUS 4 [facility] ST[facility] RENT; [facility] O2 CONC 1 E1390 THE THE DEL PORT 4 [facility] 85%/>02 STORE STORE CONC AT [facility] [place] [address] [facility] WASHGS/BR 4 [facility]ARE SHA USHINGS XCPT C/V SMRS INTERPJ ANES 44935 REMY CERVANTES UPPER GI 4 ANESTHESI ENDOSCOPY A GROUP PROXIMAL PS TO DUODENUM CYTP 22428 [facility] CONCENTRA 4 HL[facility]ARE SHA TION SMEARS & [place] [address] [facility] SURG [address] [place] [address] PATHOLOGY GROSS&SADIQ ROSCOPIC EXAM EGD 70016 [facility] TRANSORAL 4 MED BIOPSY ASSOCIATE SINGLE/MU S LTIPLE ESOPHAGOG 4516 ALEE Noy ALEE Villafuerte ASTRODUOD 4 R H R H ENOSCOPY WITH CLOSED BIOPSY TRANSFUSI 9904 ALEE Noy ALEE Villafuerte ON OF 4 R H R H PACKED CELLS SBSQ 28287 [facility] 4 MED CARE/DAY ASSOCIATE 15 S MINUTES COLONOSCO 99573 [facility] PY 4 MED W/BIOPSY ASSOCIATE SINGLE/MU S LTIPLE ANES 20376 TRIANGLE GRISELDA HELEN LOWER 4 ANESTHESI INTESTINE A GROUP [place] [address] [facility] [address] [place] [address] PATHOLOGY GROSS&SADIQ ROSCOPIC EXAM COLSC FLX 32105 [facility] 4 MED W/REMOVAL ASSOCIATE LESION S BY HOT BX FORCEPS RADEX 36466 JUVENAL LEIDY GRE ABDOMEN 1 4 LEIDY ANTEROPOS TERIOR VIEW CLOSED 4525 ALEE Villafuerte [ENDOSCOP 4 R H R H IC] BIOPSY OF LARGE INTESTINE ENDOSCOPI 4542 ALEE Villafuerte C 4 R H R H POLYPECTO MY OF LARGE INTESTINE RADEX 69308 JUVENAL LEIDY GRE ABDOMEN 4 LEIDY COMPL W/DCBTS&/ ERC VIEWS SBSQ 46592 [facility] 4 MED CARE/DAY ASSOCIATE 15 S MINUTES SBSQ 42695 [facility] 4 MED CARE/DAY ASSOCIATE 15 S MINUTES RADEX 71016 JUVENAL LEIDY GRE SMALL 4 LEIDY INTESTINE W/MULTIPL E SERIAL IMAGES SBSQ 03983 [facility] 3 MED CARE/DAY ASSOCIATE 15 S MINUTES SBSQ 79248 [facility] 3 MED CARE/DAY ASSOCIATE 25 S MINUTES RADEX 66820 JUVENAL LEIDY GRE ABDOMEN 3 LEIDY COMPL W/DCBTS&/ ERC VIEWS SBSQ 89243 [place] [address] MED RAY CARE/DAY ASSOCIATE 15 S MINUTES SBSQ 13321 [facility] 3 MED RAY CARE/DAY ASSOCIATE 15 S MINUTES RADEX 29380 JUVENAL LEIDY GRE ABDOMEN 3 LEIDY COMPL W/DCBTS&/ ERC VIEWS RADEX 86760 JUVENAL LEIDY GRE ABDOMEN 1 3 LEIDY ANTEROPOS TERIOR VIEW SBSQ 32577 [facility] 3 MED RAY CARE/DAY ASSOCIATE 15 S MINUTES SBSQ 32553 [facility] 3 MED RAY CARE/DAY ASSOCIATE 15 S MINUTES SBSQ 91324 [facility] 3 MED CARE/DAY ASSOCIATE 25 S MINUTES RADEX 84663 JUVENAL LEIDY GRE ABDOMEN 3 LEIDY COMPL W/DCBTS&/ ERC VIEWS RADIOLOGI 61833 JUVENAL LEIDY GRE C 3 LEIDY EXAMINATI ON CHEST SINGLE VIEW FRONTAL SBSQ 62083 [facility] 3 MED RAY CARE/DAY ASSOCIATE 15 S MINUTES SBSQ 65055 [facility] 3 MED RAY CARE/DAY ASSOCIATE 15 S MINUTES RADIOLOGI 02681 JUVENAL LEIDY GRE C 3 LEIDY EXAMINATI [place] [address] JUVENAL LEIDY GRE HEAD/BRAI 3 LEIDY N W/O CONTRAST MATERIAL RADEX 67418 JUVENAL LEIDY GRE ABDOMEN 3 LEIDY COMPL W/DCBTS&/ [place] [address] JUVENAL LEIDY GRE ABDOMINAL 3 LEIDY REAL TIME W/IMAGE DOCUMENTA TION INITIAL 62821 [facility] 3 MED CARE/DAY ASSOCIATE 50 S MINUTES RADIOLOGI 34999 JUVENAL LEIDY GRE C 3 LEIDY EXAMINATI ON CHEST SINGLE VIEW FRONTAL RADEX 16135 JUVENAL LEIDY GRE ABDOMEN 1 3 LEIDY ANTEROPOS TERIOR VIEW SBSQ 87860 [facility] 3 MED RAY CARE/DAY ASSOCIATE 15 S MINUTES O2 CONC 1 E1390 THE THE [facility] 85%/>02 STORE STORE CONC AT [facility] PRSC FLW RATE PRTBLE E0431 THE THE GASEOUS 3 [facility] O[facility] SYS STORE STORE RENT; [facility] HUMIDFR&M ASK NON-INVAS 9390 ALEE Villafuerte ARCHIE 3 R H R H MECHANICA L VENTILATI ON CT THORAX 91680 JUVENAL LEIDY GRE W/O [address] THORAX 51588 JUVENAL LEIDY GRE W/O 3 LEIDY CONTRAST MATERIAL INITIAL 29183 [place] [address] MED RAY CARE/DAY ASSOCIATE 30 S MINUTES RADEX ABD 78541 JUVENAL LEIDY GRE COMPL 3 LEIDY AQT ABD W/S/E/D VIEWS 1 [facility] 42759 JUVENAL LEIDY GRE RETROPERI 3 LEIDY TONEAL REAL TIME W/IMAGE COMPLETE O2 CONC 1 E1390 THE THE DEL PORT [facility] 85%/>02 STORE STORE CONC AT [facility] FLW RATE PRTBLE E0431 THE THE GASEOUS 3 [facility] O[facility] SYS STORE STORE RENT[facility] HUMIDFR&M ASK HEMOGLOBI 79247 [facility] N 3 DIAGNOSTI DIAGNOSTI GLYCOSYLA CS CS SULAIMAN A1C O2 CONC 1 E1390 THE [facility] 85%/>02 STORE STORE CONC AT [facility] FLW RATE PRTBLE E0431 THE THE GASEOUS 3 [facility] O[facility] SYS STORE STORE RENT; [facility] HUMIDFR&M ASK AMBULANCE A0429 [employer] SERVICE 3 LIFE CARE LIFE CARE BLS EMERGENCY TRANSPORT GROUND A0425 [employer] MILEAGE 3 LIFE [facility] LIFE [facility]ARE PER STATUTE MILE COLLECTIO 44930 ALEE HURLEYRADHA Villafuerte N VENOUS 3 R [place] [address] ALEE Villafuerte AMYLASE 3 R H R H COMPREHEN 89392 ALEE Villafuerte SIVE 3 R H R H METABOLIC PANEL AMB A0422 [employer] OXYGEN&O2 3 LIFE CARE LIFE CARE SUPPLIES [place] [address] ALEE Villafuerte CHARJUAREZKA LIPASE 3 R H JAM URNLS DIP 37867 ALEE VICKERS A 3 R H R H STICK/TAB LET REAGENT AUTO MICROSCOP Y BLOOD 70957 ALEE Villafuerte COUNT 3 R H R H COMPLETE AUTO&AUTO DIFRNTL WBC RADEX ABD 55597 JUVENAL LEIDY GRE COMPL 3 LEIDY AQT ABD W/S/E/D VIEWS 1 VIEW CH O2 CONC 1 E1390 THE THE DEL PORT [facility] 85%/>02 STORE STORE CONC AT [facility] FLW RATE PRTBLE E0431 THE THE GASEOUS 3 [facility] O2 SYS STORE STORE RENT; [facility] [place]WMTR [place]UMIDFR&[place] [address] JUVENAL LEIDY GRE RETROPERI 3 LEIDY TONEAL REAL TIME W/IMAGE COMPLETE RADEX ABD 25308 JUVENAL LEIDY GRE COMPL 3 LEIDY AQT ABD W/S/E/D VIEWS 1 VIEW CH AMB A0422 [employer] OXYGEN&O2 3 LIFE CARE LIFE CARE SUPPLIES LIFE SUSTAININ G SITUATION AMBULANCE A0429 [employer] SERVICE 3 [facility] [place] [address] JUVENAL LEIDY GRE ABDOMEN & 3 LEIDY PELVIS W/O CONTRAST MATERIAL GROUND A0425 [employer] MILEAGE 3 LIFE CARE LIFE CARE PER STATUTE MILE GROUND A0425 [employer] MILEAGE 3 [facility] [address] JUVENAL LEIDY GRE ABDOMEN & 3 LEIDY PELVIS W/O CONTRAST MATERIAL COLLECTIO 18606 ALEE VICKERS A N VENOUS 3 R H R H BLOOD VENIPUNCT URE CT THORAX 73336 JUVENAL LEIDY GRE W/O [place] [address] ALEE VICKERS A INFUSION 3 R H R H THERAPY/P ROPHYLAXI S /DX 1ST TO 1 HR THERAPEUT 29791 ALEE A ALEE A IC 3 R H R [place] [address] ALEE A ALEE A INFUSION 3 R H R H HYDRATION EACH ADDITIONA L HOUR RADIOLOGI 02492 JUVENAL LEIDY GRE C EXAM 3 LEIDY CHEST 2 VIEWS FRONTAL&L ATERAL AMB A0427 [employer] [facility] 3 LIFE CARE LIFE CARE ALS EMERGENCY TRANSPORT [place] [address] ALEE A ALEE A LIPASE 3 R H R H INJECTION J2405 ALEE A ALEE A 3 R H R H ONDANSETR ON HCL PER 1 [place] [address] ALEE A ALEE A AMYLASE 3 R H R H COMPREHEN 41438 ALEE A ALEE A SIVE 3 R H R H METABOLIC PANEL BLOOD 32116 ALEE A ALEE A COUNT 3 R H R H COMPLETE AUTO&AUTO DIFRNTL WBC URNLS DIP 83806 ALEE A ALEE A 3 R H R H STICK/TAB LET REAGENT AUTO MICROSCOP Y O2 CONC 1 E1390 THE THE DEL PORT [facility] 85%/>02 STORE STORE CONC AT [facility] FLW RATE PRTBLE E0431 THE THE [facility] O2 SYS STORE STORE RENT; [facility] FLWMTR HUMIDFR&M ASK RADEX ABD 82601 JUVENAL LEIDY GRE COMPL 3 LEIDY AQT ABD W/S/E/D VIEWS 1 VIEW CH RADEX 15001 JUVENAL LEIDY GRE ABDOMEN 3 LEIDY COMPL W/DCBTS&/ ERC VIEWS RADEX 19546 JUVENAL LEIDY GRE ABDOMEN 3 LEIDY COMPL W/DCBTS&/ [place] [address] JUVENAL LEIDY GRE ABDOMEN & 3 LEIDY PELVIS W/O CONTRAST MATERIAL GROUND A0425 [employer] MILEA 3 LIFE [facility] LIFE [facility]ARE PER STATUTE MILE AMBULANCE A0429 [employer] SERVICE 3 [facility] BLS EMERGENCY TRANSPORT RADIOLOGI 19033 JUVENAL LEIDY GRE C 3 LEIDY EXAMINATI ON CHEST SINGLE VIEW FRONTAL AMB A0422 [employer] OXYGEN&O2 3 LIFE CARE LIFE CARE SUPPLIES LIFE SUSTAININ G SITUATION O2 CONC 1 E1390 THE THE DEL PORT [facility] 85%/>02 STORE STORE CONC AT [facility] FLW RATE PRTBLE E0431 THE THE GASEOUS [facility] O2 SYS STORE STORE RENT; [facility] HUMIDFR&M ASK ADMN SET A7003 THE THE SM VOL [facility] NONFILTR STORE STORE PNEUMAT [facility] NEBULIZR DISPBL ALBUTEROL J7620 CUMBERLAN CUMBERLAN TO 2.5 3 D DRUG CO D DRUG CO MG & IPRATROPI UM BROM TO 0.5 MG PHRM Q0513 CUMBERLAN CUMBERLAN DISPENSIN 3 D DRUG CO D DRUG CO G FEE INHALATIO N RX; PER 30 DAYS COLLECTIO 42943 CLOVER VENUS N VENOUS 3 FORK SHA BLOOD OUTPATIEN VENIPUNCT T CLINI URE HEMOGLOBI 76302 [facility] N 3 DIAGNOSTI DIAGNOSTI GLYCOSYLA CS CS SULAIMAN A1C O2 CONC 1 E1390 THE THE DEL PORT [facility] 85%/>02 STORE STORE CONC AT [facility] FLW RATE PRTBLE E0431 THE THE [facility]OUS [facility] O[facility] S[facility] ASK GROUND A0425 DEMETRIO DEMETRIO MILEAGE 3 LIFE CARE LIFE CARE PER STATUTE MILE AMBULANCE A0429 [employer] SERVICE 3 LIFE CARE LIFE CARE BLS EMERGENCY TRANSPORT AMB A0422 [employer] OXYGEN&O2 3 LIFE CARE LIFE CARE SUPPLIES LIFE SUSTAININ G SITUATION RADIOLOGI 36935 JUVENAL LEIDY GRE C 3 LEIDY EXAMINATI ON CHEST SINGLE VIEW FRONTAL O2 CONC 1 E1390 THE THE DEL PORT 3 [facility] 85%/>02 STORE STORE CONC AT [facility] FLW RATE PRTBLE E0431 THE THE GASEOUS [facility] O2 SYS STORE STORE RENT; [facility] HUMIDFR&M ASK AMBULANCE A0429 [facility] SERVICE 3 LIFE CARE LIFE CARE BLS EMERGENCY TRANSPORT GROUND A0425 [facility] PER STATUTE MILE RADIOLOGI 37081 JUVENAL LEIDY GRE C EXAM 3 LEIDY CHEST 2 VIEWS FRONTAL&L ATERAL AMB A0422 [facility] OXYGEN&O2 3 LIFE CARE LIFE CARE SUPPLIES LIFE SUSTAININ G SITUATION O2 CONC 1 E1390 THE THE DEL PORT [facility] 85%/>02 STORE STORE CONC AT [facility] FLW RATE PRTBLE E0431 THE THE GASEOUS [facility] O2 SYS STORE STORE RENT; [facility] HUMIDFR&M ASK THERAPEUT 44612 ALEE VICKERS A IC 3 R H R H PROPHYLAC TIC/DX INJECTION SUBQ/IM AMBULANCE A0429 [facility] SERVICE 3 LIFE CARE LIFE CARE BLS EMERGENCY TRANSPORT GROUND A0425 [facility] PER STATUTE MILE RADIOLOGI 33650 JUVENAL LEIDY GRE C EXAM 3 LEIDY CHEST 2 VIEWS FRONTAL&L ATERAL PRESSURIZ 10059 ALEE VICKERS A ED/NONPRE 3 R H R H SSURIZED INHALATIO N TREATMENT ANTIBODY 84174 ALEE HURLEYLAN A INFLUENZA 3 R H R H VIRUS BASIC 92870 ALEE HURLEYLAN A METABOLIC 3 R H R H PANEL CALCIUM TOTAL AMB A0422 [facility] OXYGEN&O2 3 LIFE CARE LIFE CARE SUPPLIES LIFE SUSTAININ G SITUATION IAADI 61796 ALEE VICKERS A INFLUENZA 3 R H R H B VIRUS BLOOD 28410 ALEE VICKERS A COUNT 3 R H R H COMPLETE AUTO&AUTO DIFRNTL WBC COLLECTIO 90806 ALEE HURLEYLAN A N VENOUS 3 R H R H BLOOD VENIPUNCT URE INJ J2930 ALEE [place] METHYLPRD 3 R H R H NISOLONE SODIUM SUCCNAT TO 125 MG O2 CONC 1 E1390 THE THE DEL PORT [facility] 85%/>02 STORE STORE CONC AT [facility] FLW RATE PRTBLE E0431 THE THE [facility] O2 SYS STORE STORE RENT; [facility] HUMIDFR&M ASK PRTBLE E0431 THE THE GASEOUS [facility] O2 SYS STORE STORE RENT; [facility] HUMIDFR&M ASK O2 CONC 1 E1390 THE THE DEL PORT 3 [facility] 85%/>02 STORE STORE CONC AT [facility] FLW RATE INITIAL 94604 [facility] 3 MED CARE/DAY ASSOCIATE [address] [place] [address] JUVENAL LEIDY GRE ABDOMEN & 3 LEIDY PELVIS W/O CONTRST 1/> BODY RE AMB A0422 [employer] OXYGEN&O2 3 LIFE CARE LIFE CARE SUPPLIES LIFE SUSTAININ G SITUATION AMBULANCE A0429 [employer] 3 LIFE CARE LIFE CARE BLS EMERGENCY TRANSPORT GROUND A0425 [employer] MILEAGE 3 LIFE CARE LIFE CARE PER STATUTE MILE RADIOLOGI 13661 JUVENAL LEIDY GRE C EXAM 3 LEIDY CHEST 2 VIEWS FRONTAL&L ATERAL RADIOLOGI 60697 JUVENAL LEIYD GRE C EXAM 3 LEIDY CHEST 2 VIEWS FRONTAL&L ATERAL GROUND A0425 [employer] MILEAGE 3 LIFE CARE LIFE CARE PER STATUTE MILE COLLECTIO 61476 ALEE HURLEYLAN Noy N VENOUS 3 R H R H BLOOD VENIPUNCT URE AMBULANCE A0429 [employer] SERVICE 3 LIFE CARE LIFE CARE BLS EMERGENCY TRANSPORT THERAPEUT 58754 ALEE Villafuerte IC 3 R H R H PROPHYLAC TIC/DX INJECTION SUBQ/IM AMB A0422 [employer] OXYGEN&O2 3 LIFE CARE LIFE CARE SUPPLIES LIFE SUSTAININ G SITUATION IAADI 26543 ALEE VICKERS A INFLUENZA 3 R H R H B VIRUS BASIC 49718 ALEE VICKERS A METABOLIC 3 R H R H PANEL CALCIUM TOTAL ANTIBODY 90947 ALEE VICKERS A INFLUENZA 3 R H R H VIRUS IAADIADOO 75781 ALEE VICKERS A 3 R H R H STREPTOCO CCUS GROUP A INJECTION J0696 ALEE VICKERS A 3 R H R H CEFTRIAXO NE SODIUM PER 250 MG BLOOD 16183 ALEE VICKERS A COUNT 3 R H R H COMPLETE AUTO&AUTO DIFRNTL WBC URNLS DIP 25410 ALEE VICKERS A 3 R H R H STICK/TAB LET REAGENT AUTO MICROSCOP Y GLUCOSE 91819 [facility] VENUS QUANTITAT 3 FORK SHA ARCHIE BLOOD OUTPATIEN XCPT T CLINI REAGENT STRIP HEMOGLOBI 13591 [facility] QUEST N 3 DIAGNOSTI DIAGNOSTI GLYCOSYLA CS CS SULAIMAN A1C BLOOD 69866 QUEST QUEST COUNT 3 DIAGNOSTI DIAGNOSTI COMPLETE CS CS AUTO&AUTO DIFRNTL WBC LIPID 54893 QUEST QUEST PANEL 3 DIAGNOSTI DIAGNOSTI CS CS COMPREHEN 65495 QUE[facility] QUEST SIVE 3 DIAGNOSTI DIAGNOSTI METABOLIC CS CS PANEL COLLECTIO 95019 [facility] VENUS N VENOUS 3 FORK SHA BLOOD OUTPATIEN VENIPUNCT T CLINI URE PRTBLE E0431 THE THE [facility] STORE RENT; [facility] HUMIDFR&M ASK O2 CONC 1 E1390 THE THE DEL [facility] 85%/>02 STORE STORE CONC AT [facility] FLW RATE AMB A0422 [employer] OXYGEN&O2 2 LIFE CARE LIFE CARE SUPPLIES LIFE SUSTAININ G SITUATION AMBULANCE A0429 [employer] SERVICE 2 LIFE CARE LIFE CARE BLS EMERGENCY TRANSPORT GROUND A0425 [employer] MILEAGE 2 LIFE CARE LIFE CARE PER STATUTE MILE PRTBLE E0431 THE THE [facility]OUS [facility] STORE RENT; [facility] FLWMTR HUMIDFR&M ASK O2 CONC 1 E1390 THE THE DEL [facility] 85%/>02 STORE STORE CONC AT [facility] [place] LOWER 99832 ELE SKEENS EXTREMITY 2 IMAGING ASHLEY W/O INC CONTRAST MATERIAL O2 CONC 1 E1390 THE THE DEL [facility] 85%/>02 STORE STORE CONC AT [facility] FLW RATE PRTBLE E0431 THE THE [facility] ST[facility] STORE RENT; [facility] FLWMTR HUMIDFR&M ASK NONINVASI 22660 ALEE HURLEYLAN A VE 2 R H R H EAR/PULSE OXIMETRY [facility] 53097 [facility] ASHLEY DISCHARGE 2 WOMENS & DAY [facility] C T 30 MIN/< INJ J2930 ALEE A ALEE A METHYLPRD 2 R H R H NISOLONE SODIUM SUCCNAT TO 125 MG INJ J2930 ALEE A ALEE A METHYLPRD 2 R H R H NISOLONE SODIUM SUCCNAT TO 125 MG CULTURE 41998 ALEE A ALEE A BACTERIAL 2 R H R H BLOOD AEROBIC W/ID ISOLATES AMB A0422 [employer] OXYGEN&O2 2 LIFE CARE LIFE CARE SUPPLIES LIFE SUSTAININ G SITUATION BLOOD 34549 ALEE A ALEE A COUNT 2 R H R H COMPLETE AUTO&AUTO DIFRNTL WBC NATRIURET 93441 ALEE A ALEE A IC 2 R H R H PEPTIDE BLOOD 07417 ALEE A ALEE A GASES ANY 2 R H R H COMBINATI ON PH PCO2 PO2 CO2 HCO3 RADIOLOGI 39934 ALEE A ALEE A C 2 R H R H EXAMINATI ON CHEST SINGLE VIEW FRONTAL INJECTION J1956 ALEE A ALEE A 2 R H R H LEVOFLOXA DILLON 250 MG BASIC 69274 ALEE A ALEE A METABOLIC 2 R H R H PANEL CALCIUM TOTAL CULTURE 83146 ALEE VICKERS A BACTERIAL 2 R H R H QUANTTATI VE COLONY COUNT URINE ARTERIAL 78744 ALEE VICKERS A PUNCTURE 2 R H R H WITHDRAWA L BLOOD DX GROUND A0425 [employer] MILEAGE 2 LIFE CARE LIFE CARE PER STATUTE MILE AMBULANCE A0429 [employer] SERVICE 2 LIFE CARE LIFE CARE BLS EMERGENCY TRANSPORT CT UPPER 59718 VANGUARD SKEENS EXTREMITY 2 IMAGING ASHLEY W/O INC CONTRAST MATERIAL O2 CONC 1 E1390 THE THE DEL [facility] 85%/>02 STORE STORE CONC AT [facility] FLW RATE PRTBLE E0431 THE THE GASEOUS [facility] STORE STORE RENT; [facility] HUMIDFR&M ASK GROUND A0425 [employer] MILEA 2 LIFE CARE LIFE CARE PER STATUTE MILE SBSQ 39818 [facility] 2 [facility] CARE/DAY HEALTH 25 SRV AR MINUTES HOSPITAL 93962 COMPREHEN [facility] MUS DISCHARGE 2 SIVE DAY HOSPITALI MANAGEMEN ST SE T 30 MIN/< AMBULANCE A0428 [employer] [facility] 2 LIFE CARE LIFE CARE BLS NONEMERGE NCY TRANSPORT AMB A0422 [employer] OXYGEN&O2 2 LIFE CARE LIFE CARE SUPPLIES LIFE SUSTAININ G SIT[facility]ATION [facility] 32802 COMPREHEN [facility] 2 SIVE CARE/DAY HOSPITALI 25 ST SE MINUTES [facility] 00483 [facility] 2 [facility] CARE/DAY HEALTH 25 SRV AR MINUTES O2 CONC 1 E1390 THE THE DEL [facility] 85%/>02 STORE STORE CONC AT [facility] [place] [place] [address] RADIOLOGY MONACO DHI RETROPERI 2 SERVICES TONEAL REAL TIME W/IMAGE LIMITED PRTBLE E0431 THE THE [facility] STORE RENT; [facility] HUMIDFR&[place] [address] RADIOLOGY EDMONDS A ABDOMEN & 2 SERVICES PELVIS W/O CONTRAST MATERIAL INITIAL 25415 COMPREHEN [facility] 2 SIVE CARE/DAY HOSPITALI [address] SE MINUTES INJ J2930 ALEE A ALEE A METHYLPRD 2 R H R H NISOLONE SODIUM SUCCNAT TO 125 MG BLOOD 64909 ALEE A ALEE A COUNT 2 R H R H COMPLETE AUTO&AUTO DIFRNTL WBC RADIOLOGI 33615 JUVENAL LEIDY GRE C 2 LEIDY EXAMINATI ON CHEST SINGLE VIEW FRONTAL BLOOD 99169 ALEE A ALEE A GASES ANY 2 R H R H COMBINATI ON PH PCO2 PO2 CO2 HCO3 URNLS DIP 90818 ALEE A ALEE A 2 R H R H STICK/TAB LET REAGENT AUTO MICROSCOP Y INSJ TEMP 30002 ALEE A ALEE A NDWELLG 2 R H [place] [address] ALEE A ALEE A LACTATE 2 R H R H INFUSION J7030 ALEE A ALEE A NORMAL 2 R H R H SALINE SOLUTION 1000 CC COMPREHEN 11213 ALEE A ALEE A SIVE 2 R H R H METABOLIC PANEL AMB A0422 [employer] OXYGEN&O2 2 LIFE CARE LIFE CARE SUPPL[place] [address] JUVENAL LEIDY GRE ABDOMEN & 2 LEIDY PELVIS W/O CONTRAST MATERIAL COLLECTIO 43725 ALEE A ALEE A N VENOUS 2 R H R H BLOOD VENIPUNCT URE GROUND A0425 [employer] MILEAGE 2 LIFE CARE LIFE CARE PER STATUTE MILE AMBULANCE A0429 [employer] SERVICE 2 LIFE CARE LIFE CARE BLS EMERGENCY TRANSPORT THER 34873 ALEE A ALEE A PROPH/DX 2 R H R H NJX IV PUSH SINGLE/1S T SBST/[place] [address] ALEE A ALEE A INFUSION 2 R H R H HYDRATION EACH ADDITIONA L HOUR ARTERIAL 40916 ALEE A ALEE A PUNCTURE 2 R H R H WITHDRAWA L BLOOD DX PRESSURIZ 16896 ALEE A ALEE A ED/NONPRE 2 R [...] UM BROM TO 0.[address] THORAX 76906 JUVENAL LEIDY GRE W/O 2 LEIDY CONTRAST MATERIAL PRTBLE E0431 THE THE [facility] ST[facility]; [facility] HUMIDFR&M ASK O2 CONC 1 E1390 THE THE DEL [facility] 85%/>02 STORE STORE CONC AT [facility] PRSC FLW RATE ADMN SET A7003 THE THE SM VOL [facility] NONFILTR STORE STORE PNEUMAT ALEERADHA VICKERS NEBULIZR DISPBL RADIOLOGI 78010 JUVENAL FORBES GRE C EXAM 2 LEIDY CHEST 2 VIEWS FRONTAL&[place] [address] ALEE A ALEE A INFUSION 2 R H R H THERAPY/P ROPHYLAXI S /DX 1ST TO 1 HR INJ J1459 ALEE A ALEE A IMMUNE 2 R H R H GLOBULIN IV NONLYOPHI LIZED 500 [facility] A4259 CUMBERLAN CUMBERLAN PER BOX 2 D DRUG CO D DRUG CO OF 100 BLD GLU A4253 [facility] CUM[facility] TEST/REAG 2 D DRUG CO D DRUG CO T STRIPS HOME BLD GLU MON-50 PRTBLE E0431 THE THE GASEOUS [facility] ST[facility] RENT; [facility]UMIDFR&M ASK O2 CONC 1 E1390 THE THE DEL PORT [facility] 85%/>02 STORE STORE CONC AT [facility] FLW RATE AMB A0422 [employer] OXYGEN&O2 2 LIFE CARE LIFE CARE SUPPLIES LIFE SUSTAININ G SITUATION AMBULANCE A0428 [facility] SERVICE 2 EMS EMS BLS NONEMERGE NCY TRANSPORT URNLS DIP 21442 ALEE HURLEYLAN A 2 R H R H STICK/TAB LET REAGENT AUTO MICROSCOP Y INJECTION J2300 ALEE A ALEE A 2 R H R H NALBUPHIN E HCL PER 10 MG THERAPEUT 57185 ALEE HURLEYLAN A IC 2 R H R H PROPHYLAC TIC/DX INJECTION SUBQ/IM GROUND A0425 [facility] MI[facility] 2 EMS EMS PER STATUTE MILE AMBULANCE A0429 [employer] SERVICE 2 LIFE CARE LIFE CARE BLS EMERGENCY TRANSPORT RADEX 54222 JUVENAL BA SPINE 2 LEIDY LUMBOSACR AL MINIMUM 4 VIEWS RADIOLOGI 03238 JUVENAL BA C EXAM 2 LEIDY KNEE COMPLETE 4/MORE VIEWS PRTBLE E0431 THE [facility] STORE RENT; [facility] HUMIDFR&M ASK O2 CONC 1 E1390 THE THE DEL [facility] 85%/>02 STORE STORE CONC AT [facility] FLW RATE INJ J1459 ALEE A ALEE A IMMUNE 2 R H R H GLOBULIN IV NONLYOPHI LIZED 500 [place] [address] ALEE A ALEE A INFUSION 2 R H R H THERAPY/P ROPHYLAXI S /DX 1ST TO 1 HR COLLECTIO 03160 [facility] VENUS N 2 FORK SHA CAPILLARY OUTPATIEN BLOOD T CLINI SPECIMEN BLD GLU A4253 [facility] CUMBER[facility] TEST/REAG 2 D DRUG CO D DRUG CO T STRIPS HOME BLD GLU MON-50 LANCETS A4259 [facility]AN CUMBERLAN PER BOX 2 D DRUG CO D DRUG CO OF 100 GLUCOSE 64815 [place] VENUS BLOOD 2 FORK CHARLIE REAGENT OUTPATIEN STRIP T CL[facility] 79336 [facility] QUEST SIVE 2 DIAGNOSTI DIAGNOSTI METABOLIC CS CS PANEL COLLECTIO 83762 [place] VENUS N VENOUS 2 FORK CHARLIE BLOOD OUTPATIEN VENIPUNCT T CLINI [facility] 13252 HOSP [facility] [employer] [facility] DISCHARGE 2 MEDICINE AJITH DAY SERV MANAGEMEN @CTRL BAP T > 30 MIN SBSQ 76268 NEPHROLOG [facility] 2 Y JANAY CARE/DAY ASSOCIATE 15 S MINUTES SBSQ 43990 [facility] 2 MEDICINE AJITH CARE/DAY SERV 35 @CTRL BAP MINUTES SBSQ 76679 [facility] 2 TOMAS DE LA TORRE CARE/DAY PSC 25 MINUTES RADIOLOGI 45610 [facility] BELLAMY ADA C EXAM 2 RADIOLOGY CHEST 2 ASSOC VIEWS FRONTAL&L ATERAL ELECTROEN 08340 [facility]RES [facility] CEPHALOGR 2 TOMAS DE LA TORRE AM W/REC PSC AWAKE&KULWINDER WSY ECG 69020 [facility] ROUTINE 2 MARLON ECG CARDIOLOG W/LEAST Y AT CENT 12 LDS I&R ONLY ECHO 52045 [facility] TTHRC R-T 2 2D CARDIOLOG W/WOM-MOD Y AT CENT E COMPL SPEC&COLR D INITIAL 87236 [facility] 2 Y THO CARE/DAY ASSOCIATE [address] [place] [address] [facility] RET[facility] 2 RADIOLOGY TONEAL ASSOC REAL TIME W/IMAGE COMPLETE INITIAL 79511 [facility] 2 [place] DE [place] TORRE CARE/DAY PSC 50 MINUTES RADIOLOGI 56602 [facility] BELLAMY ADA C 2 RADIOLOGY EXAMINATI [place] [address] JUVENAL LEIDY GRE HEAD/BRAI 2 LEIDY N W/[place] [address] JUVENAL LEIDY GRE THORACIC 2 LEIDY SPINE W/O CONTRAST MATERIAL AMB A0431 AIR EVAC AIR EVAC SERVICE 2 LIFETEAM LIFETEAM CONVNTION AIR SRVC TRANSPORT [address] BLOOD 28864 ALEE A ALEE A COUNT 2 R H R H COMPLETE AUTO&AUTO DIFRNTL WBC COLLECTIO 72314 ALEE VICKERS A N VENOUS 2 R H R H BLOOD VENIPUNCT URE HEPATIC 25702 ALEE VICKERS A FUNCTION 2 R H R H PANEL AMB A0422 [employer] OXYGEN&O2 2 LIFE CARE LIFE CARE SUPPLIES LIFE SUSTAININ G SITUATION AMB A0427 [employer] SERVICE 2 LIFE CARE LIFE CARE ALS EMERGENCY TRANSPORT LEVEL 1 INJECTION J3360 ALEE VICKERS A DIAZEPAM 2 R H R H UP TO 5 MG BASIC 02862 ALEE HURLEYLAN A METABOLIC 2 R [place] [address] ALEE VICKERS A AMMONIA 2 R H R H NONINVASI 04901 ALEE VICKERS A VE 2 R H R H EAR/[place] [address] ALEE VICKERS A INFUSION 2 R H R [place] [address] JVUENAL FORBES GRE CERVICAL 2 LEIDY SPINE W/O CONTRAST MATERIAL GROUND A0425 [employer] MILEAGE 2 LIFE CARE LIFE CARE PER STATUTE MILE ROTARY A0436 AIR EVAC AIR EVAC WING AIR 2 LIFETEAM LIFETEAM MILEAGE PER STATUTE MILE THER 38918 ALEE VICKERS A PROPH/DX 2 R H R H NJX IV PUSH SINGLE/1S T SBST/DRUG PRTBLE E0431 THE THE [facility] STORE RENT; [facility] HUMIDFR&M ASK O2 CONC 1 E1390 THE THE DEL PORT [facility] 85%/>02 STORE STORE CONC AT [facility] 97[address] [facility] DISCHARGE 2 ABD ABD DAY MANAGEMEN T 30 MIN/< SBSQ 26503 [facility] 2 ABD ABD CARE/DAY 15 MINUTES RADIOLOGI 40995 JUVENAL TORRESU GRE C EXAM 2 LEIDY CHEST 2 VIEWS FRONTAL&L ATERAL SBSQ 87677 [facility] 2 ABD ABD CARE/DAY 25 MINUTES INITIAL 36774 [facility] 2 ABD ABD CARE/DAY 50 MINUTES RADIOLOGI 76195 JUVENAL LEIDY GRE C 2 LEIDY EXAMINATI ON CHEST SINGLE VIEW FRONTAL RADIOLOGI 05188 JUVENAL LEIDY GRE C 2 LEIDY EXAMINATI ON CHEST SINGLE VIEW FRONTAL AMB A0422 [employer] OXYGEN&O2 2 LIFE CARE LIFE CARE SUPPLIES LIFE SUSTAININ G SITUATION AMB A0427 [employer] 2 LIFE CARE LIFE CARE ALS EMERGENCY TRANSPORT LEVEL 1 GROUND A0425 [employer] MILEAGE 2 LIFE CARE [place] [address] ALEE A ALEE A GAMMAGLOB 2 R H R H ULIN IGE GAMMAGLOB 92454 ALEE A ALEE A ULIN 2 R H R [place]MM[place] [address] ALEE A ALEE A GAMMAGLOB 2 R H R H ULIN IGA IGD IGG IGM EACH COLLECTIO 54801 ALEE A ALEE A N VENOUS 2 R H R [facility] 84[facility] 2 MEDICAL A ASHLEY DAY ASSOCIATE MANAGEMEN S T 30 MIN/< SBSQ 96631 [facility] 2 MEDICAL A ASHLEY CARE/DAY ASSOCIATE 15 S MINUTES INITIAL 88432 [facility] 2 MEDICAL A ASHLEY CARE/DAY ASSOCIATE 50 S MINUTES RADIOLOGI 42888 JUVENAL LEIDY GRE C 2 LEIDY EXAMINATI ON CHEST SINGLE VIEW FRONTAL AMB A0422 [employer] OXYGEN&O2 2 LIFE CARE LIFE CARE SUPPLIES LIFE SUSTAININ G SITUATION AMB A0427 [employer] SERVICE 2 LIFE CARE LIFE CARE ALS EMERGENCY TRANSPORT LEVEL 1 GROUND A0425 [employer] MILEAGE 2 LIFE CARE LIFE CARE PER [...] MIDAZOLAM HCL PER 1 MG COLSC FLX 37961 ALEE A ALEE A PROX 2 R H R H SPLENIC FLXR ABLTJ LES COLSC FLX 84625 [facility] INC BUTT JAM 2 MED W/REMOVAL ASSOCIATE L[place] [address] [facility] PATHOLOGY GROSS&SADIQ ROSCOPIC EXAM CONCENTRA 79934 ALEE A ALEE A TION 2 R H R H INFECTIOU S AGENTS INJECTION J3010 ALEE A ALEE A FENTANYL 2 R H R H CITRATE 0.1 MG ANES 93352 TRIANGLE DAMEON TAR LOWER 2 ANESTHESI INTESTINE A GROUP [place] [address] ALEE A ALEE A CLOSTRIDI 2 R H [place] [address] ALEE A ALEE A GIARDIA 2 R H R H INJECTION J2405 ALEE A ALEE A 2 R H R H ONDANSETR ON HCL PER 1 MG COLSC FLX 04618 [facility] INC BUTT JAM W/RMVL 2 MED OF TUMOR ASSOCIATE POLYP S LESION SNARE TQ COLONOSCO 76688 [facility] INC BUTT JAM PY 2 MED W/BIOPSY ASSOCIATE SINGLE/MU S LTIPLE CUL BACT 20932 ALEE A ALEE A STOOL 2 R H R H AEROBIC ISOL SALMONELL A&SHIGELL SMR PRIM 21865 ALEE A ALEE A SRC CPLX 2 R H R H SPEC STAIN OVA&JULIA ITS INJ J1459 ALEE A ALEE A IMMUNE 2 R H R H GLOBULIN IV NONLYOPHI LIZED 500 [place] [address] [facility] INFUSION 2 R H R H THERAPY/P ROPHYLAXI S /DX 1ST TO 1 HOSPITAL 39703 [facility] DISCHARGE 2 WOMENS & DAY FAMILY MANAGEMEN HEALTH C T 30 MIN/< SBSQ 81433 [facility] 2 WOMENS & CARE/DAY FAMILY 25 HEALTH C MINUTES SBSQ 46887 [facility] 2 WOMENS & CARE/DAY FAMILY 25 HEALTH C MINUTES AMB A0422 [employer] OXYGEN&O2 2 LIFE CARE LIFE CARE SUPPLIES LIFE SUSTAININ G SITUATION INITIAL 95035 [facility] 2 WOMENS & CARE/DAY FAMILY 50 HEALTH C MINUTES RADEX ABD 82173 JUVENAL LEIDY GRE COMPL 2 LEIDY AQT ABD W/S/E/D VIEWS 1 VIEW GROUND A0425 [employer] MILEAGE 2 LIFE CARE LIFE CARE PER STATUTE MILE AMBULANCE A0429 [employer] SERVICE 2 LIFE CARE LIFE CARE BLS EMERGENCY TRANSPORT PRTBLE E0431 THE THE GASEOUS [facility] STORE RENT; [facility] HUMIDFR&M ASK O2 CONC 1 E1390 THE THE DEL [facility] 85%/>02 STORE STORE CONC AT [facility] 07219 [facility] MEDICAL A ASHLEY DAY ASSOCIATE MANAGEMEN S T 30 MIN/< SBSQ 27174 [facility] 2 MEDICAL A ASHLEY CARE/DAY ASSOCIATE 15 S MINUTES SBSQ 33815 [facility] 2 MEDICAL A ASHLEY CARE/DAY ASSOCIATE 15 S MINUTES AMB A0422 [employer] OXYGEN&O2 2 LIFE CARE LIFE CARE SUPPLIES LIFE SUSTAININ G SITUATION GROUND A0425 [employer] MILEAGE 2 LIFE CARE LIFE CARE PER STATUTE MILE INITIAL 35485 [facility] 2 ABD ABD CARE/DAY 50 MINUTES RADIOLOGI 64975 JUVENAL LEIDY GRE C 2 LEIDY EXAMINATI ON CHEST SINGLE VIEW FRONTAL AMBULANCE A0429 [employer] SERVICE 2 LIFE CARE LIFE CARE BLS EMERGENCY TRANSPORT US SOFT 43117 JUVENAL LEIDY GRE TISSUE 2 LEIDY HEAD & NECK REAL TIME IMGE DOCM ALBUTEROL J7620 [facility] CUM[facility] TO 2.5 2 D DRUG CO D DRUG CO MG & IPRATROPI UM BROM TO 0.5 MG PHRM Q0513 [facility] CUM[facility]AN DISPENSIN 2 D DRUG CO D DRUG CO G FEE INHALATIO N RX; PER 30 DAYS AMB A0427 [employer] SERVICE 2 LIFE CARE LIFE CARE ALS EMERGENCY TRANSPORT LEVEL 1 AMB A0422 [employer] OXYGEN&O2 2 LIFE CARE LIFE CARE SUPPLIES LIFE SUSTAININ G SITUATION DIAB ONLY A5501 [facility] CUM[facility] FIT CSTM 2 D DRUG CO D DRUG CO PREP&SPL SHOE MOLD PTS FT FOR DIAB A5513 [facility] CUMBER[facility]AN ONLY MX 2 D DRUG CO D DRUG CO DNSITY INSRT CSTM MOLD CSTM EA GROUND A0425 [employer] [facility] 2 LIFE CARE LIFE CARE PER STATUTE [facility] [address]6773 [facility] DISCHARGE 2 WOMENS & DAY FAMILY MANAGEMEN HEALTH C T 30 MIN/< INITIAL 92181 [facility] HOSPITAL 2 WOMENS & CARE/DAY FAMILY 30 [place] [address] JUVENAL LEIDY GRE ABDOMINAL 2 LEIDY REAL TIME W/IMAGE LIMITED RADEX ABD 78983 JUVENAL LEIDY GRE COMPL 2 LEIDY AQT ABD W/S/E/D VIEWS 1 VIEW CH O2 CONC 1 E1390 THE [facility] DEL [facility] 85%/>02 STORE STORE CONC AT [facility] FLW RATE PRTBLE E0431 THE THE GASEOUS 1 [facility]2 SYS STORE STORE RENT; [facility] FLWMTR HUMIDFR&M ASK RADIOLOGI 85161 JUVENAL LEIDY GRE C EXAM 1 LEIDY CHEST 2 VIEWS FRONTAL&L ATERAL COLLECTIO 42263 [facility] VENUS N VENOUS 1 FORK SHA BLOOD OUTPATI[place] [address] [facility] TRIIODOTH 1 DIAGNOSTI DIAGNOSTI YRONINE CS CS T3 [place] [address] [place] [address] [facility] FREE 1 DIAGNOSTI [place]AG[place] [address] [facility] THYROID 1 DIAGNOSTI DIAGNOSTI STIMULATI CS CS NG HORMONE TSH COMPUTER- 03105 JUVENAL FORBES GRE AIDED 1 LEIDY DETECTION SCREENING MAMMOGRAP HY INJ IG J1569 ALEE A ALEE A GAMMAGARD 1 R H R H LIQ IV NONLYOPHI LIZED 500 [place] [address] ALEE A ALEE A INFUSION 1 R H R H THERAPY/P ROPHYLAXI S /DX 1ST TO 1 HR SCREENING G0202 JUVENAL FORBES GRE 1 LEIDY MAMMOGRAP HY EVERARDO INCL CAD WHEN PERFORMD COLLECTIO 72882 [place] VENUS N VENOUS [address] [facility] BLOOD OUTPATIEN VENIPUNCT T CLINI URE BASIC 34126 [facility] METABOLIC 1 DIAGNOSTI DIAGNOSTI PANEL CS CS CALCIUM TOTAL ANTINUCLE 31655 [facility] AR 1 DIAGNOSTI DIAGNOSTI ANTIBODIE CS CS S [facility] 13356 [facility] 1 [facility] C T 30 MIN/< SBSQ [address] FAMILY [address] [place] [address] JUVENAL FORBES GRE ANGIOGRAP 1 LEIDY HY CHEST W/CONTRAS T/NONCONT RAST SBSQ [address] 25 [place] [address] JUVENAL FORBES GRE ABDOMINAL 1 LEIDY REAL TIME W/IMAGE LIMITED SBSQ 03727 [place] [address] HEALTH C MINUTES RADIOLOGI 74887 JUVENAL BA C EXAM 1 LEIDY CHEST 2 VIEWS FRONTAL&L ATERAL SBSQ 62103 [facility] 1 WOMENS & A SRI CARE/DAY FAMILY 25 HEALTH C MINUTES INITIAL 81243 [facility] 1 WOMENS & A SRI CARE/DAY FAMILY [address] [place] [address] JUVENAL TORRESU GRE ABDOMEN & 1 LEIDY PELVIS W/O CONTRAST MATERIAL RADEX ABD 84994 JUVENAL TORRESU GRE COMPL 1 LEIDY AQT ABD W/S/E/D VIEWS 1 VIEW CH O2 CONC 1 E1390 THE THE DEL [facility] 85%/>02 STORE STORE CONC AT [facility] FLW RATE PRTBLE E0431 THE THE [facility] ASK COLLECTIO 20125 [place] N VENOUS 1 FORK RAC BLOOD OUTPATIEN VENIPUNCT T CLINI URE LIPID 05312 [facility] PANEL 1 DIAGNOSTI DIAGNOSTI CS CS GLUCOSE 40176 [facility] [place] QUANTITAT 1 FORK RAC ARCHIE BLOOD OUTPATIEN XCPT T CLINI REAGENT STRIP HEMOGLOBI 77180 [facility] N 1 DIAGNOSTI DIAGNOSTI GLYCOSYLA CS CS SULAIMAN A1C ALBUTEROL J7620 CUMBERLAN CUMBERLAN TO 2.5 1 D DRUG CO D DRUG CO MG & IPRATROPI UM BROM TO 0.5 MG PHRM Q0513 CUMBERLAN CUMBERLAN DISPENSIN 1 D DRUG CO D DRUG CO G FEE INHALATIO N RX; PER 30 DAYS RADIOLOGI 51241 JUVENAL TORRESU GRE C EXAM 1 LEIDY CHEST 2 VIEWS FRONTAL&L ATERAL PRESSURIZ 26974 ALEE Villafuerte ED/NONPRE 1 R H R H SSURIZED INHALATIO N TREATMENT AMBULANCE A0429 [employer] SERVICE 1 [facility] BLS EMERGENCY TRANSPORT THER 97151 ALEE Villafuerte PROPH/DX 1 R H R H NJX IV PUSH SINGLE/1S T SBST/DRUG AMB A0422 [employer] OXYGEN&O2 1 LIFE CARE LIFE CARE SUPPLIES LIFE SUSTAININ G SITUATION INJ J2930 ALEE A ALEE A METHYLPRD 1 R H R H [place] SODIUM SUCCNAT TO 125 MG GROUND A0425 [facility] PER STATUTE MILE O2 CONC 1 E1390 THE [place] [address] [facility] 85%/>02 STORE STORE CONC AT [facility] FLW RATE PRTBLE E0431 THE THE [facility] O2 SYS STORE STORE RENT; [facility] FLWVAR HUMIDFR&[place] [address] ALEE A ALEE A INFUSION 1 R H R H THERAPY/P ROPHYLAXI S /DX 1ST TO 1 HR MRI 45764 JUVENAL BA SPINAL 1 LEIDY CANAL [place]ERVICAL W/[place] [address] ALEE A ALEE A INFUSION 1 R H R H THERAPY/P ROPHYLAXI S /DX 1ST TO 1 HR PRTBLE E0431 [facility] O[facility] S[facility] STORE STORE RENT; [facility] FLWVAR HUMIDFR&M ASK O2 CONC 1 E1390 THE THE [place] [address] [facility] 85%/>02 STORE STORE CONC AT [facility] FLW RATE INJ IG J1569 ALEE A ALEE A GAMMAGARD 1 R H R H LIQ IV NONLYOPHI LIZED [facility] [address] [facility] TRIP DAMION DISCHARGE 1 MED DAY ASSOCIATE MANAGEMEN S T 30 MIN/< RADIOLOGI 99457 JUVENAL BA C EXAM 1 LEIDY CHEST 2 VIEWS FRONTAL&L ATERAL PHRM Q0513 CUMBERLAN CUMBERLAN DISPENSIN 1 D DRUG CO D DRUG CO G FEE INHALATIO N RX; PER 30 DAYS ALBUTEROL J7620 CUMBERLAN CUMBERLAN TO 2.5 1 D DRUG CO D DRUG CO MG & IPRATROPI UM BROM TO 0.5 MG O2 CONC 1 E1390 THE [place] [address] [facility] 85%/>02 STORE STORE CONC AT ALEE ALEE PRSC FLW RATE PRTBLE E0431 THE THE [facility] O[facility] SYS STORE STORE RENT; ALEE ALEE FLWMTR HUMIDFR&M ASK PRESSURIZ 24460 ALEE A ALEE A ED/NONPRE 1 R H R H SSURIZED INHALATIO N TREATMENT EXCISION 24356 [facility] BUTT JAM GANGLION 1 MED WRIST ASSOCIATE DORSAL/VO S LAR PRIMARY LEVEL III 26404 [facility] 1 HLTHCARE NAN PATHOLOGY GROSS&SADIQ ROSCOPIC EXAM INJECTION J2405 ALEE A ALEE A 1 R H R H ONDANSETR ON HCL PER 1 MG NEUROPLAS 99078 [facility] BUTT JAM TY 1 MED &/TRANSPO ASSOCIATE [...] ALEE DEVC W/WO HEAD STRAP CT THORAX 16530 JUVENAL LEIDY GRE W/O 1 LEIDY CONTRAST [...] [facility]/>02 STORE STORE CONC AT [facility] FLW RATE PRTBLE E0431 THE THE [facility] O[facility] SYS STORE STORE RENT; [facility] FLWMTR HUMIDFR&M ASK DESTRUCTI 53384 [facility] AHMAD F ON BENIGN 1 MED LESIONS ASSOCIATE UP TO 14 S EGD 61968 [facility] AHMAD F TRANSORAL 1 MED BIOPSY ASSOCIATE SINGLE/MU S LTIPLE URINE 95260 ALEE HURLEYLAN A 1 R H R H TEST V[place] [address] ALEE HURLEYLAN A SURG 1 R H R H PATHOLOGY GROSS&SADIQ ROSCOPIC EXAM ANES 86260 TRIANGLE WHITE EAR UPPER GI 1 ANESTHESI ENDOSCOPY A GROUP PROXIMAL PS TO DUODENUM CUL 19005 ALEE HURLEYLAN A PRSMPTV 1 R H R H PTHGNC ORGANISM SCRN W/COLONY ESTIMJ O2 CONC 1 E1390 THE THE DEL PORT [facility] 85%/>02 STORE STORE CONC AT [facility] FLW RATE PRTBLE E0431 THE THE [facility] ST[facility] RENT; ALEE ALEE FLWMTR HUMIDFR&M ASK CARBON 34990 ALEE HURLEYLAN A MONOXIDE 1 R H R H DIFFW/CAP ARTERIAL 96359 ALEE HURLEYLAN A PUNCTURE 1 R H R H WITHDRAWA L BLOOD DX POLYSOM 87242 ALEE A ALEE A 6/>YRS 1 R H R H SLEEP 4/> ADDL CASI ATTND BRNCDILAT 28670 ALEE HURLEYLAN A RSPSE 1 R H R H SPMTRY PRE&POST- BRNCDILAT ADMN FUNCTIONA 15602 ALEE A ALEE A L 1 R H R H RESIDUAL CAPACITY OR RESIDUAL VOLUME ECHO 03228 APPALACHI APAKONDU TTHRC R-T 1 AN HEART S[facility] 2D CENTER W/WOM-MOD E COMPL SPEC&COLR D CARBOXYHE 61185 ALEE A ALEE A MOGLOBIN 1 R H R H QUANTITAT ARCHIE DESTRUCTI 42422 [facility]HMAD F ON 1 MED PREMALIGN ASSOCIATE ANT S LESION 1ST DESTRUCTI 23274 [facility]HMAD F ON 1 MED PREMALIGN ASSOCIATE ANT S LESION 2-14 EA BLOOD 20816 ALEE A ALEE A GASES ANY 1 R H R H COMBINATI ON PH PCO2 PO2 CO2 HCO3 MRI 87215 ALEE A ALEE A SPINAL 1 R H R H CANAL THORACIC W/O CONTRAST MATRL RADEX 59359 JUVENAL LEIDY GRE SPINE 1 LEIDY THORACIC 3 VIEWS COLLECTIO 04478 ALEE A ALEE A N VENOUS 1 R H R H BLOOD VENIPUNCT URE RHEUMATOI 77214 ALEE A ALEE A D FACTOR 1 [place] [address] ALEE A ALEE A BLOOD/URI 1 R H R H C ACID ANTINUCLE 50836 ALEE A ALEE A AR 1 R H R H ANTIBODIE S CLARA SEDIMENTA 93829 ALEE A ALEE A TION RATE 1 R H R H RBC AUTOMATED C-REACTIV 73765 ALEE A ALEE A E PROTEIN 1 R H R H RADEX 84971 JUVENAL LEIDY GRE SPINE 1 LEIDY LUMBOSACR [...] [facility] ST[facility] RENT; [facility] FLWMTR HUMIDFR&M [facility] [address] [facility] 1 WOMENS & DAY [facility] T 30 MIN/< O2 CONC 1 E1390 THE THE DEL [facility] 85%/>02 STORE STORE CONC AT [facility] FLW RATE SBSQ [address] & CARE/DAY [place] [address] [place] [address] JUVENAL LEIDY GRE ANGIOGRAP 1 LEIDY HY CHEST W/CONTRAS T/NONCONT RAST NON-INVAS 9390 [facility] A ARCHIE 1 R H R H MECHANICA L VENTILATI ON SBSQ [address] [place] [address] WOMENS & CARE/DAY FAMILY 25 HEALTH C MINUTES INITIAL [address] & CARE/DAY FAMILY 50 HEALTH C MINUTES RADIOLOGI 39127 JUVENAL FORBES GRE C 1 LEIDY EXAMINATI ON CHEST SINGLE VIEW FRONTAL RADEX 07008 RADIOLOGY NEILS STEFFANY ABDOMEN 1 1 ASSOCI[place] [address] RADIOLOGY HURST MARY ABDOMEN & 1 PELVIS ASSOCIATE W/O S PSC CONTRAST MATERIAL CULTURE [address] BACTERIAL 1 PABLO SHAH QUANTTATI MEDICALCE MEDICALCE [place] [address] RADIOLOGY BRANDSER ABDOMEN & 1 STEFFANY PELVIS ASSOCIATE W/O S PSC CONTRAST MATERIAL GROUND A0425 SYMONE SYMONE MILEAGE 1 CO CO PER AMBULANCE AMBULANCE STATUTE TAXIN TAXIN MILE RADEX 87339 RADIOLOGY EISEMAN ABDOMEN 1 1 WAL ASSOCIATE ANTEROPOS S PSC TERIOR VIEW AMBULANCE A0429 SYMONE SYMONE SERVICE 1 CO CO BLS AMBULANCE AMBULANCE EMERGENCY TAXIN TAXIN TRANSPORT AMBULANCE A0429 SYMONE SYMONE SERVICE 1 CO CO BLS AMBULANCE AMBULANCE EMERGENCY TAXIN TAXIN TRANSPORT RADEX 74150 RADIOLOGY KERMAN ABDOMEN 1 1 JUNIOR ASSOCIATE ANTEROPOS S PSC TERIOR VIEW GROUND A0425 SYMONE SYMONE MILEAGE 1 CO CO PER AMBULANCE [place] [address] RADIOLOGY KERMAN ABDOMEN & 1 JUNIOR PELVIS ASSOCIATE W/O S PSC CONTRAST MATERIAL LIPID [address] PANEL 1 PABLO PABLO MEDICALCE MEDICALCE NTER NTER BLOOD [address] COUNT 1 PABLO PABLO COMPLETE AUTO&AUTO MEDICALCE MEDICALCE DIFRNTL NTER NTER WBC HEMOGLOBI [address] N 1 PABLO PABLO GLYCOSYLA SULAIMAN A1C MEDICALCE MEDICALCE NTER NTER COMPREHEN [address] ST [address] SIVE 1 PABLO PABLO METABOLIC PANEL [place] [address] THYROID 1 PABLOMARIE SHAH STIMULATI NG MEDICALCE MEDICALCE HORMONE NTER NTER TSH BASIC [address] METABOLIC 1 PABLO PABLO PANEL CALCIUM MEDICALCE MEDICALCE TOTAL NTER NTER BLOOD [address] COUNT 1 PABLO PABLO COMPLETE AUTO&AUTO MEDICALCE MEDICALCE DIFRNTL NTER NTER WBC DRUG [address] SCREEN 1 PABLO PABLO QUANTITAT ARCHIE MEDICALCE MEDICALCE THEOPHYLL NTER NTER INE LIPID [address] PANEL 1 PABLO PABLO MEDICALCE MEDICALCE NTER NTER BLOOD [address] COUNT 1 PABLO PABLO COMPLETE AUTO&AUTO MEDICALCE MEDICALCE DIFRNTL NTER NTER WBC HEMOGLOBI 7[address] ST ST N 1 PABLO PABLO GLYCOSYLA SULAIMAN A1C MEDICALCE MEDICALCE NTER NTER COMPREHEN [address] SIVE 1 PABLO PABLO METABOLIC PANEL [place] [address] THYROID 1 PABLO PABLO STIMULATI NG MEDICALCE MEDICALCE HORMONE NTER NTER TSH ALBUMIN 31313 GIRON ROSA ISELA URINE 1 PABLO ANEUDYJENNIFER MIN PHYSICIAN SEMIQUANT S ITATIVE RADIOLOGI 12681 RADIOLOGY PEREZ C EXAM 1 BRA CHEST 2 ASSOCIATE VIEWS S PSC FRONTAL&L ATERAL RADEX 83473 RAD[facility]OLOGY [facility] SPINE 0 THORACOLM ASSOCIATE BR S PSC STANDING SCOLIOSIS THERAPEUT 14551 [facility] IC 0 [facility] TIC/DX INJECTION SUBQ/IM SCREENING G0202 RADIOLOGY LEXIS 0 MILDRED MAMMOGRAP ASSOCIATE HY EVERARDO S PSC INCL CAD WHEN PERFORMD COMPUTER- 98001 RADIOLOGY [place] AIDED 0 MILDRED DETECTION ASSOCIATE S PSC [place] [address] THYROID 0 PABLO PABLO STIMULATI NG MEDICALCE MEDICALCE HORMONE NTER NTER TSH COMPREHEN [address] SIVE 0 PABLO PABLO METABOLIC PANEL MEDICALCE MEDICALCE NTER NTER HEMOGLOBI [address] N 0 PABLO PABLO GLYCOSYLA SULAIMAN A1C MEDICALCE MEDICALCE NTER NTER BLOOD [address] COUNT 0 PABLO PABLO COMPLETE AUTO&AUTO MEDICALCE MEDICALCE DIFRNTL NTER NTER WBC LIPID [address] PANEL 0 PABLO PABLO MEDICALCE MEDICALCE NTER NTER LIPID [address] PANEL 0 PABLO PABLO MEDICALCE MEDICALCE NTER NTER BLOOD [address] COUNT 0 PABLO PABLO COMPLETE AUTO&AUTO MEDICALCE MEDICALCE DIFRNTL NTER NTER WBC HEMOGLOBI [address] N 0 PABLO PABLO GLYCOSYLA SULAIMAN A1C MEDICALCE MEDICALCE NTER NTER COMPREHEN [address] SIVE 0 PABLO PABLO METABOLIC PANEL [place] [address] THYROID 0 PABLO PABLO STIMULATI NG MEDICALCE MEDICALCE HORMONE NTER NTER TSH CLTX PROX 66192 COMMONWEA COMMONWEA 0 LTH LTH FIBULA/SH ORTHOPAED ORTHOPAED FT FX W/O IC CTR IC CTR MANJ PSC PSC APPLICATI [address] ON LONG 0 [facility] SPLINT THIGH ANKLE/TOE S RADIOLOGI 49267 RADIOLOGY DELILAH, C 0 EXAMINATI ASSOCIATE PABLO ON TIBIA S PSC A & FIBULA 2 VIEWS BLD GLU A4253 PLAZA PLAZA TEST/REAG 0 PHARMACY PHARMACY T STRIPS HOME BLD GLU WED-[address] SE 0 PABLO PABLO ASPARTATE AMINO MEDICALCE MEDICALCE AST SGOT NTER NTER TRANSFERA [address] SE 0 PABLO PABLO ALANINE AMINO ALT MEDICAL[place] [address] THYROID 0 PABLO PABLO STIMULATI NG MEDICALCE MEDICALCE HORMONE NTER NTER TSH BASIC [address] METABOLIC 0 PABLO PABLO PANEL CALCIUM MEDICALCE MEDICALCE TOTAL NTER NTER LIPID [address] PANEL 0 PABLO PABLO MEDICALCE MEDICALCE NTER NTER HEMOGLOBI [address] N 0 PABLO PABLO GLYCOSYLA SULAIMAN A1C MEDICALCE MEDICALCE NTER NTER BLOOD [address] COUNT 0 PABLO PABLO COMPLETE AUTO&AUTO MEDICALCE MEDICALCE DIFRNTL NTER NTER [facility] 35414 FAMILY MULBERRY, DISCHARGE 9 CARE URBAN T DAY ASSOCIATE MANAGEMEN S T 30 MIN/< 3D 07100 NOHEMI LOZANO, RENDERING 9 MEDICAL LUIS P IMAGING W/INTERP& ASSOCIATE POSTPROC S DIFF WORK STATION CT PELVIS 95112 NOHEMI LOZANO, W/O 9 MEDICAL LUIS P CONTRAST IMAGING MATERIAL ASSOCIATE S INITIAL 22171 [facility] 9 CARE URBAN T CARE/DAY ASSOCIATE [address] [place] [address] NOHEMI LOZANO, ABDOMEN 9 MEDICAL LUIS P W/O IMAGING CONTRAST ASSOCIATE MATERIAL S ECG 85279 RADHA ACE, ROUTINE 9 EMERGENCY ASIA S ECG SERVICES W/LEAST 12 LDS ASSOCIATE I&R ONLY S RADEX ABD 28957 NOHEMI LOZANO, COMPL 9 MEDICAL LUIS P AQT ABD IMAGING W/S/E/D ASSOCIATE VIEWS 1 S VIEW [place] COLLECTIO [address] N VENOUS 9 [facility] VENIPUNCT URE BLOOD [address] COUNT 9 [facility] AUTO&AUTO DIFRNTL WBC COMPREHEN 24126 [facility] SIVE 9 [facility] PANEL BASIC 10103 [facility] METABOLIC 9 [facility] PANEL CALCIUM MEDICALCE MEDICALCE TOTAL NTER NTER TRANSFERA [address] SE 9 [facility] ASPARTATE AMINO MEDICALCE MEDICALCE AST SGOT NTER NTER TRANSFERA [address] SE 9 [facility] ALANINE AMINO ALT MEDICALCE MEDICALCE SGPT NTER NTER HEMOGLOBI [address] N 9 [facility] GLYCOSYLA SULAIMAN A1C MEDICALCE MEDICALCE NTER NTER COLLECTIO 32829 [facility] N VENOUS 9 MEDICAL , SILVINO BLOOD GROUP F VENIPUNCT URE LIPID [address] PANEL 9 [facility] NTER NTER DRUG [address] [facility] [address] SCREEN 9 [facility] QUANTITAT ARCHIE MEDICALCE MEDICALCE THEOPHYLL NTER NTER INE CONTINUOU E0601 HAILEE STEPHEN S 9 HOSP HOSP POSITIVE EQUIP EQUIP AIRWAY PRESSURE DEVICE DRUG [address] SCREEN 9 [facility] QUANTITAT ARCHIE MEDICALCE MEDICALCE THEOPHYLL NTER NTER INE ELECTROLY [address] TE PANEL 9 PABLO PABLO MEDICALCE MEDICALCE NTER NTER HEMOGLOBI [address] N 9 [facility] GLYCOSYLA SULAIMAN A1C [place] [address] UREA 9 [facility] NITROGEN QUANTITAT MEDICALCE MEDICALCE ARCHIE NTER NTER CREATININ [address] E BLOOD 9 [facility] MEDICAL[facility] MEDICALCE NTER NTER CONTINUOU E0601 [...] HOSP HOSP COMPRESSO EQUIP EQUIP R BLOOD [address] COUNT 9 [facility] COMPLETE AUTO&AUTO MEDICALCE MEDICALCE DIFRNTL NTER NTER WBC BILIRUBIN [address] DIRECT 9 [facility] MEDICALCE MEDICALCE NTER NTER COMPREHEN [address] SIVE 9 [facility] MET[facility]OLIC PANEL [place] [address] THYROID 9 [facility] STIMULATI NG MEDICALCE MEDICALCE HORMONE NTER NTER TSH HUMDIFIR E0562 HAILEE STEPHEN HEATED 9 HOSP HOSP USED EQUIP EQUIP W/POS ARWAY PRESSURE DEVICE CONTINUOU E0601 HAILEE STEPHEN S 9 HOSP HOSP POSITIVE EQUIP EQUIP AIRWAY PRESSURE DEVICE NDL EMG 2 93044 [facility] XTR W/WO 9 S S RELATED HEALTHCAR HEALTHCAR PARASPINA E INC E INC L AREAS NRV CNDJ 11244 [place] AMPLT&LAT 9 S S NCY EA HEALTHCAR HEALTHCAR NRV MOTR E INC E INC W/O F-WAVE STD NRV CNDJ 76591 [place] AMPLT&LAT 9 S S ENCY EA HEALTHCAR HEALTHCAR NRV MOTOR E INC E INC W/F-WAVE STD NRV CNDJ 47457 [place] [place] AMPLITUDE 9 S S & HEALTHCAR HEALTHCAR LATENCY E INC E INC EACH NERVE SENSORY NEBULIZER E0570 HAILEE STEPHEN WITH 9 HOSP HOSP COMPRESSO EQUIP EQUIP R CONTINUOU E0601 HAILEE ROTHANDRE S 9 HOSP HOSP POSITIVE EQUIP EQUIP AIRWAY PRESSURE DEVICE HUMDIFIR E0562 LALYANDRE STEPHEN HEATED 9 HOSP HOSP USED EQUIP EQUIP W/POS ARWAY PRESSURE DEVICE COMPREHEN [address] SIVE 9 [facility] METABOLIC PANEL MEDICALCE MEDICALCE NTER NTER ANTINUCLE [address] AR 9 [facility] ANTIBODIE S CLARA MEDICALCE MEDICALCE NTER NTER RHEUMATOI [address] D FACTOR 9 [facility] QUALITATI VE MEDICALCE MEDICALCE NTER NTER DRUG [address] SCREEN 9 [facility] QUANTITAT ARCHIE MEDICALCE MEDICALCE THEOPHYLL NTER NTER INE BLOOD [address] COUNT 9 [facility] COMPLETE AUTO&AUTO MEDICALCE MEDICALCE DIFRNTL NTER NTER WBC RADEX [address] HIPS 9 [facility] 2 VIEWS ANTEROPOS T PELVIS RADEX 03841 RADIOLOGY WELLS, SPINE 9 SALMA D CERVICAL ASSOCIATE 4 OR 5 S PSC VIEWS NEBULIZER E0570 HAILEE STEPHEN WITH 9 HOSP HOSP COMPRESSO EQUIP EQUIP R DXA BONE 86798 RADIOLOGY BRANDSER, DENSITY 8 DHRUV A STUDY ASSOCIATE VERTEBRAL S PSC FRACTURE DXA BONE [address] DENSITY 8 [facility] STUDY 1/> HOSPITAL HOSPITAL SITES AXIAL SKEL [...] HOSP COMPRESSO EQUIP EQUIP R IM ADM 65169 [facility], PRQ ID 8 MEDICAL GLO SUBQ/IM GROUP NJXS EA VACCINE IM ADM 65130 [facility] [place], PRQ ID 8 MEDICAL GLO SUBQ/IM GROUP NJXS 1 VACCINE COMPUTER- 74079 RADIOLOGY [place], AIDED 8 [facility] DETECTION ASSOCIATE S PSC SCREENING MAMMOGRAP HY SCREENING G0202 RADIOLOGY [place], [address] [place] [address] MAMMOGRAP ASSOCIATE HY EVERARDO S PSC INCL CAD WHEN PERFORMD WALKING L4386 RESPIRATO RESPIRATO BOOT 8 RY RY NON-PNEUM CONSULTAN CONSULTAN AT TS INC TS [place] [address] [facility] PHLX/PHLG 8 [facility] GRT TOE W/MANJ CLTX 55330 JOE, METATARSO 8 [facility] PHLNGL JT MED CTR DISLC W/O ANES INJECTION 18768 JOE, ANES 8 [facility] OTHER MED CTR PERIPHERA L NERVE/BRA NCH RADEX TOE [address] MINIMUM [address] NEBULIZER E0570 HAILEE STEPHEN WITH 8 HOSP HOSP COMPRESSO EQUIP EQUIP R FILTER A7038 HAILEE STEPHEN DISPBL 8 HOSP HOSP USED EQUIP EQUIP W/POS ARWAY PRESSURE DEVICE CUSHN A7032 HAILEE STEPHEN NASAL 8 HOSP HOSP MASK EQUIP EQUIP INTERFACE REPLACEME NT ONLY EACH PREDNISON J7506 ST ST E ORAL [address] RAD[address]OLOGI [address] C EXAM [address] VIEWS FRONTAL&L ATERAL DEMO&/BAMBI [address] ST ST L OF PT 8 [facility] AERSL GEN/NEB/I NHLR/IP CONTINUOU E0601 HAILEE STEPHEN S 8 HOSP HOSP POSITIVE EQUIP EQUIP AIRWAY PRESSURE DEVICE HUMDIFIR E0562 HAILEE STEPHEN HEATED 8 HOSP HOSP USED EQUIP EQUIP W/POS ARWAY PRESSURE DEVICE NEBULIZER E0570 HAILEE STEPHEN WITH 8 HOSP HOSP COMPRESSO EQUIP EQUIP R ECG [address] ROUTINE 8 [facility] W/LEAST 12 LDS TRCG ONLY W/O I&R [...] POSITIVE EQUIP EQUIP AIRWAY PRESSURE DEVICE POLYSOM 05796 DANIAL BARROW, 6/>YRS 8 BASHAR BASHAR SLEEP W/CPAP 4/> ADDL CASI ATTND POLYSOM 65509 FRENCH FRENCH 6/>YRS 8 SLEEP SLEEP SLEEP MEDICINE MEDICINE W/CPAP 4/> ADDL CASI ATTND NEBULIZER E0570 LALYANDRE HAILEE WITH 8 HOSP HOSP COMPRESSO EQUIP EQUIP R DOPPLER 61149 CARDIOLOG KATTY CASTILLO 8 Y EDDI K PULSE ASSOCIATE WAVE S W/SPECTRA L DISPLAY MYOCRD 50238 VERÓNICAEN ANGUS PRFUJ STD 8 SIVE ER, EJEC FXJ CARDIOLOG MC Antoine Y CONSULTAN TS TECHNETIU A9502 ST ST M TC-99M 8 [facility] IN DX PER STUDY DOSE MYOCRD 49251 COMPREHEN ANGUS PRFUJ IMG 8 SIVE ER, TOMOG CARDIOLOG MC Schultz SPECT MANAGER INSTRUMENTATION Y STD CONSULTAN TS MYOCRD 76857 COMPREHEN JULIANAKMEY PRFUJ STD 8 SIVE ER, WALL CARDIOLOG MC Schultz MOTION Y QUAL/KAYLA CONSULTAN STD TS DOP 42595 CARDIOLOG ANNA, ECHOCARD 8 Y EDDI K COLOR ASSOCIATE FLOW S VELOCITY MAPPING CV STRS 11747 CARDIOLOG ANNA, TST 8 Y EDDI K XERS&/OR ASSOCIATE RX CONT S ECG W/O I&R CV STRS [address] TST 8 [facility] XERS&/OR [facility] RX CONT ECG TRCG ONLY ECHO 21667 CARDIOLOG ANNA TRANSTHOR 8 Y EDDI K AC R-T 2D ASSOCIATE W/WO S M-MODE REC COMP CV STRS 57385 CARDIOLOG ANNA, TST 8 Y EDDI K XERS&/OR ASSOCIATE RX CONT S ECG I&R ONLY POLYSOM 96634 FRENCH FRENCH 6/>YRS 8 SLEEP SLEEP SLEEP 4/> MEDICINE [...] GROUP GROUP DNISOLONE ACETATE 80 MG THER 11265 [facility] PROPH/DX 8 MEDICAL MEDICAL NJX GROUP GROUP SUBQ/IM INJECTION J2250 ST ST 8 [facility] HCL PER 1 MG DILATION 07075 CHRISTINA VASQUEZ ESOPH 8 JUVENAL Gomez UNGUIDED SOUND/OTTO GIE 1/MULT PASS EGD 88595 CHRISTINA VASQUEZ TRANSORAL 8 JUVENAL Gomez BIOPSY SINGLE/MU LTIPLE COLONOSCO 11243 CHRISTINA VASQUEZ PY 8 JUVENAL Jason Gomez W/BIOPSY SINGLE/[place] [address] [facility] SURG 8 PABLO IMANI PATHOLOGY MED CTR O GROSS&SADIQ ROSCOPIC EXAM Encounters Encounter Start End Date Code Location Performer Type Date HOSPITAL YIFAN - 7 7 MEM [facility]P INPATIENT INC OFFICE 40337 [facility] PAVEZ OUTPATIEN 7 7 PHYSICIAN T NEW 60 S GROUP MINUTES OFFICE 73087 [facility] 7 7 HEALTH T NEW 30 MEDICAL MINUTES GROUP OFFICE 86322 [facility] FRYMAN OUTPATIEN 7 7 PHYSICIAN T VISIT GROUP 15 MINUTES EMERGENCY 33488 [facility] DEPT 7 7 PHYSICIAN VISIT S, PLLC HIGH SEVERITY& THREAT [facility] ALEE A - 6 6 R H INPATIENT CLINIC, [facility] RURAL 6 6 [facility] OUTPATIEN T MEDIC OFFICE 76748 [facility] 6 6 FORK T VISIT OUTPATIEN 15 T MEDIC MINUTES OFFICE 93385 [facility] OUTPATIEN 6 6 MEDICAL T VISIT ASSOCIATE 25 S MINUTES HOSPITAL ALEE A - 6 6 R H OUTPATIEN [facility] ALEE A - 6 6 R H INPATIENT HOSPITAL ALEE A - 6 6 R H OUTPATIEN [facility] ALEE A - 6 6 R H OUTPATIEN [facility] ALEE A - 6 6 R H OUTPATIEN T OFFICE 50222 [facility] KALIE ALLA OUTPATIEN 6 6 MEDICAL T VISIT ASSOCIATE 25 S MINUTES OFFICE 82765 [facility] 6 6 FORK T VISIT OUTPATIEN 15 T MEDIC MINUTES CLINIC, [place] [facility] 6 6 [facility]ICE 92858 [facility] OUTPATIEN 6 6 MEDICAL M NAG T NEW 60 ASSOCIATE MINUTES S [facility] [place] A - 6 6 R H INPATIENT OFFICE 13253 [facility] 6 6 FORK T VISIT OUTPATIEN 15 T MEDIC MINUTES CLINIC[facility] [place] [facility] 6 6 [facility] [place] [facility] - 6 6 R H INPATIENT [facility]IN[facility], [place] [facility] 6 6 [facility] OUTPATIEN T MEDIC OFFICE 11241 [facility] OUTPATIEN 6 6 PAIN JR THO T VISIT MANAGEMEN 15 T SER MINUTES OFFICE 09299 [facility] 5 5 PAIN U-STURZ T VISIT MANAGEMEN ION 15 T SER [facility]ES OFF[facility] 5 5 PAIN JR THO T VISIT MANAGEMEN 15 T SER [address] OFFICE 71132 [facility], [facility] 4 4 PAIN JR THO T VISIT MANAGEMEN 15 T SER MINUTES OFFICE 07369 [facility] OUTPATIEN 4 4 PAIN JR THO T VISIT MANAGEMEN 15 T SER MINUTES OFFICE 90445 [facility], [facility] 4 4 PAIN JR THO T VISIT MANAGEMEN 15 T SER MINUTES CLINIC[facility] [place] [facility] 4 4 [facility] OUTPATIEN [facility] ALEE A - 4 4 R H INPATIENT HOSPITAL ALEE A - 4 4 R H INPATIENT OFFICE 19095 NOHEMI NEWELL, OUTPATIEN 4 4 PAIN JR THO T VISIT MANAGEMEN 15 T SER MINUTES CLINIC, [facility] RURAL 4 4 ON LICENSE OF [facility] ALEE A - 4 4 R H OUTPATIEN T EMERGENCY 77682 ALEE A DEPT 4 4 R H VISIT HIGH SEVERITY& THREAT [facility] ALEE A - 4 4 R H OUTPATIEN T CLINIC, [place] [facility] 4 4 [facility] CLINI OFFICE 57051 [facility] 4 4 MED T VISIT ASSOCIATE 10 S MINUTES CLINIC, [place] [facility] 4 4 ON LICENSE OF [facility] ALEE A - 3 4 R H INPATIENT EMERGENCY 04644 ALEE A ESSENTIAL 3 3 R H TESTING, [facility] T VISIT HIGH/URGE [facility] 3 3 R H INPATIENT EMERGENCY 00077 ALEE A DEPT 3 3 R H VISIT HIGH SEVERITY& THREAT [facility] ALEE A - 3 3 R H OUTPATIEN T CLINIC, [place] 3 3 ON LICENSE OF [facility] ALEE A - 3 3 R H OUTPATIEN T EMERGENCY 27189 ALEE A 3 3 R H DEPARTMEN T VISIT MODERATE SEVERITY EMERGENCY 27623 ALEE A 3 3 R H DEPARTMEN T VISIT HIGH/URGE NT SEVERITY HOSPITAL ALEE A - 3 3 R H OUTPATIEN T EMERGENCY 72951 [facility] DEPT 2 2 MEDICAL VISIT ENTERPRI HIGH SEVERITY& THREAT [facility] A - 2 2 R H [facility]PATIENT [facility] [address] [facility] MEDICAL EMERGENCY 30299 ALEE A DEPT 2 2 R H VISIT HIGH SEVERITY& THREAT [facility], [facility] RURAL 2 2 [facility] - 2 2 R H OUTPATIEN T OFFICE 36935 [facility] 2 2 MED T VISIT ASSOCIATE 15 S [facility] ALEE A - 2 2 R H OUTPATIEN HOSPITAL ALEE A - 2 2 R H OUTPATIEN T EMERGENCY 43852 ALEE A 2 2 R H DEPARTMEN T VISIT HIGH/URGE NT SEVERITY CLINIC, [facility] RURAL 2 2 [facility] OFF[facility] 27728 [facility] ICAL T [facility]ISIT ASSOCIATE 15 S AT [facility] ALEE A - 2 2 R H OUTPATIEN T CLINIC, [facility] R[facility] 2 2 [facility] 2 2 [facility] CLIN[facility], [facility] 2 2 [facility] OUTPATIEN CLINI EMERGENCY 89489 ALEE A DEPT 2 2 R H VISIT HIGH SEVERITY& THREAT [facility] - 2 2 R H OUTPATIEN T HOSPITAL ALEE A - OTHER 2 2 R H OFFICE 72961 [facility]IP [facility] OUTPATIEN 2 2 MED T VISIT ASSOCIATE 25 S MINUTES OFFICE 41312 [facility] OUTPATIEN 2 2 MEDICAL A ASHLEY T VISIT ASSOCIATE 15 S MINUTES OFFICE 74690 [facility] OUTPATIEN 2 2 MEDICAL A ASHLEY T VISIT ASSOCIATE 15 S MINUTES OFFICE 46251 [facility] BUTT JAM OUTPATIEN 2 2 MED T VISIT ASSOCIATE 10 S MINUTES OFFICE 31802 [facility] OUTPATIEN 2 2 MEDICAL A [facility]SH[facility] T VISIT ASSOCIATE 15 S MINUTES HOSPITAL [facility] A - 2 2 R H OUTPATIEN T OFFICE 57729 [facility] OUTPATIEN 2 2 MEDICAL A ASHLEY T VISIT ASSOCIATE 15 S MINUTES HOSPITAL [facility] A - 2 2 R H OUTPATIEN T OFFICE 73352 [facility] [place]T [place] OUTPATIEN 2 2 MED T VISIT ASSOCIATE 15 S MINUTES OFFICE 80191 [facility] OUTPATIEN 2 2 MEDICAL A ASHLEY T NEW 20 ASSOCIATE MINUTES [facility]OSPITAL [facility] A - 2 2 R H INPATIENT [facility]PITAL [facility] A - 1 1 R H OUTPATIEN T OFFICE 71809 [facility] TRIP [facility] OUTPATIEN 1 1 MED T VISIT ASSOCIATE 25 S MINUTES HOSPITAL [facility] A - 1 1 R H OUTPAT[facility]EN T CL[facility] [place] [facility] 1 1 [facility]PATI T [facility] ALEE A - 1 1 R H INPATIENT [facility] [place] [facility] 03478 ALEE A 1 1 R H DEPARTMEN T VISIT MODERATE SEVERITY [facility]OSPITAL [facility] A - 1 1 R H OUTPATIEN [facility] A - 1 1 R H OUTPATIEN T OFFICE 30899 [facility] TRIP [facility] OUTPATIEN 1 1 MED T VISIT ASSOCIATE 25 S MINUTES [facility]OSP[facility] A - 1 1 R H [facility] - 1 1 R [facility] - 1 1 R H [facility] A[facility] A - 1 1 R H OUTPATIEN T OFFICE 30066 [facility] OUTPATIEN 1 1 T VISIT 15 MINUTES OFFICE 73204 [facility] BUTT JAM OUTPATIEN 1 1 MED T VISIT ASSOCIATE 15 S MINUTES [facility] A - 1 1 R H OUTPATIEN T OFFICE 86415 [facility] TRIP [facility] OUTPATIEN 1 1 MED T VISIT ASSOCIATE 25 S MINUTES [facility]IN[facility] [place] [facility] 1 1 [facility] [place] [facility] [facility] 51000 [facility] AHMAD F OUTPATIEN 1 1 MED T VISIT ASSOCIATE 10 S MINUTES [facility] [place] 1 1 [facility] [place] A - 1 1 R H [facility] [place] A - 1 1 R H OUTPATIEN T OFFICE 67553 [facility] AHMAD F OUTPATIEN 1 1 MED T VISIT ASSOCIATE 15 S MINUTES HOSPITAL [facility] A - 1 1 R H OUTPATIEN T [facility]OSPITAL [facility] A - 1 1 R H OUTPATIEN T OFFICE 08955 [facility] TRIP [facility] OUTPATIEN 1 1 MED T NEW 60 ASSOCIATE MINUTES HOSPITAL [facility] A - 1 1 R H OUTPATIEN T OFFICE 48917 M[facility]RISONDELL SAWYER OUTPATIEN 1 1 T VISIT 15 MINUTES OFFICE 74349 [facility] KIR PRINCE KIR OUTPATIEN 1 1 T NEW 45 MINUTES HOSPITAL [facility] A - [address] ACCESS [address] [facility] [address] - OTHER 1 1 [facility] ST - OTHER 1 1 [facility] OFFICE [address] [facility] GIRON ROSA ISELA OUTPATIEN 1 1 PABLO T VISIT 25 PHYSICIAN MINUT[facility] OFFICE [address] [facility] GIRON ROSA ISELA OUTPATIEN 1 1 PABLO T VISIT 25 PHYSICIAN MINUTES S EMERGENCY [address]08[address] ST BELLAMY JENI 1 1 [facility] CTR T VISIT HIGH/URGE NT SEVERITY CRITICAL ST ACCESS 0 0 [facility] EMERGENCY [address]33[address] ST 0 0 [facility] T VISIT MODERATE SEVERITY CRITICAL ST ACCESS 0 [address] [facility] [address] [address] ACCESS 0 0 [facility] - OTHER 0 0 [facility] - OTHER 0 0 [facility] OFFICE 35712 KATHERINE JONES OUTPATIEN 0 0 LTH , MATHEUS T NEW 30 ORTHOPAED M MINUTES [facility] EMERGENCY 70206 ST 0 0 [facility] T VISIT MODERATE SEVERITY CRITICAL ST ACCESS 0 0 [facility] OFFICE [address] [facility] GIRON ROSA ISELA OUTPATIEN 0 0 [facility] T VISIT [address] [facility] [address] - OTHER 0 0 [facility] [facility] - 9 9 [facility] EMERGENCY [address] RADHA ACE, DEPT 9 9 EMERGENCY ASIA S VISIT SERVICES HIGH SEVERITY& ASSOCIATE THREAT S [facility] OFFICE 57545 CARLOS VIGIL 9 9 MEDICAL GLO T VISIT GROUP [address] 9 9 [facility] T VISIT MODERATE SEVERITY CRITICAL ST ACCESS 9 9 [facility] [address] - OTHER 9 9 [facility] ST - OTHER 9 9 [facility] ST - OTHER 9 9 [facility] OFFICE 50366 CARLOS VIGIL 9 9 MEDICAL GLO T VISIT GROUP 25 MINUTES OFFICE 95032 CARLOS BOSWELL 9 9 MEDICAL [facility] T VISIT GROUP [address] - OTHER 9 9 [facility] [address]ICAL [address] ACCESS 8 8 [facility] OFFICE 16797 [facility] 8 8 MEDICAL GLO T VISIT GROUP [address] ACCESS 8 8 [facility] EMERGENCY 16899 8 8 [facility] T VISIT HIGH/URGE NT SEVERITY [facility]OSPITAL ST - 8 8 [facility] T H[facility]PITAL ST - 8 8 [facility] T EMERGENCY [id number] 8 8 [facility] T VISIT MODERATE SEVERITY EMERGENCY 82621 8 8 [facility] T VISIT MODERATE SEVERITY HOSPITAL ST - 8 8 [facility] T EMERGENCY [address] [place] [id number] 8 [facility] CTR T VISIT MODERATE SEVERITY CRITICAL ST ACCESS 8 8 [facility] OFFICE 05295 CARDIOLOG SCARLETT CASTILLO 8 8 Y EDDI K OPHELIA ASSOCIATE NEW/ESTAB S PATIENT 60 MIN [facility] 8 8 [facility] T OFFICE 08859 DANIAL BARROW CONSULTIRMA 8 8 BASHAR KYLE ION NEW/ESTAB PATIENT 60 MIN [facility]ICE [id number] [facility] 8 8 MEDICAL MEDICAL T VISIT GROUP GROUP 15 MINUTES OFFICE 94786 [facility] 8 8 MEDICAL MEDICAL T VISIT GROUP GROUP 25 MINUTES HOSPITAL [facility] 8 [facility] T OFFICE 64781 [facility] 8 8 MEDICAL MEDICAL T VISIT GROUP GROUP 25 MINUTES
--- OUTSIDE RECORDS SUMMARY | 2017-04-17 10:37 | External Medical Summary Rpt | CCD ---
Demographics Preferred Language Bulgarian Marital Status Unknown Jewish Affiliation Unknown Race Unknown Ethnic Group Unknown Author Author , CIERA VANG Address Unknown Phone Immunization No patient found.
--- OUTSIDE RECORDS SUMMARY | 2017-04-17 10:37 | External Medical Summary Rpt | CCD ---
Demographics Preferred Language Chinese Marital Status Unknown Moravian Affiliation Unknown Race Unknown Ethnic Group Unknown Author Author , CIERA VANG Address Unknown Phone Immunization No patient found.
== END 2017-04-16 18:35 | disposition home or self-care (01) ==
LOC: ER 12:16 → 2ND 14:33
PROVIDERS: Emergency Medicine
DX: J44.1 Chronic obstructive pulmonary disease with (acute) exacerbation (principal); M25.551 Pain in right hip; Z87.891 Personal history of nicotine dependence; I10 Essential (primary) hypertension; E11.9 Type 2 diabetes mellitus without complications; Z85.828 Personal history of other malignant neoplasm of skin; Z79.82 Long term (current) use of aspirin; Z79.4 Long term (current) use of insulin; Z79.1 Long term (current) use of non-steroidal anti-inflammatories (NSAID); Z79.51 Long term (current) use of inhaled steroids; Z79.899 Other long term (current) drug therapy; F41.9 Anxiety disorder, unspecified; F32.9 Major depressive disorder, single episode, unspecified; Z99.81 Dependence on supplemental oxygen
CPT/HCPCS: G0378; J0456

== ENCOUNTER 2017-05-07 18:21 | Inpatient (IN) | payer MEDICARE, MEDICAID ==
[~2017-05-07] VITALS: Ht 152.4 cm; Wt 69.9 kg
[~2017-05-07 18:21] MED LIST changes: +AVAPRO 150MG T150 MG PO; +AVPAK AZITHROM250 MG PO; +HUMALOG100 U/ML SC; +HYDROXYZINE HCL25 M1 PO
[2017-05-07 18:24] VITALS: BP 92/49
--- NOTE | 2017-05-07 18:46 | Emergency Room Report ---
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 PT WAS SLIGHTLY CONFUSED AND NOT ON HOME O2. PTS BLOOD GLUCOSE 151 PER EMS AND HYPOTENSIVE SBP 79. 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 N Clinical Suspician of Infection? N Mental Status: 2 - Mildly Altered Sepsis Risk:Low Sepsis Risk Have you (or family members/close friends) recently traveled outside the [place]? N If Yes, where/when: Have you had exposure to infectious disease within the past month? N TB? Other? Specify: Comment The patient is brought in by ambulance with complaints of altered mental status. The patient was found to be hypotensive by licensed massage practitioner. Fluid bolus was started. The patient complains of feeling tired. She has some chronic shortness of breath which she says unchanged. She has chronic RIGHT hip pain, she has no other complaints of pain at this time. She denies any focal weakness. She denies any acute visual changes. She was recently discharged from the hospital on April 16 after 2 day stay for chronic obstructive pulmonary disease exacerbation. She has a visiting physician. ALLERGIES Coded Allergies: sulfamethoxazole (From BACTRIM) (03/08/17) trimethoprim (From BACTRIM) (03/08/17) Home Medications Active Scripts Device (Oxygen (Concentrator)) 1 LITER IH CONSTANT #2 DEV Ref 5 Prov: 06/30/16 Device (Oxygen, Portable) 1 LITER IH CONSTANT #2 DEV Ref 5 Prov: 06/30/16 Clonazepam (Klonopin 0.5MG) 0.5 MG NG BIDP PRN ANXIETY #20 TAB Prov: 11/02/16 Azithromycin (Avpak Azithromycin) 250 MG PO DAILY #6 TAB Prov: 04/15/17 Prednisone (Prednisone 20MG) 20 MG PO DAILY #6 TAB Prov: 04/15/17 Reported Medications DILTIAZEM HCL (Diltiazem 12HR ER) 90 MG PO BID Prednisone (Prednisone 5MG) 10 MG PO DAILY Levetiracetam (Keppra) 1,000 MG PO QHS MAGNESIUM OXIDE (Magnesium Oxide) 400 MG PO DAILYP PRN SUPPLEMENT Tiotropium Magnolia (Spiriva) 1 PUFF IH DAILY IRBESARTAN (Irbesartan) 150 MG PO DAILY Albuterol Sulfate (Proair Hfa) 1-2 PUFF IH Q4HP PRN BREATHING ASPIRIN (Aspirin) 81 MG PO DAILY Levetiracetam (Keppra 500 Mg Tablet) 750 MG PO 0900,1700 Montelukast Sodium (Singulair 10MG) 10 MG PO QHS POTASSIUM CHL (Potassium Chloride) 20 MEQ PO DAILY Furosemide (Furosemide) 20 MG PO BID #60 TABLET Metoprolol Tartrate (Lopressor) 25 MG PO BID #60 TAB DULOXETINE HCL (Cymbalta 60MG) 60 MG PO DAILY Famotidine (Pepcid 20MG Tablet) 20 MG PO QHS FLUTICASONE/SALMETEROL (Advair 250-50 Diskus) 1 PUFF IN BID Allopurinol 100 MG PO BID CALCIUM CITRATE/VITAMIN D3 (Calcium Citrate - Vit D Caplet) 1 TAB PO BID Guaifenesin (Mucinex) 600 MG PO BIDP PRN CHEST CONGESTION IPRATROPIUM/ALBUTEROL SULFATE (Iprat-Albut 0.5-3(2.5) MG/3 Ml) 3 ML IH BID HYDROXYZINE HCL (Hydroxyzine HCl) 25 MG PO DAILY #120 Insulin Lispro, Recombinant (Humalog 100 UNITS/ML 10ML) 0 UNITS SC ACHS IBUPROFEN MICRONIZED (IBUPROFEN 400MG) 400 MG PO Q8HP PRN PAIN Acetaminophen (Arthritis Pain Relief) 650 MG PO PRN-MRX1 PRN PAIN History Medical History General CAD? No Angina: No [place]: No Hypertension? Yes Hyperlipidemia? Yes CHF? No DVT? No PE? No COPD? Yes Asthma? Yes Anemia? No GERD? No Gastric ulcers? No GI Bleed? No Hernia? Yes Thyroid Problems? No Hypothyroidism? No CVA? No Seizures? Yes Diabetes? Yes Insulin Dependent: Yes Insulin Pump: No Home FSBS? Yes Renal Insuffiency? No End Stage Renal Disease? No UTI? No Stones? No BPH? No GB Disease: No Nephritic Syndrome? No Asplenia? No Hepatitis? No Sickle Cell Disease? No Arthritis? No Migraines? No Cataracts? No Glaucoma? No MRSA? No HIV? No TB? No Anxiety? Yes Depression? Yes Cancer? Yes Site: SKIN More? No Immunization Hx DT/Tetanus Unknown Flu Refused Pneumonia Received In Past Surgical Hx Previous Surgery?Y X 2 APPY HYSTERECTOMY Hernia Repair SKIN CANCER REMOVAL X2 Family History Family Hx Diabetes Yes CAD No Hypertension Yes Hyperlipidemia Yes Cancer Yes TB No Social History Smoking Hx Packs/day < 1 Pack Alcohol Alcohol: No Review of Systems All Other Systems Reviewed and Negative Constitutional malaise, weakness Respiratory shortness of breath Musculoskeletal joint pain (RIGHT hip, chronic) Physical Exam Vital Signs Vital Signs Date Time Temp Pulse Resp B/P Pulse O2 O2 Flow FiO2 Ox Delivery Rate 05/07 1824 98.6 70 24 92/49 94 General Appearance appears chronically ill, very drowsy, when stimulated awakens and answers questions normally, but quickly drifts off and eyes rolled back when not stimulated Eye Exam - bilateral eye normal exam, bilateral eye PERRL, bilateral eye EOMI Ear, Nose, Throat hearing grossly normal, normal ENT inspection Neck normal inspection, non-tender, supple, full range of motion Respiratory Status Yes: trachea midline, chest symmetrical, non tender chest. No: respiratory distress. Lung Sounds bilateral: normal breath sounds, lungs clear. 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 Bow Stapler equal bilaterally. slightly more drift of RIGHT leg and arm than LEFT against gravity. the patient has chronic RIGHT hip pain, limiting her exam of her RIGHT leg for drift. This is chronic. She also has chronic RIGHT arm pain. She says that she fell and tore a muscle in her arm months ago and has trouble holding that arm up as well. She does not feel that she has any new weakness. Mental status normal mood/affect Skin intact, normal color, warm/dry Medical Decision Making LABS/Meds/Orders Pt receiving controlled substance in ED? No Aurelio was queried for this patient? Yes Comment [phone] [id number] rxs. last rx 14 morphine sulfate 15 mg, 01/28/17 Results/Orders Laboratory Tests 05/07/171912: Urine Color YELLOW, Urine Appearance CLEAR, Urine pH 5.5, Ur Specific [place]long 1.025, Urine Protein NEGATIVE, Urine Ketones NEGATIVE, Urine Blood NEGATIVE, Urine Nitrate NEGATIVE, Urine Bilirubin NEGATIVE, Urine Urobilinogen 0.2, Ur Leukocyte Esterase NEGATIVE, Urine RBC NONE, Urine WBC NONE, Ur Squamous Epith Cells OCC, Urine Bacteria TRACE, Urine Glucose NEGATIVE 05/07/171908: ABG pH 7.22 *L, ABG pCO2 (Temp Corrct 51.0 H, ABG pO2 (Temp Correct 88.3, ABG HCO3 20.3 L, ABG Total CO2 21.9 L, ABG O2 Sat (Calculated) 95.3, ABG Base Excess -7.4 L, Jacek Test ACCEPTABLE 05/07/171902: Lactic Acid 2.0 05/07/171902: Sodium 132 L, Potassium 4.4, Chloride 98, Carbon Dioxide 22, BUN 47 H, Creatinine 2.7 H, Estimated Creat Clear 26 L, Estimated GFR (MDRD) 18 *L, Glucose 138 H, Calcium 8.8, Total Bilirubin 0.5, AST 11 L, ALT 21, Alkaline Phosphatase 104, Troponin I < 0.02, Total Protein 6.4, Albumin 3.2 L, Globulin 3.2, Albumin/Globulin Ratio 1.0 L Current Medication Orders Sig/Aminata Start time Last Medication Dose Route Stop Time Status Admin Methylprednisolone 125 MG ONCE ONE 05/07 2015 DC 05/07 Sodium Succinate IV 05/07 Levofloxacin/Dextrose 150 ML .STK-MED ONE 05/07 1937 DC IV Cefepime HCl 0 .STK-MED ONE 05/07 1936 DC IV Cefepime HCl 2 GM ONCE ONE 05/07 1930 DC 05/07 Sodium Chloride 100 ML IV 05/07 Levofloxacin/Dextrose 150 ML ONCE ONE 05/07 1930 r 05/07 IV 05/07 Vancomycin HCl See Dose ONCE ONE 05/07 1930 DC Insts (1) IV 05/07 1931 Sodium Chloride 1,000 ML .STK-MED ONE 05/07 1856 DC IV Sodium Chloride 1,000 ML .Q1H1M 05/07 1845 DC 05/07 IV 05/07 194 190 Sodium Chloride 10 ML PRN PRN 05/07 1845 AC IV 05/08 1839 Dose Instructions: (1)Vancomycin HCl: CONTACT PHARMACY FOR DOSING Orders Procedure Date/time Status DIET-NOTHING BY MOUTH 05/08 B Active 12 LEAD EKG-DAMEON (INITIAL) 05/07 1840 Active ELECTROCARDIOGRAM REQUEST 05/07 1840 Active ARTERIAL BLOOD GAS REQUEST 05/07 1840 Active CHEST-AP VIEW ONLY 05/07 1840 Active IV SALINE LOCK 05/07 1840 Active URINARY CATHETER INSERT 05/07 1840 Active CULTURE, SPUTUM 05/07 1840 Active CULTURE, BLOOD 05/07 1840 Active URINALYSIS/COMPLETE 05/07 1840 Complete TROPONIN I 05/07 1840 Complete LACTIC ACID 05/07 1840 Complete CHEM 12 PROFILE 05/[address] HEAD W/O CONTRAST 05/[address] HEAD REQ 05/07 1833 Active CM/EKG CM/EKG Comments EKG interpreted by Jaziel Carlton MD: Rhythm: sinus Rate: 75 [place]: normal Ectopy: none Conduction: normal ST Segment Changes: none T Wave Changes: none Q Waves: none No evidence of acute ischemia or injury Baseline artifact and wander present, but I consider the EKG adequate for accurate interpretation. XRAY/CT/US XRAY/CT/US CT head Comment CT scan interpreted by [facility] radiologist. Phone call and Faxed report received and reviewed: Normal head CT Progress - 8:00 PM: I have discussed the case with Dr. Squires who agrees to admit the patient to the hospital. We discussed the patient's clinical information, including history, exam, laboratory and radiology results and ED course. Per hospital procedure, I will write temporary bridge inpatient orders on the patient. Specific orders requested by the admitting physician: Continue antibiotics, steroids, IV fluids Departure Departure Disposition Still a Patient Clinical Impression Primary Impression: Hypotension Qualifiers: Hypotension type: unspecified hypotension type Qualified Code: I95.9 - Hypotension, unspecified Secondary Impressions: Acute renal failure Qualifiers: Acute renal failure type: unspecified Qualified Code: N17.9 - Acute kidney failure, unspecified Drowsiness Healthcare-associated pneumonia Condition STABLE ED Critical Care Critical Care Yes Time spent 30-74 min Vital system(s) involved: Circulatory Failure I was present at bedside for Coordinating pt's care, Interpreting EKGs/Strips , During my initial exam, Reviewing lab results, Reviewing old records, Discussing pt condition, For re-examinations, Examining radiographs at 2023
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
--- OUTSIDE RECORDS SUMMARY | 2017-05-07 18:59 | External Medical Summary Rpt | CCD ---
Demographics Preferred Language Croatian Marital Status Unknown Tenriism Affiliation Unknown Race Unknown Ethnic Group Unknown Author Author , CIERA VANG Address Unknown Phone Immunization Unable to retrieve immunization data due to connection failure with Immunization Registry. Please try again later.
--- OUTSIDE RECORDS SUMMARY | 2017-05-07 18:59 | External Medical Summary Rpt | CCD ---
Demographics Preferred Language Danish Marital Status Unknown Adventism Affiliation Unknown Race Unknown Ethnic Group Unknown Author Author , CIERA VANG Address Unknown Phone Immunization Unable to retrieve immunization data due to connection failure with Immunization Registry. Please try again later.
--- OUTSIDE RECORDS SUMMARY | 2017-05-07 18:59 | External Medical Summary Rpt | CCD ---
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 Name Role Phone [facility], Unavailable Unavailable [facility] Unavailable Unavailable [facility] Un[facility], [facility] Unavailable Unavailable [facility], [facility] Unavailable Unavailable [facility], [facility] Unavailable Unavailable HEALTH C, [facility] Unavailable Unavailable [facility], [facility] GLO GIRON, Unavailable Unavailable GLO GIRON [facility] Unavailable Unavailable [facility]PATIENT [facility]INI, [facility] Unavailable Unavailable [facility], [facility] COM[facility]ENSIVE Unavailable Unavailable HOSPITALIST SE, COMPREHENSIVE HOSPITALIST SE [facility], Unavailable Unavailable [facility] DAHHAN ABD, DAHHAN Unavailable Unavailable ABD JOE, LORNA, Unavailable Unavailable JOE, LORNA [facility] Unavailable Unavailable [facility] JUVENAL TRINH Unavailable Unavailable LEIDY [facility], ALEE Unavailable Unavailable A R H ALEE EMS, ALEE Unavailable Unavailable EMS [facility] Un[facility] Un[facility] INC, [facility] Unavailable Unavailable [facility]OSPITAL P, [facility] Unavailable Unavailable SRV AR, [facility] SRV AR [facility], Unavailable Unavailable [facility], Unavailable Unavailable [facility] MATHEUS JONES, Unavailable Unavailable [facility] Unavailable Unavailable @CTRL [facility], HOSP [facility] @CTRL [facility], Unavailable Unavailable [facility] Unavailable Unavailable IMAGING ASS, [facility] Unavailable Unavailable MANAGEMENT SER, [facility]available Unavailable AT [facility], [facility] Unavailable Unavailable [facility], [facility] Unavailable Unavailable ASSOCIATES AT, [facility], Unavailable Unavailable [facility] MOSES, IMANI O, Unavailable [...] [facility], Unavailable Unavailable [facility] Unavailable Unavailable ANA, [facility] ANA [facility] Unavailable Unavailable [facility], [facility] Unavailable Unavailable PHYSICIANS, [facility] Shai MEJIATH CARMITA, Unavailable Unavailable [facility] Unavailable Unavailable ALBERTO Schultz ROBERT J [facility], Unavailable Unavailable [facility] JUVENAL TAYLOR, Unavailable Unavailable JUVENAL [...] Provider Status E119 TYPE 2 04-10-2017 DIABETES BECKER MELLITUS FT ANA WITHOUT COMPLICATIO NS E785 HYPERLIPIDE 04-10-2017 ST SATHYA PABLO UNSPECIFIED FT ANA G4730 SLEEP APNEA 04-10-2017 ST PABLO UNSPECIFIED FT ANA I10 ESSENTIAL 04-10-2017 ST PRIMARY PABLO HYPERTENSIO FT ANA N J449 CHRONIC 04-10-2017 ST OBSTRUCTIVE PABLO PULMONARY FT ANA DISEASE UNS M545 LOW BACK 04-10-2017 ST PAIN PABLO FT ANA [id number] STRAIN 04-10-2017 ST MUSCLE PABLO FASCIA FT ANA TENDON RT HIP INITIAL ENC O16333 PERSONAL 04-10-2017 HISTORY OF PABLO NICOTINE FT ANA DEPENDENCE J441 CHRONIC 12-18-2016 [facility] OBSTRUCTIVE PHYSICIANS PULMONARY GROUP DZ W/EXACERBAT ION Z9119 PATIENTS 12-18-2016 [facility] NONCOMPLIAN PHYSICIANS CE W/OTH GROUP MED TX & REGIMEN R05 COUGH 11-01-2016 [facility] R079 CHEST PAIN 11-01-2016 [place] UNSPECIFIED [facility] R0989 OT SPEC SX 11-01-2016 [place] & SIGNS MEDICAL INVLV THE IMAGING ASS CIRC & RESP SYS J209 ACUTE 10-28-2016 [facility] BRONCHITIS PHYSICIANS, UNSPECIFIED PLLC J9601 ACUTE 10-28-2016 [facility] RESPIRATORY PHYSICIANS, FAILURE PLLC WITH HYPOXIA R0602 SHORTNESS 10-28-2016 SYM[facility] OF BREATH CO AMBULANCE TAXIN 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 [facility] OF INSULIN INC Z9981 DEPENDENCE 10-28-2016 [facility] ON [facility] P L OXYGEN G4733 OBSTRUCTIVE 10-05-2016 [facility] SLEEP PHYSICIANS APNEA ADULT GROUP PEDIATRIC J9611 CHRONIC 10-05-2016 [facility] RESPIRATORY PHYSICIANS FAILURE GROUP WITH HYPOXIA M797 FIBROMYALGI 10-05-2016 [facility] A PHYSICIANS GROUP R569 UNSPECIFIED 10-05-2016 [facility] PHYSICIANS CONVULSIONS GROUP E139 OTH SPEC 09-25-2016 [facility] DIABETES PHYSICIAN MELLITUS GROUP W/O COMPLICATIO NS I509 HEART 09-25-2016 RELIGIOUS FAILURE HEALTH UNSPECIFIED MEDICAL GROUP I771 STRICTURE 09-25-2016 [facility] J440 COPD WITH 09-25-2016 [facility] ACUTE LOWER PHYSICIAN GROUP RESPIRATORY INFECTION M109 GOUT 09-25-2016 [facility] UNSPECIFIED PHYSICIAN GROUP Z8249 FAMILY HX 09-25-2016 RELIGIOUS ISCHEMIC HEALTH HRT DZ OT MEDICAL DZ CIRC GROUP SYSTEM J410 SIMPLE 09-23-2016 CHRONIC PABLO BRONCHITIS PHYSICIANS R0600 DYSPNEA 09-20-2016 [place] U[facility]PECIFIED [facility]ICAL [facility]ING [facility] W28066 EPILEPSY 05-31-2016 ALEE A R UNS NOT [...] LLC FAILURE W/HYPERCAPN IA J4522 MILD 05-07-2016 [facility] WITH STATUS ASTHMATICUS J9620 ACUTE 03-01-2016 [facility] RESP FAIL HEALTH C UNS HYPOXIA/HYP ERCAPNIA N189 CHRONIC 03-01-2016 [facility] KIDNEY [facility] FAMILY DISEASE HEALTH C UNSPECIFIED M6281 MUSCLE 02-27-2016 [facility] GENERALIZED N183 CHRONIC 02-06-2016 [facility] KIDNEY ASS[facility] DISEASE STAGE 3 MODERATE I129 HYPERTENSIV 02-05-2016 ALEE Villafuerte R E CKD H W/STAGE 1-4 CKD OR UNS CKD N179 ACUTE 02-05-2016 ALEE Villafuerte R KIDNEY H FAILURE UNSPECIFIED C21586 OTHER LONG 02-05-2016 ALEE Villafuerte R TERM H CURRENT DRUG THERAPY G894 CHRONIC 01-26-2016 ALEE Villafuerte R PAIN H SYNDROME K219 GASTRO-ESOP 01-26-2016 ALEE Villafuerte R H REFLUX H DISEASE WITHOUT ESOPHAGITIS 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 ED K529 NONINFECTIV 01-09-2016 [facility] E ASS[facility]IATES GASTROENTER ITIS & COLITIS UNS K6389 OTHER 01-09-2016 [facility] SPECIFIED ASSOCIATES DISEASES OF INTESTINE R0902 HYPOXEMIA 01-09-2016 ALEE Villafuerte R H R194 CHANGE IN 01-09-2016 [facility] BOWEL HABIT ASSOCIATES Z1231 ENCOUNTER 01-09-2016 ALEE Villafuerte R SCREENING H MAMMO MALIG NEOPLASM BREAST G479 SLEEP 01-07-2016 [facility] DISORDER ASSOCIATES UNSPECIFIED J9612 CHRONIC 01-07-2016 [facility] RESPIRATORY ASSOCIATES FAILURE WITH HYPERCAPNIA M810 AGE-RELATED 01-07-2016 [facility] OUTPATIENT OSTEOPOROSI MEDIC S W/O CURRNT PATH FX G4700 INSOMNIA 12-25-2015 ALEE Villafuerte R UNSPECIFIED H R1110 VOMITING 12-05-2015 [facility] UNSPECIFIED ASSOCIATES R112 NAUSEA WITH 12-05-2015 [facility] VOMITING ASSOCIATES UNSPECIFIED R197 DIARRHEA 12-05-2015 [facility] UNSPECIFIED ASSOCIATES R638 OTH 12-05-2015 [facility] SYMPTOMS & ASSOCIATES SIGNS CONCERNING FOOD & [place] INTAKE R1084 GENERALIZED 10-12-2015 [facility] ABDOMINAL LIFE CARE PAIN Z7722 CONTACT W/ 10-12-2015 ALEE Villafuerte R & SUSPECTED H EXPOS ENVIR TOBACCO SMOKE M5106 INTERVERTEB 07-08-2015 [place] RAL DISC PAIN D/O MANAGEMENT W/MYELOPATH SER Y LUMB REGION M5136 OTH 07-08-2015 [place] INTERVERTEB PAIN RAL DISC MANAGEMENT DEGEN SER LUMBAR REGION 54777 DEGEN 08-22-2014 [place] LUMBAR/LUMB PAIN OSACRAL MANAGEMENT INTERVERTEB SER RAL DISC 01789 INTERVERT 08-22-2014 [place] LUMB DISC PAIN D/O MANAGEMENT W/MYELOPATH SER Y LUMB REGION 7241 PAIN IN 08-22-2014 [place] THORACIC PAIN SPINE MANAGEMENT SER 7242 LUMBAGO 08-22-2014 [place] PAIN MANAGEMENT SER 33325 DEGEN 06-26-2014 [place] THORACIC/TH PAIN ORACOLUMBAR MANAGEMENT SER INTERVERTEB RAL DISC 496 CHRONIC 06-13-2014 [facility] 7224 DEGENERATIO 05-29-2014 [place] N OF PAIN CERVICAL MANAGEMENT INTERVERTEB SER RAL DISC 4011 ESSENTIAL 04-25-2014 [facility] HYPERTENSIO OUTPATIENT N, BENIGN CLINI 78056 DIAB W/O 04-14-2014 ALEE Villafuerte R COMP TYPE H II/UNS NOT STATED UNCNTRL 58602 RESTLESS 04-14-2014 ALEE A R LEGS H SYNDROME 3384 CHRONIC 04-14-2014 ALEE A R PAIN H SYNDROME 4019 UNSPECIFIED 04-14-2014 ALEE A R ESSENTIAL H HYPERTENSIO N 15679 ESOPHAGEAL 04-14-2014 ALEE Villafuerte R REFLUX H 5849 ACUTE 04-14-2014 ALEE A R KIDNEY H FAILURE UNSPECIFIED 5990 URINARY 04-14-2014 ALEE A R TRACT H INFECTION SITE NOT SPECIFIED V0481 NEED 04-14-2014 ALEE Villafuerte R PROPHYLACTI H C VACCINATION &INOCULATIO N FLU 5601 PARALYTIC 04-12-2014 JUVENAL LEIDY ILEUS 57472 OBSTRUCTIVE 04-11-2014 ALEE A R CHRONIC H BRONCHITIS WITH EXACERBATIO N 83614 FEVER 04-11-2014 [facility] UNSPECIFIED LIFE CARE 56742 SHORTNESS 04-11-2014 [facility] OF BREATH LIFE CARE 64903 EXTRINSIC 01-24-2014 [facility] WITH DRUG CO STATUS ASTHMATICUS 91958 HTN CKD UNS 11-30-2013 ALEE Villafuerte R W/CKD H STAGE I THRU STAGE IV/UNS 4293 CARDIOMEGAL 11-30-2013 JUVENAL FORBES Y 5859 CHRONIC 11-30-2013 ALEE A R KIDNEY H DISEASE UNSPECIFIED 12444 OTHER 11-30-2013 [facility] MALAISE AND LIFE CARE FATIGUE 02357 PAINFUL 11-30-2013 ALEE A R RESPIRATION H 62362 NAUSEA WITH 11-30-2013 [facility] VOMITING LIFE CARE 61927 ABDOMINAL 11-30-2013 ALEE A R PAIN, H UNSPECIFIED SITE 68342 CHEST PAIN 11-24-2013 ALEE A R UNSPECIFIED H 2724 OTHER AND 08-23-2013 [facility] UNSPECIFIED DIAGNOSTICS HYPERLIPIDE SATHYA 06377 OBSTRUCTIVE 08-23-2013 [facility] CHRONIC OUTPATIENT BRONCHITIS CLINI WITHOUT EXACERBAT V8532 BODY MASS 08-23-2013 [facility] INDEX OUTPATIENT 32.0-32.9 CLINI ADULT 5551 REGIONAL 07-21-2013 [facility] ENTERITIS ASSOCIATES OF LARGE INTESTINE 47032 CANDIDIASIS 07-10-2013 [facility] OF THE ASSOCIATES ESOPHAGUS 5609 UNSPECIFIED 07-10-2013 [facility] OBSTRUCTION 00871 DYSPHAGIA 07-10-2013 [facility] UNSPECIFIED ANESTHESIA GROUP PS 2113 BENIGN 07-09-2013 [facility] NEOPLASM OF ASSOCIATES COLON 5559 REGIONAL 07-09-2013 [facility] ENTERITIS ASSOCIATES OF UNSPECIFIED SITE 5589 OTH&UNSPEC 07-09-2013 [facility] NONINFECTIO ASSOCIATES US GASTROENTER ITIS&COLITI S 5693 HEMORRHAGE 07-09-2013 [facility] OF RECTUM ASSOCIATES AND ANUS 48777 ABDOMINAL 07-09-2013 [facility] PAIN OTHER ASSOCIATES SPECIFIED SITE V1272 PERSONAL 07-09-2013 [facility] HISTORY OF ASSOCIATES COLONIC POLYPS 4556 UNSPEC 07-07-2013 [facility] HEMORRHOIDS ANESTHESIA WITHOUT GROUP PS MENTION COMPLICATIO N 34696 DIVERTICULO 07-07-2013 [facility] [place] [address] DEHYDRATION 06-29-2013 [facility] 7840 HEADACHE 06-27-2013 JUVENAL FORBES 5180 PULMONARY 06-26-2013 JUVENAL FORBES COLLAPSE 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 87227 OTHER 06-25-2013 JU[facility] FORBES DISEASES OF LUNG NOT ELSEWHERE CLASSIFIED 08563 DIARRHEA 06-25-2013 [facility] FORBES 37826 DIAB W/O 05-26-2013 [facility] MENTION DIAGNOSTICS COMP TYPE II/UNS TYPE UNCNTRL V5869 LONG-TERM 04-16-2013 ALEE Noy R (CURRENT) H USE OF OTHER MEDICATIONS 58862 OTHER 03-22-2013 JUVENAL FORBES SPECIFIED DISORDER OF KIDNEY AND URETER 76087 UNSPEC 03-21-2013 ALEE A R EPILEPSY H WITHOUT MENTION INTRACT EPILEPSY 50787 ASTHMA, 03-02-2013 ALEE Noy R UNSPECIFIED H , UNSPECIFIED STATUS 16402 ABDOMINAL 03-02-2013 [facility] PAIN, LIFE CARE GENERALIZED 57821 SOLITARY 03-02-2013 ALEE Villafuerte R PULMONARY H NODULE V5867 LONG-TERM 03-02-2013 ALEE Villafuerte R USE OF H INSULIN 490 BRONCHITIS 10-16-2012 ALEE A R NOT H SPECIFIED ACUTE OR CHRONIC 4928 OTHER 10-16-2012 ALEE Villafuerte [place] EMPHYSEMA H 36731 INCI HERNIA 08-24-2012 [facility] MED WITHOUT ASSOCIATES MENTION OBSTRUCTION /GANGRENE 5718 OTHER 08-24-2012 JUVENAL FORBES CHRONIC NONALCOHOLI C LIVER DISEASE 462 ACUTE 08-15-2012 ALEE Villafuerte R PHARYNGITIS H 7291 UNSPECIFIED 08-15-2012 ALEE Villafuerte R MYALGIA H AND MYOSITIS 7862 COUGH 08-15-2012 JUVENAL FORBES 4659 ACUTE URIS 07-01-2012 [facility] OF MEDICAL UNSPECIFIED ENTERPRI SITE 64958 OBST 07-01-2012 [facility] CHRONIC MEDICAL BRONCHITIS ENTERPRI W/ACUTE BRONCHITIS 89277 OSTEOARTHRO 03-29-2012 [facility] SIS UNSPEC IMAGING INC WHETHER GEN/LOC ANK&FOOT 12112 UNSPECIFIED 03-09-2012 ALEE Villafuerte R H OSTEOPOROSI S 11761 CLOSED 03-09-2012 ALEE Villafuerte R FRACTURE OF H THREE RIBS V462 DEPENDENCE 03-09-2012 ALEE Villafuerte R ON MACHINE H FOR SUPPLEMENTA L OXYGEN 57991 OSTEOARTHRO 03-01-2012 [facility] S UNSPEC IMAGING INC WHETHER GEN/LOC SHLDR REGION 53296 DIAB 01-27-2012 [facility] W/RENAL FAMILY MANIFESTS HEALTH [...] 01-23-2012 ALEE Villafuerte R AND ANURIA H 36348 DIAB W/O 01-22-2012 [facility] COMP TYPE I DRUG CO [JUV] NOT STATED UNCNTRL 17125 OTHER 12-16-2011 [facility] SELECTIVE ASSOCIATES IMMUNOGLOBU RAJWINDER DEFICIENCIE S 68735 UNSPECIFIED 12-14-2011 ALEE A R H HYPOGAMMAGL OBULINEMIA 3360 SYRINGOMYEL 11-08-2011 ALEE A R IA AND H SYRINGOBULB IA 6279 UNSPECIFIED 11-08-2011 ALEE A R H MENOPAUSAL& POSTMENOPAU BÁRBARA DISORDER 7197 DIFFICULTY 11-08-2011 [facility] IN WALKING LIFE [facility]ARE 7810 ABNORMAL 11-08-2011 [facility] INVOLUNTARY LIFE CARE MOVEMENTS 58641 OTHER 11-08-2011 [facility] EMS ILL-DEFINED CONDITIONS 36459 CONTUSION 11-08-2011 ALEE Villafuerte R OF KNEE H 89485 OTHER 10-30-2011 [facility] CHRONIC OUTPATIENT PAIN CLINI 3484 COMPRESSION 10-26-2011 [place] [address] OBSTRUCTIVE 10-03-2011 HOSP SLEEP MEDICINE [facility] SERV @[facility] 4242 TRICUSPID 09-30-2011 [facility] DISORDERS AT CENT SPEC NONRHEUMATI C 4589 UNSPECIFIED 09-30-2011 [facility] HYPOTENSION AT CENT 2706 DISORDERS 09-29-2011 ALEE Villafuerte R OF UREA H CYCLE METABOLISM 29957 METABOLIC 09-29-2011 ALEE Villafuerte R ENCEPHALOPA H THY 81133 OTHER 09-29-2011 ALEE A R ENCEPHALOPA H THY 7802 SYNCOPE AND 09-29-2011 [facility] COLLAPSE LIFE [facility]ARE 71279 OTHER 09-29-2011 [facility] CONVULSIONS LIFETEAM 82097 POISONING 09-25-2011 [facility] ABD BY OPIATES AND RELATED NARCOTICS OTHER 9678 POISONING 09-25-2011 [facility] ABD BY OTHER SEDATIVES AND HYPNOTICS 9694 POISONING 09-25-2011 [facility] ABD BY BENZODIAZEP INE-BASED TRANQUILIZE RS 9779 POISONING 09-25-2011 [facility] ABD UNSPECIFIED DRUG/MEDICI NAL SUBSTANCE 39226 NAUSEA 09-21-2011 [facility] 4739 UNSPECIFIED 09-14-2011 [facility] MED SINUSITIS ASSOCIATES 514 PULMONARY 09-14-2011 ALEE Villafuerte R CONGESTION H AND HYPOSTASIS 7231 CERVICALGIA 09-14-2011 [facility] 81924 UNSPECIFIED 09-14-2011 [facility] MED SLEEP ASSOCIATES APNEA 41908 OSTEOARTHRO 09-01-2011 [facility] S UNSPEC ASSOCIATES WHETHER GEN/LOC UNSPEC SITE 4660 ACUTE 08-20-2011 [facility] BRONCHITIS ASSOCIATES 2114 BENIGN 08-18-2011 ALEE A R NEOPLASM OF H RECTUM AND ANAL CANAL 4550 INTERNAL 08-18-2011 A[facility]E A R HEMORRHOIDS H WITHOUT MENTION COMP 4553 EXTERNAL 08-18-2011 A[facility] A R HEMORRHOIDS H WITHOUT MENTION COMP V7651 SPECIAL 08-18-2011 A[facility]E A R SCREENING H FOR MALIGNANT NEOPLASMS COLON 5939 UNSPECIFIED 08-11-2011 [facility] MED DISORDER ASSOCIATES OF KIDNEY AND URETER 36675 VOMITING 08-06-2011 [facility] 2409 GOITER, 07-15-2011 JUVENAL LEIDY UNSPECIFIED 70428 CHRONIC 07-07-2011 ALEE A R OBSTRUCTIVE H ASTHMA UNSPECIFIED 2400 GOITER, 06-19-2011 [facility] SPECIFIED OUTPATIENT SIMPLE CLINI V7612 OTHER 06-17-2011 ALEE A R SCREENING H MAMMOGRAM 90532 CHRONIC 06-05-2011 JUVENAL FORBES OBSTRUCTIVE ASTHMA WITH EXACERBATIO N 88326 CALCU 06-04-2011 [facility] FORBES GALLBLADD W/O MENTION CHOLECYST/O BST 88912 OTHER 06-03-2011 JU[facility] FORBES NONSPECIFIC ABNORMAL FINDING OF LUNG FIELD 2767 HYPERPOTASS 05-31-2011 ALEE Villafuerte R EMIA H 10784 SCOLIOSIS , 04-06-2011 ALEE N[place] IDIOPATHIC H 83719 HYPOXEMIA 03-21-2011 [facility] ASSOC[facility]ATES 3540 CARPAL 02-13-2011 ALEE A R TUNNEL H SYNDROME 65007 UNSPECIFIED 02-13-2011 ALEE A R H ARTHROPATHY SITE UNSPECIFIED 66238 GANGLION OF 02-13-2011 ALEE Villafuerte R JOINT H 5183 PULMONARY 02-02-2011 [facility] MED EOSINOPHILI ASSOCIATES A 39910 SLEEP 02-02-2011 [facility] MED RELATED ASSOCIATES MOVEMENT DISORDER UNSPECIFIED 62738 UNSPECIFIED 01-26-2011 [facility] GANGLION OUTPATIENT CLINI 99390 UNSPECIFIED 01-21-2011 [facility] MED VIRAL ASSOCIATES WARTS 7820 DISTURBANCE 01-21-2011 [facility] MED OF SKIN ASSOCIATES SENSATION V6700 FOLLOW-UP 01-21-2011 [facility] MED EXAMINATION ASSOCIATES FOLLOWING UNSPEC SURGERY V6759 OTHER 01-06-2011 [facility] FOLLOW-UP ASSOCIATES EXAMINATION OTHER 07996 UNSPECIFIED 12-30-2010 [facility] [place] [address] INSOMNIA 12-30-2010 ALEE A R WITH SLEEP H APNEA UNSPECIFIED 7020 ACTINIC 12-15-2010 [facility] KERATOSIS ASSOCIATES 48454 OTHER 12-15-2010 [facility] DYSPNE[facility] AND [facility]ENTER RESPIRATORY ABNORMALITI ES 340 MULTIPLE 12-03-2010 JUVENAL LEIDY SCLEROSIS 96589 PAIN IN 12-03-2010 ALEE A R JOINT, H MULTIPLE SITES 70774 INSOMNIA 12-03-2010 [facility] UNSPECIFIED ASSOCIATES 2763 ALKALOSIS 11-20-2010 ALEE A R H 5920 CALCULUS OF 11-05-2010 [facility] KIDNEY BECKER CARMITA 7881 DYSURIA 11-05-2010 [facility] CARMITA 7880 RENAL COLIC 10-31-2010 [facility] PSC 5921 CALCULUS OF 10-28-2010 [facility] URETER ASSOCI[facility] PSC 11269 UNSPECIFIED 10-28-2010 [facility] RETENTION ASSOCIATES OF URINE PSC 7944 NONSPECIFIC 08-15-2010 [facility] RESULTS PHYSICIANS KIDNEY FUNCTION STUDY 51544 NERVOUSNESS 06-04-2010 [facility] 8471 THORACIC 06-04-2010 [facility] 74364 CLOSED 12-25-2009 [facility] FRACTURE OF H SHAFT OF ORTHOPAEDIC FIBULA CTR PSC 8408 SPRAIN&STRA 12-25-2009 [facility] IN OTH SPEC H SITES ORTHOPAEDIC SHOULDER&UP CTR PSC PER ARM 9233 CONTUSION 12-25-2009 [facility] OF FINGER H ORTHOPAEDIC CTR PSC 2720 PURE 12-15-2009 [facility] 01585 PAIN IN 12-15-2009 [facility] JOINT, ASSOCIATES ANKLE AND PSC FOOT 56200 CLOSED 12-15-2009 [facility] FRACTURE OF ASSOCIATES UPPER END PSC OF FIBULA 98401 CONTUSION 12-15-2009 OF LOWER BECKER LEG [facility] 9597 INJURY 12-15-2009 RADIOLOGY OTHER&UNSPE ASSOCIATES CIFIED KNEE PSC LEG ANKLE&FOOT V1582 PERS HX 03-27-2009 TOBACCO USE [facility] HEALTH V4577 ACQUIRED 03-27-2009 ST ABSENCE OF [facility] GENITAL ORGANS 32935 EXTRINSIC 03-25-2009 [facility] ASTHMA, MEDICAL UNSPECIFIED GROUP 46990 PAIN IN 07-18-2008 [facility] JOINT ASSOCIATES PELVIC PSC REGION AND THIGH V0382 NEED PROPH 04-09-2008 [facility] VACCINATION MEDICAL AGAINST GROUP STREP PNEUMONE 8260 CLOSED 03-19-2008 RESPIRATORY FRACTURE OF ONE OR [facility] MORE INC PHALANGES OF FOOT 67261 OTHER JOINT 03-18-2008 [facility] DERANGEMENT MED CTR NEC ANKLE AND FOOT 05574 CLOSED 03-18-2008 ST DISLOCATION BECKER OF MED CTR INTERPHALAN GEAL FOOT 43950 CLOSED 03-18-2008 ST DISLOCATION B[facility]KER OF OTHER HOSPITAL PART OF FOOT E8490 PLACE OF 03-18-2008 [facility], [facility] HOME [facility] E9179 OTHER 03-18-2008 [facility] AGAINST HOSPITAL W/WO SUBSEQUENT FALL 4280 CONGESTIVE 03-09-2008 HEART [facility] FAILURE HOSPITAL UNSPECIFIED 32290 ASTHMA 03-09-[facility] EXACERBAT[facility] N V1509 PERSONAL HX 03-09-2008 [facility] MEDICINAL AGTS 3272 ORGANIC 02-19-2008 [facility] EQUIP V138 PERSONAL 12-03-2007 HISTORY OF BECKER OTHER MED CTR SPECIFIED DISEASES 3970 DISEASES OF 11-25-2007 TRICUSPID BECKER VALVE [facility] 00102 OTHER 11-25-2007 PREMATURE BECKER BEATS [facility] 05540 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 7806 FEVER & OTH 09-07-2007 [facility] GROUP DISTURB[place] 51772 OTHER 07-20-2007 CHRISTINA, ESOPHAGITIS JUVENAL L 92820 ATROPHIC 07-20-2007 GASTRITIS [facility] WITHOUT MED CTR MENTION OF HEMORRHAGE 64909 OTHER SPEC 07-20-2007 CHRISTINA, GASTRITIS JUVENAL L WITHOUT MENTION HEMORRHAGE 5690 ANAL AND 07-20-2007 RECTAL [facility] V160 FM HX 07-20-2007 MALIGNANT BECKER NEOPLASM [facility] GASTROINTES TINAL TRACT Procedures Procedure DOS Code Location Performer Comment ASSISTANC [id number] [place] A E 6 R H R H RESPIRATO RY VENT < 24 CONSEC HR CPAP ASSISTANC [id number] [place] A E 6 R H R H RESPIRATO RY VENT < 24 CONSEC HR CPAP ASSISTANC [id number] [place] E 6 R H R [...] End Date Code Location Performer Type Date [facility] 7 [facility] [address] ALEE A - 6 6 R H INPATIENT CLINIC, [facility] 6 6 [facility] ALEE A - 6 6 R H [facility] ALEE A [facility] 6 6 R H INPATIENT [facility] ALEE A - 6 6 R H [facility] ALEE A - 6 6 R H [facility] ALEE A - 6 6 R H [facility], [facility] 6 6 [facility] ALEE A - 6 6 R H INPATIENT CLINIC, [facility] 6 6 [facility] ALEE A [facility] 6 6 R H [facility]PATIENT [facility]IC, [facility] 6 6 [facility] [place] 4 4 [facility] - 4 4 R H [facility]PATIENT [facility] A [facility] 4 4 R H [facility], [facility] 4 4 [facility] - 4 4 [facility] 4 4 R [facility] 4 4 [facility] [place] [facility] 4 4 [facility] A - 3 4 R H [facility]PAT[facility] A [facility] 3 3 [facility] - 3 3 R H [facility] A [facility] 3 3 [facility] 3 3 [facility] - 3 3 R [facility] 3 3 R [facility] - 2 2 R [facility] 2 [facility]IENT [facility] 2 2 [facility] 2 2 [facility] [address] [facility] A[facility] A - [address] [facility] A[facility]E A - 2 2 R [facility] [place] 2 2 [facility] 2 2 R [facility] [place] 2 2 [facility] [place] 2 2 [facility] [place] 2 2 [facility] - [address] [facility] ALEE A - OTHER 2 2 R HOSPITAL ALEE A - [address] [facility] A[facility] A - [address] [facility] A[facility] A [facility] 2 2 R INPATIENT HOSPITAL [facility] A - [address] [facility] A [facility] 1 1 R [facility] [place] 1 1 [facility] - 1 1 R [facility], [place] 1 1 [facility] - [address] [facility] - [address] [facility] A - [address] [facility] A - [address] [facility] A [facility] 1 1 R INPATIENT HOSPITAL ALEE A - 1 1 [facility] ALEE A [facility] 1 1 [facility] [place] 1 1 [facility] [place] [facility] 1 1 [facility] 1 1 [facility] A - [address] [facility] A [facility] 1 1 [facility] A - 1 1 [facility] A - 1 1 [facility] A - 1 1 [facility] A - 1 [address] [facility] [facility] 1 1 [facility] - OTHER 1 1 [facility] - OTHER 1 1 [facility] - OTHER 1 [address] [facility] [address] ACCESS 0 0 [facility] ACCESS 0 0 [facility] ACCESS 0 0 [facility] - OTHER 0 0 [facility] - OTHER 0 [address] [facility] [address] ACCESS 0 [address] [facility] - OTHER 0 0 [facility]IF[facility] - 9 9 [facility] ACCESS 9 9 [facility] - OTHER 9 9 [facility] - OTHER 9 9 [facility] - OTHER 9 9 [facility] - OTHER 9 9 [facility] ACCESS 8 8 [facility] ACCESS 8 8 [facility] - 8 8 [facility] - 8 8 [facility] - 8 8 [facility] [address] ACCESS 8 [address] [facility] [address] - 8 [address] [facility] [address] - 8 8 [facility]
[2017-05-07 19:14] LABS: ALLEN'S TEST ACCEPTABLE; ARTERIAL ABE -7.4 MMOL/L (-2.4-+2.3); ARTERIAL PO2 88.3 MMHG (80-100); ARTERIAL TCO2 21.9 MMOL/L (23-27)
[2017-05-07 19:18] LABS: URINE BILIRUBIN - DIPSTICK NEGATIVE (NEG); URINE BLOOD NEGATIVE (NEG)
[2017-05-07 19:25] LABS: URINE SQUAMOUS CELLS OCC #/hpf (0-5)
[2017-05-07 19:27] LABS: BUN 47 mg/dL (7-18)
[2017-05-07 19:29] LABS: GFR (ESTIMATED) 18 ML/MIN (59-)
[2017-05-07 20:33] VITALS: BP 92/49
--- OUTSIDE RECORDS SUMMARY | 2017-05-07 20:58 | External Medical Summary Rpt | CCD ---
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 patient is -[place], then multiply the Comment: result by 1.210. Estimat = 67 50-200 complet ion of 017 ML/MIN ed creatin 12:40 ine renal clearan ce Serum = 1.1 0.55-1. complet or 017 mg/dL 02 ed plasma 12:40 creatin ine measure ment ( Carbon = 33 21.0-32 complet dioxide 017 mmoL/L .0 ed 12:40 measure ment Serum = 97 98-107 complet or 017 mmoL/L ed plasma 12:40 chlorid e measure ment (mo Serum = 9.7 8.5-10. complet or 017 mg/dL 1 ed plasma 12:40 calcium measure ment (mas Serum = 20 7-18 complet or 017 mg/dL ed plasma 12:40 urea nitroge n measure men Serum = 0.5 0.2-1.0 complet or 017 mg/dL ed plasma 12:40 total bilirub in measure m Serum = 124 46-116 complet or 017 U/L ed plasma 12:40 alkalin e phospha tase clarke Serum = 3.6 3.4-5.0 complet or 017 gm/dL ed plasma 12:40 albumin measure ment (mas Serum = 0.8 1.1-1.8 complet or 017 ed plasma 12:40 albumin /globul in mass ra Blood lactic acid measurement (moles/vol (04-14-2017 12:40) Blood = 1.2 0.4-2.0 complet lactic 017 mmol/L ed acid 12:40 measure ment (moles/ vol Cardiac enzymes (04-14-2017 12:40) Serum = 1.2 0.0-3.6 complet or 017 ng/mL ed plasma 12:40 creatin e kinase MB measu Serum < 0.02 0.00-0. complet or 017 ng/mL 06 ed plasma 12:40 troponi n i.cardi ac measu Serum = 2.4 0-4.0 complet or 017 U/L ed plasma 12:40 creatin e kinase MB (CK-M Serum = 50 26-192 complet or 017 U/L ed plasma 12:40 creatin e kinase measure m CBC W/DIFF (04-14-2014 14:55) Nucleat 10-11-2 0.0 complet ed 014 /100 ed RBC'S 14:55 WBCs MCV 04-14- 89.2 fl 80.0-10 complet 014 0.0 ed 14:55 RDW 10-11-2 18.8 % 12.0-15 complet 014 .0 ed 14:55 MPV 10-11-2 8.3 fl 6.6-9.3 complet 014 ed 14:55 Neutrop 10-11-2 94.6 % 50.0-70 complet hils % 014 .0 ed 14:55 Lymphoc 10-11-2 1.4 % 20.0-35 complet ytes % 014 .0 ed 14:55 Monocyt 10-11-2 3.9 % 0.0-13. complet es % 014 0 ed 14:55 Eosinop 10-11-2 0.0 % 0.0-4.0 complet hils % 014 ed 14:55 Basophi 10-11-2 0.1 % 0.0-2.0 complet ls % 014 ed 14:55 Neutrop 10-11-2 11.6 X 1.5-7.1 complet hil 014 10\S\3 ed Count 14:55 Monocyt 10-11-2 0.5 X 0.2-1.2 complet e Count 014 10\S\3 ed 14:55 Eosinop 10-11-2 0.0 X 0.0-0.8 complet hil 014 10\S\3 ed Count 14:55 Basophi 10-11-2 0.0 X 0.0-0.1 complet l Count 014 10\S\3 ed 14:55 Lymphoc 10-11-2 0.2 X 0.7-4.3 complet yte 014 10\S\3 ed Count 14:55 WBC 10-11-2 12.2 X 3.5-9.6 complet 014 10\S\3 ed 14:55 RBC 10-11-2 3.91 X 4.20-5. complet 014 10\S\6 40 ed 14:55 Hemoglo 10-11-2 11.2 12.0-15 complet bin 014 gm/dL .0 ed 14:55 Hematoc 10-11-2 34.9 % 36.0-47 complet rit 014 .0 ed 14:55 Platele 10-11-2 248 X 140-450 complet t 014 10\S\3 ed 14:55 MCH 10-11-2 28.6 pg 27.0-32 complet 014 .0 ed 14:55 MCHC 10-11-2 32.1 32.0-36 complet 014 gm/dL .0 ed 14:55 BASIC METABOLIC PANEL (04-14-2014 14:55) Glucose 10-11-2 133 70-99 complet 014 mg/dL ed 14:55 BUN 10-11-2 44 7-18 complet 014 mg/dL ed 14:55 Creatin 10-11-2 1.5 0.6-1.3 complet ine 014 mg/dL ed 14:55 Sodium -11-2 135 136-145 complet 014 mEq/L ed 14:55 Potassi 10-11-2 5.1 3.5-5.1 complet um 014 mEq/L ed 14:55 Chlorid -11-2 104 98-107 complet e 014 mEq/L ed 14:55 CO2 -11-2 25.6 22-29 complet 014 mmol/L ed 14:55 Calcium -11-2 8.5 8.5-10. complet 014 mg/dL 1 ed 14:55 BUN/Cre 10-11-2 29.3 6.0-20. complet at 014 0 ed Ratio 14:55 Anion 10-11-2 10.3 10.0-20 complet Gap 014 mEq/L .0 ed 14:55 GLOMERU 10-11-2 39 complet LAR 014 mL/min/ ed FILTRAT 14:55 1.73 m2 ION RATE Comment: eGFR Interpretation: Disease State Reference Ranges for eGFR Comment: (calculated) Comment: Stage eGFR Description Comment: I/II >60 Normal/Mildly reduced kidney function Comment: III 30-59 Moderately reduced kidney function Comment: IV 15-29 Severely reduced kidney function Comment: V <15 End-stage kidney failure Comment: Calculated using MDRD formula based on gender,race (* GFR AA is for the Comment: population), and age. GFR estimates are unreliable in Comment: patients with rapidly changing kidney function,recent dialysis, extremes Comment: in body size, severe malnutrition or obesity, loss of limbs, abnormal Comment: muscle mass, or during . In these patients, alternative Comment: determinations of GFR should be obtained. GLOMERU 47 complet LAR 014 mL/min/ ed FILTRAT 14:55 1.73 m2 ION RATE Steffi n GRAM STAIN (SPUTUM) (04-13-2014 23:10) Clinica No complet l 014 Organis ed Report 23:10 ms Seen Clinica >10 complet l 014 WBC/LPF ed Report 23:10 <25 EPI/LPF Clinica Specime complet l 014 n: ed Report 23:10 SPUTUM Clinica Collect complet l 014 ed: ed Report 23:10 014 23:10 Clinica Status: complet l 014 Final ed Report 23:10 Last Updated : 014 07:26 Clin[facility] GRAM complet l 014 (Final) ed Report 23:10 CULTURE, SPUTUM (NURSING) (04-13-2014 23:10) Clin[facility] Specime complet l 014 n: ed Report 23:10 SPUTUM Clin[facility] Collect complet l 014 ed: ed Report 23:10 014 23:10 Clinica Status: complet l 014 Final ed Report 23:10 Last Updated : 014 22:27 Clinica ISO1 complet l 014 (Final) ed Report 23:10 Clinica Light complet l 014 Growth ed Report 23:10 Clinica Yeast complet l 014 Isolate ed Report 23:10 d Clinica Jayde complet l 014 famata ed Report 23:10 (Torulo psis jayde ) CBC W/DIFF (04-13-2014 10:00) MCH 28.7 pg 27.0-32 complet 014 .0 ed 10:00 MCHC 32.3 32.0-36 complet 014 gm/dL .0 ed 10:00 MCV 10-10-2 88.7 fl 80.0-10 complet 014 0.0 ed 10:00 RDW 10-10-2 19.1 % 12.0-15 complet 014 .0 ed 10:00 MPV 10-10-2 8.7 fl 6.6-9.3 complet 014 ed 10:00 Neutrop 10-10-2 93.9 % 50.0-70 complet hils % 014 .0 ed 10:00 Lymphoc 10-10-2 1.6 % 20.0-35 complet ytes % 014 .0 ed 10:00 Monocyt 10-10-2 4.4 % 0.0-13. complet es % 014 0 ed 10:00 Eosinop 10-10-2 0.0 % 0.0-4.0 complet hils % 014 ed 10:00 Basophi 10-10-2 0.1 % 0.0-2.0 complet ls % 014 ed 10:00 Neutrop 10-10-2 12.8 X 1.5-7.1 complet hil 014 10\S\3 ed Count 10:00 Monocyt 10-10-2 0.6 X 0.2-1.2 complet e Count 014 10\S\3 ed 10:00 Eosinop 10-10-2 0.0 X 0.0-0.8 complet hil 014 10\S\3 ed Count 10:00 Basophi 10-10-2 0.0 X 0.0-0.1 complet l Count 014 10\S\3 ed 10:00 Lymphoc 10-10-2 0.2 X 0.7-4.3 complet yte 014 10\S\3 ed Count 10:00 Nucleat 10-10-2 0.0 complet ed 014 /100 ed RBC'S 10:00 WBCs WBC 10-10-2 13.7 X 3.5-9.6 complet 014 10\S\3 ed 10:00 RBC 10-10-2 3.82 X 4.20-5. complet 014 10\S\6 40 ed 10:00 Hemoglo 10-10-2 11.0 12.0-15 complet bin 014 gm/dL .0 ed 10:00 Hematoc 10-10-2 33.9 % 36.0-47 complet rit 014 .0 ed 10:00 Platele 10-10-2 264 X 140-450 complet t 014 10\S\3 ed 10:00 BASIC METABOLIC PANEL (04-13-2014 10:00) Glucose 210 70-99 complet 014 mg/dL ed 10:00 BUN 59 7-18 complet 014 mg/dL ed 10:00 Creatin 2.0 0.6-1.3 complet ine 014 mg/dL ed 10:00 Sodium 133 136-145 complet 014 mEq/L ed 10:00 Potassi 4.2 3.5-5.1 complet um 014 mEq/L ed 10:00 Chlorid 98 98-107 complet e 014 mEq/L ed 10:00 CO2 21.6 22-29 complet 014 mmol/L ed 10:00 Calcium 8.8 8.5-10. complet 014 mg/dL 1 ed 10:00 BUN/Cre 29.5 6.0-20. complet at 014 0 ed Ratio 10:00 Anion 17.8 10.0-20 complet Gap 014 mEq/L .0 ed 10:00 GLOMERU 28 complet LAR 014 mL/min/ ed FILTRAT 10:00 1.73 m2 ION RATE Comment: eGFR Interpretation: Disease State Reference Ranges for eGFR Comment: (calculated) Comment: Stage eGFR Description Comment: I/II >60 Normal/Mildly reduced kidney function Comment: III 30-59 Moderately reduced kidney function Comment: IV 15-29 Severely reduced kidney function Comment: V <15 End-stage kidney failure Comment: Calculated using MDRD formula based on gender,race (* GFR AA is for the Comment: population), and age. GFR estimates are unreliable in Comment: patients with rapidly changing kidney function,recent dialysis, extremes Comment: in body size, severe malnutrition or obesity, loss of limbs, abnormal Comment: muscle mass, or during . In these patients, alternative Comment: determinations of GFR should be obtained. GLOMERU 34 complet LAR 014 mL/min/ ed FILTRAT 10:00 1.73 m2 ION RATE Steffi n BNP (NT-proBNP) (04-13-2014 10:00) NT-proB 73.0 0.0-900 complet RECRUITMENT ASSISTANT 014 pg/mL .0 ed 10:00 Comment: RULE - IN Comment: Comment: AGE OPTIMAL\E\.sk5\E\SENS \E\.sk5\E\SPEC PPV\E\.sk5\E\NPV\E\.s k5\E\ACCURACY Comment: CUT-POINT Comment: < 50 yr 450 pg/ml 97% 93%\E\.sk5\E\76%\E\.s k5\E\99%\E\.sk5\E\ 95% Comment: 50-75 yr 900 pg/ml 90% 82%\E\.sk5\E\82%\E\.s k5\E\88%\E\.sk5\E\ 85% Comment: >= 75 yr 1800 pg/ml 85% 73%\E\.sk5\E\92%\E\.s k5\E\55%\E\.sk5\E\ 83% Comment: Comment: RULE-OUT Comment: Comment: OPTIMAL\E\.sk5\E\SENS \E\.sk5\E\SPEC PPV\E\.sk5\E\NPV\E\.s k5\E\ACCURACY Comment: CUT-POINT Comment: Rule-Out 300 pg/ml 99% 62%\E\.sk5\E\55%\E\.s k5\E\99%\E\.sk5\E\ 83% Comment: Comment: NOTE: THESE CUT-POINTS ARE FOR ACUTE CHF DIAGNOSIS ONLY CBC W/DIFF (04-12-2014 17:31) Basophi 0.0 % 0.0-2.0 complet ls % 014 ed 17:31 Neutrop 14.9 X 1.5-7.1 complet hil 014 10\S\3 ed Count 17:31 Lymphoc 0.4 X 0.7-4.3 complet yte 014 10\S\3 ed Count 17:31 Nucleat 0.0 complet ed 014 /100 ed RBC'S 17:31 WBCs Monocyt 0.7 X 0.2-1.2 complet e Count 014 10\S\3 ed 17:31 Eosinop 0.0 X 0.0-0.8 complet hil 014 10\S\3 ed Count 17:31 Basophi 0.0 X 0.0-0.1 complet l Count 014 10\S\3 ed 17:31 WBC 16.0 X 3.5-9.6 complet 014 10\S\3 ed 17:31 RBC 4.31 X 4.20-5. complet 014 10\S\6 40 ed 17:31 Hemoglo 12.2 12.0-15 complet bin 014 gm/dL .0 ed 17:31 Hematoc 38.1 % 36.0-47 complet rit 014 .0 ed 17:31 Platele 304 X 140-450 complet t 014 10\S\3 ed 17:31 Monocyt 4.6 % 0.0-13. complet es % 014 0 ed 17:31 MCH 28.3 pg 27.0-32 complet 014 .0 ed 17:31 MCHC 32.0 32.0-36 complet 014 gm/dL .0 ed 17:31 MCV 88.3 fl 80.0-10 complet 014 0.0 ed 17:31 RDW 18.7 % 12.0-15 complet 014 .0 ed 17:31 MPV 8.9 fl 6.6-9.3 complet 014 ed 17:31 Neutrop 93.0 % 50.0-70 complet hils % 014 .0 ed 17:31 Lymphoc 2.4 % 20.0-35 complet ytes % 014 .0 ed 17:31 Eosinop 0.0 % 0.0-4.0 complet hils % 014 ed 17:31 BASIC METABOLIC PANEL (04-12-2014 17:31) BUN/Cre 24.6 6.0-20. complet at 014 0 ed Ratio 17:31 Chlorid 95 98-107 complet e 014 mEq/L ed 17:31 CO2 27.1 22-29 complet 014 mmol/L ed 17:31 Calcium 9.3 8.5-10. complet 014 mg/dL 1 ed 17:31 Anion 14.3 10.0-20 complet Gap 014 mEq/L .0 ed 17:31 GLOMERU 23 complet LAR 014 mL/min/ ed FILTRAT 17:31 1.73 m2 ION RATE Comment: eGFR Interpretation: Disease State Reference Ranges for eGFR Comment: (calculated) Comment: Stage eGFR Description Comment: I/II >60 Normal/Mildly reduced kidney function Comment: III 30-59 Moderately reduced kidney function Comment: IV 15-29 Severely reduced kidney function Comment: V <15 End-stage kidney failure Comment: Calculated using MDRD formula based on gender,race (* GFR AA is for the Comment: population), and age. GFR estimates are unreliable in Comment: patients with rapidly changing kidney function,recent dialysis, extremes Comment: in body size, severe malnutrition or obesity, loss of limbs, abnormal Comment: muscle mass, or during . In these patients, alternative Comment: determinations of GFR should be obtained. GLOMERU 27 complet LAR 014 mL/min/ ed FILTRAT 17:31 1.73 m2 ION RATE Steffi n Glucose 174 70-99 complet 014 mg/dL ed 17:31 BUN 59 7-18 complet 014 mg/dL ed 17:31 Creatin 2.4 0.6-1.3 complet ine 014 mg/dL ed 17:31 Sodium 131 136-145 complet 014 mEq/L ed 17:31 Potassi 5.2 3.5-5.1 complet um 014 mEq/L ed 17:31 URINALYSIS W/MICRO (04-11-2014 18:06) Bilirub 3 NEGATIV complet in 014 E ed 18:06 Color YELLOW YELLOW, complet 014 STRAW,C ed 18:06 OLORLES S,PALE YELLOW Appeara SL HAZY CLEAR complet nce 014 ed 18:06 Specifi 1.015 1.016-1 complet c 014 .022 ed [place] 18:06 PH 5.0 5.0-7.0 complet 014 ed 18:06 Leukocy 1+ NEGATIV complet te 014 E ed 18:06 Nitrite NEGATIV NEGATIV complet 014 E E ed 18:06 UA 25 NEGATIV complet Protein 014 E ed 18:06 Glucose 1+ NEGATIV complet 014 E ed 18:06 Ketones 5 NEGATIV complet 014 E ed 18:06 Urobili 1.0 0-1 complet nogen 014 mg/dL ed 18:06 Blood NEGATIV NEGATIV complet 014 E E ed 18:06 UA WBC 2-5 0-2,Occ complet 014 ,RARE,N ed 18:06 ONE SEEN Bacteri 3+ NONE complet a 014 SEEN ed 18:06 Epithel 5-10 NONE complet ial 014 SEEN ed Cells 18:06 CBC W/DIFF (04-11-2014 18:06) WBC 14.6 X 3.5-9.6 complet 014 10\S\3 ed 18:06 RBC 4.93 X 4.20-5. complet 014 10\S\6 40 ed 18:06 Hemoglo 13.9 12.0-15 complet bin 014 gm/dL .0 ed 18:06 Hematoc 43.2 % 36.0-47 complet rit 014 .0 ed 18:06 Platele 328 X 140-450 complet t 014 10\S\3 ed 18:06 MCH 28.2 pg 27.0-32 complet 014 .0 ed 18:06 MCHC 32.1 32.0-36 complet 014 gm/dL .0 ed 18:06 MCV 87.7 fl 80.0-10 complet 014 0.0 ed 18:06 RDW 18.8 % 12.0-15 complet 014 .0 ed 18:06 MPV 8.7 fl 6.6-9.3 complet 014 ed 18:06 Neutrop 87.7 % 50.0-70 complet hils % 014 .0 ed 18:06 Lymphoc 10-08-2 5.1 % 20.0-35 complet ytes % 014 .0 ed 18:06 Monocyt 10-08-2 7.1 % 0.0-13. complet es % 014 0 ed 18:06 Eosinop 10-08-2 0.0 % 0.0-4.0 complet hils % 014 ed 18:06 Basophi 10-08-2 0.1 % 0.0-2.0 complet ls % 014 ed 18:06 Neutrop 10-08-2 12.8 X 1.5-7.1 complet hil 014 10\S\3 ed Count 18:06 Monocyt 10-08-2 1.0 X 0.2-1.2 complet e Count 014 10\S\3 ed 18:06 Eosinop 10-08-2 0.0 X 0.0-0.8 complet hil 014 10\S\3 ed Count 18:06 Basophi 08-2 0.0 X 0.0-0.1 complet l Count 014 10\S\3 ed 18:06 Lymphoc 10-08-2 0.7 X 0.7-4.3 complet yte 014 10\S\3 ed Count 18:06 Nucleat 10-08-2 0.0 complet ed 014 /100 ed RBC'S 18:06 WBCs CBC W/DIFF (04-11-2014 01:26) WBC 10-08-2 13.7 X 3.5-9.6 complet 014 10\S\3 ed 01:26 RBC 10-08-2 5.13 X 4.20-5. complet 014 10\S\6 40 ed 01:26 Hemoglo 08-2 14.7 12.0-15 complet bin 014 gm/dL .0 ed 01:26 Hematoc 10-08-2 45.4 % 36.0-47 complet rit 014 .0 ed 01:26 Platele 08-2 304 X 140-450 complet t 014 10\S\3 ed 01:26 MCH 10-08-2 28.5 pg 27.0-32 complet 014 .0 ed 01:26 MCHC -08-2 32.3 32.0-36 complet 014 gm/dL .0 ed 01:26 MCV 1008-2 88.3 fl 80.0-10 complet 014 0.0 ed 01:26 RDW 10-08-2 18.3 % 12.0-15 complet 014 .0 ed 01:26 MPV 08- 8.4 fl 6.6-9.3 complet 014 ed 01:26 Neutrop 08-2 80.6 % 50.0-70 complet hils % 014 .0 ed 01:26 Lymphoc 08-2 8.4 % 20.0-35 complet ytes % 014 .0 ed 01:26 Monocyt 08-2 9.0 % 0.0-13. complet es % 014 0 ed 01:26 Eosinop 1.6 % 0.0-4.0 complet hils % 014 ed 01:26 Basophi 0.4 % 0.0-2.0 complet ls % 014 ed 01:26 Neutrop 04-11- 11.0 X 1.5-7.1 complet hil 014 10\S\3 ed Count 01:26 Monocyt 1.2 X 0.2-1.2 complet e Count 014 10\S\3 ed 01:26 Eosinop 04-11- 0.2 X 0.0-0.8 complet hil 014 10\S\3 ed Count 01:26 Basophi 0.0 X 0.0-0.1 complet l Count 014 10\S\3 ed 01:26 Lymphoc 04-11- 1.1 X 0.7-4.3 complet yte 014 10\S\3 ed Count 01:26 Nucleat 04-11- 0.0 complet ed 014 /100 ed RBC'S 01:26 WBCs CULTURE, BLOOD (04-11-2014 01:26) [facility] Specime complet l 014 n: ed Report 01:26 BLOOD [facility] Collect complet l 014 ed: ed Report 01:26 014 01:26 Clinica Status: complet l 014 Final ed Report 01:26 Last Updated : 014 10:44 Clinica CUL RES complet l 014 ed Report 01:26 (Final) Clinica No complet l 014 Growth ed Report 01:26 After 48 Hours Clinica 10-08-2 No complet l 014 Growth ed Report 01:26 After 3 Days Clin[facility] No complet l 014 Growth ed Report 01:26 After 4 Days Clinica No complet l 014 Growth ed Report 01:26 After 5 Days BASIC METABOLIC PANEL (04-11-2014 01:26) Potassi 4.1 3.5-5.1 complet um 014 mEq/L ed 01:26 Chlorid 101 98-107 complet e 014 mEq/L ed 01:26 CO2 31.4 22-29 complet 014 mmol/L ed 01:26 Calcium 10.5 8.5-10. complet 014 mg/dL 1 ed 01:26 BUN/Cre 15.8 6.0-20. complet at 014 0 ed Ratio 01:26 Anion 12.9 10.0-20 complet Gap 014 mEq/L .0 ed 01:26 GLOMERU 50 complet LAR 014 mL/min/ ed FILTRAT 01:26 1.73 m2 ION RATE Comment: eGFR Interpretation: Disease State Reference Ranges for eGFR Comment: (calculated) Comment: Stage eGFR Description Comment: I/II >60 Normal/Mildly reduced kidney function Comment: III 30-59 Moderately reduced kidney function Comment: IV 15-29 Severely reduced kidney function Comment: V <15 End-stage kidney failure Comment: Calculated using MDRD formula based on gender,race (* GFR AA is for the Comment: population), and age. GFR estimates are unreliable in Comment: patients with rapidly changing kidney function,recent dialysis, extremes Comment: in body size, severe malnutrition or obesity, loss of limbs, abnormal Comment: muscle mass, or during . In these patients, alternative Comment: determinations of GFR should be obtained. GLOMERU >60.0 complet LAR 014 mL/min/ ed FILTRAT 01:26 1.73 m2 ION RATE Steffi n Glucose 158 70-99 complet 014 mg/dL ed 01:26 BUN 19 7-18 complet 014 mg/dL ed 01:26 Creatin 1.2 0.6-1.3 complet ine 014 mg/dL ed 01:26 Sodium 141 136-145 complet 014 mEq/L ed 01:26 BASIC METABOLIC PANEL (12-03-2013 06:41) CO2 12-03-2 30.5 22-29 Above complet 014 mmol/L high ed 06:41 normal Glucose 01-2 172 70-99 Above complet 014 mg/dL high ed 06:41 normal BUN 01-2 28 7-18 Above complet 014 mg/dL high ed 06:41 normal Creatin 12-03-2 1.1 0.6-1.3 Normal complet ine 014 mg/dL ed 06:41 Sodium 12-03-2 138 136-145 Normal complet 014 mEq/L ed 06:41 Potassi 2 4.4 3.5-5.1 Normal complet um 014 mEq/L ed 06:41 Chlorid 103 98-107 Normal complet e 014 mEq/L ed 06:41 Calcium 8.5 8.5-10. Normal complet 014 mg/dL 1 ed 06:41 BUN/Cre 2 25.5 6.0-20. Above complet at 014 0 high ed Ratio 06:41 normal Anion 2 8.9 10.0-20 Below complet Gap 014 mEq/L .0 low ed 06:41 normal GLOMERU 2 56 complet LAR 014 mL/min/ ed FILTRAT 06:41 1.73 m2 ION RATE Comment: eGFR Interpretation: Disease State Reference Ranges for eGFR Comment: (calculated) Comment: Stage eGFR Description Comment: I/II >60 Normal/Mildly reduced kidney function Comment: III 30-59 Moderately reduced kidney function Comment: IV 15-29 Severely reduced kidney function Comment: V <15 End-stage kidney failure Comment: Calculated using MDRD formula based on gender,race (* GFR AA is for the Comment: population), and age. GFR estimates are unreliable in Comment: patients with rapidly changing kidney function,recent dialysis, extremes Comment: in body size, severe malnutrition or obesity, loss of limbs, abnormal Comment: muscle mass, or during . In these patients, alternative Comment: determinations of GFR should be obtained. GLOMERU >60.0 complet LAR 014 mL/min/ ed FILTRAT 06:41 1.73 m2 ION RATE Steffi n CBC W/DIFF (12-02-2013 06:00) WBC 05-31-2 8.7 X 3.5-9.6 Normal complet 014 10\S\3 ed 06:00 RBC 3.95 X 4.20-5. Below complet 014 10\S\6 40 low ed 06:00 normal Hemoglo 12-02-2 11.0 12.0-15 Below complet bin 014 gm/dL .0 low ed 06:00 normal Hematoc 34.5 % 36.0-47 Below complet rit 014 .0 low ed 06:00 normal Platele 285 X 140-450 Normal complet t 014 10\S\3 ed 06:00 MCH 27.9 pg 27.0-32 Normal complet 014 .0 ed 06:00 MCHC 32.0 32.0-36 Normal complet 014 gm/dL .0 ed 06:00 MCV 87.2 fl 80.0-10 Normal complet 014 0.0 ed 06:00 RDW 15.8 % 12.0-15 Above complet 014 .0 high ed 06:00 normal MPV 9.0 fl 6.6-9.3 Normal complet 014 ed 06:00 Neutrop 93.8 % 50.0-70 Above complet hils % 014 .0 high ed 06:00 normal Lymphoc 2.7 % 20.0-35 Below complet ytes % 014 .0 low ed 06:00 normal Monocyt 3.4 % 0.0-13. Normal complet es % 014 0 ed 06:00 Eosinop 12-02-2 0.0 % 0.0-4.0 Normal complet hils % 014 ed 06:00 Basophi 2 0.1 % 0.0-2.0 Normal complet ls % 014 ed 06:00 Neutrop 8.2 X 1.5-7.1 Above complet hil 014 10\S\3 high ed Count 06:00 normal Monocyt 12-02-2 0.3 X 0.2-1.2 Normal complet e Count 014 10\S\3 ed 06:00 Eosinop 12-02-2 0.0 X 0.0-0.8 Normal complet hil 014 10\S\3 ed Count 06:00 Basophi 0.0 X 0.0-0.1 Normal complet l Count 014 10\S\3 ed 06:00 Lymphoc 0.2 X 0.7-4.3 Below complet yte 014 10\S\3 low ed Count 06:00 normal Nucleat 0.0 complet ed 014 /100 ed RBC'S 06:00 WBCs CULTURE, BLOOD (11-30-2013 18:15) [facility] Specime complet l 014 n: ed Report 18:15 BLOOD [facility] Collect complet l 014 ed: ed Report 18:15 014 18:15 [facility] Status: complet l 014 Final ed Report 18:15 Last Updated : 014 19:37 [facility] CUL RES complet l 014 ed Report 18:15 (Final) [facility] Culture complet l 014 In ed Report 18:15 Progres s [facility] No complet l 014 Growth ed Report 18:15 After 24 Hours [facility] No complet l 014 Growth ed Report 18:15 After 48 Hours [facility] No complet l 014 Growth ed Report 18:15 [facility] Growth ed Report 18:15 [facility] No [facility] l 014 Growth ed Report 18:15 After 5 Days CBC W/DIFF (11-30-2013 18:12) Neutrop 92.3 % 50.0-70 Above complet hils % 014 .0 high ed 18:12 normal Lymphoc 3.9 % 20.0-35 Below complet ytes % 014 .0 low ed 18:12 normal Monocyt 2.8 % 0.0-13. Normal complet es % 014 0 ed 18:12 Eosinop 0.6 % 0.0-4.0 Normal complet hils % 014 ed 18:12 Basophi 0.4 % 0.0-2.0 Normal complet ls % 014 ed 18:12 Neutrop 11.6 X 1.5-7.1 Above complet hil 014 10\S\3 high ed Count 18:12 normal Monocyt 05-29-2 0.4 X 0.2-1.2 Normal complet e Count 014 10\S\3 ed 18:12 Eosinop -29-2 0.1 X 0.0-0.8 Normal complet hil 014 10\S\3 ed Count 18:12 Basophi 11-30-2 0.1 X 0.0-0.1 Normal complet l Count 014 10\S\3 ed 18:12 Lymphoc 29-2 0.5 X 0.7-4.3 Below complet yte 014 10\S\3 low ed Count 18:12 normal Nucleat -29-2 0.0 complet ed 014 /100 ed RBC'S 18:12 WBCs WBC 11-30-2 12.6 X 3.5-9.6 Above complet 014 10\S\3 high ed 18:12 normal RBC 11-30-2 4.92 X 4.20-5. Normal complet 014 10\S\6 40 ed 18:12 Hemoglo 11-30-2 13.5 12.0-15 Normal complet bin 014 gm/dL .0 ed 18:12 Hematoc 11-30-2 42.9 % 36.0-47 Normal complet rit 014 .0 ed 18:12 Platele 11-30-2 316 X 140-450 Normal complet t 014 10\S\3 ed 18:12 MCH 11-30-2 27.4 pg 27.0-32 Normal complet 014 .0 ed 18:12 MCHC 11-30-2 31.4 32.0-36 Below complet 014 gm/dL .0 low ed 18:12 normal MCV 11-30-2 87.3 fl 80.0-10 Normal complet 014 0.0 ed 18:12 RDW 11-30-2 16.2 % 12.0-15 Above complet 014 .0 high ed 18:12 normal MPV 11-30-2 8.9 fl 6.6-9.3 Normal complet 014 ed 18:12 COMPREHENSIVE METABOLIC PANEL (11-30-2013 18:12) Albumin 11-30-2 3.6 3.4-5.0 Normal complet 014 gm/dL ed 18:12 Alk 107 U/L 50-136 Normal complet Phos 014 ed 18:12 ALT 19 U/L 30-65 Below complet 014 low ed 18:12 normal AST 12 U/L 15-37 Below complet 014 low ed 18:12 normal Bilirub 0.29 0.20-1. Normal complet in, 014 mg/dL 00 ed Total 18:12 BUN/Cre 15.5 6.0-20. Normal complet at 014 0 ed Ratio 18:12 A/G 0.8 1.0-2.0 Below complet Ratio 014 low ed 18:12 normal GLOMERU 56 complet LAR 014 mL/min/ ed FILTRAT 18:12 1.73 m2 ION RATE Comment: eGFR Interpretation: Disease State Reference Ranges for eGFR Comment: (calculated) Comment: Stage eGFR Description Comment: I/II >60 Normal/Mildly reduced kidney function Comment: III 30-59 Moderately reduced kidney function Comment: IV 15-29 Severely reduced kidney function Comment: V <15 End-stage kidney failure Comment: Calculated using MDRD formula based on gender,race (* GFR AA is for the Comment: population), and age. GFR estimates are unreliable in Comment: patients with rapidly changing kidney function,recent dialysis, extremes Comment: in body size, severe malnutrition or obesity, loss of limbs, abnormal Comment: muscle mass, or during . In these patients, alternative Comment: determinations of GFR should be obtained. GLOMERU >60.0 complet LAR 014 mL/min/ ed FILTRAT 18:12 1.73 m2 ION RATE Steffi n Glucose 137 70-99 Above complet 014 mg/dL high ed 18:12 normal BUN 2 17 7-18 Normal complet 014 mg/dL ed 18:12 Creatin 2 1.1 0.6-1.3 Normal complet ine 014 mg/dL ed 18:12 Sodium 135 136-145 Below complet 014 mEq/L low ed 18:12 normal Potassi 2 4.5 3.5-5.1 Normal complet um 014 mEq/L ed 18:12 Chlorid 2 100 98-107 Normal complet e 014 mEq/L ed 18:12 CO2 2 30.7 22-29 Above complet 014 mmol/L high ed 18:12 normal Calcium 10.4 8.5-10. Above complet 014 mg/dL 1 high ed 18:12 normal Total 8.2 6.4-8.2 Normal complet Protein 014 gm/dL ed 18:12 Anion 8.8 10.0-20 Below complet Gap 014 mEq/L .0 low ed 18:12 normal PROCALCITONIN (11-30-2013 18:12) Procalc <0.05 0.00-1. Normal complet itonin 014 ng/mL 90 ed 18:12 Comment: An initial Procalcitonin concentration of <2 ng/ml calls for retesting Comment: within 6-24 hrs if Comment: clinical suspicion of systemic bacterial infection (Sepsis). An Comment: in-patient on Comment: antibiotic therapy should have a PCT test every 24 hours to monitor Comment: level. Comment: Comment: Interpretation of Procalcitonin Test Results: Comment: Comment: Procalcitonin (ng/mL) Interpretation Comment: SEPSIS Comment: <0.5 Systemic infection (Sepsis) is not likely.Low risk Comment: for progression to severe sepsis/septic shock. Comment: >0.5 - <2 Systemic infection (Sepsis) is possible and should Comment: be correlated with patient's clinical Comment: condition. Moderate risk for progression to severe sepsis/septic shock. Comment: >2 - <10 Systemic infection (Sepsis) is likely. High risk for Comment: progression to severe sepsis/septic shock. Comment: >10 Important systemic inflammatory response, almost Comment: exclusively due to severe bacterial sepsi or Comment: septic shock. High likelihood of severe sepsis or septic shock. Comment: Comment: LOWER RESPIRATORY TRACT INFECTION Comment: <0.1 No bacterial infection; antibiotics strongly Comment: discouraged. Comment: >0.1 - <0.25 Bacterial infection unlikely; antibiotics discouraged. Comment: >0.25 - <0.5 Bacterial infection possible; recommend antibiotics. Comment: >0.5 Bacterial infection present; antibiotics Comment: strongly recommended. Comment: Comment: Please call Reference Laboratory for reference ranges. CULTURE, BLOOD (11-30-2013 18:12) [facility] No complet l 014 Growth ed Report 18:12 After 48 Hours [facility] Specime complet l 014 n: ed Report 18:12 BLOOD [facility] Collect complet l 014 ed: ed Report 18:12 014 18:12 [facility] l 014 Final ed Report 18:12 Last Updated : 014 19:37 [facility] CUL RES complet l 014 ed Report 18:12 (Final) [facility] Culture complet l 014 In ed Report 18:12 [facility] No [facility] l 014 Growth ed Report 18:12 After 24 Hours [facility] No [facility] l 014 Growth ed Report 18:12 After 3 Days [facility] No complet l 014 Growth ed Report 18:12 After 4 [facility] No complet l 014 Growth ed Report 18:12 After 5 Days BASIC METABOLIC PANEL (07-11-2013 05:35) CO2 35.7 22-29 Above complet 014 mmol/L high ed 05:35 normal Calcium 8.4 8.5-10. Below complet 014 mg/dL 1 low ed 05:35 normal BUN/Cre 12.7 6.0-20. Normal complet at 014 0 ed Ratio 05:35 Anion 11.6 10.0-20 Normal complet Gap 014 mEq/L .0 ed 05:35 GLOMERU 56 complet LAR 014 mL/min/ ed FILTRAT 05:35 1.73 m2 ION RATE Comment: eGFR Interpretation: Disease State Reference Ranges for eGFR Comment: (calculated) Comment: Stage eGFR Description Comment: I/II >60 Normal/Mildly reduced kidney function Comment: III 30-59 Moderately reduced kidney function Comment: IV 15-29 Severely reduced kidney function Comment: V <15 End-stage kidney failure Comment: Calculated using MDRD formula based on gender,race (* GFR AA is for the Comment: population), and age. GFR estimates are unreliable in Comment: patients with rapidly changing kidney function,recent dialysis, extremes Comment: in body size, severe malnutrition or obesity, loss of limbs, abnormal Comment: muscle mass, or during . In these patients, alternative Comment: determinations of GFR should be obtained. GLOMERU >60.0 complet LAR 014 mL/min/ ed FILTRAT 05:35 1.73 m2 ION RATE Steffi n Chlorid 98 98-107 Normal complet e 014 mEq/L ed 05:35 Glucose 125 70-99 Above complet 014 mg/dL high ed 05:35 normal BUN 14 7-18 Normal complet 014 mg/dL ed 05:35 Creatin 2 1.1 0.6-1.3 Normal complet ine 014 mg/dL ed 05:35 Sodium 141 136-145 Normal complet 014 mEq/L ed 05:35 Potassi 4.5 3.5-5.1 Normal complet um 014 mEq/L ed 05:35 CBC W/DIFF (07-11-2013 05:35) WBC 8.4 X 3.5-9.6 Normal complet 014 10 ed 05:35 RBC 3.87 X 4.20-5. Below complet 014 10 40 low ed 05:35 normal Hemoglo 10.8 12.0-15 Below complet bin 014 gm/dL .0 low ed 05:35 normal Hematoc 32.1 % 36.0-47 Below complet rit 014 .0 low ed 05:35 normal Platele 267 X 140-450 Normal complet t 014 10 ed 05:35 MCH 28.0 pg 27.0-32 Normal complet 014 .0 ed 05:35 MCHC 33.8 32.0-36 Normal complet 014 gm/dL .0 ed 05:35 MCV 82.8 fl 80.0-10 Normal complet 014 0.0 ed 05:35 RDW 18.4 % 12.0-15 Above complet 014 .0 high ed 05:35 normal MPV 9.4 fl 6.6-9.3 Above complet 014 high ed 05:35 normal Neutrop 79.3 % 50.0-70 Above complet hils % 014 .0 high ed 05:35 normal Lymphoc 11.0 % 20.0-35 Below complet ytes % 014 .0 low ed 05:35 normal Monocyt 8.9 % 0.0-13. Normal complet es % 014 0 ed 05:35 Eosinop -07-2 0.6 % 0.0-4.0 Normal complet hils % 014 ed 05:35 Basophi 07-2 0.2 % 0.0-2.0 Normal complet ls % 014 ed 05:35 Neutrop 07-2 6.7 X 1.5-7.1 Normal complet hil 014 10 ed Count 05:35 Lymphoc 07-2 0.9 X 0.7-4.3 Normal complet yte 014 10 ed Count 05:35 Monocyt 07-2 0.8 X 0.2-1.2 Normal complet e Count 014 10 ed 05:35 Eosinop 07-2 0.1 X 0.0-0.8 Normal complet hil 014 10 ed Count 05:35 Basophi 07-2 0.0 X 0.0-0.1 Normal complet l Count 014 10 ed 05:35 CROSSMATCH, PLUS 2 UNITS (07-10-2013 13:30) Issued complet Status 014 RBC-600 ed Info 13:30 47 [id number] complet Product 014 0 ed Code 13:30 RBC-600 47 A Pos complet Blood 014 RBC-600 ed Type 13:30 47 [id number] complet Unit 014 [id number] ed Number 13:30 RBC-600 47 Compati complet Cross 014 ble ed Match 13:30 RBC-600 47 Issued complet Status 014 RBC-600 ed Info 13:30 47 [id number] complet Product 014 0 ed Code 13:30 RBC-600 47 A Pos complet Blood 014 RBC-600 ed Type 13:30 47 Red complet Product 014 Blood ed ID 13:30 Cells RBC-600 47 [id number] complet Unit 014 [id number] ed Number 13:30 RBC-600 47 Compati complet Cross 014 ble ed Match 13:30 RBC-600 47 Red complet Product 014 Blood ed ID 13:30 Cells RBC-600 47 TYPE/SCREEN 3 CELL (07-10-2013 13:30) Antibod Negativ complet y 014 e ed Screen 13:30 ABO/RH A complet TYPING 014 Positiv ed 13:30 e ENTAMOEBA HISTOLYTICA ANTIBODIES (07-10-2013 13:30) E. SEE complet histoly 014 COMMENT ed louise Ab 13:30 S 014 12:19 PM Comment: Test Result Flag Unit RefValue Comment: ------- Comment: E. Histolytica Ab, S Negative Negative Comment: Negative results should not be used to rule out amebiasis. Comment: Repeat testing in 2-3 weeks if clinically indicated. Comment: Serologic results are an aid for diagnosis of amebiasis. Comment: Serologic results alone should not be considered as Comment: diagnostic for Entamoeba histolytica infection. Comment: Comment: Test Performed by: Comment: [facility] Comment: [address] [phone] Comment: Boiler Tube Blower: Cameron Crook III, M.D. UREASE/CARLO TST (07-10-2013 08:11) UREASE NEGATIV complet 30 014 E ed MINUTES 08:11 UREASE NEGATIV complet 24 HOUR 014 E ed 08:11 CBC W/DIFF (07-10-2013 05:30) WBC 12.6 X 3.5-9.6 Above complet 014 10 high ed 05:30 normal RBC 3.06 X 4.20-5. Below complet 014 10 40 low ed 05:30 normal Hemoglo 8.2 12.0-15 Below complet bin 014 gm/dL .0 low ed 05:30 normal Hematoc 25.6 % 36.0-47 Below complet rit 014 .0 low ed 05:30 normal Platele 298 X 140-450 Normal complet t 014 10 ed 05:30 MCH 01-06-2 26.8 pg 27.0-32 Below complet 014 .0 low ed 05:30 normal MCHC -06-2 32.0 32.0-36 Normal complet 014 gm/dL .0 ed 05:30 MCV -06-2 83.7 fl 80.0-10 Normal complet 014 0.0 ed 05:30 RDW -06-2 20.7 % 12.0-15 Above complet 014 .0 high ed 05:30 normal MPV -06-2 9.7 fl 6.6-9.3 Above complet 014 high ed 05:30 normal Neutrop -06-2 84.9 % 50.0-70 Above complet hils % 014 .0 high ed 05:30 normal Lymphoc -06-2 6.4 % 20.0-35 Below complet ytes % 014 .0 low ed 05:30 normal Monocyt -06-2 8.2 % 0.0-13. Normal complet es % 014 0 ed 05:30 Eosinop -06-2 0.3 % 0.0-4.0 Normal complet hils % 014 ed 05:30 Basophi -06-2 0.2 % 0.0-2.0 Normal complet ls % 014 ed 05:30 Neutrop -06-2 10.7 X 1.5-7.1 Above complet hil 014 10 high ed Count 05:30 normal Monocyt -06-2 1.0 X 0.2-1.2 Normal complet e Count 014 10 ed 05:30 Eosinop -06-2 0.0 X 0.0-0.8 Normal complet hil 014 10 ed Count 05:30 Basophi -06-2 0.0 X 0.0-0.1 Normal complet l Count 014 10 ed 05:30 Lymphoc -06-2 0.8 X 0.7-4.3 Normal complet yte 014 10 ed Count 05:30 CBC W/DIFF (07-09-2013 05:25) WBC -05-2 13.6 X 3.5-9.6 Above complet 014 10 high ed 05:25 normal RBC -05-2 3.10 X 4.20-5. Below complet 014 10 40 low ed 05:25 normal Hemoglo -05-2 8.3 12.0-15 Below complet bin 014 gm/dL .0 low ed 05:25 normal Hematoc -05-2 26.0 % 36.0-47 Below complet rit 014 .0 low ed 05:25 normal Platele -05-2 282 X 140-450 Normal complet t 014 10 ed 05:25 MCH -05-2 26.6 pg 27.0-32 Below complet 014 .0 low ed 05:25 normal MCHC 05-2 31.8 32.0-36 Below complet 014 gm/dL .0 low ed 05:25 normal MCV -05-2 83.9 fl 80.0-10 Normal complet 014 0.0 ed 05:25 RDW -05-2 20.0 % 12.0-15 Above complet 014 .0 high ed 05:25 normal MPV 05-2 10.1 fl 6.6-9.3 Above complet 014 high ed 05:25 normal Neutrop -05-2 93.7 % 50.0-70 Above complet hils % 014 .0 high ed 05:25 normal Lymphoc -05-2 2.1 % 20.0-35 Below complet ytes % 014 .0 low ed 05:25 normal Monocyt -05-2 4.1 % 0.0-13. Normal complet es % 014 0 ed 05:25 Eosinop -05-2 0.0 % 0.0-4.0 Normal complet hils % 014 ed 05:25 Basophi -05-2 0.1 % 0.0-2.0 Normal complet ls % 014 ed 05:25 Neutrop -05-2 12.8 X 1.5-7.1 Above complet hil 014 10 high ed Count 05:25 normal Monocyt -05-2 0.6 X 0.2-1.2 Normal complet e Count 014 10 ed 05:25 Eosinop -05-2 0.0 X 0.0-0.8 Normal complet hil 014 10 ed Count 05:25 Basophi -05-2 0.0 X 0.0-0.1 Normal complet l Count 014 10 ed 05:25 Lymphoc -05-2 0.3 X 0.7-4.3 Below complet yte 014 10 low ed Count 05:25 normal MAGNESIUM,SERUM (07-09-2013 05:25) Magnesi 2.7 1.8-2.4 Above complet um 014 mg/dL high ed 05:25 normal BASIC METABOLIC PANEL (07-09-2013 05:25) Glucose 189 70-99 Above complet 014 mg/dL high ed 05:25 normal BUN 2 13 7-18 Normal complet 014 mg/dL ed 05:25 Creatin 2 1.1 0.6-1.3 Normal complet ine 014 mg/dL ed 05:25 Sodium 140 136-145 Normal complet 014 mEq/L ed 05:25 Potassi 4.7 3.5-5.1 Normal complet um 014 mEq/L ed 05:25 Chlorid 102 98-107 Normal complet e 014 mEq/L ed 05:25 CO2 33.0 22-29 Above complet 014 mmol/L high ed 05:25 normal Calcium 7.9 8.5-10. Below complet 014 mg/dL 1 low ed 05:25 normal BUN/Cre 11.8 6.0-20. Normal complet at 014 0 ed Ratio 05:25 Anion 9.8 10.0-20 Below complet Gap 014 mEq/L .0 low ed 05:25 normal GLOMERU 56 complet LAR 014 mL/min/ ed FILTRAT 05:25 1.73 m2 ION RATE Comment: eGFR Interpretation: Disease State Reference Ranges for eGFR Comment: (calculated) Comment: Stage eGFR Description Comment: I/II >60 Normal/Mildly reduced kidney function Comment: III 30-59 Moderately reduced kidney function Comment: IV 15-29 Severely reduced kidney function Comment: V <15 End-stage kidney failure Comment: Calculated using MDRD formula based on gender,race (* GFR AA is for the Comment: population), and age. GFR estimates are unreliable in Comment: patients with rapidly changing kidney function,recent dialysis, extremes Comment: in body size, severe malnutrition or obesity, loss of limbs, abnormal Comment: muscle mass, or during . In these patients, alternative Comment: determinations of GFR should be obtained. GLOMERU >60.0 complet LAR 014 mL/min/ ed FILTRAT 05:25 1.73 m2 ION RATE Steffi n PHOSPHORUS,SERUM (07-09-2013 05:25) Phospho -05-2 3.0 2.5-4.9 Normal complet victor manuel 014 mg/dL ed 05:25 CBC W/DIFF (07-08-2013 05:35) WBC -04-2 5.7 X 3.5-9.6 Normal complet 014 10 ed 05:35 RBC -04-2 3.18 X 4.20-5. Below complet 014 10 40 low ed 05:35 normal Hemoglo -04-2 8.6 12.0-15 Below complet bin 014 gm/dL .0 low ed 05:35 normal Hematoc -04-2 26.4 % 36.0-47 Below complet rit 014 .0 low ed 05:35 normal Platele -04-2 236 X 140-450 Normal complet t 014 10 ed 05:35 MCH -04-2 27.1 pg 27.0-32 Normal complet 014 .0 ed 05:35 MCHC -04-2 32.6 32.0-36 Normal complet 014 gm/dL .0 ed 05:35 MCV -04-2 83.1 fl 80.0-10 Normal complet 014 0.0 ed 05:35 RDW -04-2 19.9 % 12.0-15 Above complet 014 .0 high ed 05:35 normal MPV -04-2 10.0 fl 6.6-9.3 Above complet 014 high ed 05:35 normal Neutrop -04-2 94.2 % 50.0-70 Above complet hils % 014 .0 high ed 05:35 normal Lymphoc -04-2 2.6 % 20.0-35 Below complet ytes % 014 .0 low ed 05:35 normal Monocyt -04-2 3.2 % 0.0-13. Normal complet es % 014 0 ed 05:35 Eosinop -04-2 0.0 % 0.0-4.0 Normal complet hils % 014 ed 05:35 Basophi -04-2 0.0 % 0.0-2.0 Normal complet ls % 014 ed 05:35 Neutrop -04-2 5.3 X 1.5-7.1 Normal complet hil 014 10 ed Count 05:35 Monocyt -04-2 0.2 X 0.2-1.2 Normal complet e Count 014 10 ed 05:35 Eosinop 0.0 X 0.0-0.8 Normal complet hil 014 10 ed Count 05:35 Basophi 0.0 X 0.0-0.1 Normal complet l Count 014 10 ed 05:35 Lymphoc 0.1 X 0.7-4.3 Below complet yte 014 10 low ed Count 05:35 normal SED RATE IN HOUSE (07-08-2013 05:35) Sed 31 0-20 Above complet Rate 014 mm/hr high ed 05:35 normal C-REACTIVE PROTEIN (07-08-2013 05:35) C-React 1.6 0-1 Above complet archie 014 mg/dL high ed Protein 05:35 normal VANCOMYCIN TROUGH (07-07-2013 21:02) Vancomy 12.2 10.0-20 Normal complet sapna 014 mcg/mL .0 ed Trough 21:02 INFLAMMATORY BOWEL DISEASE PANEL (07-07-2013 11:06) INFLAMM SEE complet ATORY 014 COMMENT ed BOWEL 11:06 S DISEASE PANEL 014 08:45 PM Comment: Test Result Flag Unit RefValue Comment: ------- Comment: Inflammatory Bowel Disease Panel, S Comment: Saccharomyces cerevisiae Ab, 17.8 U <=20.0 (Negative) Comment: IgA, S Comment: Saccharomyces cerevisiae Ab, 63.1 h U <=20.0 (Negative) Comment: IgG, S Comment: Interpretation: Positive (>=35.0) Comment: Neutrophil Specific Negative Negative Comment: Antibodies Comment: Negative neutrophil-specific antibodies with elevated IgA Comment: or IgG S. cerevisiae antibodies may be consistent with Comment: Crohn's disease with a positive predictive value of 90%. Comment: Correlation of clinical symptoms, endoscopy and biopsy Comment: findings are required to establish the diagnosis. Comment: Comment: Test Performed by: Comment: [facility] Comment: [address] [place] [id number] Comment: Boiler Tube Blower: Cameron Crook III, M.D. CBC W/DIFF (07-06-2013 06:30) Basophi -02-2 0.4 % 0.0-2.0 Normal complet ls % 014 ed 06:30 Neutrop -02-2 5.0 X 1.5-7.1 Normal complet hil 014 10 ed Count 06:30 Monocyt 01-02-2 0.9 X 0.2-1.2 Normal complet e Count 014 10 ed 06:30 Eosinop -02-2 0.0 X 0.0-0.8 Normal complet hil 014 10 ed Count 06:30 Basophi -02-2 0.0 X 0.0-0.1 Normal complet l Count 014 10 ed 06:30 Lymphoc -02-2 0.4 X 0.7-4.3 Below complet yte 014 10 low ed Count 06:30 normal WBC -02-2 6.4 X 3.5-9.6 Normal complet 014 10 ed 06:30 RBC -02-2 3.08 X 4.20-5. Below complet 014 10 40 low ed 06:30 normal Hemoglo -02-2 8.2 12.0-15 Below complet bin 014 gm/dL .0 low ed 06:30 normal Hematoc -02-2 25.3 % 36.0-47 Below complet rit 014 .0 low ed 06:30 normal Platele -02-2 158 X 140-450 Normal complet t 014 10 ed 06:30 MCH -02-2 26.6 pg 27.0-32 Below complet 014 .0 low ed 06:30 normal MCHC -02-2 32.4 32.0-36 Normal complet 014 gm/dL .0 ed 06:30 MCV -02-2 82.1 fl 80.0-10 Normal complet 014 0.0 ed 06:30 RDW -02-2 19.0 % 12.0-15 Above complet 014 .0 high ed 06:30 normal MPV -02-2 10.4 fl 6.6-9.3 Above complet 014 high ed 06:30 normal Neutrop -02-2 79.4 % 50.0-70 Above complet hils % 014 .0 high ed 06:30 normal Lymphoc -02-2 6.4 % 20.0-35 Below complet ytes % 014 .0 low ed 06:30 normal Monocyt -02-2 13.6 % 0.0-13. Above complet es % 014 0 high ed 06:30 normal Eosinop 02-2 0.2 % 0.0-4.0 Normal complet hils % 014 ed 06:30 BASIC METABOLIC PANEL (07-06-2013 06:30) Glucose 02-2 123 70-99 Above complet 014 mg/dL high ed 06:30 normal BUN 02-2 14 7-18 Normal complet 014 mg/dL ed 06:30 Creatin 02-2 1.0 0.6-1.3 Normal complet ine 014 mg/dL ed 06:30 Sodium 02-2 143 136-145 Normal complet 014 mEq/L ed 06:30 Potassi 2 4.0 3.5-5.1 Normal complet um 014 mEq/L ed 06:30 Chlorid 2 105 98-107 Normal complet e 014 mEq/L ed 06:30 CO2 07-06-2 30.9 22-29 Above complet 014 mmol/L high ed 06:30 normal Calcium 02-2 7.9 8.5-10. Below complet 014 mg/dL 1 low ed 06:30 normal BUN/Cre 07-06-2 14.0 6.0-20. Normal complet at 014 0 ed Ratio 06:30 Anion 07-06-2 11.4 10.0-20 Normal complet Gap 014 mEq/L .0 ed 06:30 GLOMERU 07-06-2 >60.0 complet LAR 014 mL/min/ ed FILTRAT 06:30 1.73 m2 ION RATE Comment: eGFR Interpretation: Disease State Reference Ranges for eGFR Comment: (calculated) Comment: Stage eGFR Description Comment: I/II >60 Normal/Mildly reduced kidney function Comment: III 30-59 Moderately reduced kidney function Comment: IV 15-29 Severely reduced kidney function Comment: V <15 End-stage kidney failure Comment: Calculated using MDRD formula based on gender,race (* GFR AA is for the Comment: population), and age. GFR estimates are unreliable in Comment: patients with rapidly changing kidney function,recent dialysis, extremes Comment: in body size, severe malnutrition or obesity, loss of limbs, abnormal Comment: muscle mass, or during . In these patients, alternative Comment: determinations of GFR should be obtained. GLOMERU >60.0 complet LAR 014 mL/min/ ed FILTRAT 06:30 1.73 m2 ION RATE Steffi n CBC W/DIFF (07-05-2013 07:04) RBC 3.23 X 4.20-5. Below complet 014 10 40 low ed 07:04 normal Hemoglo 8.4 12.0-15 Below complet bin 014 gm/dL .0 low ed 07:04 normal Hematoc 26.5 % 36.0-47 Below complet rit 014 .0 low ed 07:04 normal Platele 146 X 140-450 Normal complet t 014 10 ed 07:04 MCH 26.1 pg 27.0-32 Below complet 014 .0 low ed 07:04 normal MCHC 31.8 32.0-36 Below complet 014 gm/dL .0 low ed 07:04 normal MCV 81.9 fl 80.0-10 Normal complet 014 0.0 ed 07:04 RDW 18.9 % 12.0-15 Above complet 014 .0 high ed 07:04 normal MPV 10.2 fl 6.6-9.3 Above complet 014 high ed 07:04 normal Neutrop 84.1 % 50.0-70 Above complet hils % 014 .0 high ed 07:04 normal WBC 11.7 X 3.5-9.6 Above complet 014 10 high ed 07:04 normal Lymphoc 4.9 % 20.0-35 Below complet ytes % 014 .0 low ed 07:04 normal Monocyt 2 10.7 % 0.0-13. Normal complet es % 014 0 ed 07:04 Eosinop 2 0.1 % 0.0-4.0 Normal complet hils % 014 ed 07:04 Basophi 0.2 % 0.0-2.0 Normal complet ls % 014 ed 07:04 Neutrop 9.8 X 1.5-7.1 Above complet hil 014 10 high ed Count 07:04 normal Monocyt 1.3 X 0.2-1.2 Above complet e Count 014 10 high ed 07:04 normal Eosinop 0.0 X 0.0-0.8 Normal complet hil 014 10 ed Count 07:04 Basophi 0.0 X 0.0-0.1 Normal complet l Count 014 10 ed 07:04 Lymphoc 0.6 X 0.7-4.3 Below complet yte 014 10 low ed Count 07:04 normal BASIC METABOLIC PANEL (07-05-2013 07:04) BUN/Cre 18.3 6.0-20. Normal complet at 014 0 ed Ratio 07:04 Anion 11.9 10.0-20 Normal complet Gap 014 mEq/L .0 ed 07:04 GLOMERU 51 complet LAR 014 mL/min/ ed FILTRAT 07:04 1.73 m2 ION RATE Comment: eGFR Interpretation: Disease State Reference Ranges for eGFR Comment: (calculated) Comment: Stage eGFR Description Comment: I/II >60 Normal/Mildly reduced kidney function Comment: III 30-59 Moderately reduced kidney function Comment: IV 15-29 Severely reduced kidney function Comment: V <15 End-stage kidney failure Comment: Calculated using MDRD formula based on gender,race (* GFR AA is for the Comment: population), and age. GFR estimates are unreliable in Comment: patients with rapidly changing kidney function,recent dialysis, extremes Comment: in body size, severe malnutrition or obesity, loss of limbs, abnormal Comment: muscle mass, or during . In these patients, alternative Comment: determinations of GFR should be obtained. GLOMERU >60.0 complet LAR 014 mL/min/ ed FILTRAT 07:04 1.73 m2 ION RATE Steffi n Glucose 104 70-99 Above complet 014 mg/dL high ed 07:04 normal BUN 22 7-18 Above complet 014 mg/dL high ed 07:04 normal Creatin 1.2 0.6-1.3 Normal complet ine 014 mg/dL ed 07:04 Sodium 142 136-145 Normal complet 014 mEq/L ed 07:04 Potassi 4.2 3.5-5.1 Normal complet um 014 mEq/L ed 07:04 Chlorid 104 98-107 Normal complet e 014 mEq/L ed 07:04 CO2 30.5 22-29 Above complet 014 mmol/L high ed 07:04 normal Calcium 8.6 8.5-10. Normal complet 014 mg/dL 1 ed 07:04 MAGNESIUM,SERUM (07-05-2013 07:04) Magnesi 1.7 1.8-2.4 Below complet um 014 mg/dL low ed 07:04 normal VANCOMYCIN TROUGH (07-03-2013 21:33) Vancomy 07-03-2 2.0 10.0-20 Below complet sapna 013 mcg/mL .0 low ed Trough 21:33 normal CBC W/DIFF (07-03-2013 06:32) Neutrop 07-03-2 89.9 % 50.0-70 Above complet hils % 013 .0 high ed 06:32 normal Lymphoc -30-2 3.6 % 20.0-35 Below complet ytes % 013 .0 low ed 06:32 normal Monocyt -30-2 5.8 % 0.0-13. Normal complet es % 013 0 ed 06:32 Eosinop 12-30-2 0.6 % 0.0-4.0 Normal complet hils % 013 ed 06:32 Basophi 12-30-2 0.1 % 0.0-2.0 Normal complet ls % 013 ed 06:32 Neutrop -30-2 14.4 X 1.5-7.1 Above complet hil 013 10 high ed Count 06:32 normal Monocyt -30-2 0.9 X 0.2-1.2 Normal complet e Count 013 10 ed 06:32 Eosinop 12-30-2 0.1 X 0.0-0.8 Normal complet hil 013 10 ed Count 06:32 Basophi 12-30-2 0.0 X 0.0-0.1 Normal complet l Count 013 10 ed 06:32 Lymphoc 12-30-2 0.6 X 0.7-4.3 Below complet yte 013 10 low ed Count 06:32 normal WBC -30-2 16.0 X 3.5-9.6 Above complet 013 10 high ed 06:32 normal RBC 1230-2 3.29 X 4.20-5. Below complet 013 10 40 low ed 06:32 normal Hemoglo 12-30-2 8.6 12.0-15 Below complet bin 013 gm/dL .0 low ed 06:32 normal Hematoc -30-2 26.4 % 36.0-47 Below complet rit 013 .0 low ed 06:32 normal Platele 30-2 144 X 140-450 Normal complet t 013 10 ed 06:32 MCH -30-2 26.0 pg 27.0-32 Below complet 013 .0 low ed 06:32 normal MCHC 30-2 32.4 32.0-36 Normal complet 013 gm/dL .0 ed 06:32 MCV 30-2 80.2 fl 80.0-10 Normal complet 013 0.0 ed 06:32 RDW 30-2 18.7 % 12.0-15 Above complet 013 .0 high ed 06:32 normal MPV 07-03-2 9.2 fl 6.6-9.3 Normal complet 013 ed 06:32 MAGNESIUM,SERUM (07-03-2013 06:32) Magnesi 30-2 1.6 1.8-2.4 Below complet um 013 mg/dL low ed 06:32 normal BASIC METABOLIC PANEL (07-03-2013 06:32) BUN 30-2 30 7-18 Above complet 013 mg/dL high ed 06:32 normal Creatin 07-03-2 0.9 0.6-1.3 Normal complet ine 013 mg/dL ed 06:32 Sodium 07-03-2 138 136-145 Normal complet 013 mEq/L ed 06:32 Potassi 30-2 3.9 3.5-5.1 Normal complet um 013 mEq/L ed 06:32 Chlorid 30-2 100 98-107 Normal complet e 013 mEq/L ed 06:32 CO2 30-2 31.7 22-29 Above complet 013 mmol/L high ed 06:32 normal Calcium 30-2 8.7 8.5-10. Normal complet 013 mg/dL 1 ed 06:32 BUN/Cre 30-2 33.3 6.0-20. Above complet at 013 0 high ed Ratio 06:32 normal Anion 12-30-2 10.0 10.0-20 Normal complet Gap 013 mEq/L .0 ed 06:32 GLOMERU 12-30-2 >60.0 complet LAR 013 mL/min/ ed FILTRAT 06:32 1.73 m2 ION RATE Comment: eGFR Interpretation: Disease State Reference Ranges for eGFR Comment: (calculated) Comment: Stage eGFR Description Comment: I/II >60 Normal/Mildly reduced kidney function Comment: III 30-59 Moderately reduced kidney function Comment: IV 15-29 Severely reduced kidney function Comment: V <15 End-stage kidney failure Comment: Calculated using MDRD formula based on gender,race (* GFR AA is for the Comment: population), and age. GFR estimates are unreliable in Comment: patients with rapidly changing kidney function,recent dialysis, extremes Comment: in body size, severe malnutrition or obesity, loss of limbs, abnormal Comment: muscle mass, or during . In these patients, alternative Comment: determinations of GFR should be obtained. GLOMERU 12-30-2 >60.0 complet LAR 013 mL/min/ ed FILTRAT 06:32 1.73 m2 ION RATE Steffi n Glucose 12-30-2 220 70-99 Above complet 013 mg/dL high ed 06:32 normal CBC W/DIFF (07-02-2013 06:50) RBC 12--2 3.46 X 4.20-5. Below complet 013 10 40 low ed 06:50 normal Hemoglo --2 8.9 12.0-15 Below complet bin 013 gm/dL .0 low ed 06:50 normal Hematoc --2 27.9 % 36.0-47 Below complet rit 013 .0 low ed 06:50 normal Platele 12-29-2 139 X 140-450 Below complet t 013 10 low ed 06:50 normal MCH 12-29-2 25.8 pg 27.0-32 Below complet 013 .0 low ed 06:50 normal MCHC 12-29-2 32.1 32.0-36 Normal complet 013 gm/dL .0 ed 06:50 MCV 12-29-2 80.6 fl 80.0-10 Normal complet 013 0.0 ed 06:50 RDW 12-29-2 18.6 % 12.0-15 Above complet 013 .0 high ed 06:50 normal WBC 12-29-2 13.1 X 3.5-9.6 Above complet 013 10 high ed 06:50 normal Eosinop 12-29-2 1.5 % 0.0-4.0 Normal complet hils % 013 ed 06:50 Basophi 12-29-2 0.1 % 0.0-2.0 Normal complet ls % 013 ed 06:50 Neutrop 12-29-2 10.8 X 1.5-7.1 Above complet hil 013 10 high ed Count 06:50 normal Monocyt 12-29-2 1.1 X 0.2-1.2 Normal complet e Count 013 10 ed 06:50 Eosinop 12-29-2 0.2 X 0.0-0.8 Normal complet hil 013 10 ed Count 06:50 Basophi 12-29-2 0.0 X 0.0-0.1 Normal complet l Count 013 10 ed 06:50 Lymphoc 12-29-2 1.0 X 0.7-4.3 Normal complet yte 013 10 ed Count 06:50 MPV 12-29-2 8.0 fl 6.6-9.3 Normal complet 013 ed 06:50 Neutrop 12-29-2 82.8 % 50.0-70 Above complet hils % 013 .0 high ed 06:50 normal Lymphoc 12-29-2 7.5 % 20.0-35 Below complet ytes % 013 .0 low ed 06:50 normal Monocyt 12-29-2 8.1 % 0.0-13. Normal complet es % 013 0 ed 06:50 MAGNESIUM,SERUM (07-02-2013 06:50) Magnesi 12--2 1.6 1.8-2.4 Below complet um 013 mg/dL low ed 06:50 normal WBC STOOL (07-01-2013 09:30) Fecal NONE NONE Normal complet Leukocy 013 SEEN SEEN ed eron 09:30 CULTURE, STOOL (07-01-2013 09:30) [facility] Specime complet l 013 n/[facility] ed Report 09:30 e: STOOL/s tool Clinica Collect complet l 013 ed: ed Report 09:30 013 09:30 Clinica Status: complet l 013 Final ed Report 09:30 Last Updated : 12:26 Clin[facility] CUL RES complet l 013 ed Report 09:30 (Final) Clin[facility] Heavy complet l 013 Normal ed Report 09:30 Fecal Tessa Noted Clin[facility] Negativ complet l 013 e for ed Report 09:30 presenc e of Shiga toxin 1 Clin[facility] Negativ complet l 013 e for ed Report 09:30 the presenc e of Shiga toxin 2 Clin[facility] Negativ complet l 013 e For ed Report 09:30 Salmone lla, Shigell a, Campylo bacter \E\T\E\ Yersini a OVA/PARASITES (07-01-2013 09:30) Parasit SEE complet ic Exam 013 COMMENT ed 09:30 S 01:13 PM Comment: Test Result Flag Unit RefValue Comment: ------- Comment: Parasitic Examination TNP Comment: SOURCE: STOOL Comment: PARASITIC EXAMINATION Comment: Cancel reason - 07/04/2013 13:10 Quantity not sufficient. Comment: source:stool !CNCL! Comment: Comment: Test Performed by: Comment: [facility] Comment: [address] [place], [place] [id number] Comment: Boiler Tube Blower: Cameron Crook III, M.D. CBC W/DIFF (07-01-2013 06:38) Neutrop 13.8 X 1.5-7.1 Above complet hil 013 10 high ed Count 06:38 normal Monocyt 1.8 X 0.2-1.2 Above complet e Count 013 10 high ed 06:38 normal Eosinop 0.0 X 0.0-0.8 Normal complet hil 013 10 ed Count 06:38 WBC 16.6 X 3.5-9.6 Above complet 013 10 high ed 06:38 normal Lymphoc 5.3 % 20.0-35 Below complet ytes % 013 .0 low ed 06:38 normal Monocyt 12-28-2 11.1 % 0.0-13. Normal complet es % 013 0 ed 06:38 Eosinop 12-28-2 0.1 % 0.0-4.0 Normal complet hils % 013 ed 06:38 Basophi 1228-2 0.1 % 0.0-2.0 Normal complet ls % 013 ed 06:38 Neutrop 12-2 83.4 % 50.0-70 Above complet hils % 013 .0 high ed 06:38 normal RBC 07-01-2 4.00 X 4.20-5. Below complet 013 10 40 low ed 06:38 normal Hemoglo 07-01-2 10.3 12.0-15 Below complet bin 013 gm/dL .0 low ed 06:38 normal Hematoc 07-01-2 31.8 % 36.0-47 Below complet rit 013 .0 low ed 06:38 normal Platele 07-01-2 194 X 140-450 Normal complet t 013 10 ed 06:38 MCH 07-01-2 25.7 pg 27.0-32 Below complet 013 .0 low ed 06:38 normal MCHC 07-01-2 32.4 32.0-36 Normal complet 013 gm/dL .0 ed 06:38 MCV 07-01-2 79.5 fl 80.0-10 Below complet 013 0.0 low ed 06:38 normal RDW 07-01-2 18.5 % 12.0-15 Above complet 013 .0 high ed 06:38 normal MPV 07-01-2 8.5 fl 6.6-9.3 Normal complet 013 ed 06:38 Basophi 07-01-2 0.0 X 0.0-0.1 Normal complet l Count 013 10 ed 06:38 Lymphoc 07-01-2 0.9 X 0.7-4.3 Normal complet yte 013 10 ed Count 06:38 MAGNESIUM,SERUM (07-01-2013 06:38) Magnesi 07-01-2 1.5 1.8-2.4 Below complet um 013 mg/dL low ed 06:38 normal PHOSPHORUS,SERUM (07-01-2013 06:38) Phospho --2 2.8 2.5-4.9 Normal complet victor manuel 013 mg/dL ed 06:38 BASIC METABOLIC PANEL (07-01-2013 06:38) GLOMERU 2 >60.0 complet LAR 013 mL/min/ ed FILTRAT 06:38 1.73 m2 ION RATE Comment: eGFR Interpretation: Disease State Reference Ranges for eGFR Comment: (calculated) Comment: Stage eGFR Description Comment: I/II >60 Normal/Mildly reduced kidney function Comment: III 30-59 Moderately reduced kidney function Comment: IV 15-29 Severely reduced kidney function Comment: V <15 End-stage kidney failure Comment: Calculated using MDRD formula based on gender,race (* GFR AA is for the Comment: population), and age. GFR estimates are unreliable in Comment: patients with rapidly changing kidney function,recent dialysis, extremes Comment: in body size, severe malnutrition or obesity, loss of limbs, abnormal Comment: muscle mass, or during . In these patients, alternative Comment: determinations of GFR should be obtained. GLOMERU >60.0 complet LAR 013 mL/min/ ed FILTRAT 06:38 1.73 m2 ION RATE Steffi n Glucose 177 70-99 Above complet 013 mg/dL high ed 06:38 normal BUN 32 7-18 Above complet 013 mg/dL high ed 06:38 normal Creatin 1.0 0.6-1.3 Normal complet ine 013 mg/dL ed 06:38 Sodium 141 136-145 Normal complet 013 mEq/L ed 06:38 Potassi 3.9 3.5-5.1 Normal complet um 013 mEq/L ed 06:38 Chlorid 104 98-107 Normal complet e 013 mEq/L ed 06:38 CO2 30.8 22-29 Above complet 013 mmol/L high ed 06:38 normal Calcium 10.0 8.5-10. Normal complet 013 mg/dL 1 ed 06:38 BUN/Cre 32.0 6.0-20. Above complet at 013 0 high ed Ratio 06:38 normal Anion 10.2 10.0-20 Normal complet Gap 013 mEq/L .0 ed 06:38 BASIC METABOLIC PANEL (06-30-2013 06:50) Creatin 1.3 0.6-1.3 Normal complet ine 013 mg/dL ed 06:50 Sodium 143 136-145 Normal complet 013 mEq/L ed 06:50 Potassi 5.0 3.5-5.1 Normal complet um 013 mEq/L ed 06:50 Chlorid 106 98-107 Normal complet e 013 mEq/L ed 06:50 CO2 28.7 22-29 Normal complet 013 mmol/L ed 06:50 Calcium 10.3 8.5-10. Above complet 013 mg/dL 1 high ed 06:50 normal BUN/Cre 31.5 6.0-20. Above complet at 013 0 high ed Ratio 06:50 normal Anion 13.5 10.0-20 Normal complet Gap 013 mEq/L .0 ed 06:50 GLOMERU 46 complet LAR 013 mL/min/ ed FILTRAT 06:50 1.73 m2 ION RATE Comment: eGFR Interpretation: Disease State Reference Ranges for eGFR Comment: (calculated) Comment: Stage eGFR Description Comment: I/II >60 Normal/Mildly reduced kidney function Comment: III 30-59 Moderately reduced kidney function Comment: IV 15-29 Severely reduced kidney function Comment: V <15 End-stage kidney failure Comment: Calculated using MDRD formula based on gender,race (* GFR AA is for the Comment: population), and age. GFR estimates are unreliable in Comment: patients with rapidly changing kidney function,recent dialysis, extremes Comment: in body size, severe malnutrition or obesity, loss of limbs, abnormal Comment: muscle mass, or during . In these patients, alternative Comment: determinations of GFR should be obtained. GLOMERU 56 complet LAR 013 mL/min/ ed FILTRAT 06:50 1.73 m2 ION RATE Steffi n Glucose 257 70-99 Above complet 013 mg/dL high ed 06:50 normal BUN 41 7-18 Above complet 013 mg/dL high ed 06:50 normal MAGNESIUM,SERUM (06-30-2013 06:50) Magnesi 1.9 1.8-2.4 Normal complet um 013 mg/dL ed 06:50 PHOSPHORUS,SERUM (06-30-2013 06:50) Phospho 12-27-2 3.6 2.5-4.9 Normal complet victor manuel 013 mg/dL ed 06:50 CBC W/DIFF (06-29-2013 06:40) Monocyt 12-26-2 2.4 % 0.0-13. Normal complet es % 013 0 ed 06:40 Eosinop 12-26-2 0.0 % 0.0-4.0 Normal complet hils % 013 ed 06:40 Basophi 12-26-2 0.0 % 0.0-2.0 Normal complet ls % 013 ed 06:40 Neutrop 12-26-2 15.7 X 1.5-7.1 Above complet hil 013 10 high ed Count 06:40 normal Monocyt 12-26-2 0.4 X 0.2-1.2 Normal complet e Count 013 10 ed 06:40 Eosinop 12-26-2 0.0 X 0.0-0.8 Normal complet hil 013 10 ed Count 06:40 Basophi 12-26-2 0.0 X 0.0-0.1 Normal complet l Count 013 10 ed 06:40 Lymphoc 12-26-2 0.2 X 0.7-4.3 Below complet yte 013 10 low ed Count 06:40 normal WBC 12-26-2 16.2 X 3.5-9.6 Above complet 013 10 high ed 06:40 normal RBC 12-26-2 3.93 X 4.20-5. Below complet 013 10 40 low ed 06:40 normal Hemoglo 12-26-2 10.2 12.0-15 Below complet bin 013 gm/dL .0 low ed 06:40 normal Hematoc 12-26-2 31.4 % 36.0-47 Below complet rit 013 .0 low ed 06:40 normal Platele 12-26-2 301 X 140-450 Normal complet t 013 10 ed 06:40 MCH 12-26-2 25.9 pg 27.0-32 Below complet 013 .0 low ed 06:40 normal MCHC 12-26-2 32.5 32.0-36 Normal complet 013 gm/dL .0 ed 06:40 MCV 12-26-2 79.9 fl 80.0-10 Below complet 013 0.0 low ed 06:40 normal RDW 12-26-2 18.6 % 12.0-15 Above complet 013 .0 high ed 06:40 normal MPV 06-29-2 8.6 fl 6.6-9.3 Normal complet 013 ed 06:40 Neutrop 06-29-2 96.5 % 50.0-70 Above complet hils % 013 .0 high ed 06:40 normal Lymphoc 06-29-2 1.1 % 20.0-35 Below complet ytes % 013 .0 low ed 06:40 normal BASIC METABOLIC PANEL (06-29-2013 06:40) Glucose 2 151 70-99 Above complet 013 mg/dL high ed 06:40 normal BUN 06-29-2 37 7-18 Above complet 013 mg/dL high ed 06:40 normal Creatin 2 1.4 0.6-1.3 Above complet ine 013 mg/dL high ed 06:40 normal Sodium 2 145 136-145 Normal complet 013 mEq/L ed 06:40 Potassi 2 4.5 3.5-5.1 Normal complet um 013 mEq/L ed 06:40 Chlorid 2 108 98-107 Above complet e 013 mEq/L high ed 06:40 normal CO2 2 29.0 22-29 Normal complet 013 mmol/L ed 06:40 Calcium 2 9.7 8.5-10. Normal complet 013 mg/dL 1 ed 06:40 BUN/Cre 2 26.4 6.0-20. Above complet at 013 0 high ed Ratio 06:40 normal Anion 06-29-2 12.8 10.0-20 Normal complet Gap 013 mEq/L .0 ed 06:40 GLOMERU 06-29-2 42 complet LAR 013 mL/min/ ed FILTRAT 06:40 1.73 m2 ION RATE Comment: eGFR Interpretation: Disease State Reference Ranges for eGFR Comment: (calculated) Comment: Stage eGFR Description Comment: I/II >60 Normal/Mildly reduced kidney function Comment: III 30-59 Moderately reduced kidney function Comment: IV 15-29 Severely reduced kidney function Comment: V <15 End-stage kidney failure Comment: Calculated using MDRD formula based on gender,race (* GFR AA is for the Comment: population), and age. GFR estimates are unreliable in Comment: patients with rapidly changing kidney function,recent dialysis, extremes Comment: in body size, severe malnutrition or obesity, loss of limbs, abnormal Comment: muscle mass, or during . In these patients, alternative Comment: determinations of GFR should be obtained. GLOMERU 51 complet LAR 013 mL/min/ ed FILTRAT 06:40 1.73 m2 ION RATE Steffi n PHOSPHORUS,SERUM (06-29-2013 06:40) Phospho 3.1 2.5-4.9 Normal complet victor manuel 013 mg/dL ed 06:40 MAGNESIUM,SERUM (06-29-2013 06:40) Magnesi 2.2 1.8-2.4 Normal complet um 013 mg/dL ed 06:40 PROCALCITONIN (06-29-2013 06:40) Procalc 1.87 0.00-1. Normal complet itonin 013 ng/mL 90 ed 06:40 Comment: An initial Procalcitonin concentration of <2 ng/ml calls for retesting Comment: within 6-24 hrs if Comment: clinical suspicion of systemic bacterial infection (Sepsis). An Comment: in-patient on Comment: antibiotic therapy should have a PCT test every 24 hours to monitor Comment: level. Comment: Comment: Interpretation of Procalcitonin Test Results: Comment: Comment: Procalcitonin (ng/mL) Interpretation Comment: SEPSIS Comment: <0.5 Systemic infection (Sepsis) is not likely.Low risk Comment: for progression to severe sepsis/septic shock. Comment: >0.5 - <2 Systemic infection (Sepsis) is possible and should Comment: be correlated with patient's clinical Comment: condition. Moderate risk for progression to severe sepsis/septic shock. Comment: >2 - <10 Systemic infection (Sepsis) is likely. High risk for Comment: progression to severe sepsis/septic shock. Comment: >10 Important systemic inflammatory response, almost Comment: exclusively due to severe bacterial sepsi or Comment: septic shock. High likelihood of severe sepsis or septic shock. Comment: Comment: LOWER RESPIRATORY TRACT INFECTION Comment: <0.1 No bacterial infection; antibiotics strongly Comment: discouraged. Comment: >0.1 - <0.25 Bacterial infection unlikely; antibiotics discouraged. Comment: >0.25 - <0.5 Bacterial infection possible; recommend antibiotics. Comment: >0.5 Bacterial infection present; antibiotics Comment: strongly recommended. Comment: Comment: Please call Reference Laboratory for reference ranges. SED RATE IN HOUSE (06-29-2013 06:40) Sed 06-29-2 64 0-20 Above complet Rate 013 mm/hr high ed 06:40 normal CBC W/DIFF (06-28-2013 06:00) Monocyt 12-25-2 1.3 X 0.2-1.2 Above complet e Count 013 10 high ed 06:00 normal Eosinop -25-2 0.0 X 0.0-0.8 Normal complet hil 013 10 ed Count 06:00 Basophi 06-28-2 0.0 X 0.0-0.1 Normal complet l Count 013 10 ed 06:00 Lymphoc -25-2 0.3 X 0.7-4.3 Below complet yte 013 10 low ed Count 06:00 normal RBC 06-28-2 3.72 X 4.20-5. Below complet 013 10 40 low ed 06:00 normal Hemoglo 06-28-2 9.7 12.0-15 Below complet bin 013 gm/dL .0 low ed 06:00 normal Hematoc -25-2 29.9 % 36.0-47 Below complet rit 013 .0 low ed 06:00 normal Platele --2 302 X 140-450 Normal complet t 013 10 ed 06:00 MCH -25-2 26.1 pg 27.0-32 Below complet 013 .0 low ed 06:00 normal MCHC -25-2 32.4 32.0-36 Normal complet 013 gm/dL .0 ed 06:00 MCV 06-28-2 80.6 fl 80.0-10 Normal complet 013 0.0 ed 06:00 RDW -25-2 18.5 % 12.0-15 Above complet 013 .0 high ed 06:00 normal MPV 12-25-2 8.6 fl 6.6-9.3 Normal complet 013 ed 06:00 Neutrop 12-25-2 89.5 % 50.0-70 Above complet hils % 013 .0 high ed 06:00 normal Lymphoc 12-25-2 2.1 % 20.0-35 Below complet ytes % 013 .0 low ed 06:00 normal Monocyt 12-25-2 8.3 % 0.0-13. Normal complet es % 013 0 ed 06:00 Eosinop 12-25-2 0.0 % 0.0-4.0 Normal complet hils % 013 ed 06:00 Basophi 1225-2 0.1 % 0.0-2.0 Normal complet ls % 013 ed 06:00 Neutrop -25-2 13.7 X 1.5-7.1 Above complet hil 013 10 high ed Count 06:00 normal WBC 25-2 15.3 X 3.5-9.6 Above complet 013 10 high ed 06:00 normal COMPREHENSIVE METABOLIC PANEL (06-28-2013 06:00) Glucose 06-28-2 125 70-99 Above complet 013 mg/dL high ed 06:00 normal BUN 25-2 47 7-18 Above complet 013 mg/dL high ed 06:00 normal Creatin 06-28-2 1.6 0.6-1.3 Above complet ine 013 mg/dL high ed 06:00 normal Sodium 06-28-2 143 136-145 Normal complet 013 mEq/L ed 06:00 Potassi 06-28-2 4.5 3.5-5.1 Normal complet um 013 mEq/L ed 06:00 Chlorid 06-28-2 104 98-107 Normal complet e 013 mEq/L ed 06:00 CO2 06-28-2 32.0 22-29 Above complet 013 mmol/L high ed 06:00 normal Calcium 06-28-2 9.1 8.5-10. Normal complet 013 mg/dL 1 ed 06:00 Total -25-2 5.7 6.4-8.2 Below complet Protein 013 gm/dL low ed 06:00 normal Albumin 25-2 2.4 3.4-5.0 Below complet 013 gm/dL low ed 06:00 normal Alk 25-2 89 U/L 50-136 Normal complet Phos 013 ed 06:00 ALT 25-2 23 U/L 30-65 Below complet 013 low ed 06:00 normal AST -25-2 21 U/L 15-37 Normal complet 013 ed 06:00 Bilirub 25-2 0.26 0.20-1. Normal complet in, 013 mg/dL 00 ed Total 06:00 BUN/Cre 25-2 29.4 6.0-20. Above complet at 013 0 high ed Ratio 06:00 normal A/G 12-25-2 0.7 1.0-2.0 Below complet Ratio 013 low ed 06:00 normal Anion 11.8 10.0-20 Normal complet Gap 013 mEq/L .0 ed 06:00 GLOMERU 36 complet LAR 013 mL/min/ ed FILTRAT 06:00 1.73 m2 ION RATE Comment: eGFR Interpretation: Disease State Reference Ranges for eGFR Comment: (calculated) Comment: Stage eGFR Description Comment: I/II >60 Normal/Mildly reduced kidney function Comment: III 30-59 Moderately reduced kidney function Comment: IV 15-29 Severely reduced kidney function Comment: V <15 End-stage kidney failure Comment: Calculated using MDRD formula based on gender,race (* GFR AA is for the Comment: population), and age. GFR estimates are unreliable in Comment: patients with rapidly changing kidney function,recent dialysis, extremes Comment: in body size, severe malnutrition or obesity, loss of limbs, abnormal Comment: muscle mass, or during . In these patients, alternative Comment: determinations of GFR should be obtained. GLOMERU 44 complet LAR 013 mL/min/ ed FILTRAT 06:00 1.73 m2 ION RATE Steffi n SED RATE IN HOUSE (06-28-2013 06:00) Sed 75 0-20 Above complet Rate 013 mm/hr high ed 06:00 normal MAGNESIUM,SERUM (06-28-2013 06:00) Magnesi 2.5 1.8-2.4 Above complet um 013 mg/dL high ed 06:00 normal PT (06-28-2013 06:00) Prothro 9.8 10.0-11 Below complet mbin 013 seconds .8 low ed Time 06:00 normal INR 0.92 0.90-1. Normal complet 013 22 ed 06:00 Comment: INR Reference Range(Therapeutic): 2 - 3 Comment: Mechanical Heart Valve or Recurrent Thromboembolic Events: 2.5 - 3.5 CULTURE, URINE (06-28-2013 02:59) [facility] Moderat complet l 013 e ed Report 02:59 Growth [facility] Yeast complet l 013 Isolate ed Report 02:59 d Clin[facility] 12-25-2 Jayde complet l 013 ed Report 02:59 species , not albican s [facility] Specime complet l 013 n/Sourc ed Report 02:59 e: URINE/u rine Clin[facility] Collect complet l 013 ed: ed Report 02:59 013 02:59 Clinica Status: complet l 013 Final ed Report 02:59 Last Updated : 013 23:13 Clinica ISO1 complet l 013 (Final) ed Report 02:59 AMMONIA (06-27-2013 21:53) Ammonia 28 11-32 Normal complet 013 umol/L ed 21:53 CULTURE, BLOOD (06-27-2013 21:53) [facility] Specime complet l 013 n: ed Report 21:53 BLOOD CULTURE, BLOOD (06-27-2013 21:53) [facility] Collect complet l 013 ed: ed Report 21:53 013 21:53 Clinica Status: complet l 013 Final ed Report 21:53 Last Updated : 013 12:08 Clin[facility] CUL RES complet l 013 ed Report 21:53 (Final) Clin[facility] No complet l 013 Growth ed Report 21:53 After 24 Hours Clinica No complet l 013 Growth ed Report 21:53 After 48 Hours Clinica No complet l 013 Growth ed Report 21:53 After 3 Days Clinica No complet l 013 Growth ed Report 21:53 After 4 Days Clinica No complet l 013 Growth ed Report 21:53 After 5 Days Clinica Specime complet l 013 n: ed Report 21:53 BLOOD COMPREHENSIVE METABOLIC PANEL (06-27-2013 07:10) Glucose 06-27- 135 70-99 Above complet 013 mg/dL high ed 07:10 normal BUN 06-27- 66 7-18 Above complet 013 mg/dL high ed 07:10 normal Creatin 06-27-2 2.3 0.6-1.3 Above complet ine 013 mg/dL high ed 07:10 normal Sodium 06-27- 142 136-145 Normal complet 013 mEq/L ed 07:10 Potassi 12-24-2 4.7 3.5-5.1 Normal complet um 013 mEq/L ed 07:10 Chlorid 12-24-2 104 98-107 Normal complet e 013 mEq/L ed 07:10 CO2 12-24-2 24.7 22-29 Normal complet 013 mmol/L ed 07:10 Calcium 12-24-2 7.8 8.5-10. Below complet 013 mg/dL 1 low ed 07:10 normal Total 12-24-2 5.9 6.4-8.2 Below complet Protein 013 gm/dL low ed 07:10 normal Albumin 12-24-2 2.3 3.4-5.0 Below complet 013 gm/dL low ed 07:10 normal Alk 12-24-2 77 U/L 50-136 Normal complet Phos 013 ed 07:10 ALT 12-24-2 29 U/L 30-65 Below complet 013 low ed 07:10 normal AST 12-24-2 28 U/L 15-37 Normal complet 013 ed 07:10 Bilirub 12-24-2 0.27 0.20-1. Normal complet in, 013 mg/dL 00 ed Total 07:10 BUN/Cre 12-24-2 28.7 6.0-20. Above complet at 013 0 high ed Ratio 07:10 normal A/G 12-24-2 0.6 1.0-2.0 Below complet Ratio 013 low ed 07:10 normal Anion 12-24-2 17.8 10.0-20 Normal complet Gap 013 mEq/L .0 ed 07:10 GLOMERU 12-24-2 24 complet LAR 013 mL/min/ ed FILTRAT 07:10 1.73 m2 ION RATE Comment: eGFR Interpretation: Disease State Reference Ranges for eGFR Comment: (calculated) Comment: Stage eGFR Description Comment: I/II >60 Normal/Mildly reduced kidney function Comment: III 30-59 Moderately reduced kidney function Comment: IV 15-29 Severely reduced kidney function Comment: V <15 End-stage kidney failure Comment: Calculated using MDRD formula based on gender,race (* GFR AA is for the Comment: population), and age. GFR estimates are unreliable in Comment: patients with rapidly changing kidney function,recent dialysis, extremes Comment: in body size, severe malnutrition or obesity, loss of limbs, abnormal Comment: muscle mass, or during . In these patients, alternative Comment: determinations of GFR should be obtained. GLOMERU 29 complet LAR 013 mL/min/ ed FILTRAT 07:10 1.73 m2 ION RATE Steffi n PHOSPHORUS,SERUM (06-27-2013 07:10) Phospho 06-27-2 5.2 2.5-4.9 Above complet victor manuel 013 mg/dL high ed 07:10 normal MAGNESIUM,SERUM (06-27-2013 07:10) Magnesi 06-27-2 2.8 1.8-2.4 Above complet um 013 mg/dL high ed 07:10 normal PROCALCITONIN (06-27-2013 07:10) Procalc 8.74 0.00-1. Above complet itonin 013 ng/mL 90 high ed 07:10 normal Comment: An initial Procalcitonin concentration of <2 ng/ml calls for retesting Comment: within 6-24 hrs if Comment: clinical suspicion of systemic bacterial infection (Sepsis). An Comment: in-patient on Comment: antibiotic therapy should have a PCT test every 24 hours to monitor Comment: level. Comment: Comment: Interpretation of Procalcitonin Test Results: Comment: Comment: Procalcitonin (ng/mL) Interpretation Comment: SEPSIS Comment: <0.5 Systemic infection (Sepsis) is not likely.Low risk Comment: for progression to severe sepsis/septic shock. Comment: >0.5 - <2 Systemic infection (Sepsis) is possible and should Comment: be correlated with patient's clinical Comment: condition. Moderate risk for progression to severe sepsis/septic shock. Comment: >2 - <10 Systemic infection (Sepsis) is likely. High risk for Comment: progression to severe sepsis/septic shock. Comment: >10 Important systemic inflammatory response, almost Comment: exclusively due to severe bacterial sepsi or Comment: septic shock. High likelihood of severe sepsis or septic shock. Comment: Comment: LOWER RESPIRATORY TRACT INFECTION Comment: <0.1 No bacterial infection; antibiotics strongly Comment: discouraged. Comment: >0.1 - <0.25 Bacterial infection unlikely; antibiotics discouraged. Comment: >0.25 - <0.5 Bacterial infection possible; recommend antibiotics. Comment: >0.5 Bacterial infection present; antibiotics Comment: strongly recommended. Comment: Comment: Please call Reference Laboratory for reference ranges. CBC W/DIFF (06-27-2013 07:10) Monocyt 12-24-2 6.4 % 0.0-13. Normal complet es % 013 0 ed 07:10 WBC 12-24-2 12.6 X 3.5-9.6 Above complet 013 10 high ed 07:10 normal RBC 12-24-2 3.87 X 4.20-5. Below complet 013 10 40 low ed 07:10 normal Hemoglo 12-24-2 10.2 12.0-15 Below complet bin 013 gm/dL .0 low ed 07:10 normal Hematoc 12-24-2 31.0 % 36.0-47 Below complet rit 013 .0 low ed 07:10 normal Platele 12-24-2 305 X 140-450 Normal complet t 013 10 ed 07:10 MCH 12-24-2 26.3 pg 27.0-32 Below complet 013 .0 low ed 07:10 normal MCHC 12-24-2 32.8 32.0-36 Normal complet 013 gm/dL .0 ed 07:10 MCV 12-24-2 80.1 fl 80.0-10 Normal complet 013 0.0 ed 07:10 RDW 12-24-2 18.6 % 12.0-15 Above complet 013 .0 high ed 07:10 normal MPV 12-24-2 9.0 fl 6.6-9.3 Normal complet 013 ed 07:10 Neutrop 12-24-2 92.4 % 50.0-70 Above complet hils % 013 .0 high ed 07:10 normal Lymphoc 12-24-2 1.0 % 20.0-35 Below complet ytes % 013 .0 low ed 07:10 normal Eosinop 12-24-2 0.0 % 0.0-4.0 Normal complet hils % 013 ed 07:10 Basophi 12-24-2 0.2 % 0.0-2.0 Normal complet ls % 013 ed 07:10 Neutrop 12-24-2 11.6 X 1.5-7.1 Above complet hil 013 10 high ed Count 07:10 normal Monocyt 12-24-2 0.8 X 0.2-1.2 Normal complet e Count 013 10 ed 07:10 Eosinop 12-24-2 0.0 X 0.0-0.8 Normal complet hil 013 10 ed Count 07:10 Basophi 12-24-2 0.0 X 0.0-0.1 Normal complet l Count 013 10 ed 07:10 Lymphoc 0.1 X 0.7-4.3 Below complet yte 013 10 low ed Count 07:10 normal BNP (NT-proBNP) (06-26-2013 17:42) NT-proB 338.5 0.0-900 Normal complet RECRUITMENT ASSISTANT 013 pg/mL .0 ed 17:42 Comment: RULE - IN Comment: Comment: AGE OPTIMAL\E\.sk5\E\SENS \E\.sk5\E\SPEC PPV\E\.sk5\E\NPV\E\.s k5\E\ACCURACY Comment: CUT-POINT Comment: < 50 yr 450 pg/ml 97% 93%\E\.sk5\E\76%\E\.s k5\E\99%\E\.sk5\E\ 95% Comment: 50-75 yr 900 pg/ml 90% 82%\E\.sk5\E\82%\E\.s k5\E\88%\E\.sk5\E\ 85% Comment: >= 75 yr 1800 pg/ml 85% 73%\E\.sk5\E\92%\E\.s k5\E\55%\E\.sk5\E\ 83% Comment: Comment: RULE-OUT Comment: Comment: OPTIMAL\E\.sk5\E\SENS \E\.sk5\E\SPEC PPV\E\.sk5\E\NPV\E\.s k5\E\ACCURACY Comment: CUT-POINT Comment: Rule-Out 300 pg/ml 99% 62%\E\.sk5\E\55%\E\.s k5\E\99%\E\.sk5\E\ 83% Comment: Comment: NOTE: THESE CUT-POINTS ARE FOR ACUTE CHF DIAGNOSIS ONLY PROTEIN, RANDOM UR (06-26-2013 16:00) Protein 76.9 complet , Urine 013 mg/dL ed 16:00 Comment: No known normal values established for random urine tests. ELECTROPHORESIS, PROTEIN, RANDOM URINE (06-26-2013 16:00) Immunof SEE complet ixation 013 COMMENT ed , 16:00 S Random, U 013 01:43 PM Comment: Test Result Flag Unit RefValue Comment: ------- Comment: Immunofixation, Random, U Comment: No monoclonal protein detected. Comment: Comment: Test Performed by: Comment: [facility] Comment: [address] [place] [address] Comment: Boiler Tube Blower: Cameron Crook III, M.D. Comment: The value SEE COMMENTS 07/04/2013 01:43 PM was changed by IF on Comment: 07/04/2013 14:43 from: no value Electro SEE complet phorese 013 COMMENT ed s, 16:00 S Protein , 013 Random 01:43 Urine PM Comment: Test Result Flag Unit RefValue Comment: ------- Comment: Electrophoresis, Protein, Random, U Comment: Albumin 7 % Comment: Alpha 1-Globulin 16 % Comment: Alpha 2-Globulin 21 % Comment: Beta-Globulin 35 % Comment: Gamma-Globulin 21 % Comment: A/G Ratio 0.08 % Comment: Impression Comment: Small abnormality in gamma fraction. Comment: Comment: See Immunofixation. Comment: Protein, Total, Random, U 47 mg/dL Comment: Comment: Test Performed by: Comment: [facility] Comment: [address] [place] [address] Comment: Boiler Tube Blower: Cameron Crook III, M.D. RENAL FUNCTION PANEL (06-26-2013 12:21) Phospho 06-26- 7.2 2.5-4.9 Above complet victor manuel 013 mg/dL high ed 12:21 normal Anion 22.8 10.0-20 Above complet Gap 013 mEq/L .0 high ed 12:21 normal GLOMERU 14 complet LAR 013 mL/min/ ed FILTRAT 12:21 1.73 m2 ION RATE Comment: eGFR Interpretation: Disease State Reference Ranges for eGFR Comment: (calculated) Comment: Stage eGFR Description Comment: I/II >60 Normal/Mildly reduced kidney function Comment: III 30-59 Moderately reduced kidney function Comment: IV 15-29 Severely reduced kidney function Comment: V <15 End-stage kidney failure Comment: Calculated using MDRD formula based on gender,race (* GFR AA is for the Comment: population), and age. GFR estimates are unreliable in Comment: patients with rapidly changing kidney function,recent dialysis, extremes Comment: in body size, severe malnutrition or obesity, loss of limbs, abnormal Comment: muscle mass, or during . In these patients, alternative Comment: determinations of GFR should be obtained. GLOMERU 17 complet LAR 013 mL/min/ ed FILTRAT 12:21 1.73 m2 ION RATE Steffi n Glucose 124 70-99 Above complet 013 mg/dL high ed 12:21 normal BUN 77 7-18 Above complet 013 mg/dL high ed 12:21 normal Creatin 3.7 0.6-1.3 Above complet ine 013 mg/dL upper ed 12:21 panic limits Comment: CK X 2 CALLED @0346 TO MARGARITA V/R Sodium 142 136-145 Normal complet 013 mEq/L ed 12:21 Potassi 4.9 3.5-5.1 Normal complet um 013 mEq/L ed 12:21 Chlorid 102 98-107 Normal complet e 013 mEq/L ed 12:21 CO2 22.8 22-29 Normal complet 013 mmol/L ed 12:21 Calcium 6.5 8.5-10. Below complet 013 mg/dL 1 low ed 12:21 normal Albumin 2.1 3.4-5.0 Below complet 013 gm/dL low ed 12:21 normal FREE LIGHT CHAINS, SERUM (06-26-2013 12:20) Immunog SEE complet lobulin 013 COMMENT ed Free 12:20 S Light Chains, 013 Serum 12:52 PM Comment: Test Result Flag Unit RefValue Comment: ------- Comment: Immunoglobulin Free Light Chains, S Comment: [place] Free Light Chain, S 3.7401 h mg/dL 0.33-1.94 Comment: Lambda Free Light Chain, S 2.3101 mg/dL 0.57-2.63 Comment: [place]/Lambda FLC Ratio 1.6200 0.26-1.65 Comment: Comment: Test Performed by: Comment: [facility] Comment: [address] , [place] [address] Comment: Boiler Tube Blower: Maia Barnhart M.D. PROCALCITONIN (06-26-2013 12:20) Procalc 22.66 0.00-1. Above complet itonin 013 ng/mL 90 [facility] ed 12:20 panic limits Comment: An initial Procalcitonin concentration of <2 ng/ml calls for retesting Comment: within 6-24 hrs if Comment: clinical suspicion of systemic bacterial infection (Sepsis). An Comment: in-patient on Comment: antibiotic therapy should have a PCT test every 24 hours to monitor Comment: level. Comment: Comment: Interpretation of Procalcitonin Test Results: Comment: Comment: Procalcitonin (ng/mL) Interpretation Comment: SEPSIS Comment: <0.5 Systemic infection (Sepsis) is not likely.Low risk Comment: for progression to severe sepsis/septic shock. Comment: >0.5 - <2 Systemic infection (Sepsis) is possible and should Comment: be correlated with patient's clinical Comment: condition. Moderate risk for progression to severe sepsis/septic shock. Comment: >2 - <10 Systemic infection (Sepsis) is likely. High risk for Comment: progression to severe sepsis/septic shock. Comment: >10 Important systemic inflammatory response, almost Comment: exclusively due to severe bacterial sepsi or Comment: septic shock. High likelihood of severe sepsis or septic shock. Comment: Comment: LOWER RESPIRATORY TRACT INFECTION Comment: <0.1 No bacterial infection; antibiotics strongly Comment: discouraged. Comment: >0.1 - <0.25 Bacterial infection unlikely; antibiotics discouraged. Comment: >0.25 - <0.5 Bacterial infection possible; recommend antibiotics. Comment: >0.5 Bacterial infection present; antibiotics Comment: strongly recommended. Comment: Comment: Please call Reference Laboratory for reference ranges. ANGIOTENSIN CONVERT ENZYME (06-26-2013 12:20) Angiote SEE complet nsion 013 COMMENT ed Conv 12:20 S Enzyme, S 013 01:21 PM Comment: Test Result Flag Unit RefValue Comment: ------- Comment: Angiotensin Converting Enzyme, S <5 l U/L 8-53 Comment: The use of angiotensin converting enzyme (LOU)-inhibiting Comment: antihypertensive drugs will cause decreased LOU values. Comment: Comment: Test Performed by: Comment: [facility] Comment: [address] , [place] [address] Comment: Boiler Tube Blower: Maia Barnhart M.D. PROTEIN ELECTROPHORESIS (BLOOD) (06-26-2013 12:20) Beta -23-2 0.9 0.6-1.4 Normal complet Globuli 013 gm/dL ed n 12:20 Patholo 06-26-2 MILD complet gist 013 INCREAS ed Inter 12:20 E IN ALPHA-1 REGION. THESE FINDING S MAY BE EITHER Gamma -23-2 12.6 % 9.8-24. Normal complet Globuli 013 4 ed n % 12:20 A/G 06-26-2 0.70 complet Ratio 013 ed 12:20 Albumin -23-2 2.5 2.8-5.2 Below complet 013 gm/dL low ed 12:20 normal A1 12-23-2 8.6 % 2.0-4.4 Above complet Globuli 013 high ed n % 12:20 normal A1 -23-2 0.5 0.1-0.4 Above complet Globuli 013 gm/dL high ed n 12:20 normal A2 -23-2 20.7 % 8.9-14. Above complet Globuli 013 9 high ed n % 12:20 normal A2 12-23-2 1.2 0.5-1.3 Normal complet Globuli 013 gm/dL ed n 12:20 Beta 12-23-2 16.0 % 10.8-16 Normal complet Globuli 013 .2 ed n % 12:20 Patholo 12-23-2 NON-SPE complet gist 013 CIFIC ed Inter 12:20 Patholo 12-23-2 OR TO complet gist 013 SUBTLE ed Inter 12:20 MONOCLO NAL PROTEIN . Patholo 23-2 SERUM complet gist 013 IMMUNOF ed Inter 12:20 IXATION WILL BE PERFORM ED. Patholo 06-26-2 PATHOLO complet gist 013 GIST: ed Inter 12:20 RADHA PIERRE M.D. Total -23-2 5.9 6.0-8.5 Below complet Protein 013 gm/dL low ed 12:20 normal Gamma --2 0.7 0.6-2.1 Normal complet Globuli 013 gm/dL ed n 12:20 Albumin 06-26-2 42.1 % 47.0-61 Below complet % 013 .6 low ed 12:20 normal IMMUNOFIXATION,SERUM (06-26-2013 12:20) Total -23-2 5.9 6.0-8.5 Below complet Protein 013 gm/dL low ed 12:20 normal Patholo -23-2 NO complet gist 013 MONOCLO ed Interpr 12:20 NAL etation PROTEIN , ZI IDENTIF IED. Patholo 23-2 PATHOLO complet gist 013 GIST: ed Interpr 12:20 RADHA ashtontion , ZI ARLYN PIERRE M.D. LACTIC ACID (IN-HOUSE) (06-26-2013 04:20) Lactate 06-26-2 1.1 0.4-2.0 Normal complet 013 mmol/L ed 04:20 BNP (NT-proBNP) (06-26-2013 04:20) NT-proB 06-26-2 357.3 0.0-900 Normal complet RECRUITMENT ASSISTANT 013 pg/mL .0 ed 04:20 Comment: RULE - IN Comment: Comment: AGE OPTIMAL\E\.sk5\E\SENS \E\.sk5\E\SPEC PPV\E\.sk5\E\NPV\E\.s k5\E\ACCURACY Comment: CUT-POINT Comment: < 50 yr 450 pg/ml 97% 93%\E\.sk5\E\76%\E\.s k5\E\99%\E\.sk5\E\ 95% Comment: 50-75 yr 900 pg/ml 90% 82%\E\.sk5\E\82%\E\.s k5\E\88%\E\.sk5\E\ 85% Comment: >= 75 yr 1800 pg/ml 85% 73%\E\.sk5\E\92%\E\.s k5\E\55%\E\.sk5\E\ 83% Comment: Comment: RULE-OUT Comment: Comment: OPTIMAL\E\.sk5\E\SENS \E\.sk5\E\SPEC PPV\E\.sk5\E\NPV\E\.s k5\E\ACCURACY Comment: CUT-POINT Comment: Rule-Out 300 pg/ml 99% 62%\E\.sk5\E\55%\E\.s k5\E\99%\E\.sk5\E\ 83% Comment: Comment: NOTE: THESE CUT-POINTS ARE FOR ACUTE CHF DIAGNOSIS ONLY COMPREHENSIVE METABOLIC PANEL (06-26-2013 04:20) Albumin 12-23-2 2.3 3.4-5.0 Below complet 013 gm/dL low ed 04:20 normal Alk -23-2 75 U/L 50-136 Normal complet Phos 013 ed 04:20 ALT -23-2 28 U/L 30-65 Below complet 013 low ed 04:20 normal AST 23-2 35 U/L 15-37 Normal complet 013 ed 04:20 Bilirub -23-2 0.26 0.20-1. Normal complet in, 013 mg/dL 00 ed Total 04:20 A/G 23-2 0.7 1.0-2.0 Below complet Ratio 013 low ed 04:20 normal Anion -23-2 22.5 10.0-20 Above complet Gap 013 mEq/L .0 high ed 04:20 normal GLOMERU 12-23-2 11 complet LAR 013 mL/min/ ed FILTRAT 04:20 1.73 m2 ION RATE Comment: eGFR Interpretation: Disease State Reference Ranges for eGFR Comment: (calculated) Comment: Stage eGFR Description Comment: I/II >60 Normal/Mildly reduced kidney function Comment: III 30-59 Moderately reduced kidney function Comment: IV 15-29 Severely reduced kidney function Comment: V <15 End-stage kidney failure Comment: Calculated using MDRD formula based on gender,race (* GFR AA is for the Comment: population), and age. GFR estimates are unreliable in Comment: patients with rapidly changing kidney function,recent dialysis, extremes Comment: in body size, severe malnutrition or obesity, loss of limbs, abnormal Comment: muscle mass, or during . In these patients, alternative Comment: determinations of GFR should be obtained. Glucose 155 70-99 Above complet 013 mg/dL high ed 04:20 normal BUN 85 7-18 Above complet 013 mg/dL upper ed 04:20 panic limits Comment: CK X 2 CALLED @0735 TO ROBERTA V/R Creatin 4.4 0.6-1.3 Above complet ine 013 mg/dL upper ed 04:20 panic limits Comment: CK X 2 CALLED @0735 TO ROBERTA V/R Sodium 138 136-145 Normal complet 013 mEq/L ed 04:20 Potassi 5.1 3.5-5.1 Normal complet um 013 mEq/L ed 04:20 Chlorid 99 98-107 Normal complet e 013 mEq/L ed 04:20 CO2 21.8 22-29 Below complet 013 mmol/L low ed 04:20 normal Calcium 7.0 8.5-10. Below complet 013 mg/dL 1 low ed 04:20 normal GLOMERU 14 complet LAR 013 mL/min/ ed FILTRAT 04:20 1.73 m2 ION RATE Steffi n Total 5.5 6.4-8.2 Below complet Protein 013 gm/dL low ed 04:20 normal CULTURE, URINE (06-25-2013 17:00) Clinica Specime complet l 013 n/Sourc ed Report 17:00 e: URINE/u rine Clinica Collect complet l 013 ed: ed Report 17:00 013 17:00 Clinica Status: complet l 013 Final ed Report 17:00 Last Updated : 14:54 Clinica ISO1 complet l 013 (Final) ed Report 17:00 Clinica Rare complet l 013 Growth ed Report 17:00 Clinica Yeast complet l 013 Isolate ed Report 17:00 d Clinica Jayde complet l 013 ed Report 17:00 species , not albican s CREATININE,RANDOM UR (06-25-2013 17:00) Creatin 190.3 complet ine 013 mg/dL ed Urine 17:00 Comment: No known normal values established for random urine tests. SODIUM,RANDOM UR (06-25-2013 17:00) Sodium, 12.0 complet Urine 013 mEq/L ed 17:00 Comment: No known normal values established for random urine tests. TROPONIN I,KAYLA (IN HOUSE) (06-25-2013 16:40) Troponi <0.04 0.00-0. Normal complet n I 013 ng/mL 10 ed 16:40 Comment: Troponin I Reference Values Comment: 0.0 - 0.1 Negative Comment: 0.11 - 1.50 [place] Comment: >1.50 Indicative of AMI Comment: TROPONIN IS BELOW ASSAY RANGE CKMB (06-25-2013 16:40) CK 523 U/L 26-192 Above complet 013 high ed 16:40 normal MMB 9.20 0.00-5. Above complet 013 ng/mL 00 high ed 16:40 normal CKMB% 1.8 % 0.0-4.0 Normal complet 013 ed 16:40 CULTURE, BLOOD (06-25-2013 16:40) Clinica No complet l 013 Growth ed Report 16:40 After 48 Hours Clinica No complet l 013 Growth ed Report 16:40 After 3 Days Clinica No complet l 013 Growth ed Report 16:40 After 4 Days Clinica No complet l 013 Growth ed Report 16:40 After 5 Days Clinica Specime complet l 013 n: ed Report 16:40 BLOOD Clinica Collect complet l 013 ed: ed Report 16:40 013 16:40 Clinica Status: complet l 013 Final ed Report 16:40 Last Updated : 013 23:00 Clinica CUL RES complet l 013 ed Report 16:40 (Final) Clinica Culture complet l 013 In ed Report 16:40 Progres s Clinica No complet l 013 Growth ed Report 16:40 After 24 Hours PT (06-25-2013 10:00) Prothro 10.9 10.0-11 Normal complet mbin 013 seconds .8 ed Time 10:00 INR 1.02 0.90-1. Normal complet 013 22 ed 10:00 Comment: INR Reference Range(Therapeutic): 2 - 3 Comment: Mechanical Heart Valve or Recurrent Thromboembolic Events: 2.5 - 3.5 PTT (06-25-2013 10:00) PTT 30.7 22.7-31 Normal complet 013 seconds .2 ed 10:00 Comment: Therapeutic Range for Patients on Heparin Therapy: 55.0 - 79.9 seconds. ACETONE/KETONE QUANT (06-25-2013 10:00) Beta <0.10 0.20-2. Below complet Hydroxy 013 mmol/L 80 low ed 10:00 normal Butyrat e Comment: B Hydrox = Beta Hydroxy Butyrate Comment: TEST REPEATED AND VERIFIED Comment: CULTURE, BLOOD (06-25-2013 10:00) Clinica No complet l 013 Growth ed Report 10:00 After 24 Hours Clinica No complet l 013 Growth ed Report 10:00 After 48 Hours Clinica No complet l 013 Growth ed Report 10:00 After 3 Days Clinica No complet l 013 Growth ed Report 10:00 After 4 Days Clinica No complet l 013 Growth ed Report 10:00 After 5 Days Clinica Specime complet l 013 n: ed Report 10:00 BLOOD Clinica Collect complet l 013 ed: ed Report 10:00 013 10:00 Clinica 12-22-2 Status: complet l 013 Final ed Report 10:00 Last Updated : 013 23:00 Clinica CUL RES complet l 013 ed Report 10:00 (Final) Clinica Culture complet l 013 In ed Report 10:00 Leida s TROPONIN I,KAYLA (IN HOUSE) (06-25-2013 10:00) Troponi 06-25- 0.05 0.00-0. Normal complet n I 013 ng/mL 10 ed 10:00 Comment: Troponin I Reference Values Comment: 0.0 - 0.1 Negative Comment: 0.11 - 1.50 [place] Comment: >1.50 Indicative of AMI CULTURE, BLOOD (06-25-2013 03:30) Clinica Specime complet l 013 n: ed Report 03:30 BLOOD Clinica Collect complet l 013 ed: ed Report 03:30 013 03:30 Clinica Status: complet l 013 Final ed Report 03:30 Last Updated : 013 23:00 Clinica CUL RES complet l 013 ed Report 03:30 (Final) Clinica Culture complet l 013 In ed Report 03:30 Progrgene s Clinica No complet l 013 Growth ed Report 03:30 After 24 Hours Clinica No complet l 013 Growth ed Report 03:30 After 48 Hours Clinica No complet l 013 Growth ed Report 03:30 After 3 Days Clinica No complet l 013 Growth ed Report 03:30 After 4 Days Clinica No complet l 013 Growth ed Report 03:30 After 5 Days CBC W/DIFF (04-16-2013 14:20) WBC 04-16- 9.3 X 3.5-9.6 Normal complet 013 10 ed 14:20 RBC --2 4.59 X 4.20-5. Normal complet 013 10 40 ed 14:20 Hemoglo 04-16-2 12.7 12.0-15 Normal complet bin 013 gm/dL .0 ed 14:20 Hematoc 04-16- 38.5 % 36.0-47 Normal complet rit 013 .0 ed 14:20 Platele 10-13-2 342 X 140-450 Normal complet t 013 10 ed 14:20 MCH -13-2 27.6 pg 27.0-32 Normal complet 013 .0 ed 14:20 MCHC -13-2 33.0 32.0-36 Normal complet 013 gm/dL .0 ed 14:20 MCV 10-13-2 83.7 fl 80.0-10 Normal complet 013 0.0 ed 14:20 RDW 04-16-2 18.1 % 12.0-15 Above complet 013 .0 high ed 14:20 normal MPV -13-2 7.6 fl 6.6-9.3 Normal complet 013 ed 14:20 Neutrop 13-2 83.0 % 50.0-70 Above complet hils % 013 .0 high ed 14:20 normal Lymphoc 10-13-2 6.5 % 20.0-35 Below complet ytes % 013 .0 low ed 14:20 normal Lymphoc 10-13-2 0.6 X 0.7-4.3 Below complet yte 013 10 low ed Count 14:20 normal Monocyt -13-2 6.0 % 0.0-13. Normal complet es % 013 0 ed 14:20 Eosinop 10-13-2 2.8 % 0.0-4.0 Normal complet hils % 013 ed 14:20 Basophi 10-13-2 1.7 % 0.0-2.0 Normal complet ls % 013 ed 14:20 Neutrop 10-13-2 7.7 X 1.5-7.1 Above complet hil 013 10 high ed Count 14:20 normal Monocyt 10-13-2 0.6 X 0.2-1.2 Normal complet e Count 013 10 ed 14:20 Eosinop 10-13-2 0.3 X 0.0-0.8 Normal complet hil 013 10 ed Count 14:20 Basophi 10-13-2 0.2 X 0.0-0.1 Above complet l Count 013 10 high ed 14:20 normal LIPASE (04-16-2013 14:20) Lipase 04-16-2 139 U/L 114-286 Normal complet 013 ed 14:20 AMYLASE,SERUM (04-16-2013 14:20) Amylase 04-16-2 30 U/L 25-115 Normal complet 013 ed 14:20 COMPREHENSIVE METABOLIC PANEL (04-16-2013 14:20) Glucose 149 70-99 Above complet 013 mg/dL high ed 14:20 normal BUN 04-16- 16 7-18 Normal complet 013 mg/dL ed 14:20 Creatin 04-16- 1.3 0.6-1.3 Normal complet ine 013 mg/dL ed 14:20 Sodium 141 136-145 Normal complet 013 mEq/L ed 14:20 Potassi 3.6 3.5-5.1 Normal complet um 013 mEq/L ed 14:20 Chlorid 102 98-107 Normal complet e 013 mEq/L ed 14:20 CO2 27.7 22-29 Normal complet 013 mmol/L ed 14:20 Calcium 9.4 8.5-10. Normal complet 013 mg/dL 1 ed 14:20 Total 7.4 6.4-8.2 Normal complet Protein 013 gm/dL ed 14:20 Albumin 3.5 3.4-5.0 Normal complet 013 gm/dL ed 14:20 Alk 94 U/L 50-136 Normal complet Phos 013 ed 14:20 ALT 26 U/L 30-65 Below complet 013 low ed 14:20 normal AST 18 U/L 15-37 Normal complet 013 ed 14:20 Bilirub 0.32 0.20-1. Normal complet in, 013 mg/dL 00 ed Total 14:20 BUN/Cre 12.3 6.0-20. Normal complet at 013 0 ed Ratio 14:20 A/G 0.9 1.0-2.0 Below complet Ratio 013 low ed 14:20 normal Anion 04-16-2 14.8 10.0-20 Normal complet Gap 013 mEq/L .0 ed 14:20 GLOMERU 04-16- 46 complet LAR 013 mL/min/ ed FILTRAT 14:20 1.73 m2 ION RATE Comment: eGFR Interpretation: Disease State Reference Ranges for eGFR Comment: (calculated) Comment: Stage eGFR Description Comment: I/II >60 Normal/Mildly reduced kidney function Comment: III 30-59 Moderately reduced kidney function Comment: IV 15-29 Severely reduced kidney function Comment: V <15 End-stage kidney failure Comment: Calculated using MDRD formula based on gender,race (* GFR AA is for the Comment: population), and age. GFR estimates are unreliable in Comment: patients with rapidly changing kidney function,recent dialysis, extremes Comment: in body size, severe malnutrition or obesity, loss of limbs, abnormal Comment: muscle mass, or during . In these patients, alternative Comment: determinations of GFR should be obtained. GLOMERU 56 complet LAR 013 mL/min/ ed FILTRAT 14:20 1.73 m2 ION RATE Steffi n DRUGS OF ABUSE SCREEN (8 TEST-INHOUSE) (04-15-2013 16:11) THC NEG. NEGATIV Normal complet 013 E,NEG. ed 16:11 Methado NEG. NEGATIV Normal complet ne 013 E,NEG. ed Urine 16:11 Phencyc NEG. NEGATIV Normal complet lidine 013 E,NEG. ed (PCP) 16:11 Barbitu NEG. NEGATIV Normal complet rates 013 E,NEG. ed 16:11 Cocaine NEG. NEGATIV Normal complet 013 E,NEG. ed 16:11 Benzodi NEG. NEGATIV Normal complet azepine 013 E,NEG. ed 16:11 Opiates POS. NEGATIV Abnorma complet 013 E,NEG. l ed 16:11 Comment: DRUG SCREEN CUTOFF LEVELS: Comment: PCP\E\.sk5\E\\E\.sk5\ E\- 25 ng/ml Comment: BENZO \E\.sk5\E\-\E\.sk5\E\ 200 ng/ml Comment: ALEAH\E\.sk5\E\\E\.sk5\ E\-\E\.sk5\E\300 ng/ml Comment: AMP\E\.sk5\E\\E\.sk5\ E\-\E\.sk5\E\1000 ng/ml Comment: THC\E\.sk5\E\\E\.sk5\ E\-\E\.sk5\E\50 ng/ml Comment: OPI\E\.sk5\E\\E\.sk5\ E\-\E\.sk5\E\300 ng/ml Comment: KIERRA - 200 ng/ml Comment: METDON \E\.sk5\E\-\E\.sk5\E\ 300 ng/ml Comment: PROPOXY - 300 ng/ml Comment: METHAQ - 300 ng/ml Ampheta NEG. NEGATIV Normal complet min/Met 013 E,NEG. ed hamp 16:11 UA DIPSTICK, REFLEX TO MICRO (04-15-2013 16:11) Comment: Urine microscopic has been added Color YELLOW YELLOW, Normal complet 013 STRAW,C ed 16:11 OLORLES S,PALE YELLOW Appeara clear CLEAR Abnorma complet nce 013 l ed 16:11 Specifi 1.010 1.016-1 Below complet c 013 .022 low ed [place] 16:11 normal PH 6.5 5.0-7.0 Normal complet 013 ed 16:11 Leukocy 2+ NEGATIV Abnorma complet te 013 E l ed 16:11 Nitrite NEGATIV NEGATIV Normal complet 013 E E ed 16:11 UA 1+ NEGATIV Abnorma complet Protein 013 E l ed 16:11 Glucose 04-15- 2+ NEGATIV Abnorma complet 013 E l ed 16:11 Ketones 04-15- 2+ NEGATIV Abnorma complet 013 E l ed 16:11 Urobili 1+ 0-1 Normal complet nogen 013 mg/dL ed 16:11 Bilirub 04-15- 1+ NEGATIV Abnorma complet in 013 E l ed 16:11 Blood 04-15-2 NEGATIV NEGATIV Normal complet 013 E E ed 16:11 MICROSCOPIC EXAM OF URINE (04-15-2013 16:11) UA WBC -- 5-10 0-2,Occ Abnorma complet 013 ,RARE,N l ed 16:11 ONE SEEN Bacteri 2+ NONE Abnorma complet a 013 SEEN l ed 16:11 Epithel 04-15- 3+ NONE Abnorma complet ial 013 SEEN l ed Cells 16:11 CBC W/DIFF (04-15-2013 14:13) MCH 28.2 pg 27.0-32 Normal complet 013 .0 ed 14:13 MCHC 33.7 32.0-36 Normal complet 013 gm/dL .0 ed 14:13 MCV 04-15- 83.6 fl 80.0-10 Normal complet 013 0.0 ed 14:13 RDW 18.0 % 12.0-15 Above complet 013 .0 high ed 14:13 normal MPV 7.5 fl 6.6-9.3 Normal complet 013 ed 14:13 Neutrop 04-15-2 79.0 % 50.0-70 Above complet hils % 013 .0 high ed 14:13 normal Lymphoc 04-15-2 10.8 % 20.0-35 Below complet ytes % 013 .0 low ed 14:13 normal Monocyt 04-15-2 7.5 % 0.0-13. Normal complet es % 013 0 ed 14:13 Eosinop 04-15-2 2.3 % 0.0-4.0 Normal complet hils % 013 ed 14:13 Basophi 04-15-2 0.4 % 0.0-2.0 Normal complet ls % 013 ed 14:13 Neutrop 04-15-2 6.0 X 1.5-7.1 Normal complet hil 013 10 ed Count 14:13 Monocyt 04-15-2 0.6 X 0.2-1.2 Normal complet e Count 013 10 ed 14:13 Eosinop 04-15-2 0.2 X 0.0-0.8 Normal complet hil 013 10 ed Count 14:13 Basophi 04-15-2 0.0 X 0.0-0.1 Normal complet l Count 013 10 ed 14:13 Lymphoc 1012-2 0.8 X 0.7-4.3 Normal complet yte 013 10 ed Count 14:13 WBC 10-12-2 7.6 X 3.5-9.6 Normal complet 013 10 ed 14:13 RBC 10-12-2 4.45 X 4.20-5. Normal complet 013 10 40 ed 14:13 Hemoglo 04-15-2 12.5 12.0-15 Normal complet bin 013 gm/dL .0 ed 14:13 Hematoc 10-12-2 37.2 % 36.0-47 Normal complet rit 013 .0 ed 14:13 Platele 321 X 140-450 Normal complet t 013 10 ed 14:13 COMPREHENSIVE METABOLIC PANEL (04-15-2013 14:13) Glucose 131 70-99 Above complet 013 mg/dL high ed 14:13 normal BUN 17 7-18 Normal complet 013 mg/dL ed 14:13 Creatin 1.1 0.6-1.3 Normal complet ine 013 mg/dL ed 14:13 Sodium 144 136-145 Normal complet 013 mEq/L ed 14:13 Potassi 3.8 3.5-5.1 Normal complet um 013 mEq/L ed 14:13 Chlorid 103 98-107 Normal complet e 013 mEq/L ed 14:13 CO2 30.0 22-29 Above complet 013 mmol/L high ed 14:13 normal Calcium 9.1 8.5-10. Normal complet 013 mg/dL 1 ed 14:13 Total 7.0 6.4-8.2 Normal complet Protein 013 gm/dL ed 14:13 Albumin 3.2 3.4-5.0 Below complet 013 gm/dL low ed 14:13 normal Alk 89 U/L 50-136 Normal complet Phos 013 ed 14:13 ALT 23 U/L 30-65 Below complet 013 low ed 14:13 normal AST 15 U/L 15-37 Normal complet 013 ed 14:13 Bilirub 0.29 0.20-1. Normal complet in, 013 mg/dL 00 ed Total 14:13 BUN/Cre 15.5 6.0-20. Normal complet at 013 0 ed Ratio 14:13 A/G 0.9 1.0-2.0 Below complet Ratio 013 low ed 14:13 normal Anion 14.6 10.0-20 Normal complet Gap 013 mEq/L .0 ed 14:13 GLOMERU 56 complet LAR 013 mL/min/ ed FILTRAT 14:13 1.73 m2 ION RATE Comment: eGFR Interpretation: Disease State Reference Ranges for eGFR Comment: (calculated) Comment: Stage eGFR Description Comment: I/II >60 Normal/Mildly reduced kidney function Comment: III 30-59 Moderately reduced kidney function Comment: IV 15-29 Severely reduced kidney function Comment: V <15 End-stage kidney failure Comment: Calculated using MDRD formula based on gender,race (* GFR AA is for the Comment: population), and age. GFR estimates are unreliable in Comment: patients with rapidly changing kidney function,recent dialysis, extremes Comment: in body size, severe malnutrition or obesity, loss of limbs, abnormal Comment: muscle mass, or during . In these patients, alternative Comment: determinations of GFR should be obtained. GLOMERU >60.0 complet LAR 013 mL/min/ ed FILTRAT 14:13 1.73 m2 ION RATE Steffi n BASIC METABOLIC PANEL (03-24-2013 05:35) BUN/Cre 23.1 6.0-20. Above complet at 013 0 high ed Ratio 05:35 normal Anion 12.0 10.0-20 Normal complet Gap 013 mEq/L .0 ed 05:35 Creatin 1.3 0.6-1.3 Normal complet ine 013 mg/dL ed 05:35 GLOMERU 46 complet LAR 013 mL/min/ ed FILTRAT 05:35 1.73 m2 ION RATE Comment: eGFR Interpretation: Disease State Reference Ranges for eGFR Comment: (calculated) Comment: Stage eGFR Description Comment: I/II >60 Normal/Mildly reduced kidney function Comment: III 30-59 Moderately reduced kidney function Comment: IV 15-29 Severely reduced kidney function Comment: V <15 End-stage kidney failure Comment: Calculated using MDRD formula based on gender,race (* GFR AA is for the Comment: population), and age. GFR estimates are unreliable in Comment: patients with rapidly changing kidney function,recent dialysis, extremes Comment: in body size, severe malnutrition or obesity, loss of limbs, abnormal Comment: muscle mass, or during . In these patients, alternative Comment: determinations of GFR should be obtained. GLOMERU 56 complet LAR 013 mL/min/ ed FILTRAT 05:35 1.73 m2 ION RATE Steffi n Glucose 171 70-99 Above complet 013 mg/dL high ed 05:35 normal BUN 03-24-2 30 7-18 Above complet 013 mg/dL high ed 05:35 normal Sodium 03-24-2 137 136-145 Normal complet 013 mEq/L ed 05:35 Potassi 03-24-2 4.9 3.5-5.1 Normal complet um 013 mEq/L ed 05:35 Chlorid 104 98-107 Normal complet e 013 mEq/L ed 05:35 CO2 03-24-2 25.9 22-29 Normal complet 013 mmol/L ed 05:35 Calcium 8.4 8.5-10. Below complet 013 mg/dL 1 low ed 05:35 normal CBC W/DIFF (03-24-2013 05:35) MCH 03-24-2 28.1 pg 27.0-32 Normal complet 013 .0 ed 05:35 MCHC 03-24- 32.7 32.0-36 Normal complet 013 gm/dL .0 ed 05:35 MCV 85.9 fl 80.0-10 Normal complet 013 0.0 ed 05:35 RDW 03-24-2 18.3 % 12.0-15 Above complet 013 .0 high ed 05:35 normal MPV 03-24-2 8.6 fl 6.6-9.3 Normal complet 013 ed 05:35 Neutrop 03-24-2 93.8 % 50.0-70 Above complet hils % 013 .0 high ed 05:35 normal Lymphoc 03-24-2 2.2 % 20.0-35 Below complet ytes % 013 .0 low ed 05:35 normal Monocyt 20-2 4.0 % 0.0-13. Normal complet es % 013 0 ed 05:35 Eosinop -20-2 0.0 % 0.0-4.0 Normal complet hils % 013 ed 05:35 Basophi 20-2 0.0 % 0.0-2.0 Normal complet ls % 013 ed 05:35 Neutrop 20-2 8.7 X 1.5-7.1 Above complet hil 013 10 high ed Count 05:35 normal Monocyt 20-2 0.4 X 0.2-1.2 Normal complet e Count 013 10 ed 05:35 RBC 09-20-2 3.32 X 4.20-5. Below complet 013 10 40 low ed 05:35 normal Hemoglo 09-20-2 9.3 12.0-15 Below complet bin 013 gm/dL .0 low ed 05:35 normal Hematoc 09-20-2 28.5 % 36.0-47 Below complet rit 013 .0 low ed 05:35 normal Eosinop 09-20-2 0.0 X 0.0-0.8 Normal complet hil 013 10 ed Count 05:35 Basophi 09-20-2 0.0 X 0.0-0.1 Normal complet l Count 013 10 ed 05:35 Lymphoc 09-20-2 0.2 X 0.7-4.3 Below complet yte 013 10 low ed Count 05:35 normal WBC 09-20-2 9.3 X 3.5-9.6 Normal complet 013 10 ed 05:35 Platele 09-20-2 238 X 140-450 Normal complet t 013 10 ed 05:35 CBC W/DIFF (03-23-2013 05:35) Lymphoc 09-19-2 1.0 % 20.0-35 Below complet ytes % 013 .0 low ed 05:35 normal Monocyt 09-19-2 2.4 % 0.0-13. Normal complet es % 013 0 ed 05:35 Eosinop 09-19-2 0.0 % 0.0-4.0 Normal complet hils % 013 ed 05:35 Basophi 09-19-2 0.0 % 0.0-2.0 Normal complet ls % 013 ed 05:35 Neutrop 09-19-2 11.3 X 1.5-7.1 Above complet hil 013 10 high ed Count 05:35 normal Monocyt 09-19-2 0.3 X 0.2-1.2 Normal complet e Count 013 10 ed 05:35 Eosinop 09-19-2 0.0 X 0.0-0.8 Normal complet hil 013 10 ed Count 05:35 Basophi 09-19-2 0.0 X 0.0-0.1 Normal complet l Count 013 10 ed 05:35 Lymphoc 09-19-2 0.1 X 0.7-4.3 Below complet yte 013 10 low ed Count 05:35 normal WBC 09-19-2 11.7 X 3.5-9.6 Above complet 013 10 high ed 05:35 normal RBC 19-2 3.49 X 4.20-5. Below complet 013 10 40 low ed 05:35 normal Hemoglo -19-2 9.6 12.0-15 Below complet bin 013 gm/dL .0 low ed 05:35 normal Comment: CK X 2...CALLED TO CARRIE Hematoc 03-23-2 29.9 % 36.0-47 Below complet rit 013 .0 low ed 05:35 normal Platele 19-2 251 X 140-450 Normal complet t 013 10 ed 05:35 MCH 19-2 27.5 pg 27.0-32 Normal complet 013 .0 ed 05:35 MCHC 19-2 32.1 32.0-36 Normal complet 013 gm/dL .0 ed 05:35 MCV 19-2 85.8 fl 80.0-10 Normal complet 013 0.0 ed 05:35 RDW 03-23-2 18.4 % 12.0-15 Above complet 013 .0 high ed 05:35 normal MPV 03-23-2 8.8 fl 6.6-9.3 Normal complet 013 ed 05:35 Neutrop 19-2 96.6 % 50.0-70 Above complet hils % 013 .0 high ed 05:35 normal BASIC METABOLIC PANEL (03-22-2013 06:25) Glucose 18-2 166 70-99 Above complet 013 mg/dL high ed 06:25 normal BUN 18-2 48 7-18 Above complet 013 mg/dL high ed 06:25 normal Creatin 18-2 2.4 0.6-1.3 Above complet ine 013 mg/dL high ed 06:25 normal Sodium 18-2 136 136-145 Normal complet 013 mEq/L ed 06:25 Potassi 18-2 5.0 3.5-5.1 Normal complet um 013 mEq/L ed 06:25 Chlorid 18-2 99 98-107 Normal complet e 013 mEq/L ed 06:25 CO2 -18-2 29.4 22-29 Above complet 013 mmol/L high ed 06:25 normal Calcium 18-2 8.7 8.5-10. Normal complet 013 mg/dL 1 ed 06:25 BUN/Cre 20.0 6.0-20. Normal complet at 013 0 ed Ratio 06:25 Anion 12.4 10.0-20 Normal complet Gap 013 mEq/L .0 ed 06:25 GLOMERU 23 complet LAR 013 mL/min/ ed FILTRAT 06:25 1.73 m2 ION RATE Comment: eGFR Interpretation: Disease State Reference Ranges for eGFR Comment: (calculated) Comment: Stage eGFR Description Comment: I/II >60 Normal/Mildly reduced kidney function Comment: III 30-59 Moderately reduced kidney function Comment: IV 15-29 Severely reduced kidney function Comment: V <15 End-stage kidney failure Comment: Calculated using MDRD formula based on gender,race (* GFR AA is for the Comment: population), and age. GFR estimates are unreliable in Comment: patients with rapidly changing kidney function,recent dialysis, extremes Comment: in body size, severe malnutrition or obesity, loss of limbs, abnormal Comment: muscle mass, or during . In these patients, alternative Comment: determinations of GFR should be obtained. GLOMERU 28 complet LAR 013 mL/min/ ed FILTRAT 06:25 1.73 m2 ION RATE Steffi n CULTURE, STOOL (03-21-2013 10:30) [facility] Collect complet l 013 ed: ed Report 10:30 013 10:30 [facility] Status: complet l 013 Final ed Report 10:30 Last Updated : 013 02:59 [facility] CUL RES complet l 013 ed Report 10:30 (Final) [facility] Light complet l 013 Normal ed Report 10:30 Fecal Tessa Noted [facility] Negativ complet l 013 e for ed Report 10:30 presenc e of Shiga toxin 1 [facility] Negativ complet l 013 e for ed Report 10:30 the presenc e of Shiga toxin 2 [facility] Negativ complet l 013 e For ed Report 10:30 Salmone lla, Shigell a, Campylo bacter \E\T\E\ Yersini a [facility] Specime complet l 013 n: ed Report 10:30 STOOL CULTURE, BLOOD (03-20-2013 12:45) [facility] No complet l 013 Growth ed Report 12:45 After 48 Hours [facility] No complet l 013 Growth ed Report 12:45 After 3 Days [facility] No complet l 013 Growth ed Report 12:45 After 4 Days [facility] No complet l 013 Growth ed Report 12:45 After 5 Days [facility] Specime complet l 013 n: ed Report 12:45 [facility] ed: ed Report 12:45 013 12:45 [facility] Status: complet l 013 Final ed Report 12:45 Last Updated : 013 08:25 [facility] CUL RES complet l 013 ed Report 12:45 (Final) [facility] 013 In ed Report 12:45 [facility]gres [facility] No complet l 013 Growth ed Report 12:45 After 24 Hours CBC W/DIFF (03-20-2013 12:40) Neutrop 84.7 % 50.0-70 Above complet hils % 013 .0 high ed 12:40 normal Lymphoc --2 5.6 % 20.0-35 Below complet ytes % 013 .0 low ed 12:40 normal Monocyt --2 6.6 % 0.0-13. Normal complet es % 013 0 ed 12:40 Eosinop -16-2 2.7 % 0.0-4.0 Normal complet hils % 013 ed 12:40 Basophi 03-20-2 0.4 % 0.0-2.0 Normal complet ls % 013 ed 12:40 Neutrop -16-2 12.1 X 1.5-7.1 Above complet hil 013 10 high ed Count 12:40 normal Monocyt -16-2 0.9 X 0.2-1.2 Normal complet e Count 013 10 ed 12:40 Eosinop -16-2 0.4 X 0.0-0.8 Normal complet hil 013 10 ed Count 12:40 Basophi -16-2 0.1 X 0.0-0.1 Normal complet l Count 013 10 ed 12:40 Lymphoc -16-2 0.8 X 0.7-4.3 Normal complet yte 013 10 ed Count 12:40 WBC -16-2 14.3 X 3.5-9.6 Above complet 013 10 high ed 12:40 normal RBC -16-2 5.22 X 4.20-5. Normal complet 013 10 40 ed 12:40 Hemoglo -16-2 14.4 12.0-15 Normal complet bin 013 gm/dL .0 ed 12:40 Hematoc -16-2 44.1 % 36.0-47 Normal complet rit 013 .0 ed 12:40 Platele -16-2 410 X 140-450 Normal complet t 013 10 ed 12:40 MCH -16-2 27.7 pg 27.0-32 Normal complet 013 .0 ed 12:40 MCHC -16-2 32.7 32.0-36 Normal complet 013 gm/dL .0 ed 12:40 MCV -16-2 84.5 fl 80.0-10 Normal complet 013 0.0 ed 12:40 RDW -16-2 18.7 % 12.0-15 Above complet 013 .0 high ed 12:40 normal MPV -16-2 8.1 fl 6.6-9.3 Normal complet 013 ed 12:40 COMPREHENSIVE METABOLIC PANEL (03-20-2013 12:40) Chlorid -16-2 97 98-107 Below complet e 013 mEq/L low ed 12:40 normal Sodium -16-2 137 136-145 Normal complet 013 mEq/L ed 12:40 Potassi -16-2 4.0 3.5-5.1 Normal complet um 013 mEq/L ed 12:40 Total -16-2 8.1 6.4-8.2 Normal complet Protein 013 gm/dL ed 12:40 Albumin -16-2 4.0 3.4-5.0 Normal complet 013 gm/dL ed 12:40 Alk -16-2 88 U/L 50-136 Normal complet Phos 013 ed 12:40 ALT -16-2 20 U/L 30-65 Below complet 013 low ed 12:40 normal AST -16-2 15 U/L 15-37 Normal complet 013 ed 12:40 Bilirub -16-2 0.46 0.20-1. Normal complet in, 013 mg/dL 00 ed Total 12:40 BUN/Cre 14.1 6.0-20. Normal complet at 013 0 ed Ratio 12:40 A/G 1.0 1.0-2.0 Normal complet Ratio 013 ed 12:40 Anion 13.8 10.0-20 Normal complet Gap 013 mEq/L .0 ed 12:40 GLOMERU 34 complet LAR 013 mL/min/ ed FILTRAT 12:40 1.73 m2 ION RATE Comment: eGFR Interpretation: Disease State Reference Ranges for eGFR Comment: (calculated) Comment: Stage eGFR Description Comment: I/II >60 Normal/Mildly reduced kidney function Comment: III 30-59 Moderately reduced kidney function Comment: IV 15-29 Severely reduced kidney function Comment: V <15 End-stage kidney failure Comment: Calculated using MDRD formula based on gender,race (* GFR AA is for the Comment: population), and age. GFR estimates are unreliable in Comment: patients with rapidly changing kidney function,recent dialysis, extremes Comment: in body size, severe malnutrition or obesity, loss of limbs, abnormal Comment: muscle mass, or during . In these patients, alternative Comment: determinations of GFR should be obtained. GLOMERU 41 complet LAR 013 mL/min/ ed FILTRAT 12:40 1.73 m2 ION RATE Steffi n Glucose 145 70-99 Above complet 013 mg/dL high ed 12:40 normal BUN 24 7-18 Above complet 013 mg/dL high ed 12:40 normal CO2 30.0 22-29 Above complet 013 mmol/L high ed 12:40 normal Calcium 10.3 8.5-10. Above complet 013 mg/dL 1 high ed 12:40 normal Creatin 2 1.7 0.6-1.3 Above complet ine 013 mg/dL high ed 12:40 normal TROPONIN I,KAYLA (IN HOUSE) (03-20-2013 12:40) Troponi 2 <0.04 0.00-0. Normal complet n I 013 ng/mL 10 ed 12:40 Comment: Troponin I Reference Values Comment: 0.0 - 0.1 Negative Comment: 0.11 - 1.50 [place] Comment: >1.50 Indicative of AMI Comment: TROPONIN IS BELOW ASSAY RANGE CKMB (03-20-2013 12:40) CK 43 U/L 26-192 Normal complet 013 ed 12:40 MMB 1.00 0.00-5. Normal complet 013 ng/mL 00 ed 12:40 CKMB% CKMB% 0.0-4.0 Normal complet 013 NOT ed 12:40 INDICAT ED % CULTURE, BLOOD (03-20-2013 12:40) [facility] Specime complet l 013 n: ed Report 12:40 BLOOD [facility] Status: complet l 013 Final ed Report 12:40 Last Updated : 013 08:25 [facility] CUL RES complet l 013 ed Report 12:40 (Final) [facility] Culture complet l 013 In ed Report 12:40 Progres s [facility] No complet l 013 Growth ed Report 12:40 After 24 Hours [facility] No complet l 013 Growth ed Report 12:40 After 48 Hours [facility] No complet l 013 Growth ed Report 12:40 After 3 Days [facility] No complet l 013 Growth ed Report 12:40 After 4 Days [facility] No complet l 013 Growth ed Report 12:40 After 5 Days [facility] Collect complet l 013 ed: ed Report 12:40 013 12:40 UA DIPSTICK, REFLEX TO MICRO (03-02-2013 11:54) Comment: Urine microscopic has been added Urobili 1+ 0-1 Normal complet nogen 013 mg/dL ed 11:54 Bilirub 1+ NEGATIV Abnorma complet in 013 E l ed 11:54 Blood NEGATIV NEGATIV Normal complet 013 E E ed 11:54 Ketones 1+ NEGATIV Abnorma complet 013 E l ed 11:54 Color YELLOW YELLOW, Normal complet 013 STRAW,C ed 11:54 OLORLES S,PALE YELLOW Appeara TURBID CLEAR Abnorma complet nce 013 l ed 11:54 Specifi 08-29-2 1.020 1.016-1 Normal complet c 013 .022 ed [place] 11:54 PH 03-02-2 5.0 5.0-7.0 Normal complet 013 ed 11:54 Leukocy 29-2 2+ NEGATIV Abnorma complet te 013 E l ed 11:54 Nitrite 08-29-2 NEGATIV NEGATIV Normal complet 013 E E ed 11:54 UA -29-2 1+ NEGATIV Abnorma complet Protein 013 E l ed 11:54 Glucose 29-2 NEGATIV NEGATIV Normal complet 013 E E ed 11:54 MICROSCOPIC EXAM OF URINE (03-02-2013 11:54) UA RBC 03-02-2 2-5 0-2,RAR Abnorma complet 013 E,Occ,N l ed 11:54 ONE SEEN Bacteri 03-02-2 3+ NONE Abnorma complet a 013 SEEN l ed 11:54 Epithel --2 20-50 NONE Abnorma complet ial 013 SQU[place]OU SEEN l ed Cells 11:54 S EPITHEL IAL CELLS Mucus 03-02-2 3+ NONE Abnorma complet 013 SEEN l ed 11:54 CBC W/DIFF (03-02-2013 11:48) Lymphoc -29-2 15.1 % 20.0-35 Below complet ytes % 013 .0 low ed 11:48 normal Monocyt --2 10.9 % 0.0-13. Normal complet es % 013 0 ed 11:48 Eosinop 08-29-2 0.8 % 0.0-4.0 Normal complet hils % 013 ed 11:48 Basophi -29-2 1.0 % 0.0-2.0 Normal complet ls % 013 ed 11:48 Neutrop 08-29-2 6.4 X 1.5-7.1 Normal complet hil 013 10 ed Count 11:48 Monocyt 08-29-2 1.0 X 0.2-1.2 Normal complet e Count 013 10 ed 11:48 Eosinop 08-29-2 0.1 X 0.0-0.8 Normal complet hil 013 10 ed Count 11:48 Basophi 08-29-2 0.1 X 0.0-0.1 Normal complet l Count 013 10 ed 11:48 Lymphoc 08-29-2 1.3 X 0.7-4.3 Normal complet yte 013 10 ed Count 11:48 WBC 2 8.9 X 3.5-9.6 Normal complet 013 10 ed 11:48 RBC 2 4.94 X 4.20-5. Normal complet 013 10 40 ed 11:48 Hemoglo 2 13.8 12.0-15 Normal complet bin 013 gm/dL .0 ed 11:48 Hematoc 2 42.3 % 36.0-47 Normal complet rit 013 .0 ed 11:48 Platele 2 412 X 140-450 Normal complet t 013 10 ed 11:48 MCH 2 27.9 pg 27.0-32 Normal complet 013 .0 ed 11:48 MCHC 32.5 32.0-36 Normal complet 013 gm/dL .0 ed 11:48 MCV 85.7 fl 80.0-10 Normal complet 013 0.0 ed 11:48 RDW 18.1 % 12.0-15 Above complet 013 .0 high ed 11:48 normal MPV 8.4 fl 6.6-9.3 Normal complet 013 ed 11:48 Neutrop 72.2 % 50.0-70 Above complet hils % 013 .0 high ed 11:48 normal AMYLASE,SERUM (03-02-2013 11:48) Amylase 35 U/L 25-115 Normal complet 013 ed 11:48 COMPREHENSIVE METABOLIC PANEL (03-02-2013 11:48) Glucose 124 70-99 Above complet 013 mg/dL high ed 11:48 normal BUN 31 7-18 Above complet 013 mg/dL high ed 11:48 normal Creatin 2 2.6 0.6-1.3 Above complet ine 013 mg/dL high ed 11:48 normal Sodium 135 136-145 Below complet 013 mEq/L low ed 11:48 normal Potassi 4.1 3.5-5.1 Normal complet um 013 mEq/L ed 11:48 Chlorid 96 98-107 Below complet e 013 mEq/L low ed 11:48 normal CO2 30.2 22-29 Above complet 013 mmol/L high ed 11:48 normal Calcium 9.8 8.5-10. Normal complet 013 mg/dL 1 ed 11:48 Total 7.9 6.4-8.2 Normal complet Protein 013 gm/dL ed 11:48 Albumin 4.0 3.4-5.0 Normal complet 013 gm/dL ed 11:48 Alk 92 U/L 50-136 Normal complet Phos 013 ed 11:48 ALT 18 U/L 30-65 Below complet 013 low ed 11:48 normal AST 18 U/L 15-37 Normal complet 013 ed 11:48 Bilirub 0.40 0.20-1. Normal complet in, 013 mg/dL 00 ed Total 11:48 BUN/Cre 11.9 6.0-20. Normal complet at 013 0 ed Ratio 11:48 A/G 1.0 1.0-2.0 Normal complet Ratio 013 ed 11:48 Anion 12.9 10.0-20 Normal complet Gap 013 mEq/L .0 ed 11:48 GLOMERU 21 complet LAR 013 mL/min/ ed FILTRAT 11:48 1.73 m2 ION RATE Comment: eGFR Interpretation: Disease State Reference Ranges for eGFR Comment: (calculated) Comment: Stage eGFR Description Comment: I/II >60 Normal/Mildly reduced kidney function Comment: III 30-59 Moderately reduced kidney function Comment: IV 15-29 Severely reduced kidney function Comment: V <15 End-stage kidney failure Comment: Calculated using MDRD formula based on gender,race (* GFR AA is for the Comment: population), and age. GFR estimates are unreliable in Comment: patients with rapidly changing kidney function,recent dialysis, extremes Comment: in body size, severe malnutrition or obesity, loss of limbs, abnormal Comment: muscle mass, or during . In these patients, alternative Comment: determinations of GFR should be obtained. GLOMERU 25 complet LAR 013 mL/min/ ed FILTRAT 11:48 1.73 m2 ION RATE Steffi n LIPASE (03-02-2013 11:48) Lipase 08-29-2 150 U/L 114-286 Normal complet 013 ed 11:48 CBC W/DIFF (02-02-2013 06:20) Neutrop 08-01-2 7.1 X 1.5-7.1 Normal complet hil 013 10 ed Count 06:20 Monocyt 08-2 0.2 X 0.2-1.2 Normal complet e Count 013 10 ed 06:20 Eosinop 08--2 0.0 X 0.0-0.8 Normal complet hil 013 10 ed Count 06:20 Basophi 02-02-2 0.0 X 0.0-0.1 Normal complet l Count 013 10 ed 06:20 Lymphoc 02-02-2 0.3 X 0.7-4.3 Below complet yte 013 10 low ed Count 06:20 normal WBC 02-02-2 7.6 X 3.5-9.6 Normal complet 013 10 ed 06:20 RBC 02-02-2 3.79 X 4.20-5. Below complet 013 10 40 low ed 06:20 normal Hemoglo 02-02-2 10.4 12.0-15 Below complet bin 013 gm/dL .0 low ed 06:20 normal Hematoc 02-02-2 32.2 % 36.0-47 Below complet rit 013 .0 low ed 06:20 normal Platele 02-02-2 282 X 140-450 Normal complet t 013 10 ed 06:20 MCH 02-02-2 27.6 pg 27.0-32 Normal complet 013 .0 ed 06:20 MCHC 02-02-2 32.4 32.0-36 Normal complet 013 gm/dL .0 ed 06:20 MCV 02-02-2 85.1 fl 80.0-10 Normal complet 013 0.0 ed 06:20 RDW 02-02-2 19.1 % 12.0-15 Above complet 013 .0 high ed 06:20 normal MPV 02-02-2 8.4 fl 6.6-9.3 Normal complet 013 ed 06:20 Neutrop 01-2 92.9 % 50.0-70 Above complet hils % 013 .0 high ed 06:20 normal Lymphoc 02-02-2 4.0 % 20.0-35 Below complet ytes % 013 .0 low ed 06:20 normal Monocyt 02-02-2 3.0 % 0.0-13. Normal complet es % 013 0 ed 06:20 Eosinop 02-02-2 0.0 % 0.0-4.0 Normal complet hils % 013 ed 06:20 Basophi 02-02-2 0.1 % 0.0-2.0 Normal complet ls % 013 ed 06:20 BASIC METABOLIC PANEL (02-02-2013 06:20) Glucose 02-02- 151 70-99 Above complet 013 mg/dL high ed 06:20 normal BUN 2 15 7-18 Normal complet 013 mg/dL ed 06:20 Creatin 2 1.0 0.6-1.3 Normal complet ine 013 mg/dL ed 06:20 Sodium 2 137 136-145 Normal complet 013 mEq/L ed 06:20 Potassi 4.1 3.5-5.1 Normal complet um 013 mEq/L ed 06:20 Chlorid 104 98-107 Normal complet e 013 mEq/L ed 06:20 CO2 30.3 22-29 Above complet 013 mmol/L high ed 06:20 normal Calcium 8.0 8.5-10. Below complet 013 mg/dL 1 low ed 06:20 normal BUN/Cre 15.0 6.0-20. Normal complet at 013 0 ed Ratio 06:20 Anion 2 7.2 10.0-20 Below complet Gap 013 mEq/L .0 low ed 06:20 normal GLOMERU 2 >60.0 complet LAR 013 mL/min/ ed FILTRAT 06:20 1.73 m2 ION RATE Comment: eGFR Interpretation: Disease State Reference Ranges for eGFR Comment: (calculated) Comment: Stage eGFR Description Comment: I/II >60 Normal/Mildly reduced kidney function Comment: III 30-59 Moderately reduced kidney function Comment: IV 15-29 Severely reduced kidney function Comment: V <15 End-stage kidney failure Comment: Calculated using MDRD formula based on gender,race (* GFR AA is for the Comment: population), and age. GFR estimates are unreliable in Comment: patients with rapidly changing kidney function,recent dialysis, extremes Comment: in body size, severe malnutrition or obesity, loss of limbs, abnormal Comment: muscle mass, or during . In these patients, alternative Comment: determinations of GFR should be obtained. GLOMERU 01-2 >60.0 complet LAR 013 mL/min/ ed FILTRAT 06:20 1.73 m2 ION RATE Steffi n CBC W/DIFF (02-01-2013 06:10) WBC 02-01-2 7.3 X 3.5-9.6 Normal complet 013 10 ed 06:10 RBC 02-01-2 3.89 X 4.20-5. Below complet 013 10 40 low ed 06:10 normal Hemoglo 02-01-2 10.7 12.0-15 Below complet bin 013 gm/dL .0 low ed 06:10 normal Hematoc 02-01-2 33.1 % 36.0-47 Below complet rit 013 .0 low ed 06:10 normal Platele 02-01-2 293 X 140-450 Normal complet t 013 10 ed 06:10 MCH 02-01-2 27.5 pg 27.0-32 Normal complet 013 .0 ed 06:10 MCHC 02-01-2 32.3 32.0-36 Normal complet 013 gm/dL .0 ed 06:10 MCV 02-01-2 85.2 fl 80.0-10 Normal complet 013 0.0 ed 06:10 RDW 02-01-2 18.9 % 12.0-15 Above complet 013 .0 high ed 06:10 normal MPV 02-01-2 8.5 fl 6.6-9.3 Normal complet 013 ed 06:10 Neutrop 02-01-2 90.8 % 50.0-70 Above complet hils % 013 .0 high ed 06:10 normal Lymphoc 02-01-2 4.6 % 20.0-35 Below complet ytes % 013 .0 low ed 06:10 normal Monocyt 31-2 4.5 % 0.0-13. Normal complet es % 013 0 ed 06:10 Eosinop 31-2 0.1 % 0.0-4.0 Normal complet hils % 013 ed 06:10 Basophi 31-2 0.0 % 0.0-2.0 Normal complet ls % 013 ed 06:10 Neutrop 31-2 6.6 X 1.5-7.1 Normal complet hil 013 10 ed Count 06:10 Monocyt 31-2 0.3 X 0.2-1.2 Normal complet e Count 013 10 ed 06:10 Eosinop -31-2 0.0 X 0.0-0.8 Normal complet hil 013 10 ed Count 06:10 Basophi 02-01-2 0.0 X 0.0-0.1 Normal complet l Count 013 10 ed 06:10 Lymphoc 31-2 0.3 X 0.7-4.3 Below complet yte 013 10 low ed Count 06:10 normal BASIC METABOLIC PANEL (02-01-2013 06:10) Glucose 02-01-2 137 70-99 Above complet 013 mg/dL high ed 06:10 normal BUN 02-01-2 21 7-18 Above complet 013 mg/dL high ed 06:10 normal Creatin 02-01-2 1.2 0.6-1.3 Normal complet ine 013 mg/dL ed 06:10 Sodium 02-01-2 141 136-145 Normal complet 013 mEq/L ed 06:10 Potassi 02-01-2 4.2 3.5-5.1 Normal complet um 013 mEq/L ed 06:10 Chlorid 02-01-2 104 98-107 Normal complet e 013 mEq/L ed 06:10 CO2 02-01-2 32.6 22-29 Above complet 013 mmol/L high ed 06:10 normal Calcium 02-01-2 8.1 8.5-10. Below complet 013 mg/dL 1 low ed 06:10 normal BUN/Cre 02-01-2 17.5 6.0-20. Normal complet at 013 0 ed Ratio 06:10 Anion 02-01-2 8.7 10.0-20 Below complet Gap 013 mEq/L .0 low ed 06:10 normal GLOMERU 02-01-2 51 complet LAR 013 mL/min/ ed FILTRAT 06:10 1.73 m2 ION RATE Comment: eGFR Interpretation: Disease State Reference Ranges for eGFR Comment: (calculated) Comment: Stage eGFR Description Comment: I/II >60 Normal/Mildly reduced kidney function Comment: III 30-59 Moderately reduced kidney function Comment: IV 15-29 Severely reduced kidney function Comment: V <15 End-stage kidney failure Comment: Calculated using MDRD formula based on gender,race (* GFR AA is for the Comment: population), and age. GFR estimates are unreliable in Comment: patients with rapidly changing kidney function,recent dialysis, extremes Comment: in body size, severe malnutrition or obesity, loss of limbs, abnormal Comment: muscle mass, or during . In these patients, alternative Comment: determinations of GFR should be obtained. GLOMERU 31-2 >60.0 complet LAR 013 mL/min/ ed FILTRAT 06:10 1.73 m2 ION RATE Steffi n OCCULT BLOOD,GASTRIC (01-31-2013 19:39) PH 30-2 2 complet GASTROO 013 ed CCULT 19:39 Gastric 30-2 POSITIV NEGATIV Abnorma complet Blood 013 E E l ed 19:39 CBC W/DIFF (01-31-2013 05:55) Lymphoc 07-30-2 3.8 % 20.0-35 Below complet ytes % 013 .0 low ed 05:55 normal Eosinop 07-30-2 0.0 % 0.0-4.0 Normal complet hils % 013 ed 05:55 Basophi 07-30-2 0.0 % 0.0-2.0 Normal complet ls % 013 ed 05:55 Neutrop 07-30-2 7.7 X 1.5-7.1 Above complet hil 013 10 high ed Count 05:55 normal Monocyt 07-30-2 0.4 X 0.2-1.2 Normal complet e Count 013 10 ed 05:55 Eosinop 07-30-2 0.0 X 0.0-0.8 Normal complet hil 013 10 ed Count 05:55 Basophi 07-30-2 0.0 X 0.0-0.1 Normal complet l Count 013 10 ed 05:55 Monocyt 07-30-2 5.2 % 0.0-13. Normal complet es % 013 0 ed 05:55 Lymphoc 07-30-2 0.3 X 0.7-4.3 Below complet yte 013 10 low ed Count 05:55 normal WBC 07-30-2 8.5 X 3.5-9.6 Normal complet 013 10 ed 05:55 RBC 07-30-2 4.09 X 4.20-5. Below complet 013 10 40 low ed 05:55 normal Hemoglo 07-30-2 11.0 12.0-15 Below complet bin 013 gm/dL .0 low ed 05:55 normal Hematoc 07-30-2 34.6 % 36.0-47 Below complet rit 013 .0 low ed 05:55 normal Platele 07-30-2 314 X 140-450 Normal complet t 013 10 ed 05:55 MCH 07-30-2 27.0 pg 27.0-32 Normal complet 013 .0 ed 05:55 MCHC 07-30-2 31.9 32.0-36 Below complet 013 gm/dL .0 low ed 05:55 normal MCV -30-2 84.6 fl 80.0-10 Normal complet 013 0.0 ed 05:55 RDW 30-2 19.0 % 12.0-15 Above complet 013 .0 high ed 05:55 normal MPV 30-2 8.5 fl 6.6-9.3 Normal complet 013 ed 05:55 Neutrop 07-30-2 91.0 % 50.0-70 Above complet hils % 013 .0 high ed 05:55 normal BASIC METABOLIC PANEL (01-31-2013 05:55) Glucose -30-2 133 70-99 Above complet 013 mg/dL high ed 05:55 normal BUN 30-2 25 7-18 Above complet 013 mg/dL high ed 05:55 normal Creatin -30-2 1.2 0.6-1.3 Normal complet ine 013 mg/dL ed 05:55 Sodium 30-2 138 136-145 Normal complet 013 mEq/L ed 05:55 Potassi -30-2 4.4 3.5-5.1 Normal complet um 013 mEq/L ed 05:55 Chlorid 30-2 102 98-107 Normal complet e 013 mEq/L ed 05:55 CO2 30-2 33.5 22-29 Above complet 013 mmol/L high ed 05:55 normal Calcium 30-2 8.4 8.5-10. Below complet 013 mg/dL 1 low ed 05:55 normal BUN/Cre -30-2 20.8 6.0-20. Above complet at 013 0 high ed Ratio 05:55 normal Anion -30-2 6.6 10.0-20 Below complet Gap 013 mEq/L .0 low ed 05:55 normal GLOMERU 07-30-2 51 complet LAR 013 mL/min/ ed FILTRAT 05:55 1.73 m2 ION RATE Comment: eGFR Interpretation: Disease State Reference Ranges for eGFR Comment: (calculated) Comment: Stage eGFR Description Comment: I/II >60 Normal/Mildly reduced kidney function Comment: III 30-59 Moderately reduced kidney function Comment: IV 15-29 Severely reduced kidney function Comment: V <15 End-stage kidney failure Comment: Calculated using MDRD formula based on gender,race (* GFR AA is for the Comment: population), and age. GFR estimates are unreliable in Comment: patients with rapidly changing kidney function,recent dialysis, extremes Comment: in body size, severe malnutrition or obesity, loss of limbs, abnormal Comment: muscle mass, or during . In these patients, alternative Comment: determinations of GFR should be obtained. GLOMERU 2 >60.0 complet LAR 013 mL/min/ ed FILTRAT 05:55 1.73 m2 ION RATE Steffi n CBC W/DIFF (01-30-2013 06:20) MCV 01-30- 85.4 fl 80.0-10 Normal complet 013 0.0 ed 06:20 RDW 19.5 % 12.0-15 Above complet 013 .0 high ed 06:20 normal MPV 2 8.5 fl 6.6-9.3 Normal complet 013 ed 06:20 Neutrop 01-30-2 93.0 % 50.0-70 Above complet hils % 013 .0 high ed 06:20 normal Lymphoc 01-30-2 2.5 % 20.0-35 Below complet ytes % 013 .0 low ed 06:20 normal Monocyt 01-30-2 4.5 % 0.0-13. Normal complet es % 013 0 ed 06:20 Eosinop 01-30-2 0.0 % 0.0-4.0 Normal complet hils % 013 ed 06:20 Basophi 01-30-2 0.0 % 0.0-2.0 Normal complet ls % 013 ed 06:20 Neutrop 01-30-2 12.8 X 1.5-7.1 Above complet hil 013 10 high ed Count 06:20 normal Monocyt --2 0.6 X 0.2-1.2 Normal complet e Count 013 10 ed 06:20 Eosinop -29-2 0.0 X 0.0-0.8 Normal complet hil 013 10 ed Count 06:20 Basophi 01-30-2 0.0 X 0.0-0.1 Normal complet l Count 013 10 ed 06:20 Lymphoc 01-30-2 0.3 X 0.7-4.3 Below complet yte 013 10 low ed Count 06:20 normal WBC 2 13.7 X 3.5-9.6 Above complet 013 10 high ed 06:20 normal RBC 2 4.20 X 4.20-5. Normal complet 013 10 40 ed 06:20 Hemoglo 01-30-2 11.4 12.0-15 Below complet bin 013 gm/dL .0 low ed 06:20 normal Hematoc 2 35.8 % 36.0-47 Below complet rit 013 .0 low ed 06:20 normal Platele 2 393 X 140-450 Normal complet t 013 10 ed 06:20 MCH 01-30-2 27.2 pg 27.0-32 Normal complet 013 .0 ed 06:20 MCHC 2 31.8 32.0-36 Below complet 013 gm/dL .0 low ed 06:20 normal BASIC METABOLIC PANEL (01-30-2013 06:20) Glucose 2 156 70-99 Above complet 013 mg/dL high ed 06:20 normal BUN 2 41 7-18 Above complet 013 mg/dL high ed 06:20 normal Creatin 01-30-2 1.8 0.6-1.3 Above complet ine 013 mg/dL high ed 06:20 normal Sodium 134 136-145 Below complet 013 mEq/L low ed 06:20 normal Potassi 2 4.7 3.5-5.1 Normal complet um 013 mEq/L ed 06:20 Chlorid 01-30-2 96 98-107 Below complet e 013 mEq/L low ed 06:20 normal CO2 2 30.1 22-29 Above complet 013 mmol/L high ed 06:20 normal Calcium 01-30-2 8.9 8.5-10. Normal complet 013 mg/dL 1 ed 06:20 BUN/Cre 2 22.8 6.0-20. Above complet at 013 0 high ed Ratio 06:20 normal Anion 2 12.3 10.0-20 Normal complet Gap 013 mEq/L .0 ed 06:20 GLOMERU 07-29-2 32 complet LAR 013 mL/min/ ed FILTRAT 06:20 1.73 m2 ION RATE Comment: eGFR Interpretation: Disease State Reference Ranges for eGFR Comment: (calculated) Comment: Stage eGFR Description Comment: I/II >60 Normal/Mildly reduced kidney function Comment: III 30-59 Moderately reduced kidney function Comment: IV 15-29 Severely reduced kidney function Comment: V <15 End-stage kidney failure Comment: Calculated using MDRD formula based on gender,race (* GFR AA is for the Comment: population), and age. GFR estimates are unreliable in Comment: patients with rapidly changing kidney function,recent dialysis, extremes Comment: in body size, severe malnutrition or obesity, loss of limbs, abnormal Comment: muscle mass, or during . In these patients, alternative Comment: determinations of GFR should be obtained. GLOMERU 38 complet LAR 013 mL/min/ ed FILTRAT 06:20 1.73 m2 ION RATE Steffi n CBC W/DIFF (01-29-2013 06:10) MCV 84.9 fl 80.0-10 Normal complet 013 0.0 ed 06:10 RDW 19.3 % 12.0-15 Above complet 013 .0 high ed 06:10 normal Hemoglo 11.1 12.0-15 Below complet bin 013 gm/dL .0 low ed 06:10 normal Hematoc 35.0 % 36.0-47 Below complet rit 013 .0 low ed 06:10 normal Platele 387 X 140-450 Normal complet t 013 10 ed 06:10 MCH 27.0 pg 27.0-32 Normal complet 013 .0 ed 06:10 MCHC 2 31.8 32.0-36 Below complet 013 gm/dL .0 low ed 06:10 normal MPV 8.6 fl 6.6-9.3 Normal complet 013 ed 06:10 Neutrop 2 96.2 % 50.0-70 Above complet hils % 013 .0 high ed 06:10 normal Lymphoc 1.5 % 20.0-35 Below complet ytes % 013 .0 low ed 06:10 normal Monocyt 2 2.3 % 0.0-13. Normal complet es % 013 0 ed 06:10 Eosinop 07-28-2 0.0 % 0.0-4.0 Normal complet hils % 013 ed 06:10 Basophi 07-28-2 0.0 % 0.0-2.0 Normal complet ls % 013 ed 06:10 Neutrop 07-28-2 15.0 X 1.5-7.1 Above complet hil 013 10 high ed Count 06:10 normal Monocyt 07-28-2 0.4 X 0.2-1.2 Normal complet e Count 013 10 ed 06:10 Eosinop 07-28-2 0.0 X 0.0-0.8 Normal complet hil 013 10 ed Count 06:10 Basophi 07-28-2 0.0 X 0.0-0.1 Normal complet l Count 013 10 ed 06:10 Lymphoc -28-2 0.2 X 0.7-4.3 Below complet yte 013 10 low ed Count 06:10 normal WBC 28-2 15.6 X 3.5-9.6 Above complet 013 10 high ed 06:10 normal RBC 01-29-2 4.12 X 4.20-5. Below complet 013 10 40 low ed 06:10 normal BASIC METABOLIC PANEL (01-29-2013 06:10) Glucose 01-29-2 161 70-99 Above complet 013 mg/dL high ed 06:10 normal BUN 01-29-2 49 7-18 Above complet 013 mg/dL high ed 06:10 normal Creatin 01-29-2 2.0 0.6-1.3 Above complet ine 013 mg/dL high ed 06:10 normal Sodium 01-29-2 132 136-145 Below complet 013 mEq/L low ed 06:10 normal Potassi 28-2 5.3 3.5-5.1 Above complet um 013 mEq/L high ed 06:10 normal Chlorid 28-2 95 98-107 Below complet e 013 mEq/L low ed 06:10 normal CO2 28-2 29.1 22-29 Above complet 013 mmol/L high ed 06:10 normal Calcium 28-2 9.5 8.5-10. Normal complet 013 mg/dL 1 ed 06:10 BUN/Cre 28-2 24.5 6.0-20. Above complet at 013 0 high ed Ratio 06:10 normal Anion 12.7 10.0-20 Normal complet Gap 013 mEq/L .0 ed 06:10 GLOMERU 01-29-2 28 complet LAR 013 mL/min/ ed FILTRAT 06:10 1.73 m2 ION RATE Comment: eGFR Interpretation: Disease State Reference Ranges for eGFR Comment: (calculated) Comment: Stage eGFR Description Comment: I/II >60 Normal/Mildly reduced kidney function Comment: III 30-59 Moderately reduced kidney function Comment: IV 15-29 Severely reduced kidney function Comment: V <15 End-stage kidney failure Comment: Calculated using MDRD formula based on gender,race (* GFR AA is for the Comment: population), and age. GFR estimates are unreliable in Comment: patients with rapidly changing kidney function,recent dialysis, extremes Comment: in body size, severe malnutrition or obesity, loss of limbs, abnormal Comment: muscle mass, or during . In these patients, alternative Comment: determinations of GFR should be obtained. GLOMERU 34 complet LAR 013 mL/min/ ed FILTRAT 06:10 1.73 m2 ION RATE Steffi n URINALYSIS W/MICRO (01-28-2013 14:30) Color YELLOW YELLOW, Normal complet 013 STRAW,C ed 14:30 OLORLES S,PALE YELLOW Appeara CLEAR CLEAR Normal complet nce 013 ed 14:30 Specifi 1.015 1.016-1 Below complet c 013 .022 low ed [place] 14:30 normal PH 5.0 5.0-7.0 Normal complet 013 ed 14:30 Leukocy NEGATIV NEGATIV Normal complet te 013 E E ed 14:30 Nitrite NEGATIV NEGATIV Normal complet 013 E E ed 14:30 UA NEGATIV NEGATIV Normal complet Protein 013 E E ed 14:30 Glucose NEGATIV NEGATIV Normal complet 013 E E ed 14:30 Ketones NEGATIV NEGATIV Normal complet 013 E E ed 14:30 Urobili norm 0-1 Normal complet nogen 013 mg/dL ed 14:30 Bilirub NEGATIV NEGATIV Normal complet in 013 E E ed 14:30 Blood NEGATIV NEGATIV Normal complet 013 E E ed 14:30 CULTURE, BLOOD (01-28-2013 13:52) [facility] No complet l 013 Growth ed Report 13:52 After 5 Days [facility] Specime complet l 013 n: ed Report 13:52 [facility] ed: ed Report 13:52 013 13:52 [facility] Status: complet l 013 Final ed Report 13:52 Last Updated : 013 19:36 [facility] CUL RES complet l 013 ed Report 13:52 (Final) [facility] No complet l 013 Growth ed Report 13:52 After 24 Hours [facility] No complet l 013 Growth ed Report 13:52 After 48 Hours [facility] No complet l 013 Growth ed Report 13:52 After 3 Days [facility] No complet l 013 Growth ed Report 13:52 After 4 Days CULTURE, BLOOD (01-28-2013 13:50) [facility] Status: complet l 013 Final ed Report 13:50 Last Updated : 013 19:36 [facility] CUL RES complet l 013 ed Report 13:50 (Final) [facility] No [facility] l 013 Growth ed Report 13:50 After 24 Hours [facility] No complet l 013 Growth ed Report 13:50 After 48 Hours [facility] No complet l 013 Growth ed Report 13:50 After 3 Days [facility] No complet l 013 Growth ed Report 13:50 After 4 Days [facility] No complet l 013 Growth ed Report 13:50 After 5 Days [facility] Specime complet l 013 n: ed Report 13:50 [facility]LO[facility] 013 ed: ed Report 13:50 013 13:50 BASIC METABOLIC PANEL (01-28-2013 06:45) Glucose 194 70-99 Above complet 013 mg/dL high ed 06:45 normal BUN 07-27-2 48 7-18 Above complet 013 mg/dL high ed 06:45 normal Creatin 2.1 0.6-1.3 Above complet ine 013 mg/dL high ed 06:45 normal Sodium 131 136-145 Below complet 013 mEq/L low ed 06:45 normal Potassi 5.0 3.5-5.1 Normal complet um 013 mEq/L ed 06:45 Chlorid 91 98-107 Below complet e 013 mEq/L low ed 06:45 normal CO2 28.9 22-29 Normal complet 013 mmol/L ed 06:45 Calcium 9.5 8.5-10. Normal complet 013 mg/dL 1 ed 06:45 BUN/Cre 22.9 6.0-20. Above complet at 013 0 high ed Ratio 06:45 normal Anion 16.3 10.0-20 Normal complet Gap 013 mEq/L .0 ed 06:45 GLOMERU 27 complet LAR 013 mL/min/ ed FILTRAT 06:45 1.73 m2 ION RATE Comment: eGFR Interpretation: Disease State Reference Ranges for eGFR Comment: (calculated) Comment: Stage eGFR Description Comment: I/II >60 Normal/Mildly reduced kidney function Comment: III 30-59 Moderately reduced kidney function Comment: IV 15-29 Severely reduced kidney function Comment: V <15 End-stage kidney failure Comment: Calculated using MDRD formula based on gender,race (* GFR AA is for the Comment: population), and age. GFR estimates are unreliable in Comment: patients with rapidly changing kidney function,recent dialysis, extremes Comment: in body size, severe malnutrition or obesity, loss of limbs, abnormal Comment: muscle mass, or during . In these patients, alternative Comment: determinations of GFR should be obtained. GLOMERU 32 complet LAR 013 mL/min/ ed FILTRAT 06:45 1.73 m2 ION RATE Steffi n CBC W/DIFF (01-28-2013 06:45) Basophi 0.0 % 0.0-2.0 Normal complet ls % 013 ed 06:45 RDW 19.3 % 12.0-15 Above complet 013 .0 high ed 06:45 normal MPV 07-27-2 8.7 fl 6.6-9.3 Normal complet 013 ed 06:45 Neutrop 07-27-2 96.8 % 50.0-70 Above complet hils % 013 .0 high ed 06:45 normal Lymphoc 07-27-2 1.9 % 20.0-35 Below complet ytes % 013 .0 low ed 06:45 normal Monocyt 0727-2 1.3 % 0.0-13. Normal complet es % 013 0 ed 06:45 Eosinop 07-27-2 0.0 % 0.0-4.0 Normal complet hils % 013 ed 06:45 Lymphoc 07-27-2 0.4 X 0.7-4.3 Below complet yte 013 10 low ed Count 06:45 normal Neutrop 01-28-2 18.1 X 1.5-7.1 Above complet hil 013 10 high ed Count 06:45 normal Monocyt 27-2 0.2 X 0.2-1.2 Normal complet e Count 013 10 ed 06:45 Eosinop -27-2 0.0 X 0.0-0.8 Normal complet hil 013 10 ed Count 06:45 Basophi 27-2 0.0 X 0.0-0.1 Normal complet l Count 013 10 ed 06:45 WBC 01-28-2 18.7 X 3.5-9.6 Above complet 013 10 high ed 06:45 normal RBC 01-28-2 4.39 X 4.20-5. Normal complet 013 10 40 ed 06:45 Hemoglo 27-2 11.9 12.0-15 Below complet bin 013 gm/dL .0 low ed 06:45 normal Hematoc 27-2 37.0 % 36.0-47 Normal complet rit 013 .0 ed 06:45 Platele -27-2 443 X 140-450 Normal complet t 013 10 ed 06:45 MCH 27-2 27.1 pg 27.0-32 Normal complet 013 .0 ed 06:45 MCHC 27-2 32.2 32.0-36 Normal complet 013 gm/dL .0 ed 06:45 MCV 01-28-2 84.2 fl 80.0-10 Normal complet 013 0.0 ed 06:45 CPK (01-27-2013 19:45) CK 99 U/L 26-192 Normal complet 013 ed 19:45 TROPONIN I,KAYLA (IN HOUSE) (01-27-2013 19:45) Troponi <0.04 0.00-0. Normal complet n I 013 ng/mL 10 ed 19:45 Comment: Troponin I Reference Values Comment: 0.0 - 0.1 Negative Comment: 0.11 - 1.50 [place] Comment: >1.50 Indicative of AMI Comment: TROPONIN IS BELOW ASSAY RANGE CPK (01-27-2013 13:17) CK 94 U/L 26-192 Normal complet 013 ed 13:17 TROPONIN I,KAYLA (IN HOUSE) (01-27-2013 13:17) Troponi <0.04 0.00-0. Normal complet n I 013 ng/mL 10 ed 13:17 Comment: Troponin I Reference Values Comment: 0.0 - 0.1 Negative Comment: 0.11 - 1.50 [place] Comment: >1.50 Indicative of AMI Comment: TROPONIN IS BELOW ASSAY RANGE BASIC METABOLIC PANEL (01-26-2013 20:37) Anion 15.9 10.0-20 Normal complet Gap 013 mEq/L .0 ed 20:37 GLOMERU 19 complet LAR 013 mL/min/ ed FILTRAT 20:37 1.73 m2 ION RATE Comment: eGFR Interpretation: Disease State Reference Ranges for eGFR Comment: (calculated) Comment: Stage eGFR Description Comment: I/II >60 Normal/Mildly reduced kidney function Comment: III 30-59 Moderately reduced kidney function Comment: IV 15-29 Severely reduced kidney function Comment: V <15 End-stage kidney failure Comment: Calculated using MDRD formula based on gender,race (* GFR AA is for the Comment: population), and age. GFR estimates are unreliable in Comment: patients with rapidly changing kidney function,recent dialysis, extremes Comment: in body size, severe malnutrition or obesity, loss of limbs, abnormal Comment: muscle mass, or during . In these patients, alternative Comment: determinations of GFR should be obtained. GLOMERU 23 complet LAR 013 mL/min/ ed FILTRAT 20:37 1.73 m2 ION RATE Steffi n Glucose 219 70-99 Above complet 013 mg/dL high ed 20:37 normal BUN 25-2 37 7-18 Above complet 013 mg/dL high ed 20:37 normal Creatin 07-25-2 2.8 0.6-1.3 Above complet ine 013 mg/dL high ed 20:37 normal Sodium 25-2 132 136-145 Below complet 013 mEq/L low ed 20:37 normal Potassi 25-2 4.4 3.5-5.1 Normal complet um 013 mEq/L ed 20:37 Chlorid 25-2 94 98-107 Below complet e 013 mEq/L low ed 20:37 normal CO2 25-2 26.5 22-29 Normal complet 013 mmol/L ed 20:37 Calcium 01-26-2 9.9 8.5-10. Normal complet 013 mg/dL 1 ed 20:37 BUN/Cre 25-2 13.2 6.0-20. Normal complet at 013 0 ed Ratio 20:37 CBC W/DIFF (01-26-2013 20:37) WBC 25-2 13.8 X 3.5-9.6 Above complet 013 10 high ed 20:37 normal RBC 25-2 5.04 X 4.20-5. Normal complet 013 10 40 ed 20:37 Hemoglo 25-2 13.6 12.0-15 Normal complet bin 013 gm/dL .0 ed 20:37 Hematoc 25-2 42.2 % 36.0-47 Normal complet rit 013 .0 ed 20:37 Platele 25-2 499 X 140-450 Above complet t 013 10 high ed 20:37 normal MCH -25-2 26.9 pg 27.0-32 Below complet 013 .0 low ed 20:37 normal MCHC 25-2 32.2 32.0-36 Normal complet 013 gm/dL .0 ed 20:37 MCV -25-2 83.6 fl 80.0-10 Normal complet 013 0.0 ed 20:37 RDW -25-2 19.2 % 12.0-15 Above complet 013 .0 high ed 20:37 normal MPV 07-25-2 8.1 fl 6.6-9.3 Normal complet 013 ed 20:37 Neutrop 07-25-2 83.0 % 50.0-70 Above complet hils % 013 .0 high ed 20:37 normal Lymphoc 07-25-2 9.2 % 20.0-35 Below complet ytes % 013 .0 low ed 20:37 normal Monocyt 07-25-2 6.4 % 0.0-13. Normal complet es % 013 0 ed 20:37 Eosinop 07-25-2 0.8 % 0.0-4.0 Normal complet hils % 013 ed 20:37 Basophi 07-25-2 0.6 % 0.0-2.0 Normal complet ls % 013 ed 20:37 Neutrop 07-25-2 11.5 X 1.5-7.1 Above complet hil 013 10 high ed Count 20:37 normal Monocyt 07-25-2 0.9 X 0.2-1.2 Normal complet e Count 013 10 ed 20:37 Eosinop 07-25-2 0.1 X 0.0-0.8 Normal complet hil 013 10 ed Count 20:37 Basophi 07-25-2 0.1 X 0.0-0.1 Normal complet l Count 013 10 ed 20:37 Lymphoc 07-25-2 1.3 X 0.7-4.3 Normal complet yte 013 10 ed Count 20:37 BNP (NT-proBNP) (01-26-2013 20:37) NT-proB 25-2 73.5 0.0-450 Normal complet RECRUITMENT ASSISTANT 013 pg/mL .0 ed 20:37 Comment: RULE - IN Comment: Comment: AGE OPTIMAL\E\.sk5\E\SENS \E\.sk5\E\SPEC PPV\E\.sk5\E\NPV\E\.s k5\E\ACCURACY Comment: CUT-POINT Comment: < 50 yr 450 pg/ml 97% 93%\E\.sk5\E\76%\E\.s k5\E\99%\E\.sk5\E\ 95% Comment: 50-75 yr 900 pg/ml 90% 82%\E\.sk5\E\82%\E\.s k5\E\88%\E\.sk5\E\ 85% Comment: >= 75 yr 1800 pg/ml 85% 73%\E\.sk5\E\92%\E\.s k5\E\55%\E\.sk5\E\ 83% Comment: Comment: RULE-OUT Comment: Comment: OPTIMAL\E\.sk5\E\SENS \E\.sk5\E\SPEC PPV\E\.sk5\E\NPV\E\.s k5\E\ACCURACY Comment: CUT-POINT Comment: Rule-Out 300 pg/ml 99% 62%\E\.sk5\E\55%\E\.s k5\E\99%\E\.sk5\E\ 83% Comment: Comment: NOTE: THESE CUT-POINTS ARE FOR ACUTE CHF DIAGNOSIS ONLY TROPONIN I,KAYLA (IN HOUSE) (01-26-2013 20:37) Troponi <0.04 0.00-0. Normal complet n I 013 ng/mL 10 ed 20:37 Comment: Troponin I Reference Values Comment: 0.0 - 0.1 Negative Comment: 0.11 - 1.50 [place] Comment: >1.50 Indicative of AMI Comment: TROPONIN IS BELOW ASSAY RANGE CKMB (01-26-2013 20:37) CK 71 U/L 26-192 Normal complet 013 ed 20:37 MMB 0.60 0.00-5. Normal complet 013 ng/mL 00 ed 20:37 CKMB% CKMB% 0.0-4.0 Normal complet 013 NOT ed 20:37 INDICAT ED % CULTURE, BLOOD (01-26-2013 20:37) [facility] CUL RES complet l 013 ed Report 20:37 (Final) [facility] Culture complet l 013 In ed Report 20:37 Progres s [facility] No complet l 013 Growth ed Report 20:37 After 24 Hours [facility] No complet l 013 Growth ed Report 20:37 After 48 Hours [facility] No complet l 013 Growth ed Report 20:37 After 3 Days [facility] No complet l 013 Growth ed Report 20:37 After 4 Days [facility] No complet l 013 Growth ed Report 20:37 After 5 Days [facility] Specime complet l 013 n: ed Report 20:37 BLOOD [facility] Collect complet l 013 ed: ed Report 20:37 013 20:37 [facility] Status: complet l 013 Final ed Report 20:37 Last Updated : 013 20:20 CULTURE, BLOOD (01-26-2013 20:37) [facility] Specime complet l 013 n: ed Report 20:37 BLOOD CKMB (12-21-2012 22:12) CK 47 U/L 26-192 Normal complet 013 ed 22:12 MMB 12-21-2 <0.50 0.00-5. Normal complet 013 ng/mL 00 ed 22:12 Comment: MMB IS BELOW ASSAY RANGE CKMB% 12-21- CKMB% 0.0-4.0 Normal complet 013 NOT ed 22:12 INDICAT ED % CBC W/DIFF (12-21-2012 22:12) Basophi 06-19-2 0.6 % 0.0-2.0 Normal complet ls % 013 ed 22:12 Neutrop 06-19-2 7.7 X 1.5-7.1 Above complet hil 013 10 high ed Count 22:12 normal Monocyt 06-19-2 0.9 X 0.2-1.2 Normal complet e Count 013 10 ed 22:12 Eosinop 06-19-2 0.2 X 0.0-0.8 Normal complet hil 013 10 ed Count 22:12 Basophi 06-19-2 0.1 X 0.0-0.1 Normal complet l Count 013 10 ed 22:12 Lymphoc 06-19-2 13.5 % 20.0-35 Below complet ytes % 013 .0 low ed 22:12 normal Monocyt 06-19-2 8.7 % 0.0-13. Normal complet es % 013 0 ed 22:12 Lymphoc 06-19-2 1.4 X 0.7-4.3 Normal complet yte 013 10 ed Count 22:12 Neutrop 06-19-2 75.5 % 50.0-70 Above complet hils % 013 .0 high ed 22:12 normal WBC 06-19-2 10.2 X 3.5-9.6 Above complet 013 10 high ed 22:12 normal RBC 06-19-2 4.93 X 4.20-5. Normal complet 013 10 40 ed 22:12 Hemoglo 06-19-2 13.2 12.0-15 Normal complet bin 013 gm/dL .0 ed 22:12 Hematoc 41.0 % 36.0-47 Normal complet rit 013 .0 ed 22:12 Platele 392 X 140-450 Normal complet t 013 10 ed 22:12 MCH 26.7 pg 27.0-32 Below complet 013 .0 low ed 22:12 normal MCHC 32.1 32.0-36 Normal complet 013 gm/dL .0 ed 22:12 MCV 83.2 fl 80.0-10 Normal complet 013 0.0 ed 22:12 RDW 20.6 % 12.0-15 Above complet 013 .0 high ed 22:12 normal MPV 8.1 fl 6.6-9.3 Normal complet 013 ed 22:12 Eosinop 1.7 % 0.0-4.0 Normal complet hils % 013 ed 22:12 D-DIMER KAYLA (12-21-2012 22:12) D-Dimer 0.86 0.00-0. Above complet KAYLA 013 mg/L 50 high ed 22:12 normal Comment: To be used in conjunction with clinical symptoms and other testing in Comment: the diagnosis Comment: of venous thromboembolism (VTE), deep vein thrombosis (DVT), or Comment: pulmonary Comment: embolism (PE). TROPONIN I,KAYLA (IN HOUSE) (12-21-2012 22:12) Troponi <0.04 0.00-0. Normal complet n I 013 ng/mL 10 ed 22:12 Comment: Troponin I Reference Values Comment: 0.0 - 0.1 Negative Comment: 0.11 - 1.50 [place] Comment: >1.50 Indicative of AMI Comment: TROPONIN IS BELOW ASSAY RANGE CULTURE, BLOOD (12-21-2012 22:12) [facility] Specime complet l 013 n: ed Report 22:12 BLOOD [facility] Collect complet l 013 ed: ed Report 22:12 013 22:12 [facility] Status: complet l 013 Final ed Report 22:12 Last Updated : 013 07:14 [facility] CUL RES complet l 013 ed Report 22:12 (Final) [facility] Culture complet l 013 In ed Report 22:12 Progres s [facility] No complet l 013 Growth ed Report 22:12 After 24 Hours [facility] No complet l 013 Growth ed Report 22:12 After 48 Hours [facility] No complet l 013 Growth ed Report 22:12 After 3 Days [facility] No complet l 013 Growth ed Report 22:12 After 4 Days [facility] No complet l 013 Growth ed Report 22:12 After 5 Days BNP (NT-proBNP) (12-21-2012 22:12) NT-proB 43.2 0.0-450 Normal complet RECRUITMENT ASSISTANT 013 pg/mL .0 ed 22:12 Comment: RULE - IN Comment: Comment: AGE OPTIMAL\E\.sk5\E\SENS \E\.sk5\E\SPEC PPV\E\.sk5\E\NPV\E\.s k5\E\ACCURACY Comment: CUT-POINT Comment: < 50 yr 450 pg/ml 97% 93%\E\.sk5\E\76%\E\.s k5\E\99%\E\.sk5\E\ 95% Comment: 50-75 yr 900 pg/ml 90% 82%\E\.sk5\E\82%\E\.s k5\E\88%\E\.sk5\E\ 85% Comment: >= 75 yr 1800 pg/ml 85% 73%\E\.sk5\E\92%\E\.s k5\E\55%\E\.sk5\E\ 83% Comment: Comment: RULE-OUT Comment: Comment: OPTIMAL\E\.sk5\E\SENS \E\.sk5\E\SPEC PPV\E\.sk5\E\NPV\E\.s k5\E\ACCURACY Comment: CUT-POINT Comment: Rule-Out 300 pg/ml 99% 62%\E\.sk5\E\55%\E\.s k5\E\99%\E\.sk5\E\ 83% Comment: Comment: NOTE: THESE CUT-POINTS ARE FOR ACUTE CHF DIAGNOSIS ONLY CULTURE, BLOOD (12-21-2012 22:12) [facility] Specime complet l 013 n: ed Report 22:12 BLOOD BASIC METABOLIC PANEL (11-19-2012 09:34) Glucose -18-2 171 70-99 Above complet 013 mg/dL high ed 09:34 normal BUN 05-18-2 32 7-18 Above complet 013 mg/dL high ed 09:34 normal Creatin -18-2 1.2 0.6-1.3 Normal complet ine 013 mg/dL ed 09:34 Sodium -18-2 139 136-145 Normal complet 013 mEq/L ed 09:34 Potassi -18-2 4.0 3.5-5.1 Normal complet um 013 mEq/L ed 09:34 Chlorid 18-2 101 98-107 Normal complet e 013 mEq/L ed 09:34 CO2 -18-2 32.6 22-29 Above complet 013 mmol/L high ed 09:34 normal Calcium -18-2 8.4 8.5-10. Below complet 013 mg/dL 1 low ed 09:34 normal BUN/Cre -18-2 26.7 6.0-20. Above complet at 013 0 high ed Ratio 09:34 normal Anion -18-2 9.5 10.0-20 Below complet Gap 013 mEq/L .0 low ed 09:34 normal GLOMERU -18-2 51 complet LAR 013 mL/min/ ed FILTRAT 09:34 1.73 m2 ION RATE Comment: eGFR Interpretation: Disease State Reference Ranges for eGFR Comment: (calculated) Comment: Stage eGFR Description Comment: I/II >60 Normal/Mildly reduced kidney function Comment: III 30-59 Moderately reduced kidney function Comment: IV 15-29 Severely reduced kidney function Comment: V <15 End-stage kidney failure Comment: Calculated using MDRD formula based on gender,race (* GFR AA is for the Comment: population), and age. GFR estimates are unreliable in Comment: patients with rapidly changing kidney function,recent dialysis, extremes Comment: in body size, severe malnutrition or obesity, loss of limbs, abnormal Comment: muscle mass, or during . In these patients, alternative Comment: determinations of GFR should be obtained. GLOMERU 05-18-2 >60.0 complet LAR 013 mL/min/ ed FILTRAT 09:34 1.73 m2 ION RATE Steffi n GRAM STAIN (SPUTUM) (11-18-2012 20:13) [facility] complet l 013 n: ed Report 20:13 SPUTUM [facility] Collect complet l 013 ed: ed Report 20:13 013 20:13 Clinica Status: complet l 013 Final ed Report 20:13 Last Updated : 013 06:45 [facility] GRAM complet l 013 (Final) ed Report 20:13 Clinica <10 complet l 013 WBC/LPF ed Report 20:13 >25 EPI/LPF [facility] RARE complet l 013 YEAST ed Report 20:13 CELLS [facility] RARE complet l 013 GRAM ed Report 20:13 POSITIV E COCCI [facility] RARE complet l 013 GRAM ed Report 20:13 NEGATIV E BACILLI CULTURE, SPUTUM (NURSING) (11-18-2012 20:13) Clin[facility] expensi complet l 013 ve ed Report 20:13 Clinica first complet l 013 and ed Report 20:13 most expensi ve last, if given in the average recomme nded Clinica dose. complet l 013 ed Report 20:13 Clinica Pseudom complet l 013 onas ed Report 20:13 aerugin jonathan [facility] ISOLATE complet l 013 1 ed Report 20:13 Clinica Pseudom complet l 013 onas ed Report 20:13 Clinica aerugin complet l 013 jonathan ed Report 20:13 Clinica ------- complet l 013 ------- ed Report 20:13 ---- Clin[facility] SADIQ complet l 013 (mcg/ml ed Report 20:13 ) [facility] Amikaci complet l 013 n (AK) ed Report 20:13 <=8 S [facility] Specime complet l 013 n: ed Report 20:13 SPUTUM [facility] Collect complet l 013 ed: ed Report 20:13 013 20:13 Clin[facility] Status: complet l 013 Final ed Report 20:13 Last Updated : 013 15:42 Clin[facility] 11-18- ISO1 complet l 013 (Final) ed Report 20:13 Clin[facility] 11-18- Light complet l 013 Growth ed Report 20:13 Clin[facility] 11-18- Gram complet l 013 Negativ ed Report 20:13 e Bacilli [facility] 11-18- Identif complet l 013 ication ed Report 20:13 And Suscept ibility To Follow Clinica Antibio complet l 013 tics ed Report 20:13 are listed in order of cost effecti veness with least [facility] Cefepim complet l 013 e (CPM) ed Report 20:13 2 S [facility] 11-18- Gentami complet l 013 sapna ed Report 20:13 (GM) <=2 S Clinica 11-18- Levoflo complet l 013 xacin ed Report 20:13 (LV) >4 R Clin[facility] 11-18- Meropen complet l 013 em ed Report 20:13 (MEM) <=1 S Clin[facility] 11-18- Pip/Linden complet l 013 o ed Report 20:13 (PI/T) 8/4 S Clinica 11-18- Tobramy complet l 013 sapna ed Report 20:13 (TO) <=2 S BASIC METABOLIC PANEL (11-18-2012 05:45) Glucose 11-18- 197 70-99 Above complet 013 mg/dL high ed 05:45 normal BUN 11-18-2 38 7-18 Above complet 013 mg/dL high ed 05:45 normal Creatin 11-18-2 1.4 0.6-1.3 Above complet ine 013 mg/dL high ed 05:45 normal Sodium 11-18- 138 136-145 Normal complet 013 mEq/L ed 05:45 Potassi 11-18-2 5.3 3.5-5.1 Above complet um 013 mEq/L high ed 05:45 normal Chlorid 11-18-2 102 98-107 Normal complet e 013 mEq/L ed 05:45 CO2 11-18-2 30.6 22-29 Above complet 013 mmol/L high ed 05:45 normal Calcium 11-18- 8.6 8.5-10. Normal complet 013 mg/dL 1 ed 05:45 BUN/Cre 05-17-2 27.1 6.0-20. Above complet at 013 0 high ed Ratio 05:45 normal Anion 11.1 10.0-20 Normal complet Gap 013 mEq/L .0 ed 05:45 GLOMERU 17-2 42 complet LAR 013 mL/min/ ed FILTRAT 05:45 1.73 m2 ION RATE Comment: eGFR Interpretation: Disease State Reference Ranges for eGFR Comment: (calculated) Comment: Stage eGFR Description Comment: I/II >60 Normal/Mildly reduced kidney function Comment: III 30-59 Moderately reduced kidney function Comment: IV 15-29 Severely reduced kidney function Comment: V <15 End-stage kidney failure Comment: Calculated using MDRD formula based on gender,race (* GFR AA is for the Comment: population), and age. GFR estimates are unreliable in Comment: patients with rapidly changing kidney function,recent dialysis, extremes Comment: in body size, severe malnutrition or obesity, loss of limbs, abnormal Comment: muscle mass, or during . In these patients, alternative Comment: determinations of GFR should be obtained. GLOMERU 51 complet LAR 013 mL/min/ ed FILTRAT 05:45 1.73 m2 ION RATE Steffi n CBC W/DIFF (11-17-2012 06:10) RBC 11-17- 4.10 X 4.20-5. Below complet 013 10 40 low ed 06:10 normal Hemoglo 10.5 12.0-15 Below complet bin 013 gm/dL .0 low ed 06:10 normal Hematoc 33.1 % 36.0-47 Below complet rit 013 .0 low ed 06:10 normal Platele 16 325 X 140-450 Normal complet t 013 10 ed 06:10 MCH 16- 25.6 pg 27.0-32 Below complet 013 .0 low ed 06:10 normal MCHC 16-2 31.7 32.0-36 Below complet 013 gm/dL .0 low ed 06:10 normal MCV 162 80.9 fl 80.0-10 Normal complet 013 0.0 ed 06:10 RDW 16 18.8 % 12.0-15 Above complet 013 .0 high ed 06:10 normal MPV 05-16-2 8.4 fl 6.6-9.3 Normal complet 013 ed 06:10 Neutrop 05-16-2 95.5 % 50.0-70 Above complet hils % 013 .0 high ed 06:10 normal Lymphoc 05-16-2 2.2 % 20.0-35 Below complet ytes % 013 .0 low ed 06:10 normal Monocyt 05-16-2 2.2 % 0.0-13. Normal complet es % 013 0 ed 06:10 Eosinop 05-16-2 0.0 % 0.0-4.0 Normal complet hils % 013 ed 06:10 Basophi 05-16-2 0.1 % 0.0-2.0 Normal complet ls % 013 ed 06:10 Neutrop 05-16-2 17.5 X 1.5-7.1 Above complet hil 013 10 high ed Count 06:10 normal Monocyt 05-16-2 0.4 X 0.2-1.2 Normal complet e Count 013 10 ed 06:10 Eosinop 05-16-2 0.0 X 0.0-0.8 Normal complet hil 013 10 ed Count 06:10 Basophi 05-16-2 0.0 X 0.0-0.1 Normal complet l Count 013 10 ed 06:10 Lymphoc 05-16-2 0.4 X 0.7-4.3 Below complet yte 013 10 low ed Count 06:10 normal WBC 05-16-2 18.3 X 3.5-9.6 Above complet 013 10 high ed 06:10 normal BASIC METABOLIC PANEL (11-17-2012 06:10) Glucose 05-16-2 193 70-99 Above complet 013 mg/dL high ed 06:10 normal BUN 05-16-2 52 7-18 Above complet 013 mg/dL high ed 06:10 normal Creatin 05-16-2 1.8 0.6-1.3 Above complet ine 013 mg/dL high ed 06:10 normal Sodium 05-16-2 130 136-145 Below complet 013 mEq/L low ed 06:10 normal Chlorid 05-16-2 95 98-107 Below complet e 013 mEq/L low ed 06:10 normal CO2 05-16-2 27.0 22-29 Normal complet 013 mmol/L ed 06:10 Calcium 05-16-2 8.6 8.5-10. Normal complet 013 mg/dL 1 ed 06:10 BUN/Cre 28.9 6.0-20. Above complet at 013 0 high ed Ratio 06:10 normal Anion 12.9 10.0-20 Normal complet Gap 013 mEq/L .0 ed 06:10 GLOMERU 32 complet LAR 013 mL/min/ ed FILTRAT 06:10 1.73 m2 ION RATE Comment: eGFR Interpretation: Disease State Reference Ranges for eGFR Comment: (calculated) Comment: Stage eGFR Description Comment: I/II >60 Normal/Mildly reduced kidney function Comment: III 30-59 Moderately reduced kidney function Comment: IV 15-29 Severely reduced kidney function Comment: V <15 End-stage kidney failure Comment: Calculated using MDRD formula based on gender,race (* GFR AA is for the Comment: population), and age. GFR estimates are unreliable in Comment: patients with rapidly changing kidney function,recent dialysis, extremes Comment: in body size, severe malnutrition or obesity, loss of limbs, abnormal Comment: muscle mass, or during . In these patients, alternative Comment: determinations of GFR should be obtained. GLOMERU 38 complet LAR 013 mL/min/ ed FILTRAT 06:10 1.73 m2 ION RATE Steffi n Potassi 5.1 3.5-5.1 Normal complet um 013 mEq/L ed 06:10 MICROSCOPIC EXAM OF URINE (11-15-2012 18:58) UA WBC 11-15- 10-20 0-2,Occ Abnorma complet 013 ,RARE,N l ed 18:58 ONE SEEN Bacteri 2+ NONE Abnorma complet a 013 SEEN l ed 18:58 Epithel 11-15-2 2+ NONE Abnorma complet ial 013 SEEN l ed Cells 18:58 UA DIPSTICK, REFLEX TO MICRO (11-15-2012 18:58) Comment: Urine microscopic has been added Bilirub 1+ NEGATIV Abnorma complet in 013 E l ed 18:58 Blood NEGATIV NEGATIV Normal complet 013 E E ed 18:58 Color YELLOW YELLOW, Normal complet 013 STRAW,C ed 18:58 OLORLES S,PALE YELLOW Appeara HAZY CLEAR Abnorma complet nce 013 l ed 18:58 Specifi 05-14-2 1.015 1.016-1 Below complet c 013 .022 low ed [place] 18:58 normal PH 05-14-2 5.0 5.0-7.0 Normal complet 013 ed 18:58 Leukocy 05-14-2 3+ NEGATIV Abnorma complet te 013 E l ed 18:58 Nitrite 05-14-2 NEGATIV NEGATIV Normal complet 013 E E ed 18:58 UA 05-14-2 1+ NEGATIV Abnorma complet Protein 013 E l ed 18:58 Glucose 05-14-2 NEGATIV NEGATIV Normal complet 013 E E ed 18:58 Ketones 05-14-2 NEGATIV NEGATIV Normal complet 013 E E ed 18:58 Urobili 05-14-2 norm 0-1 Normal complet nogen 013 mg/dL ed 18:58 CULTURE, URINE (11-15-2012 18:58) [facility] 11-15- Collect complet l 013 ed: ed Report 18:58 013 18:58 Clin[facility] 11-15- Status: complet l 013 Final ed Report 18:58 Last Updated : 013 16:11 [facility] 11-15- CUL RES complet l 013 ed Report 18:58 (Final) [facility] 11-15-2 <10,000 complet l 013 Cfu/Ml ed Report 18:58 Gram Positiv e Cocci [facility] Specime complet l 013 n: ed Report 18:58 URINE CULTURE, BLOOD (11-15-2012 18:03) [facility] 11-15- Specime complet l 013 n: ed Report 18:03 BLOOD [facility] 11-15- Collect complet l 013 ed: ed Report 18:03 013 18:03 Clinica -- Status: complet l 013 Final ed Report 18:03 Last Updated : 013 18:58 [facility] 11-15- CUL RES complet l 013 ed Report 18:03 (Final) [facility] 11-15- Culture complet l 013 In ed Report 18:03 Progres s [facility] 11-15- No complet l 013 Growth ed Report 18:03 After 24 Hours Clin[facility] 11-15- No complet l 013 Growth ed Report 18:03 After 48 Hours Clinica 05-14-2 No complet l 013 Growth ed Report 18:03 After 3 Days Clinica 11-15-2 No complet l 013 Growth ed Report 18:03 After 4 Days Clin[facility] 11-15-2 No complet l 013 Growth ed Report 18:03 After 5 Days CBC W/DIFF (11-15-2012 18:01) Basophi -14-2 0.6 % 0.0-2.0 Normal complet ls % 013 ed 18:01 Neutrop -14-2 8.8 X 1.5-7.1 Above complet hil 013 10 high ed Count 18:01 normal Monocyt -14-2 1.0 X 0.2-1.2 Normal complet e Count 013 10 ed 18:01 Eosinop -14-2 0.4 X 0.0-0.8 Normal complet hil 013 10 ed Count 18:01 Basophi 14-2 0.1 X 0.0-0.1 Normal complet l Count 013 10 ed 18:01 Lymphoc 14-2 0.7 X 0.7-4.3 Normal complet yte 013 10 ed Count 18:01 WBC 14-2 11.0 X 3.5-9.6 Above complet 013 10 high ed 18:01 normal RBC -14-2 5.17 X 4.20-5. Normal complet 013 10 40 ed 18:01 Hemoglo -14-2 13.3 12.0-15 Normal complet bin 013 gm/dL .0 ed 18:01 Hematoc -14-2 42.2 % 36.0-47 Normal complet rit 013 .0 ed 18:01 Platele 14-2 357 X 140-450 Normal complet t 013 10 ed 18:01 MCH -14-2 25.8 pg 27.0-32 Below complet 013 .0 low ed 18:01 normal MCHC -14-2 31.6 32.0-36 Below complet 013 gm/dL .0 low ed 18:01 normal MCV -14-2 81.7 fl 80.0-10 Normal complet 013 0.0 ed 18:01 RDW -14-2 18.6 % 12.0-15 Above complet 013 .0 high ed 18:01 normal MPV -14-2 8.1 fl 6.6-9.3 Normal complet 013 ed 18:01 Neutrop 80.0 % 50.0-70 Above complet hils % 013 .0 high ed 18:01 normal Lymphoc 11-15-2 6.6 % 20.0-35 Below complet ytes % 013 .0 low ed 18:01 normal Monocyt 11-15-2 9.2 % 0.0-13. Normal complet es % 013 0 ed 18:01 Eosinop 11-15- 3.6 % 0.0-4.0 Normal complet hils % 013 ed 18:01 CKMB (11-15-2012 18:01) CK 47 U/L 26-192 Normal complet 013 ed 18:01 MMB <0.50 0.00-5. Normal complet 013 ng/mL 00 ed 18:01 Comment: MMB IS BELOW ASSAY RANGE CKMB% CKMB% 0.0-4.0 Normal complet 013 NOT ed 18:01 INDICAT ED % TROPONIN I,KAYLA (IN HOUSE) (11-15-2012 18:01) Troponi <0.04 0.00-0. Normal complet n I 013 ng/mL 10 ed 18:01 Comment: Troponin I Reference Values Comment: 0.0 - 0.1 Negative Comment: 0.11 - 1.50 [place] Comment: >1.50 Indicative of AMI Comment: TROPONIN IS BELOW ASSAY RANGE BNP (NT-proBNP) (11-15-2012 18:01) NT-proB 152.6 0.0-450 Normal complet RECRUITMENT ASSISTANT 013 pg/mL .0 ed 18:01 Comment: RULE - IN Comment: Comment: AGE OPTIMAL\E\.sk5\E\SENS \E\.sk5\E\SPEC PPV\E\.sk5\E\NPV\E\.s k5\E\ACCURACY Comment: CUT-POINT Comment: < 50 yr 450 pg/ml 97% 93%\E\.sk5\E\76%\E\.s k5\E\99%\E\.sk5\E\ 95% Comment: 50-75 yr 900 pg/ml 90% 82%\E\.sk5\E\82%\E\.s k5\E\88%\E\.sk5\E\ 85% Comment: >= 75 yr 1800 pg/ml 85% 73%\E\.sk5\E\92%\E\.s k5\E\55%\E\.sk5\E\ 83% Comment: Comment: RULE-OUT Comment: Comment: OPTIMAL\E\.sk5\E\SENS \E\.sk5\E\SPEC PPV\E\.sk5\E\NPV\E\.s k5\E\ACCURACY Comment: CUT-POINT Comment: Rule-Out 300 pg/ml 99% 62%\E\.sk5\E\55%\E\.s k5\E\99%\E\.sk5\E\ 83% Comment: Comment: NOTE: THESE CUT-POINTS ARE FOR ACUTE CHF DIAGNOSIS ONLY COMPREHENSIVE METABOLIC PANEL (11-15-2012 18:01) Glucose 11-15- 207 70-99 Above complet 013 mg/dL high ed 18:01 normal BUN 11-15- 15 7-18 Normal complet 013 mg/dL ed 18:01 Creatin 11-15-2 1.4 0.6-1.3 Above complet ine 013 mg/dL high ed 18:01 normal Sodium 137 136-145 Normal complet 013 mEq/L ed 18:01 Potassi 11-15-2 3.7 3.5-5.1 Normal complet um 013 mEq/L ed 18:01 Chlorid 11-15-2 99 98-107 Normal complet e 013 mEq/L ed 18:01 CO2 11-15-2 26.7 22-29 Normal complet 013 mmol/L ed 18:01 Calcium 11-15- 9.8 8.5-10. Normal complet 013 mg/dL 1 ed 18:01 Total 11-15-2 7.6 6.4-8.2 Normal complet Protein 013 gm/dL ed 18:01 Albumin 11-15-2 3.4 3.4-5.0 Normal complet 013 gm/dL ed 18:01 Alk 11-15- 102 U/L 50-136 Normal complet Phos 013 ed 18:01 ALT 11-15- 29 U/L 30-65 Below complet 013 low ed 18:01 normal AST 11-15- 12 U/L 15-37 Below complet 013 low ed 18:01 normal Bilirub 05-14-2 0.33 0.20-1. Normal complet in, 013 mg/dL 00 ed Total 18:01 BUN/Cre 10.7 6.0-20. Normal complet at 013 0 ed Ratio 18:01 A/G 0.8 1.0-2.0 Below complet Ratio 013 low ed 18:01 normal Anion 14.6 10.0-20 Normal complet Gap 013 mEq/L .0 ed 18:01 GLOMERU 42 complet LAR 013 mL/min/ ed FILTRAT 18:01 1.73 m2 ION RATE Comment: eGFR Interpretation: Disease State Reference Ranges for eGFR Comment: (calculated) Comment: Stage eGFR Description Comment: I/II >60 Normal/Mildly reduced kidney function Comment: III 30-59 Moderately reduced kidney function Comment: IV 15-29 Severely reduced kidney function Comment: V <15 End-stage kidney failure Comment: Calculated using MDRD formula based on gender,race (* GFR AA is for the Comment: population), and age. GFR estimates are unreliable in Comment: patients with rapidly changing kidney function,recent dialysis, extremes Comment: in body size, severe malnutrition or obesity, loss of limbs, abnormal Comment: muscle mass, or during . In these patients, alternative Comment: determinations of GFR should be obtained. GLOMERU 51 complet LAR 013 mL/min/ ed FILTRAT 18:01 1.73 m2 ION RATE Steffi n CULTURE, BLOOD (11-15-2012 18:01) [facility] Collect complet l 013 ed: ed Report 18:01 013 18:01 Clinica Status: complet l 013 Final ed Report 18:01 Last Updated : 013 18:58 Clinica CUL RES complet l 013 ed Report 18:01 (Final) [facility] 013 n: ed Report 18:01 BLOOD [facility] Culture complet l 013 In ed Report 18:01 Progres s [facility] No complet l 013 Growth ed Report 18:01 After 24 Hours Clinica No complet l 013 Growth ed Report 18:01 After 48 Hours Clin[facility] No complet l 013 Growth ed Report 18:01 After 3 Days Clinica No complet l 013 Growth ed Report 18:01 After 4 Days Clinica No complet l 013 Growth ed Report 18:01 After 5 Days INFLUENZA VIRUS A/B DIRECT IF TST (10-16-2012 21:22) Influen NEGATIV NEGATIV Normal complet za A 013 E E ed Antigen 21:22 Comment: Cell Culture is recommended for confirmation of negative Comment: results. Influen NEGATIV NEGATIV Normal complet za B 013 E E ed Antigen 21:22 Comment: Cell Culture is recommended for confirmation of negative Comment: results. BASIC METABOLIC PANEL (10-16-2012 20:25) Chlorid 102 98-107 Normal complet e 013 mEq/L ed 20:25 CO2 32.1 22-29 Above complet 013 mmol/L high ed 20:25 normal Calcium 8.5 8.5-10. Normal complet 013 mg/dL 1 ed 20:25 BUN/Cre 10.0 6.0-20. Normal complet at 013 0 ed Ratio 20:25 Anion 8.8 10.0-20 Below complet Gap 013 mEq/L .0 low ed 20:25 normal GLOMERU 51 complet LAR 013 mL/min/ ed FILTRAT 20:25 1.73 m2 ION RATE Comment: eGFR Interpretation: Disease State Reference Ranges for eGFR Comment: (calculated) Comment: Stage eGFR Description Comment: I/II >60 Normal/Mildly reduced kidney function Comment: III 30-59 Moderately reduced kidney function Comment: IV 15-29 Severely reduced kidney function Comment: V <15 End-stage kidney failure Comment: Calculated using MDRD formula based on gender,race (* GFR AA is for the Comment: population), and age. GFR estimates are unreliable in Comment: patients with rapidly changing kidney function,recent dialysis, extremes Comment: in body size, severe malnutrition or obesity, loss of limbs, abnormal Comment: muscle mass, or during . In these patients, alternative Comment: determinations of GFR should be obtained. GLOMERU >60.0 complet LAR 013 mL/min/ ed FILTRAT 20:25 1.73 m2 ION RATE Steffi n Glucose 04-14-2 129 70-99 Above complet 013 mg/dL high ed 20:25 normal BUN 14-2 12 7-18 Normal complet 013 mg/dL ed 20:25 Creatin -14-2 1.2 0.6-1.3 Normal complet ine 013 mg/dL ed 20:25 Sodium 10-16-2 139 136-145 Normal complet 013 mEq/L ed 20:25 Potassi 10-16-2 3.8 3.5-5.1 Normal complet um 013 mEq/L ed 20:25 CBC W/DIFF (10-16-2012 20:25) WBC 14-2 10.8 X 3.5-9.6 Above complet 013 10 high ed 20:25 normal RBC 14-2 4.26 X 4.20-5. Normal complet 013 10 40 ed 20:25 Hemoglo 10-16-2 11.3 12.0-15 Below complet bin 013 gm/dL .0 low ed 20:25 normal Hematoc 14-2 34.3 % 36.0-47 Below complet rit 013 .0 low ed 20:25 normal Platele 10-16-2 371 X 140-450 Normal complet t 013 10 ed 20:25 MCH 14-2 26.4 pg 27.0-32 Below complet 013 .0 low ed 20:25 normal MCHC 14-2 32.8 32.0-36 Normal complet 013 gm/dL .0 ed 20:25 MCV 14-2 80.4 fl 80.0-10 Normal complet 013 0.0 ed 20:25 RDW 14-2 18.1 % 12.0-15 Above complet 013 .0 high ed 20:25 normal MPV 14-2 8.1 fl 6.6-9.3 Normal complet 013 ed 20:25 Neutrop -14-2 86.8 % 50.0-70 Above complet hils % 013 .0 high ed 20:25 normal Lymphoc -14-2 4.5 % 20.0-35 Below complet ytes % 013 .0 low ed 20:25 normal Monocyt -14-2 3.0 % 0.0-13. Normal complet es % 013 0 ed 20:25 Eosinop -14-2 5.2 % 0.0-4.0 Above complet hils % 013 high ed 20:25 normal Basophi 04-14-2 0.5 % 0.0-2.0 Normal complet ls % 013 ed 20:25 Neutrop 04-14-2 9.3 X 1.5-7.1 Above complet hil 013 10 high ed Count 20:25 normal Monocyt 04-14-2 0.3 X 0.2-1.2 Normal complet e Count 013 10 ed 20:25 Eosinop 04-14-2 0.6 X 0.0-0.8 Normal complet hil 013 10 ed Count 20:25 Basophi 04-14-2 0.1 X 0.0-0.1 Normal complet l Count 013 10 ed 20:25 Lymphoc 04-14-2 0.5 X 0.7-4.3 Below complet yte 013 10 low ed Count 20:25 normal BASIC METABOLIC PANEL (08-25-2012 06:35) Glucose 02-21-2 145 70-99 Above complet 013 mg/dL high ed 06:35 normal BUN 08-25-2 31 7-18 Above complet 013 mg/dL high ed 06:35 normal Creatin 08-25-2 1.3 0.6-1.3 Normal complet ine 013 mg/dL ed 06:35 Sodium 08-25-2 136 136-145 Normal complet 013 mEq/L ed 06:35 Potassi 21-2 4.5 3.5-5.1 Normal complet um 013 mEq/L ed 06:35 Chlorid 21-2 100 98-107 Normal complet e 013 mEq/L ed 06:35 CO2 08-25-2 32.9 22-29 Above complet 013 mmol/L high ed 06:35 normal Calcium 08-25-2 8.5 8.5-10. Normal complet 013 mg/dL 1 ed 06:35 BUN/Cre 08-25-2 23.8 6.0-20. Above complet at 013 0 high ed Ratio 06:35 normal Anion -21-2 7.1 10.0-20 Below complet Gap 013 mEq/L .0 low ed 06:35 normal GLOMERU -21-2 46 complet LAR 013 mL/min/ ed FILTRAT 06:35 1.73 m2 ION RATE Comment: eGFR Interpretation: Disease State Reference Ranges for eGFR Comment: (calculated) Comment: Stage eGFR Description Comment: I/II >60 Normal/Mildly reduced kidney function Comment: III 30-59 Moderately reduced kidney function Comment: IV 15-29 Severely reduced kidney function Comment: V <15 End-stage kidney failure Comment: Calculated using MDRD formula based on gender,race (* GFR AA is for the Comment: population), and age. GFR estimates are unreliable in Comment: patients with rapidly changing kidney function,recent dialysis, extremes Comment: in body size, severe malnutrition or obesity, loss of limbs, abnormal Comment: muscle mass, or during . In these patients, alternative Comment: determinations of GFR should be obtained. GLOMERU 08-25-2 56 complet LAR 013 mL/min/ ed FILTRAT 06:35 1.73 m2 ION RATE Steffi n CBC W/DIFF (08-24-2012 07:10) WBC -20-2 18.0 X 3.5-9.6 Above complet 013 10 high ed 07:10 normal RBC 20-2 3.85 X 4.20-5. Below complet 013 10 40 low ed 07:10 normal Hemoglo 20-2 10.2 12.0-15 Below complet bin 013 gm/dL .0 low ed 07:10 normal Hematoc -20-2 30.7 % 36.0-47 Below complet rit 013 .0 low ed 07:10 normal Platele -20-2 356 X 140-450 Normal complet t 013 10 ed 07:10 MCH -20-2 26.5 pg 27.0-32 Below complet 013 .0 low ed 07:10 normal MCHC -20-2 33.2 32.0-36 Normal complet 013 gm/dL .0 ed 07:10 MCV -20-2 79.8 fl 80.0-10 Below complet 013 0.0 low ed 07:10 normal RDW -20-2 17.4 % 12.0-15 Above complet 013 .0 high ed 07:10 normal MPV -20-2 8.5 fl 6.6-9.3 Normal complet 013 ed 07:10 Neutrop 02-20-2 95.7 % 50.0-70 Above complet hils % 013 .0 high ed 07:10 normal Lymphoc 02-20-2 2.3 % 20.0-35 Below complet ytes % 013 .0 low ed 07:10 normal Monocyt -20-2 2.0 % 0.0-13. Normal complet es % 013 0 ed 07:10 Eosinop 02-20-2 0.0 % 0.0-4.0 Normal complet hils % 013 ed 07:10 Basophi 02-20-2 0.0 % 0.0-2.0 Normal complet ls % 013 ed 07:10 Neutrop 02-20-2 17.2 X 1.5-7.1 Above complet hil 013 10 high ed Count 07:10 normal Monocyt 02-20-2 0.4 X 0.2-1.2 Normal complet e Count 013 10 ed 07:10 Eosinop 02-20-2 0.0 X 0.0-0.8 Normal complet hil 013 10 ed Count 07:10 Basophi 02-20-2 0.0 X 0.0-0.1 Normal complet l Count 013 10 ed 07:10 Lymphoc 02-20-2 0.4 X 0.7-4.3 Below complet yte 013 10 low ed Count 07:10 normal Comment: CK X 2 DIFF REVIEWED BASIC METABOLIC PANEL (08-24-2012 07:10) Glucose 20-2 203 70-99 Above complet 013 mg/dL high ed 07:10 normal BUN 20-2 28 7-18 Above complet 013 mg/dL high ed 07:10 normal Creatin 20-2 1.2 0.6-1.3 Normal complet ine 013 mg/dL ed 07:10 Sodium 20-2 135 136-145 Below complet 013 mEq/L low ed 07:10 normal Potassi -20-2 5.1 3.5-5.1 Normal complet um 013 mEq/L ed 07:10 Chlorid -20-2 100 98-107 Normal complet e 013 mEq/L ed 07:10 CO2 -20-2 30.0 22-29 Above complet 013 mmol/L high ed 07:10 normal Calcium -20-2 8.9 8.5-10. Normal complet 013 mg/dL 1 ed 07:10 BUN/Cre -20-2 23.3 6.0-20. Above complet at 013 0 high ed Ratio 07:10 normal Anion 02-20-2 10.4 10.0-20 Normal complet Gap 013 mEq/L .0 ed 07:10 GLOMERU -20-2 51 complet LAR 013 mL/min/ ed FILTRAT 07:10 1.73 m2 ION RATE Comment: eGFR Interpretation: Disease State Reference Ranges for eGFR Comment: (calculated) Comment: Stage eGFR Description Comment: I/II >60 Normal/Mildly reduced kidney function Comment: III 30-59 Moderately reduced kidney function Comment: IV 15-29 Severely reduced kidney function Comment: V <15 End-stage kidney failure Comment: Calculated using MDRD formula based on gender,race (* GFR AA is for the Comment: population), and age. GFR estimates are unreliable in Comment: patients with rapidly changing kidney function,recent dialysis, extremes Comment: in body size, severe malnutrition or obesity, loss of limbs, abnormal Comment: muscle mass, or during . In these patients, alternative Comment: determinations of GFR should be obtained. GLOMERU >60.0 complet LAR 013 mL/min/ ed FILTRAT 07:10 1.73 m2 ION RATE Steffi n URINALYSIS W/MICRO (08-23-2012 12:30) Ketones NEGATIV NEGATIV Normal complet 013 E E ed 12:30 Urobili norm 0-1 Normal complet nogen 013 mg/dL ed 12:30 Color YELLOW YELLOW, Normal complet 013 STRAW,C ed 12:30 OLORLES S,PALE YELLOW Appeara CLEAR CLEAR Normal complet nce 013 ed 12:30 Specifi 1.005 1.016-1 Below complet c 013 .022 low ed [place] 12:30 normal PH 6.5 5.0-7.0 Normal complet 013 ed 12:30 Leukocy NEGATIV NEGATIV Normal complet te 013 E E ed 12:30 Nitrite NEGATIV NEGATIV Normal complet 013 E E ed 12:30 UA NEGATIV NEGATIV Normal complet Protein 013 E E ed 12:30 Glucose 1+ NEGATIV Abnorma complet 013 E l ed 12:30 Bilirub NEGATIV NEGATIV Normal complet in 013 E E ed 12:30 Blood NEGATIV NEGATIV Normal complet 013 E E ed 12:30 CULTURE, SPUTUM (NURSING) (08-23-2012 11:40) [facility] Specime complet l 013 n/Sourc ed Report 11:40 e: SPUTUM/ sputum Clin[facility] Collect complet l 013 ed: ed Report 11:40 013 11:40 Clinica Status: complet l 013 Final ed Report 11:40 Last Updated : 013 22:12 Clinica CUL RES complet l 013 ed Report 11:40 (Final) [facility] Light complet l 013 Normal ed Report 11:40 Upper Respira tory Tessa Noted GRAM STAIN (SPUTUM) (08-23-2012 11:40) Clinica <10 complet l 013 WBC/LPF ed Report 11:40 >25 EPI/LPF Clin[facility] Many complet l 013 Gram ed Report 11:40 Positiv e Cocci In Pairs [facility] Specime complet l 013 n/Sourc ed Report 11:40 e: SPUTUM/ sputum Clin[facility] Collect complet l 013 ed: ed Report 11:40 013 11:40 Clinica Status: complet l 013 Final ed Report 11:40 Last Updated : 013 06:21 Clinica GRAM complet l 013 (Final) ed Report 11:40 PROCALCITONIN (08-23-2012 11:00) Procalc <0.05 0.00-1. Normal complet itonin 013 ng/mL 90 ed 11:00 Comment: An initial Procalcitonin concentration of <2 ng/ml calls for retesting Comment: within 6-24 hrs if Comment: clinical suspicion of systemic bacterial infection (Sepsis). An Comment: in-patient on Comment: antibiotic therapy should have a PCT test every 24 hours to monitor Comment: level. Comment: Comment: Interpretation of Procalcitonin Test Results: Comment: Comment: Procalcitonin (ng/mL) Interpretation Comment: SEPSIS Comment: <0.5 Systemic infection (Sepsis) is not likely.Low risk Comment: for progression to severe sepsis/septic shock. Comment: >0.5 - <2 Systemic infection (Sepsis) is possible and should Comment: be correlated with patient's clinical Comment: condition. Moderate risk for progression to severe sepsis/septic shock. Comment: >2 - <10 Systemic infection (Sepsis) is likely. High risk for Comment: progression to severe sepsis/septic shock. Comment: >10 Important systemic inflammatory response, almost Comment: exclusively due to severe bacterial sepsi or Comment: septic shock. High likelihood of severe sepsis or septic shock. Comment: Comment: LOWER RESPIRATORY TRACT INFECTION Comment: <0.1 No bacterial infection; antibiotics strongly Comment: discouraged. Comment: >0.1 - <0.25 Bacterial infection unlikely; antibiotics discouraged. Comment: >0.25 - <0.5 Bacterial infection possible; recommend antibiotics. Comment: >0.5 Bacterial infection present; antibiotics Comment: strongly recommended. Comment: Comment: Please call Reference Laboratory for reference ranges. CULTURE, BLOOD (08-22-2012 16:15) [facility] Specime complet l 013 n: ed Report 16:15 BLOOD [facility] 013 ed: ed Report 16:15 013 16:15 [facility] Status: complet l 013 Final ed Report 16:15 Last Updated : 013 19:18 [facility] CUL RES complet l 013 ed Report 16:15 (Final) [facility] Culture complet l 013 In ed Report 16:15 Progres s [facility] No complet l 013 Growth ed Report 16:15 After 24 Hours [facility] No complet l 013 Growth ed Report 16:15 After 48 Hours [facility] No complet l 013 Growth ed Report 16:15 After 3 Days [facility] No complet l 013 Growth ed Report 16:15 After 4 Days [facility] No complet l 013 Growth ed Report 16:15 After 5 Days COMPREHENSIVE METABOLIC PANEL (08-22-2012 16:13) Potassi 4.0 3.5-5.1 Normal complet um 013 mEq/L ed 16:13 CO2 30.2 22-29 Above complet 013 mmol/L high ed 16:13 normal Calcium 9.8 8.5-10. Normal complet 013 mg/dL 1 ed 16:13 Total 7.9 6.4-8.2 Normal complet Protein 013 gm/dL ed 16:13 Albumin -18-2 3.6 3.4-5.0 Normal complet 013 gm/dL ed 16:13 Alk 18-2 101 U/L 50-136 Normal complet Phos 013 ed 16:13 BUN/Cre 18-2 13.8 6.0-20. Normal complet at 013 0 ed Ratio 16:13 A/G 18-2 0.9 1.0-2.0 Below complet Ratio 013 low ed 16:13 normal Anion 18-2 11.4 10.0-20 Normal complet Gap 013 mEq/L .0 ed 16:13 GLOMERU 18-2 >60.0 complet LAR 013 mL/min/ ed FILTRAT 16:13 1.73 m2 ION RATE Comment: eGFR Interpretation: Disease State Reference Ranges for eGFR Comment: (calculated) Comment: Stage eGFR Description Comment: I/II >60 Normal/Mildly reduced kidney function Comment: III 30-59 Moderately reduced kidney function Comment: IV 15-29 Severely reduced kidney function Comment: V <15 End-stage kidney failure Comment: Calculated using MDRD formula based on gender,race (* GFR AA is for the Comment: population), and age. GFR estimates are unreliable in Comment: patients with rapidly changing kidney function,recent dialysis, extremes Comment: in body size, severe malnutrition or obesity, loss of limbs, abnormal Comment: muscle mass, or during . In these patients, alternative Comment: determinations of GFR should be obtained. GLOMERU 18-2 >60.0 complet LAR 013 mL/min/ ed FILTRAT 16:13 1.73 m2 ION RATE Steffi n Chlorid 18-2 102 98-107 Normal complet e 013 mEq/L ed 16:13 Glucose 18-2 141 70-99 Above complet 013 mg/dL high ed 16:13 normal BUN -18-2 11 7-18 Normal complet 013 mg/dL ed 16:13 Creatin 18-2 0.8 0.6-1.3 Normal complet ine 013 mg/dL ed 16:13 Sodium 18-2 140 136-145 Normal complet 013 mEq/L ed 16:13 ALT -18-2 36 U/L 30-65 Normal complet 013 ed 16:13 AST 18-2 22 U/L 15-37 Normal complet 013 ed 16:13 Bilirub 02-18-2 0.18 0.20-1. Below complet in, 013 mg/dL 00 low ed Total 16:13 normal CBC W/DIFF (08-22-2012 16:13) Monocyt 02-18-2 0.4 X 0.2-1.2 Normal complet e Count 013 10 ed 16:13 Eosinop 02-18-2 0.3 X 0.0-0.8 Normal complet hil 013 10 ed Count 16:13 Basophi 02-18-2 0.1 X 0.0-0.1 Normal complet l Count 013 10 ed 16:13 Lymphoc 02-18-2 0.7 X 0.7-4.3 Normal complet yte 013 10 ed Count 16:13 WBC -18-2 11.7 X 3.5-9.6 Above complet 013 10 high ed 16:13 normal RBC -18-2 5.11 X 4.20-5. Normal complet 013 10 40 ed 16:13 Hemoglo -18-2 13.1 12.0-15 Normal complet bin 013 gm/dL .0 ed 16:13 Hematoc 02-18-2 40.8 % 36.0-47 Normal complet rit 013 .0 ed 16:13 Platele 02-18-2 464 X 140-450 Above complet t 013 10 high ed 16:13 normal MCH 02-18-2 25.6 pg 27.0-32 Below complet 013 .0 low ed 16:13 normal MCHC 02-18-2 32.0 32.0-36 Normal complet 013 gm/dL .0 ed 16:13 MCV -18-2 79.9 fl 80.0-10 Below complet 013 0.0 low ed 16:13 normal RDW 02-18-2 17.0 % 12.0-15 Above complet 013 .0 high ed 16:13 normal MPV 02-18-2 8.6 fl 6.6-9.3 Normal complet 013 ed 16:13 Neutrop 02-18-2 87.8 % 50.0-70 Above complet hils % 013 .0 high ed 16:13 normal Lymphoc 02-18-2 5.7 % 20.0-35 Below complet ytes % 013 .0 low ed 16:13 normal Monocyt 02-18-2 3.5 % 0.0-13. 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 pg/mL .0 ed 16:13 Comment: RULE - IN Comment: Comment: AGE OPTIMAL\E\.sk5\E\SENS \E\.sk5\E\SPEC PPV\E\.sk5\E\NPV\E\.s k5\E\ACCURACY Comment: CUT-POINT Comment: < 50 yr 450 pg/ml 97% 93%\E\.sk5\E\76%\E\.s k5\E\99%\E\.sk5\E\ 95% Comment: 50-75 yr 900 pg/ml 90% 82%\E\.sk5\E\82%\E\.s k5\E\88%\E\.sk5\E\ 85% Comment: >= 75 yr 1800 pg/ml 85% 73%\E\.sk5\E\92%\E\.s k5\E\55%\E\.sk5\E\ 83% Comment: Comment: RULE-OUT Comment: Comment: OPTIMAL\E\.sk5\E\SENS \E\.sk5\E\SPEC PPV\E\.sk5\E\NPV\E\.s k5\E\ACCURACY Comment: CUT-POINT Comment: Rule-Out 300 pg/ml 99% 62%\E\.sk5\E\55%\E\.s k5\E\99%\E\.sk5\E\ 83% Comment: Comment: NOTE: THESE CUT-POINTS ARE FOR ACUTE CHF DIAGNOSIS ONLY CKMB (08-22-2012 16:13) CK 52 U/L 26-192 Normal complet 013 ed 16:13 MMB <0.50 0.00-5. Normal complet 013 ng/mL 00 ed 16:13 Comment: MMB IS BELOW ASSAY RANGE CKMB% CKMB% 0.0-4.0 Normal complet 013 NOT ed 16:13 INDICAT ED % TROPONIN I,KAYLA (IN HOUSE) (08-22-2012 16:13) Troponi <0.04 0.00-0. Normal complet n I 013 ng/mL 10 ed 16:13 Comment: Troponin I Reference Values Comment: 0.0 - 0.1 Negative Comment: 0.11 - 1.50 [place] Comment: >1.50 Indicative of AMI Comment: TROPONIN IS BELOW ASSAY RANGE CULTURE, BLOOD (08-22-2012 16:13) [facility] Specime complet l 013 n: ed Report 16:13 BLOOD [facility] Collect complet l 013 ed: ed Report 16:13 013 16:13 Clin[facility] Status: complet l 013 Final ed Report 16:13 Last Updated : 013 19:18 [facility] CUL RES complet l 013 ed Report 16:13 (Final) [facility] Culture complet l 013 In ed Report 16:13 Progres s [facility] No complet l 013 Growth ed Report 16:13 After 24 Hours Clin[facility] No complet l 013 Growth ed Report 16:13 After 48 Hours [facility] No complet l 013 Growth ed Report 16:13 After 3 Days [facility] No complet l 013 Growth ed Report 16:13 After 4 Days Clin[facility] No complet l 013 Growth ed Report 16:13 After 5 Days STREP SCREEN (08-15-2012 20:30) Strep A NEGATIV NEGATIV Normal complet 013 E E ed 20:30 Comment: CULTURE SENT FOR CONFIRMATION UA DIPSTICK, REFLEX TO MICRO (08-15-2012 20:30) Comment: Urine microscopic has been added Color YELLOW YELLOW, Normal complet 013 STRAW,C ed 20:30 OLORLES S,PALE YELLOW Appeara CLEAR CLEAR Normal complet nce 013 ed 20:30 Specifi 1.020 1.016-1 Normal complet c 013 .022 ed [place] 20:30 PH 08-15-2 5.0 5.0-7.0 Normal complet 013 ed 20:30 Leukocy 02-11-2 2+ NEGATIV Abnorma complet te 013 E l ed 20:30 Nitrite 02-11-2 NEGATIV NEGATIV Normal complet 013 E E ed 20:30 UA 02-11-2 1+ NEGATIV Abnorma complet Protein 013 E l ed 20:30 Glucose 08-15-2 NEGATIV NEGATIV Normal complet 013 E E ed 20:30 Ketones -11-2 NEGATIV NEGATIV Normal complet 013 E E ed 20:30 Urobili 08-15-2 1+ 0-1 Normal complet nogen 013 mg/dL ed 20:30 Bilirub 08-15-2 1+ NEGATIV Abnorma complet in 013 E l ed 20:30 Blood 08-15-2 NEGATIV NEGATIV Normal complet 013 E E ed 20:30 MICROSCOPIC EXAM OF URINE (08-15-2012 20:30) Bacteri 08-15-2 2+ NONE Abnorma complet a 013 SEEN l ed 20:30 Epithel -11-2 2+ NONE Abnorma complet ial 013 SEEN l ed Cells 20:30 UA WBC 08-15-2 10-20 0-2,Occ Abnorma complet 013 ,RARE,N l ed 20:30 ONE SEEN CBC W/DIFF (08-15-2012 20:07) WBC 08-15-2 12.1 X 3.5-9.6 Above complet 013 10 high ed 20:07 normal RBC 08-15-2 5.42 X 4.20-5. Above complet 013 10 40 high ed 20:07 normal Hemoglo 08-15-2 13.9 12.0-15 Normal complet bin 013 gm/dL .0 ed 20:07 Hematoc 08-15-2 42.5 % 36.0-47 Normal complet rit 013 .0 ed 20:07 Platele 08-15-2 413 X 140-450 Normal complet t 013 10 ed 20:07 MCH 08-15-2 25.6 pg 27.0-32 Below complet 013 .0 low ed 20:07 normal MCHC 08-15-2 32.6 32.0-36 Normal complet 013 gm/dL .0 ed 20:07 MCV 02-11-2 78.3 fl 80.0-10 Below complet 013 0.0 low ed 20:07 normal RDW 08-15-2 16.6 % 12.0-15 Above complet 013 .0 high ed 20:07 normal MPV 08-15-2 8.2 fl 6.6-9.3 Normal complet 013 ed 20:07 Neutrop 11-2 73.2 % 50.0-70 Above complet hils % 013 .0 high ed 20:07 normal Lymphoc 08-15-2 13.3 % 20.0-35 Below complet ytes % 013 .0 low ed 20:07 normal Monocyt 08-15-2 9.8 % 0.0-13. Normal complet es % 013 0 ed 20:07 Eosinop 08-15-2 3.2 % 0.0-4.0 Normal complet hils % 013 ed 20:07 Basophi 2 0.5 % 0.0-2.0 Normal complet ls % 013 ed 20:07 Neutrop 2 8.8 X 1.5-7.1 Above complet hil 013 10 high ed Count 20:07 normal Monocyt 2 1.2 X 0.2-1.2 Normal complet e Count 013 10 ed 20:07 Eosinop 2 0.4 X 0.0-0.8 Normal complet hil 013 10 ed Count 20:07 Basophi 08-15-2 0.1 X 0.0-0.1 Normal complet l Count 013 10 ed 20:07 Lymphoc 2 1.6 X 0.7-4.3 Normal complet yte 013 10 ed Count 20:07 BASIC METABOLIC PANEL (08-15-2012 20:07) Glucose 08-15-2 127 70-99 Above complet 013 mg/dL high ed 20:07 normal BUN 2 22 7-18 Above complet 013 mg/dL high ed 20:07 normal Creatin 08-15-2 1.5 0.6-1.3 Above complet ine 013 mg/dL high ed 20:07 normal Sodium 2 136 136-145 Normal complet 013 mEq/L ed 20:07 Potassi 3.2 3.5-5.1 Below complet um 013 mEq/L low ed 20:07 normal Chlorid 02-11-2 98 98-107 Normal complet e 013 mEq/L ed 20:07 CO2 31.2 22-29 Above complet 013 mmol/L high ed 20:07 normal Calcium 9.1 8.5-10. Normal complet 013 mg/dL 1 ed 20:07 BUN/Cre 14.7 6.0-20. Normal complet at 013 0 ed Ratio 20:07 Anion 9.6 10.0-20 Below complet Gap 013 mEq/L .0 low ed 20:07 normal GLOMERU 39 complet LAR 013 mL/min/ ed FILTRAT 20:07 1.73 m2 ION RATE Comment: eGFR Interpretation: Disease State Reference Ranges for eGFR Comment: (calculated) Comment: Stage eGFR Description Comment: I/II >60 Normal/Mildly reduced kidney function Comment: III 30-59 Moderately reduced kidney function Comment: IV 15-29 Severely reduced kidney function Comment: V <15 End-stage kidney failure Comment: Calculated using MDRD formula based on gender,race (* GFR AA is for the Comment: population), and age. GFR estimates are unreliable in Comment: patients with rapidly changing kidney function,recent dialysis, extremes Comment: in body size, severe malnutrition or obesity, loss of limbs, abnormal Comment: muscle mass, or during . In these patients, alternative Comment: determinations of GFR should be obtained. GLOMERU 47 complet LAR 013 mL/min/ ed FILTRAT 20:07 1.73 m2 ION RATE Steffi n INFLUENZA VIRUS A/B DIRECT IF TST (08-15-2012 19:40) Influen NEGATIV NEGATIV Normal complet za A 013 E E ed Antigen 19:40 Comment: Cell Culture is recommended for confirmation of negative Comment: results. Influen NEGATIV NEGATIV Normal complet za B 013 E E ed Antigen 19:40 Comment: Cell Culture is recommended for confirmation of negative Comment: results. URINALYSIS W/MICRO (07-02-2012 06:44) PH 5.0 5.0-7.0 Normal complet 012 ed 06:44 Nitrite NEGATIV NEGATIV Normal complet 012 E E ed 06:44 UA NEGATIV NEGATIV Normal complet Protein 012 E E ed 06:44 Color 2 YELLOW YELLOW, Normal complet 012 STRAW,C ed 06:44 OLORLES S,PALE YELLOW Appeara 2 CLEAR CLEAR Normal complet nce 012 ed 06:44 Specifi 07-02-2 1.025 1.016-1 Above complet c 012 .022 high ed [place] 06:44 normal Leukocy 07-02-2 NEGATIV NEGATIV Normal complet te 012 E E ed 06:44 Blood NEGATIV NEGATIV Normal complet 012 E E ed 06:44 UA WBC 2-5 0-2,Occ Abnorma complet 012 ,RARE,N l ed 06:44 ONE SEEN Glucose NEGATIV NEGATIV Normal complet 012 E E ed 06:44 Ketones NEGATIV NEGATIV Normal complet 012 E E ed 06:44 Urobili norm 0-1 Normal complet nogen 012 mg/dL ed 06:44 Bilirub NEGATIV NEGATIV Normal complet in 012 E E ed 06:44 Bacteri 07-02-2 1+ NONE Abnorma complet a 012 SEEN l ed 06:44 Epithel 07-02-2 OCC. NONE Abnorma complet ial 012 SEEN l ed Cells 06:44 Casts 07-02-2 OCC.HYA NONE Abnorma complet 012 LINE SEEN l ed 06:44 CASTS TROPONIN I,KAYLA (IN HOUSE) (07-02-2012 03:30) Troponi 07-02-2 <0.04 0.00-0. Normal complet n I 012 ng/mL 10 ed 03:30 Comment: Troponin I Reference Values Comment: 0.0 - 0.1 Negative Comment: 0.11 - 1.50 [place] Comment: >1.50 Indicative of AMI Comment: TROPONIN IS BELOW ASSAY RANGE BASIC METABOLIC PANEL (07-02-2012 03:30) Glucose 07-02- 212 70-99 Above complet 012 mg/dL high ed 03:30 normal BUN 07-02-2 31 7-18 Above complet 012 mg/dL high ed 03:30 normal Sodium 136 136-145 Normal complet 012 mEq/L ed 03:30 Potassi 2 3.6 3.5-5.1 Normal complet um 012 mEq/L ed 03:30 Chlorid 99 98-107 Normal complet e 012 mEq/L ed 03:30 CO2 21.8 22-29 Below complet 012 mmol/L low ed 03:30 normal Calcium 9.5 8.5-10. Normal complet 012 mg/dL 1 ed 03:30 BUN/Cre 19.4 6.0-20. Normal complet at 012 0 ed Ratio 03:30 Anion 18.6 10.0-20 Normal complet Gap 012 mEq/L .0 ed 03:30 GLOMERU 36 complet LAR 012 mL/min/ ed FILTRAT 03:30 1.73 m2 ION RATE Comment: eGFR Interpretation: Disease State Reference Ranges for eGFR Comment: (calculated) Comment: Stage eGFR Description Comment: I/II >60 Normal/Mildly reduced kidney function Comment: III 30-59 Moderately reduced kidney function Comment: IV 15-29 Severely reduced kidney function Comment: V <15 End-stage kidney failure Comment: Calculated using MDRD formula based on gender,race (* GFR AA is for the Comment: population), and age. GFR estimates are unreliable in Comment: patients with rapidly changing kidney function,recent dialysis, extremes Comment: in body size, severe malnutrition or obesity, loss of limbs, abnormal Comment: muscle mass, or during . In these patients, alternative Comment: determinations of GFR should be obtained. GLOMERU 44 complet LAR 012 mL/min/ ed FILTRAT 03:30 1.73 m2 ION RATE Steffi n Creatin 1.6 0.6-1.3 Above complet ine 012 mg/dL high ed 03:30 normal CBC W/DIFF (07-02-2012 03:30) WBC 8.2 X 3.5-9.6 Normal complet 012 10 ed 03:30 RBC 4.32 X 4.20-5. Normal complet 012 10 40 ed 03:30 Hemoglo 12.1 12.0-15 Normal complet bin 012 gm/dL .0 ed 03:30 Hematoc 35.4 % 36.0-47 Below complet rit 012 .0 low ed 03:30 normal Platele 12-29-2 409 X 140-450 Normal complet t 012 10 ed 03:30 MCHC 07-02-2 34.0 32.0-36 Normal complet 012 gm/dL .0 ed 03:30 MCV 07-02-2 82.1 fl 80.0-10 Normal complet 012 0.0 ed 03:30 RDW 07-02-2 16.1 % 12.0-15 Above complet 012 .0 high ed 03:30 normal MPV 07-02-2 7.8 fl 6.6-9.3 Normal complet 012 ed 03:30 Neutrop 07-02-2 97.4 % 50.0-70 Above complet hils % 012 .0 high ed 03:30 normal Lymphoc 07-02-2 2.3 % 20.0-35 Below complet ytes % 012 .0 low ed 03:30 normal Monocyt 07-02-2 0.3 % 0.0-13. Normal complet es % 012 0 ed 03:30 Eosinop 07-02-2 0.0 % 0.0-4.0 Normal complet hils % 012 ed 03:30 Basophi 07-02-2 0.0 % 0.0-2.0 Normal complet ls % 012 ed 03:30 Neutrop 07-02-2 8.0 X 1.5-7.1 Above complet hil 012 10 high ed Count 03:30 normal Monocyt 07-02-2 0.0 X 0.2-1.2 Below complet e Count 012 10 low ed 03:30 normal Eosinop 07-02-2 0.0 X 0.0-0.8 Normal complet hil 012 10 ed Count 03:30 Basophi 07-02-2 0.0 X 0.0-0.1 Normal complet l Count 012 10 ed 03:30 MCH 07-02-2 27.9 pg 27.0-32 Normal complet 012 .0 ed 03:30 Lymphoc 07-02-2 0.2 X 0.7-4.3 Below complet yte 012 10 low ed Count 03:30 normal TROPONIN I,KAYLA (IN HOUSE) (07-01-2012 20:40) Troponi 07-01-2 <0.04 0.00-0. Normal complet n I 012 ng/mL 10 ed 20:40 Comment: Troponin I Reference Values Comment: 0.0 - 0.1 Negative Comment: 0.11 - 1.50 [place] Comment: >1.50 Indicative of AMI Comment: TROPONIN IS BELOW ASSAY RANGE STREP SCREEN CONFIRMATION (07-01-2012 14:35) [facility] Specime complet l 012 n: ed Report 14:35 OTHER-S PECIFY [facility] Collect complet l 012 ed: ed Report 14:35 012 14:35 [facility] Status: complet l 012 Final ed Report 14:35 Last Updated : 012 11:19 [facility] CUL RES complet l 012 ed Report 14:35 (Final) [facility] Negativ complet l 012 e for ed Report 14:35 Beta Hemolyt ic Strep at 24 hrs [facility] Negativ complet l 012 e for ed Report 14:35 Beta Hemolyt ic Strep at 48 hrs INFLUENZA VIRUS A/B DIRECT IF TST (07-01-2012 14:35) Influen NEGATIV NEGATIV Normal complet za B 012 E E ed Antigen 14:35 Comment: Cell Culture is recommended for confirmation of negative Comment: results. Influen NEGATIV NEGATIV Normal complet za A 012 E E ed Antigen 14:35 Comment: Cell Culture is recommended for confirmation of negative Comment: results. CBC W/DIFF (07-01-2012 13:40) WBC 9.7 X 3.5-9.6 Above complet 012 10 high ed 13:40 normal RBC 5.15 X 4.20-5. Normal complet 012 10 40 ed 13:40 Hemoglo 13.9 12.0-15 Normal complet bin 012 gm/dL .0 ed 13:40 Monocyt 9.0 % 0.0-13. Normal complet es % 012 0 ed 13:40 Eosinop 0.4 X 0.0-0.8 Normal complet hil 012 10 ed Count 13:40 Basophi 0.1 X 0.0-0.1 Normal complet l Count 012 10 ed 13:40 Lymphoc 1.1 X 0.7-4.3 Normal complet yte 012 10 ed Count 13:40 Basophi 12-28-2 0.8 % 0.0-2.0 Normal complet ls % 012 ed 13:40 Neutrop 07-01-2 7.2 X 1.5-7.1 Above complet hil 012 10 high ed Count 13:40 normal Monocyt 2 0.9 X 0.2-1.2 Normal complet e Count 012 10 ed 13:40 Hematoc 2 42.0 % 36.0-47 Normal complet rit 012 .0 ed 13:40 Platele 2 492 X 140-450 Above complet t 012 10 high ed 13:40 normal MCH 26.9 pg 27.0-32 Below complet 012 .0 low ed 13:40 normal MCHC 33.0 32.0-36 Normal complet 012 gm/dL .0 ed 13:40 MCV 81.6 fl 80.0-10 Normal complet 012 0.0 ed 13:40 RDW 16.2 % 12.0-15 Above complet 012 .0 high ed 13:40 normal MPV 7.2 fl 6.6-9.3 Normal complet 012 ed 13:40 Neutrop 74.8 % 50.0-70 Above complet hils % 012 .0 high ed 13:40 normal Lymphoc 2 11.4 % 20.0-35 Below complet ytes % 012 .0 low ed 13:40 normal Eosinop 2 4.0 % 0.0-4.0 Normal complet hils % 012 ed 13:40 BASIC METABOLIC PANEL (07-01-2012 13:40) Glucose 125 70-99 Above complet 012 mg/dL high ed 13:40 normal BUN 2 19 7-18 Above complet 012 mg/dL high ed 13:40 normal Creatin 2 1.2 0.6-1.3 Normal complet ine 012 mg/dL ed 13:40 Sodium 139 136-145 Normal complet 012 mEq/L ed 13:40 Potassi 2 3.1 3.5-5.1 Below complet um 012 mEq/L low ed 13:40 normal Chlorid 2 101 98-107 Normal complet e 012 mEq/L ed 13:40 CO2 30.2 22-29 Above complet 012 mmol/L high ed 13:40 normal Calcium 9.7 8.5-10. Normal complet 012 mg/dL 1 ed 13:40 BUN/Cre 15.8 6.0-20. Normal complet at 012 0 ed Ratio 13:40 Anion 10.9 10.0-20 Normal complet Gap 012 mEq/L .0 ed 13:40 GLOMERU 51 complet LAR 012 mL/min/ ed FILTRAT 13:40 1.73 m2 ION RATE Comment: eGFR Interpretation: Disease State Reference Ranges for eGFR Comment: (calculated) Comment: Stage eGFR Description Comment: I/II >60 Normal/Mildly reduced kidney function Comment: III 30-59 Moderately reduced kidney function Comment: IV 15-29 Severely reduced kidney function Comment: V <15 End-stage kidney failure Comment: Calculated using MDRD formula based on gender,race (* GFR AA is for the Comment: population), and age. GFR estimates are unreliable in Comment: patients with rapidly changing kidney function,recent dialysis, extremes Comment: in body size, severe malnutrition or obesity, loss of limbs, abnormal Comment: muscle mass, or during . In these patients, alternative Comment: determinations of GFR should be obtained. GLOMERU >60.0 complet LAR 012 mL/min/ ed FILTRAT 13:40 1.73 m2 ION RATE Steffi n CBC W/DIFF (05-15-2012 06:05) WBC 14.3 X 3.5-9.6 Above complet 012 10 high ed 06:05 normal Hemoglo 9.9 12.0-15 Below complet bin 012 gm/dL .0 low ed 06:05 normal Hematoc 29.8 % 36.0-47 Below complet rit 012 .0 low ed 06:05 normal Platele 289 X 140-450 Normal complet t 012 10 ed 06:05 MCH 28.8 pg 27.0-32 Normal complet 012 .0 ed 06:05 MCHC 33.3 32.0-36 Normal complet 012 gm/dL .0 ed 06:05 MCV 11-11-2 86.5 fl 80.0-10 Normal complet 012 0.0 ed 06:05 RDW 05-15-2 17.7 % 12.0-15 Above complet 012 .0 high ed 06:05 normal RBC 05-15-2 3.44 X 4.20-5. Below complet 012 10 40 low ed 06:05 normal MPV 05-15-2 8.3 fl 6.6-9.3 Normal complet 012 ed 06:05 Manual 05-15-2 YES complet Diff? 012 ed 06:05 Neutrop 05-15-2 98.0 % 50.0-70 Above complet hils % 012 .0 high ed 06:05 normal Lymphoc 05-15-2 1.0 % 20.0-35 Below complet ytes % 012 .0 low ed 06:05 normal Monocyt 05-15-2 1.0 % 0.0-13. Normal complet es % 012 0 ed 06:05 Neutrop 14.0 X 1.5-7.1 Above complet hil 012 10 high ed Count 06:05 normal Monocyt 2 0.1 X 0.2-1.2 Below complet e Count 012 10 low ed 06:05 normal Lymphoc 05-15-2 0.1 X 0.7-4.3 Below complet yte 012 10 low ed Count 06:05 normal BASIC METABOLIC PANEL (05-14-2012 06:55) Glucose 05-14-2 218 70-99 Above complet 012 mg/dL high ed 06:55 normal BUN 05-14-2 41 7-18 Above complet 012 mg/dL high ed 06:55 normal Creatin 05-14-2 1.5 0.6-1.3 Above complet ine 012 mg/dL high ed 06:55 normal Sodium 05-14-2 135 136-145 Below complet 012 mEq/L low ed 06:55 normal Potassi 05-14-2 4.6 3.5-5.1 Normal complet um 012 mEq/L ed 06:55 Chlorid 05-14-2 101 98-107 Normal complet e 012 mEq/L ed 06:55 CO2 05-14-2 22.1 22-29 Normal complet 012 mmol/L ed 06:55 Calcium 05-14-2 8.1 8.5-10. Below complet 012 mg/dL 1 low ed 06:55 normal BUN/Cre 27.3 6.0-20. Above complet at 012 0 high ed Ratio 06:55 normal Anion 16.1 10.0-20 Normal complet Gap 012 mEq/L .0 ed 06:55 GLOMERU 39 complet LAR 012 mL/min/ ed FILTRAT 06:55 1.73 m2 ION RATE Comment: eGFR Interpretation: Disease State Reference Ranges for eGFR Comment: (calculated) Comment: Stage eGFR Description Comment: I/II >60 Normal/Mildly reduced kidney function Comment: III 30-59 Moderately reduced kidney function Comment: IV 15- Severely reduced kidney function Comment: V <15 End-stage kidney failure Comment: Calculated using MDRD formula based on gender,race (* GFR AA is for the Comment: population), and age. GFR estimates are unreliable in Comment: patients with rapidly changing kidney function,recent dialysis, extremes Comment: in body size, severe malnutrition or obesity, loss of limbs, abnormal Comment: muscle mass, or during . In these patients, alternative Comment: determinations of GFR should be obtained. GLOMERU 47 complet LAR 012 mL/min/ ed FILTRAT 06:55 1.73 m2 ION RATE Steffi n POTASSIUM,SERUM (05-13-2012 17:06) Potassi 4.8 3.5-5.1 Normal complet um 012 mEq/L ed 17:06 BASIC METABOLIC PANEL (05-13-2012 06:00) CO2 21.4 22-29 Below complet 012 mmol/L low ed 06:00 normal Calcium 8.4 8.5-10. Below complet 012 mg/dL 1 low ed 06:00 normal BUN/Cre 22.2 6.0-20. Above complet at 012 0 high ed Ratio 06:00 normal Anion 18.4 10.0-20 Normal complet Gap 012 mEq/L .0 ed 06:00 GLOMERU 24 complet LAR 012 mL/min/ ed FILTRAT 06:00 1.73 m2 ION RATE Comment: eGFR Interpretation: Disease State Reference Ranges for eGFR Comment: (calculated) Comment: Stage eGFR Description Comment: I/II >60 Normal/Mildly reduced kidney function Comment: III 30-59 Moderately reduced kidney function Comment: IV 15-29 Severely reduced kidney function Comment: V <15 End-stage kidney failure Comment: Calculated using MDRD formula based on gender,race (* GFR AA is for the Comment: population), and age. GFR estimates are unreliable in Comment: patients with rapidly changing kidney function,recent dialysis, extremes Comment: in body size, severe malnutrition or obesity, loss of limbs, abnormal Comment: muscle mass, or during . In these patients, alternative Comment: determinations of GFR should be obtained. GLOMERU 29 complet LAR 012 mL/min/ ed FILTRAT 06:00 1.73 m2 ION RATE Steffi n Sodium 130 136-145 Below complet 012 mEq/L low ed 06:00 normal Potassi 5.2 3.5-5.1 Above complet um 012 mEq/L high ed 06:00 normal Chlorid 95 98-107 Below complet e 012 mEq/L low ed 06:00 normal Glucose 256 70-99 Above complet 012 mg/dL high ed 06:00 normal BUN 51 7-18 Above complet 012 mg/dL high ed 06:00 normal Creatin 2.3 0.6-1.3 Above complet ine 012 mg/dL high ed 06:00 normal CBC W/DIFF (05-13-2012 06:00) WBC 9.4 X 3.5-9.6 Normal complet 012 10 ed 06:00 RBC 3.86 X 4.20-5. Below complet 012 10 40 low ed 06:00 normal Hemoglo 11.6 12.0-15 Below complet bin 012 gm/dL .0 low ed 06:00 normal Hematoc 33.1 % 36.0-47 Below complet rit 012 .0 low ed 06:00 normal Platele 395 X 140-450 Normal complet t 012 10 ed 06:00 MCH 30.2 pg 27.0-32 Normal complet 012 .0 ed 06:00 MCHC 35.2 32.0-36 Normal complet 012 gm/dL .0 ed 06:00 MCV 85.7 fl 80.0-10 Normal complet 012 0.0 ed 06:00 RDW 16.6 % 12.0-15 Above complet 012 .0 high ed 06:00 normal MPV 8.4 fl 6.6-9.3 Normal complet 012 ed 06:00 Manual YES complet Diff? 012 ed 06:00 Neutrop 87.0 % 50.0-70 Above complet hils % 012 .0 high ed 06:00 normal Bands 6 0-8 Normal complet 012 ed 06:00 Lymphoc 7.0 % 20.0-35 Below complet ytes % 012 .0 low ed 06:00 normal Neutrop 8.7 X 1.5-7.1 Above complet hil 012 10 high ed Count 06:00 normal Lymphoc 0.7 X 0.7-4.3 Normal complet yte 012 10 ed Count 06:00 Comment: CHECKED TWICE. GRAM STAIN (SPUTUM) (05-12-2012 20:10) [facility] Rare complet l 012 Gram ed Report 20:10 Positiv e Cocci Seen [facility] Specime complet l 012 n: ed Report 20:10 SPUTUM [facility] Collect complet l 012 ed: ed Report 20:10 012 20:10 Clin[facility] Status: complet l 012 Final ed Report 20:10 Last Updated : 012 07:20 [facility] GRAM complet l 012 (Final) ed Report 20:10 [facility] >10 complet l 012 WBC/LPF ed Report 20:10 <25 EPI/LPF CULTURE, SPUTUM (NURSING) (05-12-2012 20:10) [facility] Specime complet l 012 n: ed Report 20:10 SPUTUM [facility] Collect complet l 012 ed: ed Report 20:10 012 20:10 [facility] Status: complet l 012 Final ed Report 20:10 Last Updated : 012 22:36 [facility] CUL RES complet l 012 ed Report 20:10 (Final) [facility] Light complet l 012 Normal ed Report 20:10 Upper Respira tory Tessa Noted CULTURE, BLOOD (05-12-2012 16:04) [facility] Specime complet l 012 n: ed Report 16:04 BLOOD CULTURE, BLOOD (05-12-2012 16:04) [facility] Specime complet l 012 n: ed Report 16:04 BLOOD [facility] Collect complet l 012 ed: ed Report 16:04 012 16:04 [facility] Status: complet l 012 Final ed Report 16:04 Last Updated : 012 10:17 [facility] CUL RES complet l 012 ed Report 16:04 (Final) [facility] No complet l 012 Growth ed Report 16:04 After 24 Hours [facility] No complet l 012 Growth ed Report 16:04 After 48 Hours [facility] No complet l 012 Growth ed Report 16:04 After 3 Days [facility] No complet l 012 Growth ed Report 16:04 After 4 Days [facility] No complet l 012 Growth ed Report 16:04 After 5 Days CBC W/DIFF (05-12-2012 12:35) Monocyt 6.6 % 0.0-13. Normal complet es % 012 0 ed 12:35 Eosinop 1.3 % 0.0-4.0 Normal complet hils % 012 ed 12:35 Basophi 0.4 % 0.0-2.0 Normal complet ls % 012 ed 12:35 Neutrop 8.1 X 1.5-7.1 Above complet hil 012 10 high ed Count 12:35 normal Monocyt 0.7 X 0.2-1.2 Normal complet e Count 012 10 ed 12:35 Eosinop 0.1 X 0.0-0.8 Normal complet hil 012 10 ed Count 12:35 Basophi 0.0 X 0.0-0.1 Normal complet l Count 012 10 ed 12:35 Lymphoc 1.5 X 0.7-4.3 Normal complet yte 012 10 ed Count 12:35 RBC 11-08-2 5.23 X 4.20-5. Normal complet 012 10 40 ed 12:35 MPV 8.3 fl 6.6-9.3 Normal complet 012 ed 12:35 WBC 2 10.4 X 3.5-9.6 Above complet 012 10 high ed 12:35 normal Hemoglo 14.8 12.0-15 Normal complet bin 012 gm/dL .0 ed 12:35 Hematoc 2 44.7 % 36.0-47 Normal complet rit 012 .0 ed 12:35 Platele 522 X 140-450 Above complet t 012 10 high ed 12:35 normal MCH 28.3 pg 27.0-32 Normal complet 012 .0 ed 12:35 MCHC 33.1 32.0-36 Normal complet 012 gm/dL .0 ed 12:35 MCV 85.5 fl 80.0-10 Normal complet 012 0.0 ed 12:35 RDW 16.3 % 12.0-15 Above complet 012 .0 high ed 12:35 normal Neutrop 77.5 % 50.0-70 Above complet hils % 012 .0 high ed 12:35 normal Lymphoc 14.2 % 20.0-35 Below complet ytes % 012 .0 low ed 12:35 normal COMPREHENSIVE METABOLIC PANEL (05-12-2012 12:35) Glucose 151 70-99 Above complet 012 mg/dL high ed 12:35 normal BUN 37 7-18 Above complet 012 mg/dL high ed 12:35 normal Creatin 1.8 0.6-1.3 Above complet ine 012 mg/dL high ed 12:35 normal Sodium 140 136-145 Normal complet 012 mEq/L ed 12:35 Potassi 3.9 3.5-5.1 Normal complet um 012 mEq/L ed 12:35 Chlorid 102 98-107 Normal complet e 012 mEq/L ed 12:35 CO2 27.2 22-29 Normal complet 012 mmol/L ed 12:35 Calcium 10.5 8.5-10. Above complet 012 mg/dL 1 high ed 12:35 normal Total 8.7 6.4-8.2 Above complet Protein 012 gm/dL high ed 12:35 normal Albumin 3.8 3.4-5.0 Normal complet 012 gm/dL ed 12:35 Alk 117 U/L 50-136 Normal complet Phos 012 ed 12:35 ALT 34 U/L 30-65 Normal complet 012 ed 12:35 AST 17 U/L 15-37 Normal complet 012 ed 12:35 Bilirub 0.30 0.0-1.0 Normal complet in, 012 mg/dL ed Total 12:35 BUN/Cre 19.9 6.0-20. Normal complet at 012 0 ed Ratio 12:35 A/G 0.8 1.0-2.0 Below complet Ratio 012 low ed 12:35 normal Anion 15.5 10.0-20 Normal complet Gap 012 mEq/L .0 ed 12:35 GLOMERU 32 complet LAR 012 mL/min/ ed FILTRAT 12:35 1.73 m2 ION RATE Comment: eGFR Interpretation: Disease State Reference Ranges for eGFR Comment: (calculated) Comment: Stage eGFR Description Comment: I/II >60 Normal/Mildly reduced kidney function Comment: III 30-59 Moderately reduced kidney function Comment: IV 15-29 Severely reduced kidney function Comment: V <15 End-stage kidney failure Comment: Calculated using MDRD formula based on gender,race (* GFR AA is for the Comment: population), and age. GFR estimates are unreliable in Comment: patients with rapidly changing kidney function,recent dialysis, extremes Comment: in body size, severe malnutrition or obesity, loss of limbs, abnormal Comment: muscle mass, or during . In these patients, alternative Comment: determinations of GFR should be obtained. GLOMERU 38 complet LAR 012 mL/min/ ed FILTRAT 12:35 1.73 m2 ION RATE Steffi n LIPASE (05-12-2012 12:35) Lipase 165 U/L 114-286 Normal complet 012 ed 12:35 AMYLASE,SERUM (05-12-2012 12:35) Amylase 45 U/L 25-115 Normal complet 012 ed 12:35 BASIC METABOLIC PANEL (04-16-2012 11:25) Glucose 51 70-99 Below complet 012 mg/dL low ed 11:25 normal Comment: CK X 2 BUN 23 7-18 Above complet 012 mg/dL high ed 11:25 normal Creatin 1.0 0.6-1.3 Normal complet ine 012 mg/dL ed 11:25 Sodium 145 136-145 Normal complet 012 mEq/L ed 11:25 Potassi 3.6 3.5-5.1 Normal complet um 012 mEq/L ed 11:25 Chlorid 110 98-107 Above complet e 012 mEq/L high ed 11:25 normal CO2 31.7 22-29 Above complet 012 mmol/L high ed 11:25 normal Calcium 8.1 8.5-10. Below complet 012 mg/dL 1 low ed 11:25 normal BUN/Cre 23.0 6.0-20. Above complet at 012 0 high ed Ratio 11:25 normal Anion 6.9 10.0-20 Below complet Gap 012 mEq/L .0 low ed 11:25 normal GLOMERU >60.0 complet LAR 012 mL/min/ ed FILTRAT 11:25 1.73 m2 ION RATE Comment: eGFR Interpretation: Disease State Reference Ranges for eGFR Comment: (calculated) Comment: Stage eGFR Description Comment: I/II >60 Normal/Mildly reduced kidney function Comment: III 30-59 Moderately reduced kidney function Comment: IV 15-29 Severely reduced kidney function Comment: V <15 End-stage kidney failure Comment: Calculated using MDRD formula based on gender,race (* GFR AA is for the Comment: population), and age. GFR estimates are unreliable in Comment: patients with rapidly changing kidney function,recent dialysis, extremes Comment: in body size, severe malnutrition or obesity, loss of limbs, abnormal Comment: muscle mass, or during . In these patients, alternative Comment: determinations of GFR should be obtained. GLOMERU 2 >60.0 complet LAR 012 mL/min/ ed FILTRAT 11:25 1.73 m2 ION RATE Steffi n CBC W/DIFF (04-14-2012 06:20) WBC 10-11-2 14.2 X 3.5-9.6 Above complet 012 10 high ed 06:20 normal RBC 10-11-2 3.31 X 4.20-5. Below complet 012 10 40 low ed 06:20 normal Hemoglo 10-11-2 9.7 12.0-15 Below complet bin 012 gm/dL .0 low ed 06:20 normal Hematoc 10-11-2 28.6 % 36.0-47 Below complet rit 012 .0 low ed 06:20 normal Platele 10-11-2 311 X 140-450 Normal complet t 012 10 ed 06:20 MCH 10-11-2 29.2 pg 27.0-32 Normal complet 012 .0 ed 06:20 MCHC 10-11-2 33.7 32.0-36 Normal complet 012 gm/dL .0 ed 06:20 MCV 10-11-2 86.5 fl 80.0-10 Normal complet 012 0.0 ed 06:20 RDW 10-11-2 17.9 % 12.0-15 Above complet 012 .0 high ed 06:20 normal MPV 10-11-2 8.4 fl 6.6-9.3 Normal complet 012 ed 06:20 Manual 10-11-2 YES complet Diff? 012 ed 06:20 Neutrop 10-11-2 96.0 % 50.0-70 Above complet hils % 012 .0 high ed 06:20 normal Lymphoc 10-11-2 2.0 % 20.0-35 Below complet ytes % 012 .0 low ed 06:20 normal Monocyt 10-11-2 2.0 % 0.0-13. Normal complet es % 012 0 ed 06:20 Neutrop 10-11-2 13.6 X 1.5-7.1 Above complet hil 012 10 high ed Count 06:20 normal Monocyt 10-11-2 0.3 X 0.2-1.2 Normal complet e Count 012 10 ed 06:20 Lymphoc 10-11-2 0.3 X 0.7-4.3 Below complet yte 012 10 low ed Count 06:20 normal BASIC METABOLIC PANEL (04-14-2012 06:20) Glucose 10-11-2 181 70-99 Above complet 012 mg/dL high ed 06:20 normal BUN 04-14-2 39 7-18 Above complet 012 mg/dL high ed 06:20 normal Potassi 5.2 3.5-5.1 Above complet um 012 mEq/L high ed 06:20 normal Chlorid 04-14- 108 98-107 Above complet e 012 mEq/L high ed 06:20 normal CO2 04-14- 23.2 22-29 Normal complet 012 mmol/L ed 06:20 Calcium 04-14-2 8.1 8.5-10. Below complet 012 mg/dL 1 low ed 06:20 normal BUN/Cre 2 30.0 6.0-20. Above complet at 012 0 high ed Ratio 06:20 normal Anion 12.8 10.0-20 Normal complet Gap 012 mEq/L .0 ed 06:20 GLOMERU 46 complet LAR 012 mL/min/ ed FILTRAT 06:20 1.73 m2 ION RATE Comment: eGFR Interpretation: Disease State Reference Ranges for eGFR Comment: (calculated) Comment: Stage eGFR Description Comment: I/II >60 Normal/Mildly reduced kidney function Comment: III 30-59 Moderately reduced kidney function Comment: IV 15-29 Severely reduced kidney function Comment: V <15 End-stage kidney failure Comment: Calculated using MDRD formula based on gender,race (* GFR AA is for the Comment: population), and age. GFR estimates are unreliable in Comment: patients with rapidly changing kidney function,recent dialysis, extremes Comment: in body size, severe malnutrition or obesity, loss of limbs, abnormal Comment: muscle mass, or during . In these patients, alternative Comment: determinations of GFR should be obtained. GLOMERU 56 complet LAR 012 mL/min/ ed FILTRAT 06:20 1.73 m2 ION RATE Steffi n Creatin 04-14- 1.3 0.6-1.3 Normal complet ine 012 mg/dL ed 06:20 Sodium 04-14- 139 136-145 Normal complet 012 mEq/L ed 06:20 BASIC METABOLIC PANEL (04-13-2012 06:40) Glucose 04-13- 238 70-99 Above complet 012 mg/dL high ed 06:40 normal BUN 04-13-2 54 7-18 Above complet 012 mg/dL high ed 06:40 normal Sodium 1010-2 137 136-145 Normal complet 012 mEq/L ed 06:40 Potassi 5.1 3.5-5.1 Normal complet um 012 mEq/L ed 06:40 Chlorid 106 98-107 Normal complet e 012 mEq/L ed 06:40 CO2 21.8 22-29 Below complet 012 mmol/L low ed 06:40 normal Calcium 8.5 8.5-10. Normal complet 012 mg/dL 1 ed 06:40 BUN/Cre 27.0 6.0-20. Above complet at 012 0 high ed Ratio 06:40 normal Anion 14.1 10.0-20 Normal complet Gap 012 mEq/L .0 ed 06:40 GLOMERU 04-13-2 28 complet LAR 012 mL/min/ ed FILTRAT 06:40 1.73 m2 ION RATE Comment: eGFR Interpretation: Disease State Reference Ranges for eGFR Comment: (calculated) Comment: Stage eGFR Description Comment: I/II >60 Normal/Mildly reduced kidney function Comment: III 30-59 Moderately reduced kidney function Comment: IV 15-29 Severely reduced kidney function Comment: V <15 End-stage kidney failure Comment: Calculated using MDRD formula based on gender,race (* GFR AA is for the Comment: population), and age. GFR estimates are unreliable in Comment: patients with rapidly changing kidney function,recent dialysis, extremes Comment: in body size, severe malnutrition or obesity, loss of limbs, abnormal Comment: muscle mass, or during . In these patients, alternative Comment: determinations of GFR should be obtained. GLOMERU 34 complet LAR 012 mL/min/ ed FILTRAT 06:40 1.73 m2 ION RATE Steffi n Creatin 2.0 0.6-1.3 Above complet ine 012 mg/dL high ed 06:40 normal CBC W/DIFF (04-13-2012 06:40) RBC 04-13- 3.41 X 4.20-5. Below complet 012 10 40 low ed 06:40 normal Hemoglo 10.1 12.0-15 Below complet bin 012 gm/dL .0 low ed 06:40 normal Hematoc 29.3 % 36.0-47 Below complet rit 012 .0 low ed 06:40 normal Platele 10-10-2 329 X 140-450 Normal complet t 012 10 ed 06:40 MCH 10-10-2 29.7 pg 27.0-32 Normal complet 012 .0 ed 06:40 MCHC 10-10-2 34.7 32.0-36 Normal complet 012 gm/dL .0 ed 06:40 MCV 10-10-2 85.7 fl 80.0-10 Normal complet 012 0.0 ed 06:40 RDW 10-10-2 17.5 % 12.0-15 Above complet 012 .0 high ed 06:40 normal MPV 10-10-2 8.6 fl 6.6-9.3 Normal complet 012 ed 06:40 Manual 10-10-2 YES complet Diff? 012 ed 06:40 Neutrop 10-10-2 98.0 % 50.0-70 Above complet hils % 012 .0 high ed 06:40 normal Lymphoc 10-10-2 2.0 % 20.0-35 Below complet ytes % 012 .0 low ed 06:40 normal Neutrop 10-10-2 14.1 X 1.5-7.1 Above complet hil 012 10 high ed Count 06:40 normal Lymphoc 10-10-2 0.3 X 0.7-4.3 Below complet yte 012 10 low ed Count 06:40 normal WBC 10-10-2 14.4 X 3.5-9.6 Above complet 012 10 high ed 06:40 normal URINALYSIS W/MICRO (04-13-2012 06:10) Color 10-10-2 YELLOW YELLOW, Normal complet 012 STRAW,C ed 06:10 OLORLES S,PALE YELLOW Specifi 10-10-2 1.015 1.016-1 Below complet c 012 .022 low ed [place] 06:10 normal PH 10-10-2 5.0 5.0-7.0 Normal complet 012 ed 06:10 Leukocy 10-10-2 NEGATIV NEGATIV Normal complet te 012 E E ed 06:10 Nitrite 10-10-2 NEGATIV NEGATIV Normal complet 012 E E ed 06:10 UA 10-10-2 1+ NEGATIV Abnorma complet Protein 012 E l ed 06:10 Glucose 10-10-2 3+ NEGATIV Abnorma complet 012 E l ed 06:10 Ketones 10-10-2 NEGATIV NEGATIV Normal complet 012 E E ed 06:10 Urobili 10-10-2 norm 0-1 Normal complet nogen 012 mg/dL ed 06:10 Bilirub 10-10-2 NEGATIV NEGATIV Normal complet in 012 E E ed 06:10 Blood 10-10-2 2+ NEGATIV Abnorma complet 012 E l ed 06:10 UA WBC 10-10-2 0-2 0-2,Occ Normal complet 012 ,RARE,N ed 06:10 ONE SEEN UA RBC 10-10-2 2-5 0-2,RAR Abnorma complet 012 E,Occ,N l ed 06:10 ONE SEEN Bacteri 10-10-2 TRACE NONE Abnorma complet a 012 SEEN l ed 06:10 Epithel 10-10-2 0-4 NONE Abnorma complet ial 012 SQUAMOU SEEN l ed Cells 06:10 S EPITHEL IAL CELLS AMORPHO -10-2 TRACE NONE Abnorma complet US 012 SEEN l ed SEDIMEN 06:10 T [place] 04-13- CLEAR CLEAR Normal complet nce 012 ed 06:10 CULTURE, URINE (04-13-2012 06:10) [facility] Specime complet l 012 n: ed Report 06:10 URINE [facility] Collect complet l 012 ed: ed Report 06:10 012 06:10 Clin[facility] Status: complet l 012 Final ed Report 06:10 Last Updated : 012 16:14 [facility] CUL RES complet l 012 ed Report 06:10 (Final) [facility] No complet l 012 Growth ed Report 06:10 After 24 Hours [facility] No complet l 012 Growth ed Report 06:10 After 48 Hours GRAM STAIN (SPUTUM) (04-12-2012 17:39) [facility] Status: complet l 012 Final ed Report 17:39 Last Updated : 012 20:02 [facility] GRAM complet l 012 (Final) ed Report 17:39 Clinica <10 complet l 012 WBC/LPF ed Report 17:39 <25 EPI/LPF [facility] Specime complet l 012 n: ed Report 17:39 SPUTUM [facility] Collect complet l 012 ed: ed Report 17:39 012 17:39 Clin[facility] Rare complet l 012 Gram ed Report 17:39 Positiv e Cocci Seen [facility] Rare complet l 012 Gram ed Report 17:39 Negativ e Bacilli Seen CULTURE, SPUTUM (NURSING) (04-12-2012 17:39) [facility] Specime complet l 012 n: ed Report 17:39 SPUTUM [facility] Collect complet l 012 ed: ed Report 17:39 012 17:39 Clin[facility] Status: complet l 012 Final ed Report 17:39 Last Updated : 012 10:37 [facility] CUL RES complet l 012 ed Report 17:39 (Final) [facility] Moderat complet l 012 e ed Report 17:39 Normal Upper Respira tory Tessa Noted Clin[facility] Moderat complet l 012 e ed Report 17:39 Normal Upper Respira tory Tessa Also Noted Clinica ISO1 complet l 012 (Final) ed Report 17:39 Clin[facility] Light complet l 012 Growth ed Report 17:39 Clin[facility] Yeast complet l 012 Isolate ed Report 17:39 d [facility] Jayde complet l 012 ed Report 17:39 dublini ensis CULTURE, BLOOD (04-11-2012 16:22) Clin[facility] No complet l 012 Growth ed Report 16:22 After 48 Hours [facility] No complet l 012 Growth ed Report 16:22 After 3 Days Clin[facility] No complet l 012 Growth ed Report 16:22 After 4 Days [facility] No complet l 012 Growth ed Report 16:22 After 5 Days [facility] Specime complet l 012 n: ed Report 16:22 BLOOD [facility] Collect complet l 012 ed: ed Report 16:22 012 16:22 Clinica Status: complet l 012 Final ed Report 16:22 Last Updated : 012 19:40 [facility] CUL RES complet l 012 ed Report 16:22 (Final) [facility] Culture complet l 012 In ed Report 16:22 [facility] Growth ed Report 16:22 After 24 Hours CULTURE, BLOOD (04-11-2012 16:20) [facility] Specime complet l 012 n: ed Report 16:20 [facility] l 012 ed: ed Report 16:20 012 16:20 Clin[facility] Status: complet l 012 Final ed Report 16:20 Last Updated : 012 19:40 [facility] CUL RES complet l 012 ed Report 16:20 (Final) [facility] l 012 In ed Report 16:20 [facility] No complet l 012 Growth ed Report 16:20 After 24 Hours [facility] No complet l 012 Growth ed Report 16:20 After 48 Hours Clin[facility] No complet l 012 Growth ed Report 16:20 After 3 Days Clin[facility] No complet l 012 Growth ed Report 16:20 After 4 Days Clin[facility] No complet l 012 Growth ed Report 16:20 After 5 Days CULTURE, BLOOD (03-09-2012 19:32) [facility] n: ed Report 19:32 [facility] l 012 ed: ed Report 19:32 012 19:32 Clin[facility] Status: complet l 012 Final ed Report 19:32 Last Updated : 012 08:06 [facility] CUL RES complet l 012 ed Report 19:32 (Final) [facility] Culture complet l 012 In ed Report 19:32 Progres s [facility] No complet l 012 Growth ed Report 19:32 After 24 Hours Clin[facility] No complet l 012 Growth ed Report 19:32 After 48 Hours Clin[facility] No complet l 012 Growth ed Report 19:32 After 3 Days Clin[facility] No complet l 012 Growth ed Report 19:32 After 4 Days Clin[facility] No complet l 012 Growth ed Report 19:32 After 5 Days CULTURE, BLOOD (03-09-2012 19:30) [facility] No complet l 012 Growth ed Report 19:30 After 3 Days [facility] No complet l 012 Growth ed Report 19:30 After 4 Days [facility] No complet l 012 Growth ed Report 19:30 After 5 Days [facility] Specime complet l 012 n: ed Report 19:30 [facility]12 ed: ed Report 19:30 012 19:30 Clin[facility] Status: complet l 012 Final ed Report 19:30 Last Updated : 012 08:06 [facility] CUL RES complet l 012 ed Report 19:30 (Final) [facility] Culture complet l 012 In ed Report 19:30 [facility]12 Growth ed Report 19:30 After 24 Hours Clin[facility] No complet l 012 Growth ed Report 19:30 After 48 Hours BASIC METABOLIC PANEL (03-09-2012 19:30) Glucose 106 70-99 Above complet 012 mg/dL high ed 19:30 normal BUN 21 7-18 Above complet 012 mg/dL high ed 19:30 normal Creatin 1.2 0.6-1.3 Normal complet ine 012 mg/dL ed 19:30 Sodium 139 136-145 Normal complet 012 mEq/L ed 19:30 Potassi 3.9 3.5-5.1 Normal complet um 012 mEq/L ed 19:30 Chlorid 104 98-107 Normal complet e 012 mEq/L ed 19:30 CO2 24.8 22-29 Normal complet 012 mmol/L ed 19:30 Calcium 9.4 8.5-10. Normal complet 012 mg/dL 1 ed 19:30 BUN/Cre 17.5 6.0-20. Normal complet at 012 0 ed Ratio 19:30 Anion 14.2 10.0-20 Normal complet Gap 012 mEq/L .0 ed 19:30 GLOMERU 51 complet LAR 012 mL/min/ ed FILTRAT 19:30 1.73 m2 ION RATE Comment: eGFR Interpretation: Disease State Reference Ranges for eGFR Comment: (calculated) Comment: Stage eGFR Description Comment: I/II >60 Normal/Mildly reduced kidney function Comment: III 30-59 Moderately reduced kidney function Comment: IV 15-29 Severely reduced kidney function Comment: V <15 End-stage kidney failure Comment: Calculated using MDRD formula based on gender,race (* GFR AA is for the Comment: population), and age. GFR estimates are unreliable in Comment: patients with rapidly changing kidney function,recent dialysis, extremes Comment: in body size, severe malnutrition or obesity, loss of limbs, abnormal Comment: muscle mass, or during . In these patients, alternative Comment: determinations of GFR should be obtained. GLOMERU >60.0 complet LAR 012 mL/min/ ed FILTRAT 19:30 1.73 m2 ION RATE Steffi n CULTURE, URINE (03-09-2012 05:20) [facility] Specime complet l 012 n: ed Report 05:20 URINE [facility] Collect complet l 012 ed: ed Report 05:20 012 05:20 Clinica Status: complet l 012 Final ed Report 05:20 Last Updated : 012 23:25 Clin[facility] CUL RES complet l 012 ed Report 05:20 (Final) Clin[facility] No complet l 012 Growth ed Report 05:20 After 24 Hours Clin[facility] No complet l 012 Growth ed Report 05:20 After 48 Hours CBC W/DIFF (01-27-2012 01:20) Eosinop 0.0 X 0.0-0.8 Normal complet hil 012 10 ed Count 01:20 Basophi 01-26-2 0.0 X 0.0-0.1 Normal complet l Count 012 10 ed 01:20 WBC 01-26-2 11.4 X 4.8-10. Above complet 012 10 8 high ed 01:20 normal RBC 01-26-2 3.68 X 4.20-5. Below complet 012 10 40 low ed 01:20 normal Hemoglo 07-25-2 10.0 12.0-16 Below complet bin 012 gm/dL .0 low ed 01:20 normal Hematoc 01-26-2 31.2 % 37.0-47 Below complet rit 012 .0 low ed 01:20 normal MCV 01-26-2 84.8 fl 81.0-99 Normal complet 012 .0 ed 01:20 MCH 25-2 27.2 pg 27.0-31 Normal complet 012 .0 ed 01:20 MCHC 01-26-2 32.1 33.0-37 Below complet 012 gm/dL .0 low ed 01:20 normal RDW 01-26-2 17.1 % 11.5-14 Above complet 012 .5 high ed 01:20 normal MPV 01-26-2 8.9 fl 6.2-10. Normal complet 012 6 ed 01:20 Platele 01-26-2 256 X 150-400 Normal complet t 012 10 ed 01:20 Neutrop 01-26-2 96.8 % 42.0-75 Above complet hils % 012 .0 high ed 01:20 normal Lymphoc 25-2 1.6 % 20.5-51 Below complet ytes % 012 .1 low ed 01:20 normal Monocyt 01-26-2 1.6 % 2.6-14. Below complet es % 012 5 low ed 01:20 normal Eosinop 25-2 0.0 % 0.0-8.1 Normal complet hils % 012 ed 01:20 Basophi 25-2 0.0 % 0.0-1.3 Normal complet ls % 012 ed 01:20 Neutrop 25-2 11.1 X 1.5-7.1 Above complet hil 012 10 high ed Count 01:20 normal Lymphoc 25-2 0.2 X 0.7-4.3 Below complet yte 012 10 low ed Count 01:20 normal Monocyt 25-2 0.2 X 0.2-1.2 Normal complet e Count 012 10 ed 01:20 MAGNESIUM,SERUM (01-27-2012 01:20) Magnesi -25-2 1.8 1.8-2.4 Normal complet um 012 mg/dL ed 01:20 PHOSPHORUS,SERUM (01-27-2012 01:20) Phospho 07-25-2 2.2 2.5-4.9 Below complet victor manuel 012 mg/dL low ed 01:20 normal BASIC METABOLIC PANEL (01-27-2012 01:20) Glucose 25-2 172 70-100 Above complet 012 mg/dL high ed 01:20 normal BUN 25-2 34 7-18 Above complet 012 mg/dL high ed 01:20 normal Creatin 01-26-2 1.3 0.6-1.3 Normal complet ine 012 mg/dL ed 01:20 Sodium 2 137 136-145 Normal complet 012 mEq/L ed 01:20 Potassi 01-26-2 4.8 3.5-5.1 Normal complet um 012 mEq/L ed 01:20 Chlorid 2 106 98-107 Normal complet e 012 mEq/L ed 01:20 CO2 01-26-2 25 21-32 Normal complet 012 mmol/L ed 01:20 Calcium 01-26-2 8.3 8.5-10. Below complet 012 mg/dL 1 low ed 01:20 normal BUN/Cre 01-26-2 26 complet at 012 ed Ratio 01:20 GLOMERU 01-26-2 46 complet LAR 012 mL/min/ ed FILTRAT 01:20 1.73 m2 ION RATE Comment: eGFR Interpretation: Disease State Reference Ranges for eGFR Comment: (calculated) Comment: Stage eGFR Description Comment: I/II >60 Normal/Mildly reduced kidney function Comment: III 30-59 Moderately reduced kidney function Comment: IV 15-29 Severely reduced kidney function Comment: V <15 End-stage kidney failure Comment: Calculated using MDRD formula based on gender,race (* GFR AA is for the Comment: population), and age. GFR estimates are unreliable in Comment: patients with rapidly changing kidney function,recent dialysis, extremes Comment: in body size, severe malnutrition or obesity, loss of limbs, abnormal Comment: muscle mass, or during . In these patients, alternative Comment: determinations of GFR should be obtained. GLOMERU 01-26-2 56 complet LAR 012 mL/min/ ed FILTRAT 01:20 1.73 m2 ION RATE Steffi n CBC W/DIFF (01-26-2012 03:05) RBC 01-25-2 3.66 X 4.20-5. Below complet 012 10 40 low ed 03:05 normal WBC 01-25-2 13.0 X 4.8-10. Above complet 012 10 8 high ed 03:05 normal Hemoglo 07-24-2 10.0 12.0-16 Below complet bin 012 gm/dL .0 low ed 03:05 normal Hematoc 07-24-2 31.3 % 37.0-47 Below complet rit 012 .0 low ed 03:05 normal MCV 24-2 85.6 fl 81.0-99 Normal complet 012 .0 ed 03:05 MCH 24-2 27.4 pg 27.0-31 Normal complet 012 .0 ed 03:05 MCHC 24-2 32.0 33.0-37 Below complet 012 gm/dL .0 low ed 03:05 normal RDW 24-2 17.0 % 11.5-14 Above complet 012 .5 high ed 03:05 normal MPV 24-2 9.2 fl 6.2-10. Normal complet 012 6 ed 03:05 Platele -24-2 272 X 150-400 Normal complet t 012 10 ed 03:05 Neutrop 24-2 97.6 % 42.0-75 Above complet hils % 012 .0 high ed 03:05 normal Lymphoc 07-24-2 1.4 % 20.5-51 Below complet ytes % 012 .1 low ed 03:05 normal Monocyt 07-24-2 1.0 % 2.6-14. Below complet es % 012 5 low ed 03:05 normal Eosinop 07-24-2 0.0 % 0.0-8.1 Normal complet hils % 012 ed 03:05 Basophi 07-24-2 0.0 % 0.0-1.3 Normal complet ls % 012 ed 03:05 Neutrop -24-2 12.7 X 1.5-7.1 Above complet hil 012 10 high ed Count 03:05 normal Lymphoc 07-24-2 0.2 X 0.7-4.3 Below complet yte 012 10 low ed Count 03:05 normal Monocyt 07-24-2 0.1 X 0.2-1.2 Below complet e Count 012 10 low ed 03:05 normal Eosinop 07-24-2 0.0 X 0.0-0.8 Normal complet hil 012 10 ed Count 03:05 Basophi 07-24-2 0.0 X 0.0-0.1 Normal complet l Count 012 10 ed 03:05 BASIC METABOLIC PANEL (01-26-2012 03:05) Glucose 24-2 145 70-100 Above complet 012 mg/dL high ed 03:05 normal BUN 24-2 35 7-18 Above complet 012 mg/dL high ed 03:05 normal Creatin 24-2 1.4 0.6-1.3 Above complet ine 012 mg/dL high ed 03:05 normal Sodium 24-2 139 136-145 Normal complet 012 mEq/L ed 03:05 Potassi 24-2 5.1 3.5-5.1 Normal complet um 012 mEq/L ed 03:05 Chlorid 24-2 106 98-107 Normal complet e 012 mEq/L ed 03:05 CO2 24-2 25 21-32 Normal complet 012 mmol/L ed 03:05 Calcium 24-2 8.4 8.5-10. Below complet 012 mg/dL 1 low ed 03:05 normal BUN/Cre 24-2 25 complet at 012 ed Ratio 03:05 GLOMERU 24-2 43 complet LAR 012 mL/min/ ed FILTRAT 03:05 1.73 m2 ION RATE Comment: eGFR Interpretation: Disease State Reference Ranges for eGFR Comment: (calculated) Comment: Stage eGFR Description Comment: I/II >60 Normal/Mildly reduced kidney function Comment: III 30-59 Moderately reduced kidney function Comment: IV 15-29 Severely reduced kidney function Comment: V <15 End-stage kidney failure Comment: Calculated using MDRD formula based on gender,race (* GFR AA is for the Comment: population), and age. GFR estimates are unreliable in Comment: patients with rapidly changing kidney function,recent dialysis, extremes Comment: in body size, severe malnutrition or obesity, loss of limbs, abnormal Comment: muscle mass, or during . In these patients, alternative Comment: determinations of GFR should be obtained. GLOMERU 24-2 52 complet LAR 012 mL/min/ ed FILTRAT 03:05 1.73 m2 ION RATE Steffi n MAGNESIUM,SERUM (01-26-2012 03:05) Magnesi 24-2 1.8 1.8-2.4 Normal complet um 012 mg/dL ed 03:05 PHOSPHORUS,SERUM (01-26-2012 03:05) Phospho -24-2 2.4 2.5-4.9 Below complet victor manuel 012 mg/dL low ed 03:05 normal IRON (01-26-2012 03:05) Iron 25 35-150 Below complet 012 mcg/dL low ed 03:05 normal TIBC (ALREADY INCLUDES IRON) (01-26-2012 03:05) Iron 25 35-150 Below complet 012 mcg/dL low ed 03:05 normal TIBC 307.00 250.00- Normal complet 012 mcg/dL 450.00 ed 03:05 Iron % 8 20-55 Below complet Saturat 012 low ed ion 03:05 normal CULTURE, URINE (01-25-2012 12:40) [facility] Identif complet l 012 ication ed Report 12:40 And Suscept ibility To Follow [facility] Antibio complet l 012 tics ed Report 12:40 are listed in order of cost effecti veness with least Clin[facility] expensi complet l 012 ve ed Report 12:40 Clin[facility] first complet l 012 and ed Report 12:40 most expensi ve last, if given in the average recomme nded Clinica dose. complet l 012 ed Report 12:40 Clin[facility] Strepto complet l 012 coccus ed Report 12:40 agalact iae, serogro up B Clin[facility] ISOLATE complet l 012 1 ed Report 12:40 [facility] Strepto complet l 012 coccus ed Report 12:40 Clinica agalact complet l 012 iae, ed Report 12:40 Clinica serogro complet l 012 up B ed Report 12:40 Clinica ------- complet l 012 ------- ed Report 12:40 ---- Clin[facility] SADIQ complet l 012 (mcg/ml ed Report 12:40 ) Clin[facility] Amoxici complet l 012 llin ed Report 12:40 (AMX) <=0.25 S Clinica Cefepim complet l 012 e (CPM) ed Report 12:40 <=0.062 5 S Clin[facility] Levoflo complet l 012 xacin ed Report 12:40 (LV) <=0.5 S Clinica Linezol complet l 012 id ed Report 12:40 (LZD) 1 S Clin[facility] Penicil complet l 012 alissa (P) ed Report 12:40 <=0.031 25 S [facility] Vancomy complet l 012 sapna (V) ed Report 12:40 0.5 S Clinica 2,000 complet l 012 Cfu/mL ed Report 12:40 Clinica Gram complet l 012 Positiv ed Report 12:40 e Cocci [facility] Specime complet l 012 n: ed Report 12:40 URINE [facility] Collect complet l 012 ed: ed Report 12:40 012 12:40 Clinica Status: complet l 012 Final ed Report 12:40 Last Updated : 012 08:30 Clin[facility] CUL RES complet l 012 ed Report 12:40 (Final) Clinica 50,000 complet l 012 Cfu/mL ed Report 12:40 Clinica mixed complet l 012 Gram ed Report 12:40 Positiv e Cocci [facility] ISO1 complet l 012 (Final) ed Report 12:40 BASIC METABOLIC PANEL (01-25-2012 06:02) GLOMERU 34 complet LAR 012 mL/min/ ed FILTRAT 06:02 1.73 m2 ION RATE Comment: eGFR Interpretation: Disease State Reference Ranges for eGFR Comment: (calculated) Comment: Stage eGFR Description Comment: I/II >60 Normal/Mildly reduced kidney function Comment: III 30-59 Moderately reduced kidney function Comment: IV 15-29 Severely reduced kidney function Comment: V <15 End-stage kidney failure Comment: Calculated using MDRD formula based on gender,race (* GFR AA is for the Comment: population), and age. GFR estimates are unreliable in Comment: patients with rapidly changing kidney function,recent dialysis, extremes Comment: in body size, severe malnutrition or obesity, loss of limbs, abnormal Comment: muscle mass, or during . In these patients, alternative Comment: determinations of GFR should be obtained. GLOMERU 07-23-2 41 complet LAR 012 mL/min/ ed FILTRAT 06:02 1.73 m2 ION RATE Steffi n BUN/Cre 24 complet at 012 ed Ratio 06:02 Calcium 8.3 8.5-10. Below complet 012 mg/dL 1 low ed 06:02 normal CO2 25 21-32 Normal complet 012 mmol/L ed 06:02 Chlorid 105 98-107 Normal complet e 012 mEq/L ed 06:02 Potassi 4.2 3.5-5.1 Normal complet um 012 mEq/L ed 06:02 Sodium 137 136-145 Normal complet 012 mEq/L ed 06:02 Creatin 1.7 0.6-1.3 Above complet ine 012 mg/dL high ed 06:02 normal BUN 40 7-18 Above complet 012 mg/dL high ed 06:02 normal Glucose 173 70-100 Above complet 012 mg/dL high ed 06:02 normal PHOSPHORUS,SERUM (01-25-2012 00:05) Phospho 3.0 2.5-4.9 Normal complet victor manuel 012 mg/dL ed 00:05 COMPREHENSIVE METABOLIC PANEL (01-25-2012 00:05) GLOMERU 32 complet LAR 012 mL/min/ ed FILTRAT 00:05 1.73 m2 ION RATE Steffi n GLOMERU 27 complet LAR 012 mL/min/ ed FILTRAT 00:05 1.73 m2 ION RATE Comment: eGFR Interpretation: Disease State Reference Ranges for eGFR Comment: (calculated) Comment: Stage eGFR Description Comment: I/II >60 Normal/Mildly reduced kidney function Comment: III 30-59 Moderately reduced kidney function Comment: IV 15-29 Severely reduced kidney function Comment: V <15 End-stage kidney failure Comment: Calculated using MDRD formula based on gender,race (* GFR AA is for the Comment: population), and age. GFR estimates are unreliable in Comment: patients with rapidly changing kidney function,recent dialysis, extremes Comment: in body size, severe malnutrition or obesity, loss of limbs, abnormal Comment: muscle mass, or during . In these patients, alternative Comment: determinations of GFR should be obtained. BUN/Cre 01-24-2 21 complet at 012 ed Ratio 00:05 Bilirub 01-24-2 0.1 0.0-1.0 Normal complet in, 012 mg/dL ed Total 00:05 AST 01-24-2 3 U/L 15-37 Below complet 012 low ed 00:05 normal ALT 01-24-2 28 U/L 30-65 Below complet 012 low ed 00:05 normal Alk 01-24-2 77 U/L 50-136 Normal complet Phos 012 ed 00:05 Albumin 01-24-2 3.2 3.4-5.0 Below complet 012 gm/dL low ed 00:05 normal Total 01-24-2 6.5 6.4-8.2 Normal complet Protein 012 gm/dL ed 00:05 Calcium 01-24-2 7.9 8.5-10. Below complet 012 mg/dL 1 low ed 00:05 normal CO2 01-24-2 27 21-32 Normal complet 012 mmol/L ed 00:05 Chlorid 01-24-2 102 98-107 Normal complet e 012 mEq/L ed 00:05 Potassi 01-24-2 4.7 3.5-5.1 Normal complet um 012 mEq/L ed 00:05 Sodium 01-24-2 135 136-145 Below complet 012 mEq/L low ed 00:05 normal Creatin 01-24-2 2.1 0.6-1.3 Above complet ine 012 mg/dL high ed 00:05 normal BUN 01-24-2 45 7-18 Above complet 012 mg/dL high ed 00:05 normal Glucose 01-24-2 182 70-100 Above complet 012 mg/dL high ed 00:05 normal MAGNESIUM,SERUM (01-25-2012 00:05) Magnesi 01-24-2 1.9 1.8-2.4 Normal complet um 012 mg/dL ed 00:05 CBC W/DIFF (01-25-2012 00:05) Basophi 01-24-2 0.0 X 0.0-0.1 Normal complet l Count 012 10 ed 00:05 Eosinop 23-2 0.0 X 0.0-0.8 Normal complet hil 012 10 ed Count 00:05 Monocyt 23-2 0.1 X 0.2-1.2 Below complet e Count 012 10 low ed 00:05 normal Lymphoc 07-23-2 0.2 X 0.7-4.3 Below complet yte 012 10 low ed Count 00:05 normal Neutrop 07-23-2 11.0 X 1.5-7.1 Above complet hil 012 10 high ed Count 00:05 normal Basophi 07-23-2 0.0 % 0.0-1.3 Normal complet ls % 012 ed 00:05 Eosinop 07-23-2 0.0 % 0.0-8.1 Normal complet hils % 012 ed 00:05 Monocyt 07-23-2 0.7 % 2.6-14. Below complet es % 012 5 low ed 00:05 normal Lymphoc 07-23-2 1.6 % 20.5-51 Below complet ytes % 012 .1 low ed 00:05 normal Neutrop 07-23-2 97.7 % 42.0-75 Above complet hils % 012 .0 high ed 00:05 normal Platele 07-23-2 288 X 150-400 Normal complet t 012 10 ed 00:05 MPV 07-23-2 9.1 fl 6.2-10. Normal complet 012 6 ed 00:05 RDW 07-23-2 16.7 % 11.5-14 Above complet 012 .5 high ed 00:05 normal MCHC 07-23-2 32.2 33.0-37 Below complet 012 gm/dL .0 low ed 00:05 normal MCH 07-23-2 27.1 pg 27.0-31 Normal complet 012 .0 ed 00:05 MCV 07-23-2 84.1 fl 81.0-99 Normal complet 012 .0 ed 00:05 Hematoc 07-23-2 32.2 % 37.0-47 Below complet rit 012 .0 low ed 00:05 normal Hemoglo 07-23-2 10.4 12.0-16 Below complet bin 012 gm/dL .0 low ed 00:05 normal RBC 07-23-2 3.83 X 4.20-5. Below complet 012 10 40 low ed 00:05 normal WBC 07-23-2 11.3 X 4.8-10. Above complet 012 10 8 high ed 00:05 normal BASIC METABOLIC PANEL (01-24-2012 19:35) GLOMERU 07-22-2 28 complet LAR 012 mL/min/ ed FILTRAT 19:35 1.73 m2 ION RATE Steffi n GLOMERU 01-23-2 23 complet LAR 012 mL/min/ ed FILTRAT 19:35 1.73 m2 ION RATE Comment: eGFR Interpretation: Disease State Reference Ranges for eGFR Comment: (calculated) Comment: Stage eGFR Description Comment: I/II >60 Normal/Mildly reduced kidney function Comment: III 30-59 Moderately reduced kidney function Comment: IV 15-29 Severely reduced kidney function Comment: V <15 End-stage kidney failure Comment: Calculated using MDRD formula based on gender,race (* GFR AA is for the Comment: population), and age. GFR estimates are unreliable in Comment: patients with rapidly changing kidney function,recent dialysis, extremes Comment: in body size, severe malnutrition or obesity, loss of limbs, abnormal Comment: muscle mass, or during . In these patients, alternative Comment: determinations of GFR should be obtained. BUN/Cre 20 complet at 012 ed Ratio 19:35 Calcium 7.7 8.5-10. Below complet 012 mg/dL 1 low ed 19:35 normal CO2 23 21-32 Normal complet 012 mmol/L ed 19:35 Chlorid 01-23- 101 98-107 Normal complet e 012 mEq/L ed 19:35 Potassi 2 5.2 3.5-5.1 Above complet um 012 mEq/L high ed 19:35 normal Sodium 132 136-145 Below complet 012 mEq/L low ed 19:35 normal Creatin 2 2.4 0.6-1.3 Above complet ine 012 mg/dL high ed 19:35 normal BUN 01-23-2 48 7-18 Above complet 012 mg/dL high ed 19:35 normal Glucose 01-23-2 213 70-100 Above complet 012 mg/dL high ed 19:35 normal BASIC METABOLIC PANEL (01-24-2012 13:31) GLOMERU 22-2 21 complet LAR 012 mL/min/ ed FILTRAT 13:31 1.73 m2 ION RATE Steffi n GLOMERU 01-23-2 18 complet LAR 012 mL/min/ ed FILTRAT 13:31 1.73 m2 ION RATE Comment: eGFR Interpretation: Disease State Reference Ranges for eGFR Comment: (calculated) Comment: Stage eGFR Description Comment: I/II >60 Normal/Mildly reduced kidney function Comment: III 30-59 Moderately reduced kidney function Comment: IV 15-29 Severely reduced kidney function Comment: V <15 End-stage kidney failure Comment: Calculated using MDRD formula based on gender,race (* GFR AA is for the Comment: population), and age. GFR estimates are unreliable in Comment: patients with rapidly changing kidney function,recent dialysis, extremes Comment: in body size, severe malnutrition or obesity, loss of limbs, abnormal Comment: muscle mass, or during . In these patients, alternative Comment: determinations of GFR should be obtained. BUN/Cre 18 complet at 012 ed Ratio 13:31 Calcium 8.1 8.5-10. Below complet 012 mg/dL 1 low ed 13:31 normal CO2 21 22-29 Below complet 012 mmol/L low ed 13:31 normal Chlorid 101 98-107 Normal complet e 012 mEq/L ed 13:31 Potassi 4.8 3.5-5.1 Normal complet um 012 mEq/L ed 13:31 Sodium 134 136-145 Below complet 012 mEq/L low ed 13:31 normal Creatin 3.0 0.6-1.3 Above complet ine 012 mg/dL high ed 13:31 normal BUN 53 7-18 Above complet 012 mg/dL high ed 13:31 normal Glucose 194 70-100 Above complet 012 mg/dL high ed 13:31 normal EOSINOPHIL,UR (01-24-2012 07:53) Eosinop ABSENT ABSENT Normal complet hil 012 ed Urine 07:53 URINALYSIS W/MICRO (01-24-2012 07:53) AMORPHO 01-23-2 1+ NONE Abnorma complet US 012 SEEN l ed SEDIMEN 07:53 T Casts 01-23-2 0-2 NONE Abnorma complet 012 HYALINE SEEN l ed 07:53 CASTS Mucus 01-23-2 2+ NONE Abnorma complet 012 SEEN l ed 07:53 Epithel 07-2 0-2 NONE Abnorma complet ial 012 SEEN l ed Cells 07:53 Bacteri TRACE NONE Abnorma complet a 012 SEEN l ed 07:53 UA RBC 07-22-2 0-2 0-2 Normal complet 012 ed 07:53 UA WBC -22-2 10-20 0-2 Abnorma complet 012 l ed 07:53 Blood -22-2 NEGATIV NEGATIV Normal complet 012 E E ed 07:53 Bilirub -22-2 NEGATIV NEGATIV Normal complet in 012 E E ed 07:53 Urobili -22-2 norm 0-1 Normal complet nogen 012 mg/dL ed 07:53 Ketones -22-2 NEGATIV NEGATIV Normal complet 012 E E ed 07:53 Glucose 07-22-2 NEGATIV NEGATIV Normal complet 012 E E ed 07:53 UA 07-22-2 NEGATIV NEGATIV Normal complet Protein 012 E E ed 07:53 Nitrite -22-2 NEGATIV NEGATIV Normal complet 012 E E ed 07:53 Leukocy -22-2 NEGATIV NEGATIV Normal complet te 012 E E ed 07:53 PH 01-23-2 8.0 5.0-7.0 Above complet 012 high ed 07:53 normal Specifi 01-23-2 1.030 1.016-1 Above complet c 012 .022 high ed [place] 07:53 normal Appeara 01-23-2 SL.HAZY CLEAR Abnorma complet nce 012 l ed 07:53 Color 01-23-2 PALE YELLOW, Normal complet 012 YELLOW STRAW,C ed 07:53 OLORLES S,PALE YELLOW SODIUM,RANDOM UR (01-24-2012 07:53) Sodium, 66 complet Urine 012 mEq/L ed 07:53 Comment: No known normal values established for random urine tests. CREATININE,RANDOM UR (01-24-2012 07:53) Creatin 49 complet ine 012 mg/dL ed Urine 07:53 Comment: No known normal values established for random urine tests. PROTEIN, RANDOM UR (01-24-2012 07:53) Protein 32.4 complet , Urine 012 mg/dL ed 07:53 Comment: No known normal values established for random urine tests. CULTURE, URINE (01-24-2012 07:53) [facility] Specime complet l 012 n: ed Report 07:53 URINE Clin[facility] Collect complet l 012 ed: ed Report 07:53 012 07:53 Clinica Status: complet l 012 Final ed Report 07:53 Last Updated : 012 09:32 Clin[facility] CUL RES complet l 012 ed Report 07:53 (Final) Clinica No complet l 012 Growth ed Report 07:53 After 24 Hours Clinica No complet l 012 Growth ed Report 07:53 After 48 Hours COMPREHENSIVE METABOLIC PANEL (01-24-2012 05:15) GLOMERU 14 complet LAR 012 mL/min/ ed FILTRAT 05:15 1.73 m2 ION RATE Steffi n GLOMERU 11 complet LAR 012 mL/min/ ed FILTRAT 05:15 1.73 m2 ION RATE Comment: eGFR Interpretation: Disease State Reference Ranges for eGFR Comment: (calculated) Comment: Stage eGFR Description Comment: I/II >60 Normal/Mildly reduced kidney function Comment: III 30-59 Moderately reduced kidney function Comment: IV 15-29 Severely reduced kidney function Comment: V <15 End-stage kidney failure Comment: Calculated using MDRD formula based on gender,race (* GFR AA is for the Comment: population), and age. GFR estimates are unreliable in Comment: patients with rapidly changing kidney function,recent dialysis, extremes Comment: in body size, severe malnutrition or obesity, loss of limbs, abnormal Comment: muscle mass, or during . In these patients, alternative Comment: determinations of GFR should be obtained. BUN/Cre 13 complet at 012 ed Ratio 05:15 Bilirub 0.2 0.0-1.0 Normal complet in, 012 mg/dL ed Total 05:15 AST 8 U/L 15-37 Below complet 012 low ed 05:15 normal ALT 28 U/L 30-65 Below complet 012 low ed 05:15 normal Alk 81 U/L 50-136 Normal complet Phos 012 ed 05:15 Albumin 3.1 3.4-5.0 Below complet 012 gm/dL low ed 05:15 normal Total 6.3 6.4-8.2 Below complet Protein 012 gm/dL low ed 05:15 normal Calcium 7.8 8.5-10. Below complet 012 mg/dL 1 low ed 05:15 normal CO2 21 21-32 Normal complet 012 mmol/L ed 05:15 Chlorid 97 98-107 Below complet e 012 mEq/L low ed 05:15 normal Potassi 5.4 3.5-5.1 Above complet um 012 mEq/L high ed 05:15 normal Sodium 133 136-145 Below complet 012 mEq/L low ed 05:15 normal Creatin 4.4 0.6-1.3 Above complet ine 012 mg/dL high ed 05:15 normal BUN 58 7-18 Above complet 012 mg/dL high ed 05:15 normal Glucose 282 70-100 Above complet 012 mg/dL high ed 05:15 normal PHOSPHORUS,SERUM (01-24-2012 00:17) Phospho 2 6.4 2.5-4.9 Above complet victor manuel 012 mg/dL high ed 00:17 normal MAGNESIUM,SERUM (01-24-2012 00:17) Magnesi 2 1.7 1.8-2.4 Below complet um 012 mg/dL low ed 00:17 normal CBC W/DIFF (01-24-2012 00:17) Basophi 01-23-2 0.0 X 0.0-0.1 Normal complet l Count 012 10 ed 00:17 Eosinop 2 0.0 X 0.0-0.8 Normal complet hil 012 10 ed Count 00:17 Monocyt 01-23-2 0.0 X 0.2-1.2 Below complet e Count 012 10 low ed 00:17 normal Lymphoc 01-23-2 0.2 X 0.7-4.3 Below complet yte 012 10 low ed Count 00:17 normal Neutrop 01-23-2 13.7 X 1.5-7.1 Above complet hil 012 10 high ed Count 00:17 normal Basophi 01-23-2 0.1 % 0.0-1.3 Normal complet ls % 012 ed 00:17 Eosinop 01-23-2 0.1 % 0.0-8.1 Normal complet hils % 012 ed 00:17 Monocyt 01-23-2 0.3 % 2.6-14. Below complet es % 012 5 low ed 00:17 normal Lymphoc 01-23-2 1.6 % 20.5-51 Below complet ytes % 012 .1 low ed 00:17 normal Neutrop 22-2 97.9 % 42.0-75 Above complet hils % 012 .0 high ed 00:17 normal Platele 01-23-2 318 X 150-400 Normal complet t 012 10 ed 00:17 MPV 01-23-2 8.9 fl 6.2-10. Normal complet 012 6 ed 00:17 RDW 01-23-2 16.8 % 11.5-14 Above complet 012 .5 high ed 00:17 normal MCHC 01-23-2 32.3 33.0-37 Below complet 012 gm/dL .0 low ed 00:17 normal RBC 01-23-2 4.34 X 4.20-5. Normal complet 012 10 40 ed 00:17 WBC 01-23-2 14.0 X 4.8-10. Above complet 012 10 8 high ed 00:17 normal MCH 01-23-2 26.9 pg 27.0-31 Below complet 012 .0 low ed 00:17 normal MCV 01-23-2 83.2 fl 81.0-99 Normal complet 012 .0 ed 00:17 Hematoc 01-23-2 36.1 % 37.0-47 Below complet rit 012 .0 low ed 00:17 normal Hemoglo 01-23-2 11.7 12.0-16 Below complet bin 012 gm/dL .0 low ed 00:17 normal URINALYSIS W/MICRO (01-23-2012 19:55) Casts 01-22-2 5-10 NONE Abnorma complet 012 HYALINE SEEN l ed 19:55 CASTS Bacteri 01-22-2 2+ NONE Abnorma complet a 012 SEEN l ed 19:55 UA RBC 01-22- 2-5 0-2,RAR Abnorma complet 012 E,Occ,N l ed 19:55 ONE SEEN UA WBC 01-22-2 5-10 0-2,Occ Abnorma complet 012 ,RARE,N l ed 19:55 ONE SEEN Blood 4+ NEGATIV Abnorma complet 012 E l ed 19:55 Bilirub 07-21-2 1+ NEGATIV Abnorma complet in 012 E l ed 19:55 Urobili 01-22-2 norm 0-1 Normal complet nogen 012 mg/dL ed 19:55 Ketones 01-22-2 NEGATIV NEGATIV Normal complet 012 E E ed 19:55 Glucose 01-22-2 NEGATIV NEGATIV Normal complet 012 E E ed 19:55 UA 21-2 3+ NEGATIV Abnorma complet Protein 012 E l ed 19:55 Nitrite 01-22-2 NEGATIV NEGATIV Normal complet 012 E E ed 19:55 Leukocy 01-22-2 2+ NEGATIV Abnorma complet te 012 E l ed 19:55 PH 01-22-2 5.0 5.0-7.0 Normal complet 012 ed 19:55 Specifi 01-22-2 1.015 1.016-1 Below complet c 012 .022 low ed [place] 19:55 normal Appeara 01-22-2 HAZY CLEAR Abnorma complet nce 012 l ed 19:55 Color 01-22-2 YELLOW YELLOW, Normal complet 012 STRAW,C ed 19:55 OLORLES S,PALE YELLOW LACTIC ACID (IN-HOUSE) (01-23-2012 18:40) Lactate 01-22-2 1.9 0.4-2.0 Normal complet 012 mmol/L ed 18:40 COMPREHENSIVE METABOLIC PANEL (01-23-2012 17:15) Anion 01-22-2 20.2 10.0-20 Above complet [place] 012 mEq/L .0 high ed 17:15 normal A/G 01-22-2 1.1 1.0-2.0 Normal complet Ratio 012 ed 17:15 Bilirub 01-22-2 0.34 0.20-1. Normal complet in, 012 mg/dL 00 ed Total 17:15 AST 01-22-2 16 U/L 15-37 Normal complet 012 ed 17:15 ALT 01-22-2 32 U/L 30-65 Normal complet 012 ed 17:15 Alk 01-22-2 82 U/L 50-136 Normal complet Phos 012 ed 17:15 Albumin 01-22-2 3.9 3.4-5.0 Normal complet 012 gm/dL ed 17:15 Total 01-22-2 7.3 6.4-8.2 Normal complet Protein 012 gm/dL ed 17:15 Calcium 8.9 8.5-10. Normal complet 012 mg/dL 1 ed 17:15 CO2 24.5 22-29 Normal complet 012 mmol/L ed 17:15 Chlorid 93 98-107 Below complet e 012 mEq/L low ed 17:15 normal Potassi 4.2 3.5-5.1 Normal complet um 012 mEq/L ed 17:15 Sodium 134 136-145 Below complet 012 mEq/L low ed 17:15 normal Creatin 6.1 0.6-1.3 Above complet ine 012 mg/dL upper ed 17:15 panic limits Comment: CK X 2 CALLED @ 1745 R/V OCTOBER BUN 66 7-18 Above complet 012 mg/dL high ed 17:15 normal Glucose 122 70-99 Above complet 012 mg/dL high ed 17:15 normal GLOMERU 9 complet LAR 012 mL/min/ ed FILTRAT 17:15 1.73 m2 ION RATE Steffi n GLOMERU 8 complet LAR 012 mL/min/ ed FILTRAT 17:15 1.73 m2 ION RATE Comment: eGFR Interpretation: Disease State Reference Ranges for eGFR Comment: (calculated) Comment: Stage eGFR Description Comment: I/II >60 Normal/Mildly reduced kidney function Comment: III 30-59 Moderately reduced kidney function Comment: IV 15-29 Severely reduced kidney function Comment: V <15 End-stage kidney failure Comment: Calculated using MDRD formula based on gender,race (* GFR AA is for the Comment: population), and age. GFR estimates are unreliable in Comment: patients with rapidly changing kidney function,recent dialysis, extremes Comment: in body size, severe malnutrition or obesity, loss of limbs, abnormal Comment: muscle mass, or during . In these patients, alternative Comment: determinations of GFR should be obtained. CBC W/DIFF (01-23-2012 17:15) Comment: CK X 2 Basophi 0.1 X 0.0-0.1 Normal complet l Count 012 10 ed 17:15 Eosinop 0.2 X 0.0-0.8 Normal complet hil 012 10 ed Count 17:15 Monocyt 07-21-2 1.0 X 0.2-1.2 Normal complet e Count 012 10 ed 17:15 Neutrop 21-2 10.4 X 1.5-7.1 Above complet hil 012 10 high ed Count 17:15 normal Basophi 21-2 0.6 % 0.0-2.0 Normal complet ls % 012 ed 17:15 Eosinop 21-2 1.7 % 0.0-4.0 Normal complet hils % 012 ed 17:15 Monocyt 21-2 7.7 % 0.0-13. Normal complet es % 012 0 ed 17:15 Lymphoc 21-2 10.3 % 20.0-35 Below complet ytes % 012 .0 low ed 17:15 normal Neutrop 01-22-2 79.7 % 50.0-70 Above complet hils % 012 .0 high ed 17:15 normal MPV 01-22-2 8.4 fl 6.6-9.3 Normal complet 012 ed 17:15 RDW 01-22-2 16.3 % 12.0-15 Above complet 012 .0 high ed 17:15 normal MCV 01-22-2 82.5 fl 80.0-10 Normal complet 012 0.0 ed 17:15 MCHC 01-22-2 33.3 32.0-36 Normal complet 012 gm/dL .0 ed 17:15 MCH 21-2 27.5 pg 27.0-32 Normal complet 012 .0 ed 17:15 Platele 01-22-2 397 X 140-450 Normal complet t 012 10 ed 17:15 Hematoc 21-2 40.1 % 36.0-47 Normal complet rit 012 .0 ed 17:15 Hemoglo 21-2 13.3 12.0-15 Normal complet bin 012 gm/dL .0 ed 17:15 RBC 01-22-2 4.86 X 4.20-5. Normal complet 012 10 40 ed 17:15 WBC 01-22-2 13.0 X 3.5-9.6 Above complet 012 10 high ed 17:15 normal Lymphoc 21-2 1.3 X 0.7-4.3 Normal complet yte 012 10 ed Count 17:15 AMMONIA (09-29-2011 15:58) Ammonia 75 11-32 Above complet 012 umol/L high ed 15:58 normal HEPATIC FUNCT PANEL (09-29-2011 15:58) A/G 0.7 1.0-2.0 Below complet Ratio 012 low ed 15:58 normal Bilirub 0.05 0.0-0.3 Normal complet in, 012 mg/dL ed Direct 15:58 Bilirub 0.28 0.20-1. Normal complet in, 012 mg/dL 00 ed Total 15:58 AST 13 U/L 15-37 Below complet 012 low ed 15:58 normal Total 7.1 6.4-8.2 Normal complet Protein 012 gm/dL ed 15:58 ALT 27 U/L 30-65 Below complet 012 low ed 15:58 normal Alk 81 U/L 50-136 Normal complet Phos 012 ed 15:58 Albumin 3.0 3.4-5.0 Below complet 012 gm/dL low ed 15:58 normal BASIC METABOLIC PANEL (09-29-2011 15:58) Glucose 119 70-99 Above complet 012 mg/dL high ed 15:58 normal GLOMERU 12 complet LAR 012 mL/min/ ed FILTRAT 15:58 1.73 m2 ION RATE Steffi n GLOMERU 10 complet LAR 012 mL/min/ ed FILTRAT 15:58 1.73 m2 ION RATE Comment: eGFR Interpretation: Disease State Reference Ranges for eGFR Comment: (calculated) Comment: Stage eGFR Description Comment: I/II >60 Normal/Mildly reduced kidney function Comment: III 30-59 Moderately reduced kidney function Comment: IV 15-29 Severely reduced kidney function Comment: V <15 End-stage kidney failure Comment: Calculated using MDRD formula based on gender,race (* GFR AA is for the Comment: population), and age. GFR estimates are unreliable in Comment: patients with rapidly changing kidney function,recent dialysis, extremes Comment: in body size, severe malnutrition or obesity, loss of limbs, abnormal Comment: muscle mass, or during . In these patients, alternative Comment: determinations of GFR should be obtained. Anion 14.5 10.0-20 Normal complet Gap 012 mEq/L .0 ed 15:58 Calcium 09-28-2 10.1 8.5-10. Normal complet 012 mg/dL 1 ed 15:58 CO2 09-28-2 26.3 22-29 Normal complet 012 mmol/L ed 15:58 Chlorid 09-28-2 97 98-107 Below complet e 012 mEq/L low ed 15:58 normal Potassi 2 3.7 3.5-5.1 Normal complet um 012 mEq/L ed 15:58 Sodium 2 134 136-145 Below complet 012 mEq/L low ed 15:58 normal Creatin 2 5.0 0.6-1.3 Above complet ine 012 mg/dL upper ed 15:58 panic limits Comment: CK X 2 CALLED JAYLYN @ 1740 R/V BUN 2 61 7-18 Above complet 012 mg/dL high ed 15:58 normal CBC W/DIFF (09-29-2011 15:58) Hematoc 09-28-2 32.8 % 36.0-47 Below complet rit 012 .0 low ed 15:58 normal Lymphoc 09-28-2 0.7 X 0.7-4.3 Normal complet yte 012 10 ed Count 15:58 Basophi 09-28-2 0.0 X 0.0-0.1 Normal complet l Count 012 10 ed 15:58 Eosinop 09-28-2 0.1 X 0.0-0.8 Normal complet hil 012 10 ed Count 15:58 Monocyt 09-28-2 0.8 X 0.2-1.2 Normal complet e Count 012 10 ed 15:58 Neutrop 09-28-2 6.2 X 1.5-7.1 Normal complet hil 012 10 ed Count 15:58 Basophi 09-28-2 0.3 % 0.0-2.0 Normal complet ls % 012 ed 15:58 Eosinop --2 1.0 % 0.0-4.0 Normal complet hils % 012 ed 15:58 Monocyt 09-28-2 10.6 % 0.0-13. Normal complet es % 012 0 ed 15:58 Lymphoc -27-2 9.4 % 20.0-35 Below complet ytes % 012 .0 low ed 15:58 normal Neutrop 03-27-2 78.7 % 50.0-70 Above complet hils % 012 .0 high ed 15:58 normal MPV 8.0 fl 6.6-9.3 Normal complet 012 ed 15:58 RDW 16.5 % 12.0-15 Above complet 012 .0 high ed 15:58 normal MCV 85.4 fl 80.0-10 Normal complet 012 0.0 ed 15:58 MCHC 2 34.3 32.0-36 Normal complet 012 gm/dL .0 ed 15:58 MCH 2 29.3 pg 27.0-32 Normal complet 012 .0 ed 15:58 Platele 505 X 140-450 Above complet t 012 10 high ed 15:58 normal Hemoglo 11.2 12.0-15 Below complet bin 012 gm/dL .0 low ed 15:58 normal RBC 3.83 X 4.20-5. Below complet 012 10 40 low ed 15:58 normal WBC 7.8 X 3.5-9.6 Normal complet 012 10 ed 15:58 BASIC METABOLIC PANEL (09-24-2011 09:30) Calcium 7.8 8.5-10. Below complet 012 mg/dL 1 low ed 09:30 normal Chlorid 104 98-107 Normal complet e 012 mEq/L ed 09:30 Potassi 4.1 3.5-5.1 Normal complet um 012 mEq/L ed 09:30 BUN 20 7-18 Above complet 012 mg/dL high ed 09:30 normal GLOMERU 56 complet LAR 012 mL/min/ ed FILTRAT 09:30 1.73 m2 ION RATE Steffi n GLOMERU 09-23-2 46 complet LAR 012 mL/min/ ed FILTRAT 09:30 1.73 m2 ION RATE Comment: eGFR Interpretation: Disease State Reference Ranges for eGFR Comment: (calculated) Comment: Stage eGFR Description Comment: I/II >60 Normal/Mildly reduced kidney function Comment: III 30-59 Moderately reduced kidney function Comment: IV 15-29 Severely reduced kidney function Comment: V <15 End-stage kidney failure Comment: Calculated using MDRD formula based on gender,race (* GFR AA is for the Comment: population), and age. GFR estimates are unreliable in Comment: patients with rapidly changing kidney function,recent dialysis, extremes Comment: in body size, severe malnutrition or obesity, loss of limbs, abnormal Comment: muscle mass, or during . In these patients, alternative Comment: determinations of GFR should be obtained. Anion 15.5 10.0-20 Normal complet Gap 012 mEq/L .0 ed 09:30 BUN/Cre 15.4 6.0-20. Normal complet at 012 0 ed Ratio 09:30 CO2 25.1 22-29 Normal complet 012 mmol/L ed 09:30 Sodium 141 136-145 Normal complet 012 mEq/L ed 09:30 Creatin 1.3 0.6-1.3 Normal complet ine 012 mg/dL ed 09:30 Glucose 92 70-99 Normal complet 012 mg/dL ed 09:30 CULTURE, BLOOD (09-21-2011 04:08) Clin[facility] No complet l 012 Growth ed Report 04:08 After 5 Days Clinica No complet l 012 Growth ed Report 04:08 After 4 Days Clin[facility] No complet l 012 Growth ed Report 04:08 After 48 Hours [facility] CUL RES complet l 012 ed Report 04:08 [facility] Final ed Report 04:08 Last Updated : 012 03:34 Clin[facility] Collect complet l 012 ed: ed Report 04:08 012 04:08 Clinica Specime complet l 012 n: ed Report 04:08 BLOOD Clin[facility] No complet l 012 Growth ed Report 04:08 After 24 Hours CULTURE, BLOOD (09-21-2011 01:15) Clin[facility] No complet l 012 Growth ed Report 01:15 After 5 Days Clinica No complet l 012 Growth ed Report 01:15 After 4 Days Clinica No complet l 012 Growth ed Report 01:15 After 48 Hours Clinica No complet l 012 Growth ed Report 01:15 After 24 Hours Clinica CUL RES complet l 012 ed Report 01:15 (Final) Clin[facility] Status: complet l 012 Final ed Report 01:15 Last Updated : 012 03:34 Clin[facility] Collect complet l 012 ed: ed Report 01:15 012 01:15 Clinica Specime complet l 012 n: ed Report 01:15 BLOOD CULTURE, STOOL (08-18-2011 09:25) Clin[facility] Specime complet l 012 n/Sourc ed Report 09:25 e: STOOL/s tool Clin[facility] Jayde complet l 012 ed Report 09:25 species , not albican s Clinica Yeast complet l 012 Isolate ed Report 09:25 d Clin[facility] ISO1 complet l 012 (Final) ed Report 09:25 Clinica Negativ complet l 012 e For ed Report 09:25 Salmone lla, Shigell a, Campylo bacter \T\ Yersini a Clinica Negativ complet l 012 e for ed Report 09:25 the presenc e of Shiga toxin 2 Clinica Negativ complet l 012 e for ed Report 09:25 presenc e of Shiga toxin 1 Clin[facility] Light complet l 012 Growth ed Report 09:25 Normal Gram Positiv e Fecal Tessa only noted Clinica CUL RES complet l 012 ed Report 09:25 (Final) Clinica Status: complet l 012 Final ed Report 09:25 Last Updated : 012 08:29 Clinica Collect complet l 012 ed: ed Report 09:25 012 09:25 OVA/PARASITES (08-18-2011 09:25) Parasit SEE complet ic Exam 012 COMMENT ed 09:25 S 012 10:35 PM Comment: HI Expected Comment: Test Result LO Units Values Comment: ------- Comment: Parasitic Examination Comment: SOURCE: STOOL Comment: PARASITIC EXAMINATION FINAL Comment: No parasites seen. Comment: Very little fecal material. Comment: Cryptosporidium, Cyclospora, and microsporidia are not Comment: readily detected by this method. Comment: Comment: Test Performed by: Comment: [facility] Dpt of Lab Med and Pathology Comment: [address] [place] [address] Comment: Boiler Tube Blower: Cameron Crook III, M.D. GIARDIA LAMBLIA BY EIA (08-18-2011 09:25) Giardia SEE complet AG, 012 COMMENT ed Feces 09:25 S 012 01:26 PM Comment: HI Expected Comment: Test Result LO Units Values Comment: ------- Comment: Giardia Ag, F Negative Negative Comment: Comment: Test Performed by: Comment: [facility] Comment: [address] , [place] [address] Comment: Boiler Tube Blower: Maia Barnhart M.D. CLOSTRIDIUM DIFFICILE TOXIN A AND B (08-18-2011 09:25) C. NEGATIV NEGATIV Normal complet Diffici 012 E E ed le 09:25 Toxin Procedures Procedure DOS Code Location Performer Comment ASSISTANC [id number] ALEE A ALEE A E 6 R H R H RESPIRATO RY VENT < 24 CONSEC HR CPAP ASSISTANC [id number] ALEE A ALEE A E 6 R H R H RESPIRATO RY VENT < 24 CONSEC HR CPAP ASSISTANC [id number] ALEE A ALEE A E 6 R H R H RESPIRATO RY VENTILATI ON 24-96 HOURS PROPHYLAC 9952 ALEE VICKERS A TIC 4 R H R H VACCINATI ON AGAINST INFLUENZA ESOPHAGOG 8231 ALEE VICKERS A ASTRODUOD 4 R H R H ENOSCOPY WITH CLOSED BIOPSY TRANSFUSI 9904 ALEE Villaf[place]te ON OF 4 R H R H PACKED CELLS CLOSED 4514 ALEE Villafuerte [ENDOSCOP 4 R H R [...] Start End Date Code Location Performer Type [facility] [address] ALEE A - 6 6 R H [facility]PATIENT CLINIC, [facility] 6 6 [facility] ALEE A - 6 6 R H [facility] ALEE A - 6 6 R H [facility] ALEE A - 6 6 R H [facility] ALEE A [facility] 6 6 R H [facility] ALEE A - 6 6 R H [facility] [place] 6 6 [facility] ALEE A - 6 6 R [facility] [place] 6 6 [facility] ALEE A - 6 6 R H [facility], [place] 6 6 [facility] [place] 4 4 [facility] ALEE A - 4 4 R H [facility] ALEE A [facility] 4 4 R H [facility], [place] 4 4 [facility] ALEE A - 4 4 R H [facility] ALEE A [facility] 4 4 R H [facility] [place] 4 4 [facility] [place] 4 4 [facility] ALEE A - 3 4 R H [facility] A - 3 3 R [facility] A - 3 3 R [facility]LEE A - 3 3 [facility] [place] 3 3 [facility] A[facility]E A - 3 3 R [facility] 3 3 [facility] 2 2 R [facility] 2 [facility] [place] 2 2 [facility] - 2 2 R [facility] - 2 2 [facility] [place] 2 2 [facility] - 2 2 [facility] [place] 2 2 [facility] [place] 2 2 [facility] [place] 2 2 [facility] - 2 [facility] OTHER 2 2 R HOSPITAL ALEE A - 2 2 R [facility] - 2 2 R [facility] - 2 2 R [facility]PATIENT [facility]PITAL ALEE A [facility] 1 1 R [facility] - 1 1 R [facility] [place] 1 1 [facility] A - 1 1 R [facility], [place] 1 1 [facility] - 1 1 R [facility] - 1 1 [facility] - 1 1 R [facility] - 1 1 R [facility] - 1 1 R [facility]PATIENT [facility]PITAL ALEE A [facility] 1 1 R [facility] - 1 1 [facility] [place] 1 1 [facility] 1 1 [facility] 1 1 [facility] - 1 1 R [facility] - 1 1 R [facility] - 1 1 R [facility] - 1 1 [facility] - 1 1 [facility] - 1 [address] [facility] 1 1 [facility] - OTHER 1 1 [facility] - OTHER 1 1 [facility] - OTHER 1 1 [facility] ACCESS 0 0 [facility] ACCESS 0 0 [facility] ACCESS 0 0 [facility] - OTHER 0 0 [facility] - OTHER 0 0 [facility] ACCESS 0 0 [facility] - OTHER 0 0 [facility] - 9 9 [facility] ACCESS 9 9 [facility] - OTHER 9 9 [facility] - OTHER 9 9 [facility] - OTHER 9 9 [facility] - OTHER 9 9 [facility] ACCESS 8 8 [facility] ACCESS 8 8 [facility] - [address] [facility] - [address] [facility] - 8 8 [facility] ACCESS 8 8 [facility] - [address] [facility] [address] - 8 8 [facility]
--- OUTSIDE RECORDS SUMMARY | 2017-05-07 20:58 | External Medical Summary Rpt | CCD ---
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 Specime complet l 013 n: ed Report 18:01 BLOOD [facility] Culture complet l 013 In ed Report 18:01 Progres s [facility] No complet l 013 Growth ed Report [...] Below complet c 013 .022 low ed Elwin 12:30 normal PH 6.5 5.0-7.0 Normal complet [...] l 013 n: ed Report 16:15 BLOOD [facility] Collect complet l 013 ed: ed Report 16:15 013 16:15 Clinica Status: complet l 013 Final ed Report 16:15 Last Updated : 013 19:18 Clinica CUL RES complet l 013 ed Report 16:15 (Final) [facility] Culture complet l 013 In ed Report 16:15 Progres s [facility] No complet l 013 Growth ed Report [...] 16:13) NT-proB 18-2 191.3 0.0-450 Normal complet [employer] 013 pg/mL .0 ed 16:13 Comment: RULE [...] 1.016-1 Normal complet c 013 .022 ed Elwin 20:30 PH 08-15-2 5.0 5.0-7.0 Normal complet [...] Above complet c 012 .022 high ed Elwin 06:44 normal Leukocy 07-02-2 NEGATIV NEGATIV Normal [...] Below complet c 012 .022 low ed Elwin 06:10 normal PH 10-10-2 5.0 5.0-7.0 Normal [...] 012 In ed Report 16:22 Progres s [facility] No complet l 012 Growth ed Report 16:22 After 24 Hours CULTURE, BLOOD (04-11-2012 16:20) [facility] Specime complet l 012 n: ed Report 16:20 BLOOD [facility] Collect complet l 012 ed: ed Report 16:20 012 16:20 Clinica Status: complet l 012 Final ed Report 16:20 Last Updated : 012 19:40 Clinica CUL RES complet l 012 ed Report 16:20 (Final) [facility] Culture complet l 012 In ed Report 16:20 Progres s [facility] No complet l 012 Growth ed Report 16:20 After 24 Hours Clinica No complet l 012 Growth ed Report 16:20 After 48 Hours Clinica No complet l 012 Growth ed Report 16:20 After 3 Days Clinica No complet l 012 Growth ed Report 16:20 After 4 Days Clinica No complet l 012 Growth ed Report 16:20 After 5 Days CULTURE, BLOOD (03-09-2012 19:32) [facility] Specime complet l 012 n: ed Report 19:32 BLOOD [facility] Collect complet l 012 ed: ed Report 19:32 012 19:32 Clinica Status: complet l 012 Final ed Report 19:32 Last Updated : 012 08:06 Clinica CUL RES complet l 012 ed Report 19:32 (Final) [facility] Culture complet l 012 In ed Report [...] l 012 n: ed Report 19:30 BLOOD [facility] Collect complet l 012 ed: ed Report 19:30 012 19:30 Clinica Status: complet l 012 Final ed Report 19:30 Last Updated : 012 08:06 Clinica CUL RES complet l 012 ed Report 19:30 (Final) [facility] Culture complet l 012 In ed Report 19:30 Progres s [facility] No complet l 012 Growth ed Report [...] Above complet c 012 .022 high ed Elwin 07:53 normal Appeara 01-23-2 SL.HAZY CLEAR Abnorma [...] Below complet c 012 .022 low ed Elwin 19:55 normal Appeara 01-22-2 HAZY CLEAR Abnorma [...] complet l 012 ed Report 04:08 (Final) [facility] Status: complet l 012 Final ed Report [...] method. Comment: Comment: Test Performed by: Comment: [facility] Dpt of Lab Med and Pathology Comment: [address] [place] [address] Comment: Form Setter: Cameron Crook III, M.D. GIARDIA LAMBLIA BY EIA (08-18-2011 09:25) Giardia SEE complet AG, 012 COMMENT ed Feces 09:25 S 012 01:26 PM Comment: HI Expected Comment: Test Result LO Units Values Comment: ------- Comment: Giardia Ag, F Negative Negative Comment: Comment: Test Performed by: Comment: [facility] Comment: [address] , [place] [address] Comment: Form Setter: Maia Barnhart M.D. CLOSTRIDIUM DIFFICILE TOXIN A AND B (08-18-2011 09:25) C. NEGATIV NEGATIV Normal complet Diffici 012 E E ed le 09:25 [place] Procedures Procedure DOS Code Location Performer Comment ASSISTANC [id number] ALEE A ALEE A E 6 R H R H RESPIRATO RY VENT < 24 CONSEC HR CPAP ASSISTANC [id number] ALEE A ALEE A E 6 R H R H RESPIRATO RY VENT < 24 CONSEC HR CPAP ASSISTANC [id number] ALEE A ALEE A E 6 R H R H RESPIRATO RY VENTILATI ON 24-96 HOURS PROPHYLAC 9952 ALEE VICKERS A TIC 4 R H R H VACCINATI ON AGAINST INFLUENZA ESOPHAGOG 8193 ALEE VICKERS A ASTRODUOD 4 R H R H ENOSCOPY WITH CLOSED BIOPSY TRANSFUSI 9904 ALEE [place] ON OF 4 R H R H PACKED CELLS CLOSED 4521 ALEE Villafuerte [ENDOSCOP 4 R H R [...] Start End Date Code Location Performer Type [facility] [address] ALEE A - 6 6 R H [facility], [facility] 6 6 [facility] ALEE A - [address] [facility] ALEE A [facility] 6 6 R H [facility] ALEE A - [address] [facility] ALEE A - [address] [facility] ALEE A - 6 6 R [facility] [place] 6 6 [facility] ALEE A - 6 6 R [facility] [place] 6 6 [facility] ALEE A - 6 6 R [facility] [place] 6 6 [facility] [place] 4 4 [facility] ALEE A - 4 4 R H [facility] ALEE A [facility] 4 4 R [facility], [place] 4 4 [facility] ALEE A - [address] [facility] ALEE A [facility] 4 4 R H [facility] [place] 4 4 [facility] [place] 4 4 [facility] ALEE A - 3 4 R H [facility] ALEE A - [address] [facility] ALEE A [facility] 3 3 R H [facility] ALEE A - 3 3 R [facility] [place] 3 3 [facility] ALEE A - 3 3 [facility] 3 3 [facility] - 2 2 R [facility] 2 2 [facility] [place] 2 2 [facility] ALEE A - 2 2 R [facility] A [facility] 2 2 [facility] - 2 2 [facility] - 2 2 R [facility] [place] 2 2 [facility] - 2 2 [facility] [place] 2 2 [facility] [place] 2 2 [facility] [place] 2 2 [facility] ALEE A [facility] 2 2 [facility] ALEE A - OTHER 2 2 R H[facility]PITAL ALEE A - 2 2 R [facility] - 2 2 R [facility] 2 2 R [facility] ALEE A - 1 1 R [facility] - 1 1 R [facility] [place] 1 1 [facility] ALEE A [facility] 1 1 R [facility], [place] 1 1 [facility] ALEE A - 1 1 R [facility] A [facility] 1 1 R [facility] - 1 1 R [facility] - 1 1 [facility] - 1 1 R [facility] ALEE A [facility] 1 1 R [facility] - 1 1 [facility] [place] 1 1 [facility] 1 1 [facility] 1 1 [facility] ALEE A - 1 1 R [facility] A[facility]E A [facility] 1 1 R [facility] - 1 1 R [facility] A - [address] [facility] ALEE A - [address] [facility] A - [address] [facility] 1 [address] [facility] - OTHER 1 1 [facility] - OTHER 1 1 [facility] - OTHER [address] [facility] ACCESS 0 0 [facility] ACCESS 0 0 [facility] ACCESS 0 [address] [facility] - OTHER 0 0 [facility] - OTHER [address] [facility] ACCESS 0 [address] [facility] - OTHER 0 0 [facility] - 9 9 [facility] ACCESS 9 9 [facility] - OTHER 9 9 [facility] - OTHER 9 9 [facility] - OTHER 9 9 [facility] - OTHER 9 9 [facility] ACCESS 8 8 [facility] ACCESS 8 [address] [facility] - 8 8 [facility] - 8 8 [facility] - 8 8 [facility] ACCESS 8 [address] [facility] [address] - 8 8 [facility] - 8 8 [facility]
--- OUTSIDE RECORDS SUMMARY | 2017-05-07 21:08 | External Medical Summary Rpt | CCD ---
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 Name Role Phone AIR EV[facility] LIFETEAM, Unavailable Unavailable [facility] Unavailable [facility]available [facility] Un[facility], [facility] Unavailable Unavailable ASSOCIATES, [facility] Unavailable Unavailable [facility], [facility] Unavailable Unavailable HEALTH C, [facility] Unavailable Unavailable MEDICAL GROUP, [facility] GLO GIRON, Unavailable Unavailable GLO GIRON [facility] Unavailable Unavailable OUTPATIENT CLINI, [facility] Unavailable Unavailable [facility]PATIENT MED[facility], [facility] COM[facility] Unavailable Unavailable HOSPITALIST SE, COMPREHENSIVE HOSPITALIST SE [facility], Unavailable Unavailable [facility] DAHHAN ABD, DAHHAN Unavailable Unavailable ABD JOE, LORNA, Unavailable Unavailable JOE, LORNA [facility] Unavailable Unavailable [facility] JUVENAL TRINH Unavailable Unavailable LEIDY ALEE [facility] R [facility], ALEE Unavailable Unavailable A R H ALEE EMS, ALEE Unavailable Unavailable EMS [facility] Un[facility] Un[facility] INC, [facility] Unavailable Unavailable HOSPITAL P, [facility] Unavailable Unavailable SRV AR, [facility] SRV AR [facility], Unavailable Unavailable [facility], Unavailable Unavailable [facility] MATHEUS JONES, Unavailable Unavailable [facility] Unavailable Unavailable @CTRL [facility], HOSP MEDICINE SERV @CTRL [facility], [facility]available Unavailable [facility] Unavailable Unavailable IMAGING ASS, [facility] Unavailable Unavailable MANAGEMENT SER, [facility] Un[facility] Unavailable AT [facility] Unavailable Unavailable ENTER[facility], [facility] Unavailable Unavailable ASSOCIATES AT, [facility], Unavailable Unavailable [facility] MOSES, IMANI O, Unavailable [...] [facility], Unavailable Unavailable [facility] Unavailable Unavailable ANA, [facility] ANA [facility] Unavailable Unavailable [facility], [facility] Unavailable Unavailable PHYSICIANS, [facility] PHYSICIANS Shai MEJIATH CARMITA, Unavailable Unavailable [facility] Unavailable Unavailable ALBERTO Schultz ROBERT J [facility], Unavailable Unavailable [facility] JUVENAL TAYLOR, Unavailable Unavailable JUVENAL [...] Provider Status E119 TYPE 2 04-10-2017 DIABETES KIEL MELLITUS FT ANA WITHOUT COMPLICATIO NS E785 HYPERLIPIDE 04-10-2017 ST SATHYA PABLO UNSPECIFIED FT ANA G4730 SLEEP APNEA 04-10-2017 ST PABLO UNSPECIFIED FT ANA I10 ESSENTIAL 04-10-2017 ST PRIMARY PABLO HYPERTENSIO FT ANA N J449 CHRONIC 04-10-2017 ST OBSTRUCTIVE PABLO PULMONARY FT ANA DISEASE UNS M545 LOW BACK 04-10-2017 ST PAIN PABLO FT ANA [id number] STRAIN 04-10-2017 ST MUSCLE PABLO FASCIA FT ANA TENDON RT HIP INITIAL ENC O60394 PERSONAL 04-10-2017 HISTORY OF PABLO NICOTINE FT ANA DEPENDENCE J441 CHRONIC 12-18-2016 [facility] OBSTRUCTIVE PHYSICIANS PULMONARY GROUP DZ W/EXACERBAT ION Z9119 PATIENTS 12-18-2016 [facility] NONCOMPLIAN PHYSICIANS CE W/OTH GROUP MED TX & REGIMEN R05 COUGH 11-01-2016 [facility] R079 CHEST PAIN 11-01-2016 [facility] UNSPECIFIED [facility]ICAL [facility]ING ASS R0989 OT SPEC SX 11-01-2016 [facility] & SIGNS MEDICAL INVLV THE IMAGING ASS CIRC & RESP SYS J209 ACUTE 10-28-2016 [facility] BRONCHITIS PHYSICIANS, UNSPECIFIED PLLC J9601 ACUTE 10-28-2016 [facility] RESPIRATORY PHYSICIANS, FAILURE PLLC WITH HYPOXIA R0602 SHORTNESS 10-28-2016 SYMONE OF BREATH CO AMBULANCE TAXIN Z794 BAND SAW MARKER 10-28-2016 [facility] CURRENT USE [facility] OF INSULIN INC Z9981 DEPENDENCE 10-28-2016 [facility] ON [facility] P L OXYGEN G4733 OBSTRUCTIVE 10-05-2016 [facility] SLEEP PHYSICIANS APNEA ADULT GROUP PEDIATRIC J9611 CHRONIC 10-05-2016 [facility] RESPIRATORY PHYSICIANS FAILURE GROUP WITH HYPOXIA M797 FIBROMYALGI 10-05-2016 [facility] A PHYSICIANS GROUP R569 UNSPECIFIED 10-05-2016 [facility] PHYSICIANS CONVULSIONS GROUP E139 OTH SPEC 09-25-2016 [facility] DIABETES PHYSICIAN MELLITUS GROUP W/O COMPLICATIO NS I509 HEART 09-25-2016 [facility] FAILURE HEALTH UNSPECIFIED MEDICAL GROUP I771 STRICTURE 09-25-2016 [facility] J440 COPD WITH 09-25-2016 [facility] ACUTE LOWER PHYSICIAN GROUP RESPIRATORY INFECTION M109 GOUT 09-25-2016 [facility] UNSPECIFIED PHYSICIAN GROUP Z8249 FAMILY HX 09-25-2016 [facility] ISCHEMIC HEALTH HRT DZ OT MEDICAL DZ CIRC GROUP SYSTEM J410 SIMPLE 09-23-2016 CHRONIC PABLO BRONCHITIS PHYSICIANS R0600 DYSPNEA 09-20-2016 [facility] UNSPECIFIED [facility]ICAL IMAGING ASS L26183 EPILEPSY 05-31-2016 ALEE A R UNS NOT [...] LLC FAILURE W/HYPERCAPN IA J4522 MILD 05-07-2016 [facility] WITH STATUS ASTHMATICUS J9620 ACUTE 03-01-2016 [facility] CHRONIC & FAMILY RESP FAIL HEALTH C UNS HYPOXIA/HYP ERCAPNIA N189 CHRONIC 03-01-2016 [facility] KIDNEY & FAMILY DISEASE HEALTH C UNSPECIFIED M6281 MUSCLE 02-27-2016 [facility] GENERALIZED N183 CHRONIC 02-06-2016 [facility] MEDICAL KIDNEY ASSOCIATES DISEASE STAGE 3 MODERATE I129 HYPERTENSIV 02-05-2016 ALEE Villafuerte R E CKD H W/STAGE 1-4 CKD OR UNS CKD N179 ACUTE 02-05-2016 ALEE Villafuerte R KIDNEY H FAILURE UNSPECIFIED A85954 OTHER LONG 02-05-2016 ALEE Villafuerte R TERM H CURRENT DRUG THERAPY G894 CHRONIC 01-26-2016 ALEE Villafuerte R PAIN H SYNDROME K219 GASTRO-ESOP 01-26-2016 ALEE Villafuerte R H REFLUX H DISEASE WITHOUT ESOPHAGITIS 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 ED K529 NONINFECTIV 01-09-2016 [facility] MEDICAL E ASSOCIATES GASTROENTER ITIS & COLITIS UNS K6389 OTHER 01-09-2016 [facility] MEDICAL SPECIFIED ASSOCIATES DISEASES OF INTESTINE R0902 HYPOXEMIA 01-09-2016 ALEE Villafuerte R H R194 CHANGE IN 01-09-2016 [facility] MEDICAL BOWEL HABIT ASSOCIATES Z1231 ENCOUNTER 01-09-2016 ALEE Villafuerte R SCREENING H MAMMO MALIG NEOPLASM BREAST G479 SLEEP 01-07-2016 [facility] MEDICAL DISORDER ASSOCIATES UNSPECIFIED J9612 CHRONIC 01-07-2016 [facility] MEDICAL RESPIRATORY ASSOCIATES FAILURE WITH HYPERCAPNIA M810 AGE-RELATED 01-07-2016 [facility] OUTPATIENT OSTEOPOROSI MEDIC S W/O CURRNT PATH FX G4700 INSOMNIA 12-25-2015 ALEE Villafuerte R UNSPECIFIED H R1110 VOMITING 12-05-2015 [facility] MEDICAL UNSPECIFIED ASSOCIATES R112 NAUSEA WITH 12-05-2015 [facility] MEDICAL VOMITING ASSOCIATES UNSPECIFIED R197 DIARRHEA 12-05-2015 [facility] MEDICAL UNSPECIFIED ASSOCIATES R638 OTH 12-05-2015 [facility] MEDICAL SYMPTOMS & ASSOCIATES SIGNS CONCERNING FOOD & FL INTAKE R1084 GENERALIZED 10-12-2015 [facility] ABDOMINAL LIFE CARE PAIN Z7722 CONTACT W/ 10-12-2015 ALEE Villafuerte R & SUSPECTED H EXPOS ENVIR TOBACCO SMOKE M5106 INTERVERTEB 07-08-2015 [facility] [place] RAL DISC PAIN D/O MANAGEMENT W/MYELOPATH SER Y LUMB REGION M5136 OTH 07-08-2015 [facility] [place] INTERVERTEB PAIN RAL DISC MANAGEMENT DEGEN SER LUMBAR REGION 51155 DEGEN 08-22-2014 [facility] [place] LUMBAR/LUMB PAIN OSACRAL MANAGEMENT INTERVERTEB SER RAL DISC 31575 INTERVERT 08-22-2014 [facility] LUMB DISC PAIN D/O MANAGEMENT W/MYELOPATH SER Y LUMB REGION 7241 PAIN IN 08-22-2014 [facility] [place] THORACIC PAIN SPINE MANAGEMENT SER 7242 LUMBAGO 08-22-2014 [place] PAIN MANAGEMENT SER 94474 DEGEN 06-26-2014 [place] THORACIC/TH PAIN ORACOLUMBAR MANAGEMENT SER INTERVERTEB RAL DISC 496 CHRONIC 06-13-2014 [facility] 7224 DEGENERATIO 05-29-2014 [place] N OF PAIN CERVICAL MANAGEMENT INTERVERTEB SER RAL DISC 4011 ESSENTIAL 04-25-2014 [facility] HYPERTENSIO OUTPATIENT N, BENIGN CLINI 17510 DIAB W/O 04-14-2014 ALEE Villafuerte R COMP TYPE H II/UNS NOT STATED UNCNTRL 66947 RESTLESS 04-14-2014 ALEE A R LEGS H SYNDROME 3384 CHRONIC 04-14-2014 ALEE A R PAIN H SYNDROME 4019 UNSPECIFIED 04-14-2014 ALEE A R ESSENTIAL H HYPERTENSIO N 49958 ESOPHAGEAL 04-14-2014 ALEE Villafuerte R REFLUX H 5849 ACUTE 04-14-2014 ALEE A R KIDNEY H FAILURE UNSPECIFIED 5990 URINARY 04-14-2014 ALEE A R TRACT H INFECTION SITE NOT SPECIFIED V0481 NEED 04-14-2014 ALEE Villafuerte R PROPHYLACTI H C VACCINATION &INOCULATIO N FLU 5601 PARALYTIC 04-12-2014 JUVENAL LEIDY ILEUS 27180 OBSTRUCTIVE 04-11-2014 ALEE A R CHRONIC H BRONCHITIS WITH EXACERBATIO N 68772 FEVER 04-11-2014 [facility] UNSPECIFIED LIFE CARE 85370 SHORTNESS 04-11-2014 [facility] OF BREATH LIFE CARE 59764 EXTRINSIC 01-24-2014 [facility] WITH DRUG CO STATUS ASTHMATICUS 90502 HTN CKD UNS 11-30-2013 ALEE Villafuerte R W/CKD H STAGE I THRU STAGE IV/UNS 4293 CARDIOMEGAL 11-30-2013 JUVENAL FORBES Y 5859 CHRONIC 11-30-2013 ALEE A R KIDNEY H DISEASE UNSPECIFIED 32861 OTHER 11-30-2013 [facility] MALAISE AND LIFE CARE FATIGUE 88413 PAINFUL 11-30-2013 ALEE A R RESPIRATION H 95508 NAUSEA WITH 11-30-2013 [facility] VOMITING LIFE CARE 76016 ABDOMINAL 11-30-2013 ALEE A R PAIN, H UNSPECIFIED SITE 85604 CHEST PAIN 11-24-2013 ALEE A R UNSPECIFIED H 2724 OTHER AND 08-23-2013 [facility] UNSPECIFIED DIAGNOSTICS HYPERLIPIDE SATHYA 45708 OBSTRUCTIVE 08-23-2013 [facility] CHRONIC OUTPATIENT BRONCHITIS CLINI WITHOUT EXACERBAT V8532 BODY MASS 08-23-2013 [facility] INDEX OUTPATIENT 32.0-32.9 CLINI ADULT 5551 REGIONAL 07-21-2013 [facility] ENTERITIS ASSOCIATES OF LARGE INTESTINE 41868 CANDIDIASIS 07-10-2013 [facility] OF THE ASSOCIATES ESOPHAGUS 5609 UNSPECIFIED 07-10-2013 [facility] OBSTRUCTION 30268 DYSPHAGIA 07-10-2013 [facility] UNSPECIFIED ANESTHESIA GROUP PS 2113 BENIGN 07-09-2013 [facility] NEOPLASM OF ASSOCIATES COLON 5559 REGIONAL 07-09-2013 [facility] ENTERITIS ASSOCIATES OF UNSPECIFIED SITE 5589 OTH&UNSPEC 07-09-2013 [facility] NONINFECTIO ASSOCIATES US GASTROENTER ITIS&COLITI S 5693 HEMORRHAGE 07-09-2013 [facility] OF RECTUM ASSOCIATES AND ANUS 59766 ABDOMINAL 07-09-2013 [facility] PAIN OTHER ASSOCIATES SPECIFIED SITE V1272 PERSONAL 07-09-2013 [facility] HISTORY OF ASSOCIATES COLONIC POLYPS 4556 UNSPEC 07-07-2013 [facility] HEMORRHOIDS ANESTHESIA WITHOUT GROUP PS MENTION COMPLICATIO N 26438 DIVERTICULO 07-07-2013 [facility] [place] [address] DEHYDRATION 06-29-2013 [facility]ATES 7840 HEADACHE 06-27-2013 JUVENAL FORBES 5180 PULMONARY 06-26-2013 JUVENAL FORBES COLLAPSE 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 76444 OTHER 06-25-2013 JUVENAL FORBES DISEASES OF LUNG NOT ELSEWHERE CLASSIFIED 43515 DIARRHEA 06-25-2013 JU[facility]NAL FORBES 58388 DIAB W/O 05-26-2013 [facility] MENTION DIAGNOSTICS COMP TYPE II/UNS TYPE UNCNTRL V5869 LONG-TERM 04-16-2013 ALEE Noy R (CURRENT) H USE OF OTHER MEDICATIONS 55430 OTHER 03-22-2013 JUVENAL FORBES SPECIFIED DISORDER OF KIDNEY AND URETER 19940 UNSPEC 03-21-2013 ALEE A R EPILEPSY H WITHOUT MENTION INTRACT EPILEPSY 00261 ASTHMA, 03-02-2013 ALEE Noy R UNSPECIFIED H , UNSPECIFIED STATUS 15285 ABDOMINAL 03-02-2013 [facility] PAIN, LIFE CARE GENERALIZED 60078 SOLITARY 03-02-2013 ALEE Villafuerte R PULMONARY H NODULE V5867 LONG-TERM 03-02-2013 ALEE Villafuerte R USE OF H INSULIN 490 BRONCHITIS 10-16-2012 ALEE A R NOT H SPECIFIED ACUTE OR CHRONIC 4928 OTHER 10-16-2012 ALEE Villafuerte [place] EMPHYSEMA H 70668 INCI HERNIA 08-24-2012 [facility] INC MED WITHOUT ASSOCIATES MENTION OBSTRUCTION /GANGRENE 5718 OTHER 08-24-2012 JUVENAL FORBES CHRONIC NONALCOHOLI C LIVER DISEASE 462 ACUTE 08-15-2012 ALEE Villafuerte R PHARYNGITIS H 7291 UNSPECIFIED 08-15-2012 ALEE Villafuerte R MYALGIA H AND MYOSITIS 7862 COUGH 08-15-2012 JUVENAL FORBES 4659 ACUTE URIS 07-01-2012 [facility] OF MEDICAL UNSPECIFIED ENTERPRI SITE 51099 OBST 07-01-2012 [facility] CHRONIC MEDICAL BRONCHITIS ENTERPRI W/ACUTE BRONCHITIS 37734 OSTEOARTHRO 03-29-2012 [facility] SIS UNSPEC IMAGING INC WHETHER GEN/LOC ANK&FOOT 74574 UNSPECIFIED 03-09-2012 ALEE Villafuerte R H OSTEOPOROSI S 88495 CLOSED 03-09-2012 ALEE Villafuerte R FRACTURE OF H THREE RIBS V462 DEPENDENCE 03-09-2012 ALEE Villafuerte R ON MACHINE H FOR SUPPLEMENTA L OXYGEN 45217 OSTEOARTHRO 03-01-2012 [facility] S UNSPEC IMAGING INC WHETHER GEN/LOC SHLDR REGION 53770 DIAB 01-27-2012 [facility] W/RENAL FAMILY MANIFESTS HEALTH [...] 01-23-2012 ALEE Villafuerte R AND ANURIA H 28858 DIAB W/O 01-22-2012 [place] COMP TYPE I DRUG CO [JUV] NOT STATED UNCNTRL 40742 OTHER 12-16-2011 [facility] MED SELECTIVE ASSOCIATES IMMUNOGLOBU RAJWINDER DEFICIENCIE S 17830 UNSPECIFIED 12-14-2011 ALEE A R H HYPOGAMMAGL OBULINEMIA 3360 SYRINGOMYEL 11-08-2011 ALEE A R IA AND H SYRINGOBULB IA 6279 UNSPECIFIED 11-08-2011 ALEE A R H MENOPAUSAL& POSTMENOPAU BÁRBARA DISORDER 7197 DIFFICULTY 11-08-2011 [facility] IN WALKING LIFE CARE 7810 ABNORMAL 11-08-2011 [facility] INVOLUNTARY LIFE CARE MOVEMENTS 17605 OTHER 11-08-2011 [facility] EMS ILL-DEFINED CONDITIONS 56551 CONTUSION 11-08-2011 ALEE Villafuerte R OF KNEE H 83184 OTHER 10-30-2011 [facility] CHRONIC OUTPATIENT PAIN CLINI 3484 COMPRESSION 10-26-2011 [place] [address] OBSTRUCTIVE 10-03-2011 HOSP SLEEP MEDICINE [facility] SERV @[facility] 4242 TRICUSPID 09-30-2011 [facility] DISORDERS AT CENT SPEC NONRHEUMATI C 4589 UNSPECIFIED 09-30-2011 [facility] HYPOTENSION AT CENT 2706 DISORDERS 09-29-2011 ALEE Villafuerte R OF UREA H CYCLE METABOLISM 65205 METABOLIC 09-29-2011 ALEE Villafuerte R ENCEPHALOPA H THY 99064 OTHER 09-29-2011 ALEE A R ENCEPHALOPA H THY 7802 SYNCOPE AND 09-29-2011 [facility] COLLAPSE LIFE CARE 65662 OTHER 09-29-2011 [facility] CONVULSIONS LIFETEAM 07861 POISONING 09-25-2011 [facility] ABD BY OPIATES AND RELATED NARCOTICS OTHER 9678 POISONING 09-25-2011 [facility] ABD BY OTHER SEDATIVES AND HYPNOTICS 9694 POISONING 09-25-2011 [facility] ABD BY BENZODIAZEP INE-BASED TRANQUILIZE RS 9779 POISONING 09-25-2011 [facility] ABD UNSPECIFIED DRUG/MEDICI NAL SUBSTANCE 74873 NAUSEA 09-21-2011 [facility] 4739 UNSPECIFIED 09-14-2011 [facility] MED SINUSITIS ASSOCIATES 514 PULMONARY 09-14-2011 ALEE Villafuerte R CONGESTION H AND HYPOSTASIS 7231 CERVICALGIA 09-14-2011 [facility] MEDICAL ASSOCIATES 25111 UNSPECIFIED 09-14-2011 [facility] INC MED SLEEP ASSOCIATES APNEA 99258 OSTEOARTHRO 09-01-2011 [facility] MEDICAL S UNSPEC ASSOCIATES WHETHER GEN/LOC UNSPEC SITE 4660 ACUTE 08-20-2011 [facility] MEDICAL BRONCHITIS ASSOCIATES 2114 BENIGN 08-18-2011 ALEE A R NEOPLASM OF H RECTUM AND ANAL CANAL 4550 INTERNAL 08-18-2011 ALEE A R HEMORRHOIDS H WITHOUT MENTION COMP 4553 EXTERNAL 08-18-2011 A[facility]E A R HEMORRHOIDS H WITHOUT MENTION COMP V7651 SPECIAL 08-18-2011 ALEE A R SCREENING H FOR MALIGNANT NEOPLASMS COLON 5939 UNSPECIFIED 08-11-2011 [facility] INC MED DISORDER ASSOCIATES OF KIDNEY AND URETER 25905 VOMITING 08-06-2011 [facility] [place]9 GO[place], 07-15-2011 JUVENAL LEIDY UNSPECIFIED 73033 CHRONIC 07-07-2011 ALEE A R OBSTRUCTIVE H ASTHMA UNSPECIFIED 2400 GOITER, 06-19-2011 [facility] SPECIFIED OUTPATIENT SIMPLE CLINI V7612 OTHER 06-17-2011 ALEE A R SCREENING H MAMMOGRAM 73892 CHRONIC 06-05-2011 JUVENAL FORBES OBSTRUCTIVE ASTHMA WITH EXACERBATIO N 43351 CALCU 06-04-2011 JU[facility] FORBES GALLBLADD W/O MENTION CHOLECYST/O BST 87648 OTHER 06-03-2011 JU[facility]NAL FORBES NONSPECIFIC ABNORMAL FINDING OF LUNG FIELD 2767 HYPERPOTASS 05-31-2011 ALEE Villafuerte [place] EMIA H 51313 SCOLIOSIS , 04-06-2011 ALEE [place]IOPATHIC H 37617 HYPOXEMIA 03-21-2011 [facility] INC MED ASSOCIATES 3540 CARPAL 02-13-2011 ALEE A R TUNNEL H SYNDROME 22140 UNSPECIFIED 02-13-2011 ALEE A R H ARTHROPATHY SITE UNSPECIFIED 51846 GANGLION OF 02-13-2011 ALEE Villafuerte R JOINT H 5183 PULMONARY 02-02-2011 [facility] INC MED EOSINOPHILI ASSOCIATES A 29481 SLEEP 02-02-2011 [facility] INC MED RELATED ASSOCIATES MOVEMENT DISORDER UNSPECIFIED 77064 UNSPECIFIED 01-26-2011 [facility] GANGLION OUTPATIENT CLINI 31577 UNSPECIFIED 01-21-2011 [facility] INC MED VIRAL ASSOCIATES WARTS 7820 DISTURBANCE 01-21-2011 [facility] INC MED OF SKIN ASSOCIATES SENSATION V6700 FOLLOW-UP 01-21-2011 [facility] INC MED EXAMINATION ASSOCIATES FOLLOWING UNSPEC SURGERY V6759 OTHER 01-06-2011 [facility] MED FOLLOW-UP ASSOCIATES EXAMINATION OTHER 27652 UNSPECIFIED 12-30-2010 [facility] [place] [address] INSOMNIA 12-30-2010 ALEE A R WITH SLEEP H APNEA UNSPECIFIED 7020 ACTINIC 12-15-2010 [facility] INC MED KERATOSIS ASSOCIATES 87892 OTHER 12-15-2010 [facility] RESPIRATORY ABNORMALITI ES 340 MULTIPLE 12-03-2010 JUVENAL LEIDY SCLEROSIS 86789 PAIN IN 12-03-2010 ALEE A R JOINT, H MULTIPLE SITES 70730 INSOMNIA 12-03-2010 [facility] MED UNSPECIFIED ASSOCIATES 2763 ALKALOSIS 11-20-2010 ALEE A R H 5920 CALCULUS OF 11-05-2010 [facility] KIDNEY KIEL CARMITA 7881 DYSURIA 11-05-2010 [facility] CARMITA 7880 RENAL COLIC 10-31-2010 [facility] PSC 5921 CALCULUS OF 10-28-2010 [facility] URETER ASSOCIATES PSC 06864 UNSPECIFIED 10-28-2010 [facility] RETENTION ASSOCIATES OF URINE PSC 7944 NONSPECIFIC 08-15-2010 [facility] RESULTS PHYSICIANS KIDNEY FUNCTION STUDY 72958 NERVOUSNESS 06-04-2010 [facility] 8471 THORACIC 06-04-2010 [facility] 88830 CLOSED 12-25-2009 [facility] FRACTURE OF H SHAFT OF ORTHOPAEDIC FIBULA CTR PSC 8408 SPRAIN&STRA 12-25-2009 [facility] IN OTH SPEC H SITES ORTHOPAEDIC SHOULDER&UP CTR PSC PER ARM 9233 CONTUSION 12-25-2009 [facility] OF FINGER H ORTHOPAEDIC CTR PSC 2720 PURE 12-15-[address] [facility] 63550 PAIN IN 12-15-2009 [facility] JOINT, ASSOCIATES ANKLE AND PSC FOOT 05751 CLOSED 12-15-2009 [facility] FRACTURE OF ASSOCIATES UPPER END PSC OF FIBULA 84895 CONTUSION 12-15-2009 OF LOWER KIEL LEG [facility] 9597 INJURY 12-15-2009 RADI[facility]Y OTHER&UNSPE ASSOCIATES CIFIED KNEE PSC LEG ANKLE&FOOT V1582 PERS HX 03-27-2009 [facility] USE [facility] V4577 ACQUIRED 03-27-2009 ST ABSENCE OF [facility] GENITAL ORGANS 93390 EXTRINSIC 03-25-2009 [facility] ASTHMA, MEDICAL UNSPECIFIED GROUP 24922 PAIN IN 07-18-2008 [facility] JOINT ASSOCIATES PELVIC PSC REGION AND THIGH V0382 NEED PROPH 04-09-2008 [facility] VACCINATION MEDICAL AGAINST GROUP STREP PNEUMONE 8260 CLOSED 03-19-2008 RESPIRATORY FRACTURE OF ONE OR CONSULTANTS MORE INC PHALANGES OF FOOT 79500 OTHER JOINT 03-18-2008 [facility] DERANGEMENT MED CTR NEC ANKLE AND FOOT 68923 CLOSED 03-18-2008 ST DISLOCATION K[facility] OF MED CTR INTERPHALAN GEAL FOOT 71719 CLOSED 03-18-2008 ST DISLOCATION [facility] OF OTHER HOSPITAL PART OF FOOT E8490 PLACE OF 03-18-2008 OCCURRENCE, [facility] E9179 OTHER 03-18-2008 STRIKING KIEL AGAINST HOSPITAL W/WO SUBSEQUENT FALL 4280 CONGESTIVE 03-09-2008 HEART [facility] FAILURE HOSPITAL UNSPECIFIED 74086 ASTHMA 03-09-2008 [facility] EXACERBAT[facility] N V1509 PERSONAL HX 03-09-2008 [facility] MEDICINAL AGTS 3272 ORGANIC 02-19-2008 [facility] V138 PERSONAL 12-03-2007 HISTORY OF [facility] OTHER MED CTR SPECIFIED DISEASES 3970 DISEASES OF 11-25-2007 TRICUSPID [facility] VALVE [facility] [id number] OTHER 11-25-2007 PREMATURE [facility] BEATS [facility] [id number] PRECORDIAL 11-25-2007 COMPREHENSI PAIN VE NAIL EXPERT 7806 FEVER & OTH 09-07-2007 [facility] [place] [address] OTHER 07-20-2007 CHRISTINA, ESOPHAGITIS JUVENAL L 03962 ATROPHIC 07-20-2007 GASTRITIS [facility] WITHOUT MED CTR MENTION OF HEMORRHAGE 41837 OTHER SPEC 07-20-2007 CHRISTINA, GASTRITIS JUVENAL L WITHOUT MENTION HEMORRHAGE 5690 ANAL AND 07-20-2007 [facility] V160 FM HX 07-20-2007 MALIGNANT [facility] NEOPLASM [facility] GASTROINTES TINAL TRACT Procedures Procedure DOS Code Location Performer Comment ASSISTANC [id number] [place] [place] A E 6 R H R H RESPIRATO RY VENT < 24 CONSEC HR CPAP ASSISTANC [id number] [place] [place] A E 6 R H R H RESPIRATO RY VENT < 24 CONSEC HR CPAP ASSISTANC [id number] [place]E [place] E 6 R H R [...] End Date Code Location Performer Type Date [facility] 7 [facility] [address] ALEE A - 6 6 R H INPATIENT CLINIC, [facility] 6 6 [facility] ALEE A [facility] 6 6 R H [facility] ALEE A - 6 6 R H INPATIENT [facility] ALEE A - 6 6 R H [facility] ALEE A [facility] 6 6 R H [facility] ALEE A - 6 6 R H [facility], [facility] 6 6 [facility] ALEE A - 6 6 R H [facility] 6 6 [facility] A - 6 6 R H [facility] 6 6 [facility] [place] 4 4 [facility] ALEE A - 4 4 R H [facility]PATIENT [facility] A[facility] A [facility] 4 4 R H [facility]IENT [facility], [facility] 4 4 [facility] A[facility]E A [facility] 4 4 R H [facility] A[facility] A [facility] 4 4 R H [facility], [facility] 4 4 [facility] [place] 4 4 [facility] ALEE A - 3 4 R H [facility]PATIENT [facility]PITAL [facility] A [facility] 3 3 R [facility] - 3 3 R H [facility] A - 3 3 R [facility] 3 3 [facility] A - 3 3 R H [facility] A[facility] A [facility] 3 3 R [facility] - 2 2 R [facility] 2 IN[facility]IENT [facility] 2 2 [facility] A - 2 2 R [facility] - 2 2 R [facility] A[facility]E A [facility] 2 2 R [facility] A[facility] A - 2 2 R [facility] [place] 2 2 [facility] 2 2 R [facility] [place] 2 2 [facility] [place] [facility] [place], [place] 2 2 [facility] A - 2 2 R [facility] A [facility] OTHER 2 2 R [facility] - 2 2 R [facility] A - 2 2 R [facility] A - 2 2 R [facility] 1 1 R [facility] A - 1 1 R [facility] [place] 1 1 [facility] 1 1 R [facility], [place] 1 1 [facility] - 1 1 R [facility] A - 1 1 R [facility] - 1 1 R [facility] A - 1 1 R [facility] A - 1 1 R [facility] A [facility] 1 1 [facility] A - 1 1 [facility] [place] 1 1 [facility] [place] [place] 1 1 [facility] [place] 1 1 [facility] - 1 1 R [facility] A - 1 1 [facility] A - 1 1 [facility] A [facility] 1 1 [facility] A - 1 1 [facility] A - [address] [facility] 1 [address] [facility] - OTHER 1 [address] [facility] - OTHER 1 [address] [facility] - OTHER 1 1 [facility] ACCESS 0 0 [facility] 0 0 [facility] 0 0 [facility] - OTHER 0 0 [facility] - OTHER 0 0 [facility] ACCESS 0 0 [facility] - OTHER 0 0 [facility] - 9 9 [facility] 9 9 [facility] - OTHER 9 9 [facility] - OTHER 9 9 [facility] - OTHER 9 9 [facility] - OTHER [address] [facility] ACCESS 8 8 [facility] 8 8 [facility] - 8 8 [facility] - 8 8 [facility] - 8 8 [facility] ACCESS 8 8 [facility] - 8 [address] [facility] - 8 8 [facility]
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
--- OUTSIDE RECORDS SUMMARY | 2017-05-07 21:09 | External Medical Summary Rpt | CCD ---
Demographics Preferred Language Haitian Marital Status Unknown Taoist Affiliation Unknown Race Unknown Ethnic Group Unknown Author Author , CIERA VANG Address Unknown Phone Immunization Unable to retrieve immunization data due to connection failure with Immunization Registry. Please try again later.
--- OUTSIDE RECORDS SUMMARY | 2017-05-07 21:09 | External Medical Summary Rpt | CCD ---
Demographics Preferred Language Cambodian Marital Status Unknown Mandaen Affiliation Unknown Race Unknown Ethnic Group Unknown Author Author , CIERA VANG Address Unknown Phone Immunization Unable to retrieve immunization data due to connection failure with Immunization Registry. Please try again later.
--- NOTE | 2017-05-07 21:35 | RADIOLOGY REPORT PS360 ---
CT HEAD W/O CONTRAST HISTORY: Confusion, altered mental status, altered level consciousness, disorientation CONFUSION ORDERING PHYSICIAN: Jacklyn Squires MD PATIENT AGE: 52 years COMPARISON: None TECHNIQUE: Axial images obtained without contrast. Brain and bone windows reviewed. FINDINGS: No midline shift, mass effect, intracranial hemorrhage, hydrocephalus, or extra-axial fluid collection is evident. The calvarium has an unremarkable appearance. No mastoid effusion. The visualized paranasal sinuses are unremarkable. IMPRESSION: Negative CT head without contrast. No acute finding.
--- NOTE | 2017-05-07 21:36 | RADIOLOGY REPORT PS360 ---
CHEST-AP VIEW ONLY HISTORY: weak, soa ORDERING PHYSICIAN: Jaziel Carlton MD PATIENT AGE: 52 years COMPARISON: Cough and fever FINDINGS: Mild cardiomegaly without failure. There are low lung volumes. There are old left-sided rib fractures.. Severe thoracic scoliosis convex right. No lobar consolidation or collapse. IMPRESSION: Cardiomegaly with scoliosis, no acute finding with no change.
[2017-05-08] VITALS (11 sets, daily range): BP systolic 111–136; BP diastolic 64–85
[2017-05-08 05:30] LABS: LYMPH # 0.2 K/mm3 (0.7-4.5); LYMPH % 2.7 % (10-50.0)
[2017-05-08 05:55] LABS: NEUTROPHILS 86 % (42-76)
--- NOTE | 2017-05-08 08:42 | PHARMACY CLINIC NOTE ---
Patient Demographics Patient Demographics Admission date: 05/07/17 Date: 05/08/17 Time: 0841 Allergies Coded Allergies: sulfamethoxazole (From BACTRIM) (03/08/17) trimethoprim (From BACTRIM) (03/08/17) HEIGHT- FT: 5 IN: 0.00 K.938 VTE General Information Labs: Laboratory Tests 05/08 0515 Hematology Hgb (12.2 - 16.2 g/dL) 12.0 L Hct (37.0 - 47.0 %) 38.1 Plt Count (142 - 424 K/mm3) 257 Disclaimer The following section includes nursing documentation that has been pulled in for pharmacy review. Patient's VTE score: 7 Patient's VTE Risk: MOD RISK Clinical trial participant? No VTE prophylaxis NQF [id number] VTE prophylaxis ordered? Yes Type of prophylaxis/treatment: SULAIMAN at 0842
--- NOTE | 2017-05-08 09:52 | HISTORY AND PHYSICAL REPORT ---
History and Physical (FCA) Date of admission: 05/07/17 Chief complaint: Weak History: History of Present Illness: Ms. Bustillo is a 52-year-old white female with a history of chronic lung disease, hypertension, diabetes, and seizure disorder who was brought to the emergency room by EMS last night with weakness, altered mental status, and hypotension. By her history, she states she has been feeling weak for the past 3 or 4 days. She has had some increased cough but her shortness of breath is at baseline. She has not been eating or drinking well at home. She has had some nausea and loose stools. No fever. She has continued on her maintenance medications at home. On arrival in the emergency room she was hypotensive and acidotic with a pH of 7.2. She was lethargic but arousable. Evaluation in the emergency room, she had a normal white count. Her creatinine was elevated at 2.5. As noted, she was acidotic. Chest x-ray was interpreted by the ER physician as showing some perihilar infiltrates however, the radiologist compared to previous x-rays and showed no acute changes. She received IV fluids, steroids, antibiotics, and aerosols in the emergency room and subsequently admitted for further evaluation and treatment. I am seeing the patient on the morning of 05/08/17. She is feeling somewhat better. Her blood pressure has improved with hydration. Urine output has improved. She has a congested cough but dyspnea is at baseline. Her only complaint of pain is in her right hip which apparently is chronic. She is eating her breakfast. States she is on Lasix for congestive heart failure which was diagnosed in [facility] about 3 years ago. She had a left heart catheter here earlier this year showing normal coronary arteries and normal ejection fraction. She is oxygen and steroid dependent. At one point she was briefly under hospice care but she was discharged when it was deemed her condition was chronic and not terminal. Past Medical History: Medical History: CAD? No Angina: No MN: No Hypertension? Yes Hyperlipidemia? Yes CHF? No DVT? No PE? No COPD? Yes Asthma? Yes Anemia? No GERD? No Gastric ulcers? No GI Bleed? No Hernia? Yes Thyroid Problems? No Hypothyroidism? No CVA? No Seizures? Yes Diabetes? Yes Insulin Dependent: Yes Insulin Pump: No Home FSBS? Yes Renal Insuffiency? No UTI? No Stones? No BPH? No GB Disease: No Nephritic Syndrome? No Asplenia? No Hepatitis? No Sickle Cell Disease? No Arthritis? No Migraines? No Cataracts? No Glaucoma? No MRSA? No HIV? No TB? No Anxiety? Yes Depression? Yes Cancer? Yes Site: SKIN More? No Additional medical history: Scoliosis Surgical history: Previous Surgery?Y X 2 APPY HYSTERECTOMY Umbilical hernia repair SKIN CANCER REMOVAL X2 Medications: Active Scripts Device (Oxygen (Concentrator)) 1 LITER IH CONSTANT #2 DEV Ref 5 Prov: 06/30/16 Device (Oxygen, Portable) 1 LITER IH CONSTANT #2 DEV Ref 5 Prov: 06/30/16 Clonazepam (Klonopin 0.5MG) 0.5 MG NG BIDP PRN ANXIETY #20 TAB Prov: 11/02/16 Prednisone (Prednisone 20MG) 20 MG PO DAILY #6 TAB Prov: 04/15/17 Reported Medications DILTIAZEM HCL (Diltiazem 12HR ER) 90 MG PO BID Prednisone (Prednisone 5MG) 10 MG PO DAILY Levetiracetam (Keppra) 1,000 MG PO QHS MAGNESIUM OXIDE (Magnesium Oxide) 400 MG PO DAILYP PRN SUPPLEMENT IRBESARTAN (Irbesartan) 150 MG PO DAILY Albuterol Sulfate (Proair Hfa) 1-2 PUFF IH Q4HP PRN BREATHING ASPIRIN (Aspirin) 81 MG PO DAILY Levetiracetam (Keppra 500 Mg Tablet) 750 MG PO 0900,1700 Montelukast Sodium (Singulair 10MG) 10 MG PO QHS POTASSIUM CHL (Potassium Chloride) 20 MEQ PO DAILY Furosemide (Furosemide) 20 MG PO BID #60 TABLET Metoprolol Tartrate (Lopressor) 25 MG PO BID #60 TAB DULOXETINE HCL (Cymbalta 60MG) 60 MG PO DAILY Famotidine (Pepcid 20MG Tablet) 20 MG PO QHS FLUTICASONE/SALMETEROL (Advair 250-50 Diskus) 1 PUFF IN BID Allopurinol 100 MG PO BID CALCIUM CITRATE/VITAMIN D3 (Calcium Citrate - Vit D Caplet) 1 TAB PO BID Guaifenesin (Mucinex) 600 MG PO BIDP PRN CHEST CONGESTION IPRATROPIUM/ALBUTEROL SULFATE (Iprat-Albut 0.5-3(2.5) MG/3 Ml) 3 ML IH BID HYDROXYZINE HCL (Hydroxyzine HCl) 25 MG PO DAILY #120 Insulin Lispro, Recombinant (Humalog 100 UNITS/ML 10ML) 0 UNITS SC ACHS IBUPROFEN MICRONIZED (IBUPROFEN 400MG) 400 MG PO Q8HP PRN PAIN Acetaminophen (Arthritis Pain Relief) 650 MG PO PRN-MRX1 PRN PAIN Allergies: Coded Allergies: sulfamethoxazole (From BACTRIM) (03/08/17) trimethoprim (From BACTRIM) (03/08/17) Family History: Family history: Postive for: CAD (father), DM (father), HTN (father), cancer (mother). Additional family history: Father with COPD Social History: Smoking Hx Tobacco: Yes Smoker: Former Smoker Type: Cigarettes Packs/day: < 1 Pack Are you exposed to second hand No Alcohol: Alcohol: No Hx of Drug Use: Drug Use? No Patien't marital status is: Patient's support system is: fair Patient's occupation: Disabled due to her lung disease Review of Systems: Patient unresponsive? No Constitutional Positive for: fatigue, lethargy, weak. No: recent weight loss. ENT Positive for: nasal congestion, sinus problems. No: nose bleed, hearing loss, sore throat. Cardiovascular Positive for: QUESADA, edema. No: PND, chest pain, orthopnea, palpitations. Respiratory Positive for: dyspnea on exertion, shortness of air, productive cough (sputum), wheezing. No: hemoptysis, pleuritic pain. GI Positive for: constipation, nausea. No: abdominal pain, dysphagia, hematemeis, melena, vomitting. (female) No: flank pain, frequency, hematuria. Skin No: bruising, diaphoresis, itching, rash. Neurological Positive for: confusion, weakness. No: change in LOC, bladder dysfunction, bowel dysfunction, seizure, slurred speech, syncope. Immune/allergy No: hives, itching. Eyes Positive for: blurry vision. No: diploplia, discharge, vision loss. Musculoskeletal Positive for: joint pain (right hip). Heme No: adenopathy, bleeding, bruising. Endocrine Positive for: dyspnea. No: cold intolerance, heat. Psychiatric Positive for: anxious, depression. Physical Exam: Vital signs: 1ST Vital Signs Result Date Time Pulse Ox 94 05/07 1824 B/P 92/49 05/07 1824 Temp 98.6 05/07 1824 Pulse 70 05/07 1824 Resp 24 05/07 1824 O2 Delivery OXYGEN 05/07 1900 O2 Flow Rate 2 05/07 1900 Exam: General appearance: sitting up in bed alert and oriented Eyes: anicteric, conjunctiva clear ENT: mucous membranes moist Neck: no carotid bruit Cardiovascular: regular rate & rhythm, no murmur Respiratory: coarse breath sounds with scattered rhonchi and a few faint wheezes in the bases ABD: non-distended, normal bowel sounds, soft, no tenderness Extremities: trace pretibial edema Musculoskeletal: thoracic scoliosis Skin: dry, normal color, warm Neuro: alert, normal mood/affect, oriented, no focal deficit Lab data: Labs: Laboratory Tests 05/08/17 0613: POC Glucose 153 H 05/08/17 0515: Sodium 138, Potassium 4.2, Chloride 102, Carbon Dioxide 23, BUN 38 H, Creatinine 1.5 H, Estimated Creat Clear 48 L, Estimated GFR (MDRD) 36 L, Glucose 158 H, Calcium 8.3 L, WBC 8.7, RBC 4.08 L, Hgb 12.0 L, Hct 38.1, MCV 93.3, RDW 17.0, Plt Count 257, MPV 8.2, Gran % 96.0 H, Gran # 8.3 H, Total Counted 100, Lymphocytes % 2.7 L, Monocytes % 0.9 L, Eosinophils % 0.3, Basophils % 0.2, Neutrophils 86 H, Band Neutrophils 8, Lymphocytes (Manual) 6 L, Lymphocytes # 0.2 L, Monocytes # 0.1, Eosinophils # 0.0, Basophils # 0.0, Platelet Estimate NORMAL, Polychromasia SL., Hypochromasia 3+, Poikilocytosis SL., Anisocytosis 1+, Macrocytosis 1+, PUBS MCHC 31.6 L, MCH 29.5 05/07/172232: POC Glucose 137 H 05/07/171912: Urine Color YELLOW, Urine Appearance CLEAR, Urine pH 5.5, Ur Specific [place] 1.025, Urine Protein NEGATIVE, Urine Ketones NEGATIVE, Urine Blood NEGATIVE, Urine Nitrate NEGATIVE, Urine Bilirubin NEGATIVE, Urine Urobilinogen 0.2, Ur Leukocyte Esterase NEGATIVE, Urine RBC NONE, Urine WBC NONE, Ur Squamous Epith Cells OCC, Urine Bacteria TRACE, Urine Glucose NEGATIVE 05/07/171908: ABG pH 7.22 *L, ABG pCO2 (Temp Corrct 51.0 H, ABG pO2 (Temp Correct 88.3, ABG HCO3 20.3 L, ABG Total CO2 21.9 L, ABG O2 Sat (Calculated) 95.3, ABG Base Excess -7.4 L, Jacek Test ACCEPTABLE 05/07/171902: Lactic Acid 2.0 05/07/171902: Sodium 132 L, Potassium 4.4, Chloride 98, Carbon Dioxide 22, BUN 47 H, Creatinine 2.7 H, Estimated Creat Clear 26 L, Estimated GFR (MDRD) 18 *L, Glucose 138 H, Calcium 8.8, Total Bilirubin 0.5, AST 11 L, ALT 21, Alkaline Phosphatase 104, Troponin I < 0.02, Total Protein 6.4, Albumin 3.2 L, Globulin 3.2, Albumin/Globulin Ratio 1.0 L Microbiology 05/07 1903 BLOOD: Anaerobic Blood Culture - RECD 05/07 1903 BLOOD: Aerobic Blood Culture - RECD 05/07 1903 BLOOD: Anaerobic Blood Culture - RECD 05/07 1903 BLOOD: Aerobic Blood Culture - RECD Radiology results: Results: CHEST-AP VIEW ONLY HISTORY: weak, soa ORDERING PHYSICIAN: Jaziel Carlton MD PATIENT AGE: 52 years COMPARISON: Cough and fever FINDINGS: Mild cardiomegaly without failure. There are low lung volumes. There are old left-sided rib fractures.. Severe thoracic scoliosis convex right. No lobar consolidation or collapse. IMPRESSION: Cardiomegaly with scoliosis, no acute finding with no change. Diagnosis(es): 1. Acute renal failure 2. Hypovolemia 3. Hypotension 4. COPD (chronic obstructive pulmonary disease) 5. Healthcare-associated pneumonia Assessment/Plan Possible 6. Right hip pain 7. Seizure disorder 8. Diabetes mellitus 9. Scoliosis of thoracic spine 10. Hypertension Plan: She has been admitted for IV fluid hydration and empirically been started on triple antibiotic therapy by the ER physician for possible healthcare acquired pneumonia although her initial chest x-ray shows no acute infiltrate and her white blood cell count is normal.. Now that she is rehydrated and her renal function has improved, we will repeat her chest x-ray to see if any infiltrates are evident. If this continues to be negative, we will de-escalate her antibiotics. Her O2 sats are normal and she has only a few faint wheezes, therefore will decrease her steroids. She will be restarted on some of her home medications. Conitnue to hold her Lasix and some of her blood pressure medication for now. Her hypotension has improved with hydration. She is on sliding scale insulin coverage for her diabetes. at 8113
--- NOTE | 2017-05-08 11:08 | CONSULT NOTE ---
Pharmacokinetic Consult Date of consult: 05/08/17 Time of consult: 1106 Referring provider: DR. WHELAN Reason for consult: VANCOMYCIN DOSING Allergies: Coded Allergies: sulfamethoxazole (From BACTRIM) (03/08/17) trimethoprim (From BACTRIM) (03/08/17) Home Medications: Active Scripts Device (Oxygen (Concentrator)) 1 LITER IH CONSTANT #2 DEV Ref 5 Prov: 06/30/16 Device (Oxygen, Portable) 1 LITER IH CONSTANT #2 DEV Ref 5 Prov: 06/30/16 Clonazepam (Klonopin 0.5MG) 0.5 MG NG BIDP PRN ANXIETY #20 TAB Prov: 11/02/16 Prednisone (Prednisone 20MG) 20 MG PO DAILY #6 TAB Prov: 04/15/17 Reported Medications DILTIAZEM HCL (Diltiazem 12HR ER) 90 MG PO BID Prednisone (Prednisone 5MG) 10 MG PO DAILY Levetiracetam (Keppra) 1,000 MG PO QHS MAGNESIUM OXIDE (Magnesium Oxide) 400 MG PO DAILYP PRN SUPPLEMENT IRBESARTAN (Irbesartan) 150 MG PO DAILY Albuterol Sulfate (Proair Hfa) 1-2 PUFF IH Q4HP PRN BREATHING ASPIRIN (Aspirin) 81 MG PO DAILY Levetiracetam (Keppra 500 Mg Tablet) 750 MG PO 0900,1700 Montelukast Sodium (Singulair 10MG) 10 MG PO QHS POTASSIUM CHL (Potassium Chloride) 20 MEQ PO DAILY Furosemide (Furosemide) 20 MG PO BID #60 TABLET Metoprolol Tartrate (Lopressor) 25 MG PO BID #60 TAB DULOXETINE HCL (Cymbalta 60MG) 60 MG PO DAILY Famotidine (Pepcid 20MG Tablet) 20 MG PO QHS FLUTICASONE/SALMETEROL (Advair 250-50 Diskus) 1 PUFF IN BID Allopurinol 100 MG PO BID CALCIUM CITRATE/VITAMIN D3 (Calcium Citrate - Vit D Caplet) 1 TAB PO BID Guaifenesin (Mucinex) 600 MG PO BIDP PRN CHEST CONGESTION IPRATROPIUM/ALBUTEROL SULFATE (Iprat-Albut 0.5-3(2.5) MG/3 Ml) 3 ML IH BID HYDROXYZINE HCL (Hydroxyzine HCl) 25 MG PO DAILY #120 Insulin Lispro, Recombinant (Humalog 100 UNITS/ML 10ML) 0 UNITS SC ACHS IBUPROFEN MICRONIZED (IBUPROFEN 400MG) 400 MG PO Q8HP PRN PAIN Acetaminophen (Arthritis Pain Relief) 650 MG PO PRN-MRX1 PRN PAIN Height (feet): 5 Height (inches): 0.00 Medical History: CAD? No Angina: No NM: No Hypertension? Yes Hyperlipidemia? Yes CHF? No DVT? No PE? No COPD? Yes Asthma? Yes Anemia? No GERD? No Gastric ulcers? No GI Bleed? No Hernia? Yes Thyroid Problems? No Hypothyroidism? No CVA? No Seizures? Yes Diabetes? Yes Insulin Dependent: Yes Insulin Pump: No Home FSBS? Yes Renal Insuffiency? No UTI? No Stones? No BPH? No GB Disease: No Nephritic Syndrome? No Asplenia? No Hepatitis? No Sickle Cell Disease? No Arthritis? No Migraines? No Cataracts? No Glaucoma? No MRSA? No HIV? No TB? No Anxiety? Yes Depression? Yes Cancer? Yes Site: SKIN More? No Labs: Laboratory Tests 05/08/17 0613: POC Glucose 153 H 05/08/17 0515: Sodium 138, Potassium 4.2, Chloride 102, Carbon Dioxide 23, BUN 38 H, Creatinine 1.5 H, Estimated Creat Clear 48 L, Estimated GFR (MDRD) 36 L, Glucose 158 H, Calcium 8.3 L, WBC 8.7, RBC 4.08 L, Hgb 12.0 L, Hct 38.1, MCV 93.3, RDW 17.0, Plt Count 257, MPV 8.2, Gran % 96.0 H, Gran # 8.3 H, Total Counted 100, Lymphocytes % 2.7 L, Monocytes % 0.9 L, Eosinophils % 0.3, Basophils % 0.2, Neutrophils 86 H, Band Neutrophils 8, Lymphocytes (Manual) 6 L, Lymphocytes # 0.2 L, Monocytes # 0.1, Eosinophils # 0.0, Basophils # 0.0, Platelet Estimate NORMAL, Polychromasia SL., Hypochromasia 3+, Poikilocytosis SL., Anisocytosis 1+, Macrocytosis 1+, PUBS MCHC 31.6 L, MCH 29.5 05/07/172232: POC Glucose 137 H 05/07/171912: Urine Color YELLOW, Urine Appearance CLEAR, Urine pH 5.5, Ur Specific [place] 1.025, Urine Protein NEGATIVE, Urine Ketones NEGATIVE, Urine Blood NEGATIVE, Urine Nitrate NEGATIVE, Urine Bilirubin NEGATIVE, Urine Urobilinogen 0.2, Ur Leukocyte Esterase NEGATIVE, Urine RBC NONE, Urine WBC NONE, Ur Squamous Epith Cells OCC, Urine Bacteria TRACE, Urine Glucose NEGATIVE 05/07/171908: ABG pH 7.22 *L, ABG pCO2 (Temp Corrct 51.0 H, ABG pO2 (Temp Correct 88.3, ABG HCO3 20.3 L, ABG Total CO2 21.9 L, ABG O2 Sat (Calculated) 95.3, ABG Base Excess -7.4 L, Jacek Test ACCEPTABLE 05/07/171902: Lactic Acid 2.0 05/07/171902: Sodium 132 L, Potassium 4.4, Chloride 98, Carbon Dioxide 22, BUN 47 H, Creatinine 2.7 H, Estimated Creat Clear 26 L, Estimated GFR (MDRD) 18 *L, Glucose 138 H, Calcium 8.8, Total Bilirubin 0.5, AST 11 L, ALT 21, Alkaline Phosphatase 104, Troponin I < 0.02, Total Protein 6.4, Albumin 3.2 L, Globulin 3.2, Albumin/Globulin Ratio 1.0 L Microbiology 05/07 1903 BLOOD: Anaerobic Blood Culture - RECD 05/07 1903 BLOOD: Aerobic Blood Culture - RECD 05/07 1903 BLOOD: Anaerobic Blood Culture - RECD 05/07 1903 BLOOD: Aerobic Blood Culture - RECD Problem List: 1. Healthcare-associated pneumonia Plan: BASED ON PATIENT FACTORS, RECOMMEND VANCOMYCIN DOSE OF 1,250MG IV EVERY 48 HOURS FOR HCAP. PATIENT RECEIVED ONE TIME DOSE OF VANCOMYCIN 1,000 MG IN THE ER. PHARMACY WILL CONTINUE TO MONITOR AND ADJUST DOSE APPROPRIATE. at 1100
--- NOTE | 2017-05-08 12:02 | RADIOLOGY REPORT PS360 ---
CHEST(2 VIEWS-NOT PORTABLE) HISTORY: COPD exacerbation. R/o pneumonia Patient Age: 52 years: Female Ordering Physician: Jacklyn Squires MD TECHNIQUE: PA and lateral chest COMPARISON :May 07, 2017 CXR portable & . March 08, 2017 supine CXR. Also 520 1:17 PM lateral CXR FINDINGS No or definitive focal pneumonia. No discrete acute findings. . Findings are similar to the March 2017 study. . Only question some slight coarsening markings right infrahilar region towards right lower lobe but overall very similar appearance to prior studies with differences in technique considered. Nothing definitely acute. The mild pleural scarring on lateral left chest is again noted and stable likely related to old rib fractures. The heart is upper normal in size. Tortuous aorta. Valerie and mediastinal structures unchanged. Levoscoliosis thoracic spine dextroscoliosis thoracolumbar spine. Degenerative changes T-spine similar to previous studies IMPRESSION: ------ Stable chest nothing definitely acute
[2017-05-09] VITALS (7 sets, daily range): BP systolic 133–164; BP diastolic 78–99
[2017-05-09 06:09] LABS: HEMOGLOBIN 10.8 g/dL (12.2-16.2); LYMPH # 0.4 K/mm3 (0.7-4.5); LYMPH % 4.2 % (10-50.0)
[2017-05-09 06:44] LABS: NEUTROPHILS 86 % (42-76)
--- NOTE | 2017-05-09 08:45 | ACUTE CARE PROGRESS NOTE (QUA) ---
Progress Notes Subjective Date 05/09/17 Time 0844 Note No new complaints. She rested fairly well. Still has a congested cough productive of thick yellow sputum. Objective Findings Laboratory Tests 05/09/17 0609: POC Glucose 152 H 05/09/17 0540: Sodium 142, Potassium 4.0, Chloride 109 H, Carbon Dioxide 23, BUN 24 H, Creatinine 0.8, Estimated Creat Clear 89, Estimated GFR (MDRD) 75, Glucose 132 H, Calcium 8.3 L, WBC 10.8, RBC 3.79 L, Hgb 10.8 L, Hct 35.2 L, MCV 92.9, RDW 17.2, Plt Count 253, MPV 8.3, Gran % 91.4 H, Gran # 9.9 H, Total Counted 100, Lymphocytes % 4.2 L, Monocytes % 4.3, Eosinophils % 0.2, Basophils % 0.0 L, Neutrophils 86 H, Band Neutrophils 5, Lymphocytes (Manual) 8 L, Lymphocytes # 0.4 L, Monocytes (Manual) 1 L, Monocytes # 0.5, Eosinophils # 0.0, Basophils # 0.0, Platelet Estimate NORMAL, Hypochromasia 2+, Poikilocytosis SL., PUBS MCHC 30.6 L, MCH 28.4 05/08/17 1708: POC Glucose 264 H 05/08/17 1149: POC Glucose 149 H Last VS-Temp:98.0 B/P:140/80 Pulse:92 Resp:20 SaO2:99 OXYGEN Last weight lbs:154 oz:3 K.938 Method:Bed Scales Exam General appearance: alert, no acute distress ENT: mucous membranes moist Cardiovascular: regular rate & rhythm Respiratory: coarse breath sounds with scattered rhonchi. No wheezes. ABD: soft, no tenderness Extremities: no peripheral edema Skin: dry, normal color, warm Reviewed: medications, vital signs, lab results, radiology report, nursing notes Assessment/Plan Problem List 1. Acute renal failure Status: Resolved Assessment/Plan resolved 2. Hypovolemia Status: Resolved Assessment/Plan Resolved 3. Hypotension Status: Resolved Assessment/Plan resolved 4. COPD (chronic obstructive pulmonary disease) 5. Chronic obstructive pulmonary disease with (acute) exacerbation 6. Right hip pain 7. Seizure disorder 8. Diabetes mellitus 9. Scoliosis of thoracic spine 10. Hypertension Plan: Hypovolemia and renal failure have resolved. Repeat chest x-ray after hydration shows no acute infiltrates. Sputum culture still pending. We'll plan to escalate her antibiotics and continue to wean her steroids. Continue IV fluids. Encourage increased activity. Possible discharge home tomorrow. This inpt stay is expected to cross 2 MNs from start of care Yes at 1128
[2017-05-10] VITALS (8 sets, daily range): BP systolic 149–187; BP diastolic 80–95
--- NOTE | 2017-05-10 09:54 | ACUTE CARE PROGRESS NOTE (QUA) ---
Progress Notes Subjective Date 05/10/17 Time 0951 Note She seems stable. Her breath sounds are markedly decreased. She's not in respiratory distress. She has gonzalez facies from the prednisone. Objective Findings Last VS-Temp:98.2 B/P:149/89 Pulse:91 Resp:20 SaO2:98 OXYGEN Last weight lbs:154 oz:3 K.938 Method:Bed Scales Exam General appearance: alert, no acute distress Eyes: anicteric ENT: mucous membranes moist Cardiovascular: regular rate & rhythm Respiratory: diminished breath sounds (very) ABD: soft, no tenderness Extremities: no peripheral edema Skin: dry, intact Neuro: no deficit Reviewed: medications, vital signs, lab results, radiology report Assessment/Plan Problem List 1. Acute renal failure Status: Resolved 2. Hypovolemia Status: Resolved 3. Hypotension Status: Resolved 4. COPD (chronic obstructive pulmonary disease) 5. Chronic obstructive pulmonary disease with (acute) exacerbation 6. Right hip pain 7. Seizure disorder 8. Diabetes mellitus 9. Scoliosis of thoracic spine 10. Hypertension Patient condition Stable Plan: continue current care This inpt stay is expected to cross 2 MNs from start of care Yes at 0954
[2017-05-11 00:30] VITALS: BP 161/79
[2017-05-11 03:55] VITALS: BP 165/86
--- NOTE | 2017-05-11 07:49 | ACUTE CARE PROGRESS NOTE (QUA) ---
Progress Notes Subjective Date 05/11/17 Time 0749 Note No new complaints. She has been active around room and her breathing is at baseline. He still has some cough, occasionally productive. Objective Findings Laboratory Tests 05/11/17 0631: POC Glucose 118 H 05/10/17 2159: POC Glucose 154 H Last VS-Temp:97.8 B/P:133/78 Pulse:88 Resp:22 SaO2:100 OXYGEN Last weight lbs:154 oz:3 K.939 Method:Bed Scales Exam General appearance: alert, no acute distress Cardiovascular: regular rate & rhythm Respiratory: generally he diminished breath sounds with scattered rhonchi. No wheezes ABD: soft, no tenderness Extremities: no peripheral edema Skin: dry, normal color, warm Reviewed: medications, vital signs, nursing notes Assessment/Plan Problem List 1. Acute renal failure Status: Resolved 2. Hypovolemia Status: Resolved 3. Hypotension Status: Resolved 4. COPD (chronic obstructive pulmonary disease) 5. Chronic obstructive pulmonary disease with (acute) exacerbation 6. Right hip pain 7. Seizure disorder 8. Diabetes mellitus 9. Scoliosis of thoracic spine 10. Hypertension Patient condition Improving Plan: She will be discharged home on medications as outlined on her take home instructions. She will follow up with her primary care provider within the next week. This inpt stay is expected to cross 2 MNs from start of care Yes at 1923
[2017-05-11 08:30] VITALS: BP 133/78
[2017-05-11] MEDS ORDERED: LEVAQUIN500 MG PO (08:51)
[2017-05-11] MEDS ORDERED: DELTASONE20 MG FT (08:51)
[2017-05-11 11:29] VITALS: BP 133/78
--- NOTE | 2017-05-18 14:07 | DISCHARGE SUMMARY STANDARD ---
Discharge Summary (FCA2) Date of admission: 05/07/17 Date of discharge: 05/11/17 Problem List: 1. Acute renal failure 2. Hypovolemia 3. Hypotension 4. COPD (chronic obstructive pulmonary disease) 5. Chronic obstructive pulmonary disease with (acute) exacerbation 6. Right hip pain 7. Seizure disorder 8. Diabetes mellitus 9. Scoliosis of thoracic spine 10. Hypertension History of present illness: Ms. Bustillo is a 52-year-old white female with a history of chronic lung disease, hypertension, diabetes, and seizure disorder who was brought to the emergency room by EMS with weakness, altered mental status, and hypotension. By her history, she stated she had been feeling weak for 3 or 4 days. She had some increased cough but her shortness of breath was at baseline. She had not been eating or drinking well at home. She had some nausea and loose stools. No fever. She had continued on her maintenance medications at home. On arrival in the emergency room she was hypotensive and acidotic with a pH of 7.2. She was lethargic but arousable. Upon evaluation in the emergency room, she had a normal white count. Her creatinine was elevated at 2.5. As noted, she was acidotic. Chest x-ray was interpreted by the ER physician as showing some perihilar infiltrates however, the radiologist compared to previous x-rays and showed no acute changes. She received IV fluids, steroids, antibiotics, and aerosols in the emergency room and was subsequently admitted for further evaluation and treatment. Exam on admission: General appearance: sitting up in bed alert and oriented Eyes: anicteric, conjunctiva clear ENT: mucous membranes moist Neck: no carotid bruit Cardiovascular: regular rate & rhythm, no murmur Respiratory: coarse breath sounds with scattered rhonchi and a few faint wheezes in the bases ABD: non-distended, normal bowel sounds, soft, no tenderness Extremities: trace pretibial edema Musculoskeletal: thoracic scoliosis Skin: dry, normal color, warm Neuro: alert, normal mood/affect, oriented, no focal deficit Hospital Course: She was feeling somewhat better the next day. Her blood pressure improved with hydration. Urine output had improved. She had a congested cough but dyspnea was at baseline. Her only complaint of pain was in her right hip which apparently is chronic. She stated she was on Lasix for congestive heart failure which was diagnosed in [facility] about 3 years ago. She had a left heart cath here earlier this year showing normal coronary arteries and a normal ejection fraction. She is oxygen and steroid dependent. At one point she was briefly under hospice care but she was discharged when it was deemed her condition was chronic and not terminal. She was empirically been started on triple antibiotic therapy by the ER physician for possible healthcare acquired pneumonia although her initial chest x-ray showed no acute infiltrate and her white blood cell count was normal. She was restarted on some of her home medications. Her hypovolemia and renal failure resolved. A repeat chest x-ray after hydration showed no acute infiltrates. The plan was to deescalate her antibiotics and continue to wean her steroids. She was able to get up and about in her room. She was stable to be discharged home on medications as outlined on her take home instructions. She will follow up with her primary care provider within the next week. Discharge medications: Continue taking these medications: Albuterol Sulfate (Proair Hfa) 8.5 GM HFA.AER.AD 1-2 PUFF INHALATION EVERY 4 HOURS NEEDED as needed for BREATHING ASPIRIN (Aspirin) 81 MG TAB.CHEW 81 MILLIGRAM ORAL DAILY Levetiracetam (Keppra 500 Mg Tablet) 500 MG TABLET 750 MILLIGRAM ORAL 0900,1700 Montelukast Sodium (Singulair 10MG) 10 MG TABLET 10 MILLIGRAM ORAL AT BEDTIME NIGHTLY POTASSIUM CHL (Potassium Chloride) 20 MEQ TAB.ER.PRT 20 Milliequivalent ORAL DAILY Furosemide (Furosemide) 20 MG TABLET 20 MILLIGRAM ORAL TWICE A DAY Qty = 60 Metoprolol Tartrate (Lopressor) 25 MG TABLET 25 MILLIGRAM ORAL TWICE A DAY Qty = 60 DULOXETINE HCL (Cymbalta 60MG) 60 MG CAPSULE.DR 60 MILLIGRAM ORAL DAILY Famotidine (Pepcid 20MG Tablet) 20 MG TABLET 20 MILLIGRAM ORAL AT BEDTIME NIGHTLY FLUTICASONE/SALMETEROL (Advair 250-50 Diskus) 1 EACH BLST.W.DEV 1 PUFF IN VITRO TWICE A DAY Allopurinol (Allopurinol) 100 MG TABLET 100 MILLIGRAM ORAL TWICE A DAY CALCIUM CITRATE/VITAMIN D3 (Calcium Citrate - Vit D Caplet) 1 EACH TABLET 1 TABLET ORAL TWICE A DAY Guaifenesin (Mucinex) 600 MG TAB.ER.12H 600 MILLIGRAM ORAL TWICE A DAY NEEDED as needed for CHEST CONGESTION Clonazepam (Klonopin 0.5MG) 0.5 MG TABLET 0.5 MILLIGRAM NASOGASTRIC TUBE TWICE A DAY NEEDED as needed for ANXIETY Qty = 20 IPRATROPIUM/ALBUTEROL SULFATE (Iprat-Albut 0.5-3(2.5) MG/3 Ml) 3 ML AMPUL.NEB 3 MILLILITER INHALATION TWICE A DAY IBUPROFEN MICRONIZED (IBUPROFEN 400MG) 400 MG TABLET 400 MILLIGRAM ORAL EVERY 8 HOURS NEEDED as needed for PAIN Acetaminophen (Arthritis Pain Relief) 650 MG TABLET.ER 650 MILLIGRAM ORAL NEEDED; MAY REPEAT X 1 as needed for PAIN HYDROXYZINE HCL (Hydroxyzine HCl) 25 MG TABLET 25 MILLIGRAM ORAL DAILY Qty = 120 Insulin Lispro, Recombinant (Humalog 100 UNITS/ML 10ML) 100 UNIT/ML VIAL 0 UNITS Subcutaneous Injection BEFORE MEALS AND AT BEDTIME Instructions: SLIDING SCALE PER FSBS RESULT DILTIAZEM HCL (Diltiazem 12HR ER) 90 MG CAP.ER.12H 90 MILLIGRAM ORAL TWICE A DAY Prednisone (Prednisone 10MG) 10 MG TABLET 10 MILLIGRAM ORAL DAILY Levetiracetam (Keppra) 1,000 MG TABLET 1,000 MILLIGRAM ORAL AT BEDTIME NIGHTLY MAGNESIUM OXIDE (Magnesium Oxide) 400 MG TABLET 400 MILLIGRAM ORAL DAILY NEEDED as needed for SUPPLEMENT IRBESARTAN (Irbesartan) 150 MG TABLET 150 MILLIGRAM ORAL DAILY Start taking the following new medications: Prednisone (Deltasone) 20 MG TABLET 20 MILLIGRAM FEEDING TUBE DAILY Qty = 6 No Refills Levofloxacin (Levaquin 500MG) 500 MG TABLET 500 MILLIGRAM ORAL DAILY Qty = 5 No Refills Disposition: F/U with: Her PCP Follow up: 7 DAYS Comments, Specifics r/t O2, Equipment, Antibiotics, etc: Reschedule outpt xrays Care Management Consult for: DISCHARGE PLANNING Activity: Cont Current activity Diet: Continue same diet Discharge to: HOME Agency needed? N at 1404
== END 2017-05-11 11:20 | disposition home or self-care (01) | DRG 191 ==
LOC: ER 18:21 → 2ND 20:08 → ER 20:08 → 2ND 20:15
PROVIDERS: Emergency Medicine; Family Medicine
DX: J44.1 Chronic obstructive pulmonary disease with (acute) exacerbation (principal); N17.9 Acute kidney failure, unspecified; I50.9 Heart failure, unspecified; I95.9 Hypotension, unspecified; Z99.81 Dependence on supplemental oxygen; I10 Essential (primary) hypertension; E11.9 Type 2 diabetes mellitus without complications; Z79.4 Long term (current) use of insulin; G40.909 Epilepsy, unspecified, not intractable, without status epilepticus; M25.551 Pain in right hip; R26.2 Difficulty in walking, not elsewhere classified; M41.84 Other forms of scoliosis, thoracic region; E86.1 Hypovolemia
CPT/HCPCS: J0692; J3370

== ENCOUNTER 2017-05-20 19:47 | Emergency (ER) | payer MEDICARE, MEDICAID ==
[~2017-05-20] VITALS: Ht 152.4 cm; Wt 63.5 kg
[~2017-05-20 19:47] MED LIST changes: +DELTASONE20 MG FT
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
[2017-05-20 22:57] LABS: LYMPH # 0.5 K/mm3 (0.7-4.5)
[2017-05-20 23:01] LABS: HEMOGLOBIN 13.2 g/dL (12.2-16.2)
[2017-05-20 23:04] LABS: URINE BILIRUBIN - DIPSTICK NEGATIVE (NEG); URINE BLOOD NEGATIVE (NEG)
[2017-05-20 23:07] LABS: BUN 25 mg/dL (7-18)
[2017-05-20 23:08] LABS: GFR (ESTIMATED) 31 ML/MIN (59-)
[2017-05-20 23:16] LABS: AMPHETAMINES/METAMPHETAMINES NEGATIVE ng/mL (<1000)
[2017-05-21 00:58] LABS: NEUTROPHILS 100 % (42-76)
[2017-05-21] MEDS ORDERED: AUGMENTIN 875-1 EACH PO (01:04)
--- NOTE | 2017-05-21 10:45 | RADIOLOGY REPORT PS360 ---
CHEST-PORTABLE HISTORY: coughcough congestion short of breath found unresponsive Patient Age: 52 years: Female Ordering Physician: Dax Gold MD TECHNIQUE: AP portable upright chest COMPARISON :05/08/2017 CXR & May 07, 2017 portable CXR FINDINGS . Progressive cardiomegaly when compared back to December 2015 exam. No cephalization nor vascular congestion or overt CHF . No pleural effusions Suggestion subtle slight increased markings toward lung bases reflect atelectasis . Question additional focal airspace disease at the medial right base which could reflect early infiltrate. Here. May require follow-up if leukocytosis, respiratory symptoms or fever Multiple old left rib fractures with again noted. IMPRESSION: A slight increased markings toward the lung bases particularly at the medial right lung base. Likely reflects atelectasis. Question possible early airspace disease/infiltrate medial right lung base \ Interval enlargement cardiac silhouette versus previous portable studies.. Cardiomegaly . Consider warrant echocardiogram particularly . No vascular congestion or CHF.
[2017-05-21 12:44] VITALS: BP 141/69
== END 2017-05-21 12:44 | disposition home or self-care (01) ==
LOC: ER 19:47
PROVIDERS: Emergency Medicine
DX: T50.904A Poisoning by unspecified drugs, medicaments and biological substances, undetermined, initial encounter (principal); D72.829 Elevated white blood cell count, unspecified; J20.9 Acute bronchitis, unspecified; N17.9 Acute kidney failure, unspecified; Z87.891 Personal history of nicotine dependence; F41.8 Other specified anxiety disorders; J45.909 Unspecified asthma, uncomplicated; I10 Essential (primary) hypertension; E11.9 Type 2 diabetes mellitus without complications; Z79.4 Long term (current) use of insulin

== ENCOUNTER → 2017-06-09 | Outpatient (CLI) | payer MEDICARE, MEDICAID ==
[~2017-06-09] MED LIST changes: +AUGMENTIN 875-1 EACH PO
--- NOTE | 2017-06-10 12:46 | RADIOLOGY REPORT PS360 ---
MRI-L-SPINE W/O, MRI-3D RENDERING/MYELOGRAM HISTORY: Low back pain with right hip and leg pain and numbness LOW BACK PAIN, HIP PAIN ORDERING PHYSICIAN: ANABEL FONTANEZ PATIENT AGE: 52 years COMPARISON: None TECHNIQUE: Standard multiplanar multiecho sequences are performed without contrast. 3-D MIP and myelographic images are also rendered and reviewed FINDINGS: There is moderate lower thoracic scoliosis convex right measuring 32 degrees and mild lumbar scoliosis convex left measuring 12 degrees. The spinal cord ends at the L2 level. There is a rotary component to the thoracic scoliosis toward the right. There is mild multilevel degenerative disc disease in the lower thoracic spine. Degenerative disc disease is present at T11-T12 and T12-L1. There is mild bulging disc at T11-T12 and there is mild left-sided foraminal narrowing at that level. L1-L2: Minimal bulging disc on the left. L2-L3: Mild concentric bulging disc with mild facet and ligamentum hypertrophy and mild bilateral lateral recess narrowing. L3-L4: Mild concentric bulging disc. L4-L5: There is a right paracentral disc herniation with superior extrusion of the disc causing moderate right lateral recess and severe right foraminal narrowing. There is impingement upon the right L5 nerve root as well as impingement upon the exiting L4 nerve root. L5-S1: Unremarkable. IMPRESSION: 1. Moderate to severe lower thoracic scoliosis and mild lumbar scoliosis with multilevel spondylosis as described above. 2. Medium-sized right paracentral disc herniation with superior extrusion of the disc causing moderate right lateral recess and severe right foraminal narrowing. There is impingement upon the right L5 nerve root as well as impingement upon the exiting L4 nerve root. IMPRESSION:
== END ==
LOC: RAD 13:00
DX: M54.5 Low back pain (principal)